=== PATIENT | female | born 1955 | race Caucasian/White ===

== ENCOUNTER 2017-08-20 11:04 | Emergency (ER) | payer OTHER, SELFPAY ==
[2017-08-20 11:06] VITALS: BP 154/96; PULSE 61; RESP 14; TEMP 36.7; O2SAT 100; BMI 26.9
--- NOTE | 2017-08-20 11:15 | RAD_ITS ---
STUDY: X-RAY - LEFT ANKLE REASON FOR EXAM: Pain status post fall. TECHNIQUE: 3 view(s) of the ankle. COMPARISON: None. FINDINGS: Normal visualized distal tibia and fibula. Normal medial and lateral malleoli. Normal tibiotalar articulation and ankle mortise. Normal visualized talus and calcaneus. There is an avulsion fracture of the dorsal aspect of the navicular. The visualized subtalar, talonavicular, calcaneocuboid and tarsal articulations are normal. There is soft tissue swelling at the lateral and anterior aspects of the ankle. RAD/Ankle min 3 Views IMPRESSION: Avulsion fracture of the dorsal navicular. Soft tissue swelling. Electronically Signed: Sergio Currie MD at 11:59 EDT Tel , Service support ,
--- NOTE | 2017-08-20 11:17 | ED.DCSUM_ITS ---
- ER Visit Summary Date of Service: 08/20/17 Chief Complaint: Left ankle pain History of Present Illness: The patient is a 61 F who tripped over a pulse ox cord here at the hospital and twisted her left ankle. She denies any other injuries. She stood on her ankle but was unable to walk with it. Denies any previous ankle surgeries. She took 4 ibuprofen right after this happened. Physical Examination: Left ankle exam reveals tenderness palpation of the anterior, lateral malleoli. No swelling. She does have painful range of motion. Sensation and pulses are intact Test Results: X-rays reveal knee avulsion fracture of the left navicular bone Emergency Department Course and Treatment: I discussed the case with Dr. Crisostomo. He recommended a walking boot and weightbearing as tolerated. Patient states she will use Motrin at home for pain. She will follow-up with [email or web address] Treatment Plan: [] Disposition: Discharge Impression: Left navicular avulsion fracture This note was generated with [employer] dictation software. It may contain incorrect words, spelling, and punctuation that were not noted in review of the chart prior to signing ED Disposition - Plan for ED Patient: Chief Complaint: Lower Extremity Injury Referrals: Nicholas Irvin MD [Primary Care Provider] -
--- NOTE | 2017-08-20 12:24 | ED.DEP ---
ED Disposition - Plan for ED Patient: Disposition: Home or Assisted Living Chief Complaint: Lower Extremity Injury Instructions: ED Fx Foot Referrals: Nicholas Irvin MD [Primary Care Provider] -
[2017-08-20 12:28] VITALS: BP 163/80; PULSE 60; RESP 14; O2SAT 99
== END 2017-08-20 12:59 | disposition home or self-care (01) ==
PROVIDERS: Emergency Provider Emergency Medicine; Family Provider Family Medicine; PCP Family Medicine
DX: S92.252A Displaced fracture of navicular [scaphoid] of left foot, initial encounter for closed fracture (principal); W22.8XXA Striking against or struck by other objects, initial encounter; Y93.9 Activity, unspecified; Y92.239 Unspecified place in hospital as the place of occurrence of the external cause; Z85.850 Personal history of malignant neoplasm of thyroid; Z83.1 Family history of other infectious and parasitic diseases
CPT/HCPCS: 73610; 99284

== ENCOUNTER → 2017-08-26 08:15 | Outpatient (CLI) | payer OTHER, SELFPAY ==
--- NOTE | 2017-08-26 08:16 | RAD_ITS ---
STUDY: X-RAY - LEFT FOOT CLINICAL: Female, 61 years old. Painful foot over tarsals TECHNIQUE: 3 view(s) of the foot. COMPARISON: Left ankle 08/20/2017 FINDINGS: Normal talus, calcaneus, and tarsal bones. There is a dorsal avulsion injury involving the navicular bone with adjacent soft tissue swelling is seen on the ankle study. There is a nondisplaced fracture of the lateral malleolus with adjacent soft tissue swelling. Normal visualized subtalar, talonavicular, calcaneocuboid, tarsal and tarsometatarsal articulations. Normal metatarsi. Normal metatarsophalangeal joint of the great toe. Normal tibial and fibular sesamoid bones. Normal interphalangeal joint of the great toe. Normal phalanges of the great toe. Normal second through fifth metatarsophalangeal joints. Normal interphalangeal joints and phalanges of the lesser toes. RAD/Foot min 3 Views IMPRESSION: Fracture of the lateral malleolus apex is nondisplaced with adjacent soft tissue swelling possible representing reinjury. Stable avulsion injury involving the navicular bone with adjacent soft tissue swelling. No other displaced fracture or dislocation detected. Electronically Signed: Mary Basilio MD at 3:11 EDT , Service support ,
== END ==
PROVIDERS: Family Provider Family Medicine; PCP Family Medicine; Visit Provider Orthopaedic Surgery
DX: S82.65XA Nondisplaced fracture of lateral malleolus of left fibula, initial encounter for closed fracture (principal); S92.255A Nondisplaced fracture of navicular [scaphoid] of left foot, initial encounter for closed fracture; S90.32XA Contusion of left foot, initial encounter; X58.XXXA Exposure to other specified factors, initial encounter
CPT/HCPCS: 73630

== ENCOUNTER → 2017-09-22 08:14 | Outpatient (CLI) | payer OTHER, SELFPAY ==
--- NOTE | 2017-09-22 08:19 | RAD_ITS ---
STUDY: X-RAY - LEFT FOOT CLINICAL: Female, 61 years old. Foot pain. TECHNIQUE: 2 view(s) of the foot. COMPARISON: None. FINDINGS: Normal talus, calcaneus, and tarsal bones. Normal visualized subtalar, talonavicular, calcaneocuboid, tarsal and tarsometatarsal articulations. Normal metatarsi. Normal metatarsophalangeal joint of the great toe. Normal tibial and fibular sesamoid bones. Normal interphalangeal joint of the great toe. Normal phalanges of the great toe. Normal second through fifth metatarsophalangeal joints. Normal interphalangeal joints and phalanges of the lesser toes. The soft tissue structures are unremarkable. RAD/Foot 2 Views IMPRESSION: Normal x-ray examination of the foot. Electronically Signed: Dash Rodriguez MD at 9:21 EDT Tel [phone], Service support ,
== END ==
PROVIDERS: Family Provider Family Medicine; PCP Family Medicine; Visit Provider Orthopaedic Surgery
DX: M79.672 Pain in left foot (principal)
CPT/HCPCS: 73620

== ENCOUNTER → 2017-11-24 08:04 | Outpatient (CLI) | payer OTHER, SELFPAY ==
[2017-11-24 09:56] LABS: T4 Free Direct 1.24 ng/dL (0.76-1.46)
[2017-11-25 09:02] LABS: Vitamin D,25 Hydroxy 32.4 ng/mL (29.95-100.01)
[2017-11-26 09:54] LABS: Anti-Thyroglobulin AB < 1.0 IU/mL (0.0-0.9); Thyroglobulin, Serum Qt. 3.2 ng/mL (1.5-38.5)
== END ==
PROVIDERS: Family Provider Family Medicine; PCP Family Medicine
DX: Z00.00 Encounter for general adult medical examination without abnormal findings (principal); C73 Malignant neoplasm of thyroid gland; E55.9 Vitamin D deficiency, unspecified
CPT/HCPCS: 36415; 82306; 84432; 84436; 84439; 86800

== ENCOUNTER → 2017-12-16 08:28 | Outpatient (CLI) | payer OTHER, SELFPAY | PROVIDERS: Family Provider Family Medicine; PCP Family Medicine; Visit Provider Family Medicine | DX: E89.0 Postprocedural hypothyroidism (principal); E55.9 Vitamin D deficiency, unspecified | CPT/HCPCS: 77080 ==

== ENCOUNTER → 2017-12-16 09:09 | Outpatient (CLI) | payer OTHER, SELFPAY ==
[2017-12-16 10:48] LABS: Thyroid Stim Hormone (TSH) 0.49 uIU/mL (0.358-3.74)
== END ==
PROVIDERS: Family Provider Family Medicine; PCP Family Medicine; Visit Provider Family Medicine
DX: E89.0 Postprocedural hypothyroidism (principal)
CPT/HCPCS: 36415; 84443

== ENCOUNTER → 2018-02-03 07:25 | Outpatient (CLI) | payer OTHER, SELFPAY ==
[2018-02-03 08:27] LABS: Absolute Lymphocyte Count 1.15 X10^3/ul (0.83-4.51); Absolute Neutrophil Count 3.2 X10^3/uL (2.0-7.7); Basophil# 0.03 X10^3/uL; Basophil% 0.6 % (0-1); Eosinophil# 0.28 X10^3/uL; Eosinophils% 5.5 % (0-5); Hematocrit 39.3 % (37-47); Hemoglobin 13.1 g/dl (12.0-15.0); Lymphocyte # 1.15 X10^3/ul (4.0); Lymphocyte % 22.5 % (19-41); Mean Corp Hgb Conc 33.3 g/gl (32-36); Mean Corpuscular Volume 89.9 fL (81-99); Mean Platelet Vol. 10.5 fl (6.2-12.0); Monocyte# 0.39 X10^3/uL; Monocyte% 7.6 % (0-10); Neutrophil # 3.24 X10^3/uL (2.7-7.7); Neutrophil % 63.6 % (47-70); Platelet Count 219 K/mm3 (150-450); RBC Distribution Width CV 13.6 % (11.6-14.6); RBC Distribution Width SD 44.6 fl (35.1-43.9); Red Blood Count 4.37 M/mm3 (4.2-5.4); White Blood Count 5.1 K/mm3 (4.4-11.0)
[2018-02-03 08:29] LABS: POSITIVE COUNT NO; POSITIVE DIFFERENTIAL NO; POSITIVE MORPHOLOGY NO
[2018-02-03 08:58] LABS: Vitamin D,25 Hydroxy 22.4 ng/mL (29.95-100.01)
[2018-02-03 09:01] LABS: ALB/GLOB Ratio 1.1 RATIO (0.9-2.4); AST(SGOT) 14 U/L (15-37); Alanine Aminotransfer ALT/SGPT 25 U/L (13-56); Albumin, Serum 3.7 g/dL (3.2-5.0); Alkaline Phosphatase 101 U/L (45-117); Anion Gap 9 (5-15); BUN 17 mg/dL (7-18); BUN/Creat Ratio 18.7 RATIO (10-20); Calcium,Total 8.6 mg/dL (8.5-10.1); Chloride 106 mmol/L (98-107); Cholesterol 191 mg/dL (200); Creatinine, Serum 0.91 mg/dL (0.55-1.02); EST Glomerular Filtration Rate 67 mL/min (>60); Est Glom Filt Rate - Afr Amer 81 mL/min (>60); Globulin 3.3 g/dL (2.2-4.2); Glucose 87 mg/dL (74-106); High Density Lipoprotein 70 mg/dL; Potassium 4.2 mmol/L (3.5-5.1); Sodium Level 143 mmol/L (136-145); T3 Uptake 34 % (30-39); T4 Free Direct 1.22 ng/dL (0.76-1.46); T4 Total, Thyroxin 11.3 ug/dL (4.8-13.9); T7 / Free Thyroxin Index 3.8 (1.4-4.5); Thyroid Stim Hormone (TSH) 0.42 uIU/mL (0.358-3.74); Triglycerides 65 mg/dL; Very Low Density Lipoprotein 13 mg/dL (5-40)
[2018-02-05 12:42] LABS: Anti-Thyroglobulin AB < 1.0 IU/mL (0.0-0.9); Thyroglobulin, Serum Qt. 4.3 ng/mL (1.5-38.5)
== END ==
PROVIDERS: Family Provider Family Medicine; PCP Family Medicine; Referring Provider Family Medicine; Visit Provider Family Medicine
DX: Z00.00 Encounter for general adult medical examination without abnormal findings (principal); C73 Malignant neoplasm of thyroid gland; R61 Generalized hyperhidrosis
CPT/HCPCS: 36415; 80053; 80061; 82306; 82533; 84432; 84436; 84439; 84443; 84479; 85025; 86800

== ENCOUNTER → 2018-03-29 11:13 | Outpatient (CLI) | payer OTHER, SELFPAY ==
[2017-11-26 17:02] VITALS: BMI 26.9
[2018-04-05 15:54] LABS: HPV Reflexed? NOT INDICATED
== END ==
PROVIDERS: Visit Provider Obstetrics & Gynecology
DX: Z12.4 Encounter for screening for malignant neoplasm of cervix (principal)
CPT/HCPCS: 88175; G0145

== ENCOUNTER 2018-05-06 15:45 | Outpatient (RCR) | payer OTHER, SELFPAY ==
--- NOTE | 2017-07-29 12:17 | MASS.EVAL ---
Massage Therapy Evaluation: Initial Evaluation Date: 07/29/2017 SUBJECTIVE: Nia is a 61 year old female who was referred to the [facility] facility for a massotherapy evaluation by Dr. Nicholas Irvin with the diagnosis of low back pain. Nia presents today with the symptoms of low back pain and muscle tension in her low back and hips. She also complains of tension and pain in her neck shoulders and middle back. She reports having a medical history of a right total knee replacement and occasional radiating pain in her legs. She reports having minimal limitations during her daily activities currently. OBJECTIVE: Upon observation Nia has poor posture with her head forward and shoulders forward from the neutral position in sitting and standing. After examination and palpation I found Nia to have very high muscle tension with tenderness and myofascial restrictions in her sub occipitals, trapezius, rhomboids, scalenes and thoracic paraspinals. Her hips and lumbar region were also tight with tender points bilaterally. The first treatment consisted of a one hour massage to her full body with myofascial release, muscle stripping, trigger point compression techniques, and cervical manual traction. ASSESSMENT: I feel that Nia is a good candidate for massotherapy at this time. She had a favorable response to the first treatment with reduction in her muscle aches, pain and tension. She also had improvement in her lumbar and hip flexibility. PLAN: The plan of care was reviewed with the patient. The patient is to be seen on as needed basis for a total of ten sessions with the recommendation of once every four weeks for a one hour treatment.
--- NOTE | 2017-10-14 09:30 | DT_ITS ---
This patient was seen during an EMR downtime October 12, 2017 - October 19, 2017. This patient may have a combination of paper and electronic documentation or all paper documentation. All documentation is viewable within the e-chart portion of [employer] for each patient visit.
--- NOTE | 2018-05-06 16:59 | MASS.DISCH ---
Massage Therapy Discharge Summary: Discharge Date: 05/06/2018 Nia was seen for a massotherapy evaluation on 07/29/2017 with the diagnosis of low back pain. She was treated with ten sessions of massage therapy consisting of deep pressure soft tissue techniques, myofascial release and trigger point compression to her cervical, thoracic, lower back, upper extremities and hips. Nia responded well to the therapy by reporting decreased tension and pain throughout her head, neck, shoulders, lower back and hips. Her goals for therapy were met throughout the treatment sessions. At this time this patient is being discharged from our care at [facility] facility.
== END 2018-05-06 19:00 | disposition home or self-care (01) ==
LOC: MASS 15:45
PROVIDERS: Family Provider Family Medicine; PCP Family Medicine; Visit Provider Family Medicine
DX: M51.36 Other intervertebral disc degeneration, lumbar region (principal)
CPT/HCPCS: 97124

== ENCOUNTER → 2018-05-21 13:02 | Outpatient (CLI) | payer OTHER, SELFPAY ==
[2018-04-20 11:30] VITALS: BMI 26.9
== END ==
PROVIDERS: Family Provider Family Medicine; PCP Family Medicine; Referring Provider Family Medicine; Visit Provider Family Medicine
DX: E55.9 Vitamin D deficiency, unspecified (principal)
CPT/HCPCS: 36415; 82306

== ENCOUNTER → 2018-06-02 12:12 | Outpatient (CLI) | payer OTHER, SELFPAY ==
[2018-04-20 11:30] VITALS: BMI 26.9
--- NOTE | 2018-06-02 12:18 | BI_ITS ---
MAMMOGRAPHY - BILATERAL SCREENING REASON FOR EXAM: Female, 62 years old. Routine annual screening examination. PERTINENT HISTORY: Non-contributory. TECHNIQUE: Digital bilateral breast hamida (3D mammographic acquisition) in the CC and MLO projections. 2-D mediolateral oblique (MLO) and craniocaudad (CC) views of both breasts were obtained. CAD: Full Field Digital Mammography with Computer Added Detection was performed. COMPARISON: Comparison is made with prior study dated April 22, 2017 and March 11, 2016. FINDINGS: Breast Composition: There are scattered areas of fibroglandular density. There are no dominant masses or suspicious calcifications. No other significant abnormalities are identified. There has been no significant change since the prior study. BI/SCREENING MAMM (CAD), BILAT IMPRESSION: Stable bilateral screening mammogram. Yearly follow-up mammogram recommended. (A) ASSESSMENT CATEGORY: BIRADS Category 1: Negative. A letter regarding these results will be sent to the patient by the facility within 30 days. Approximately 10% of breast cancers are not detected by mammography. A normal mammogram should not delay biopsy of a clinically suspicious abnormality. [id number] Electronically Signed: Dash Rodriguez MD at 13:15 EST , Service support ,
--- OUTSIDE RECORDS SUMMARY | 2018-08-04 10:30 | XMS RPT_ITS ---
:1955 Author Organization [place] Support Name Relationship Address Phone FRITZ JADE Unavailable [address] + [place] [address] CHAO MEZA Unavailable [address] + [place] [address] WC Unavailable [address] + [place] [address] FRITZ JADE Unavailable [address] + [place] [address] CHAO MEZA Unavailable [address] + [place] [address] WC Unavailable [address] + [place] [address] FRITZ JADE Unavailable [address] + [place] [address] CHAO MEZA Unavailable [address] + [place] [address] [facility] Unavailable [address] + [place] [address] YASMANY FRITZ Unavailable [address] + [place] [address] CHAO MEZA Unavailable [address] + [place] [address] [facility] Unavailable [address] + [place] [address] ALONMELODY FRITZ Unavailable [address] + [place] [address] CHAO MEZA Unavailable [address] + [place] [address] [facility] Unavailable [address] + [place] [address] FRITZ JADE Unavailable [address] + [place] [address] CHAO MEZA Unavailable Unavailable + [place] [address] [facility] Unavailable [address] + [place] [address] FRITZ JADE Unavailable [address] + [place] [address] CHAO MEZA Unavailable Unavailable + [place] [address] [facility] Unavailable [address] + [place] [address] FRITZ JADE Unavailable [address] + [place] [address] CHAO MEZA Unavailable Unavailable + [place] [address] [facility] Unavailable [address] + [place] [address] FRITZ JADE Unavailable [address] + [place] [address] CHAO MEZA Unavailable [address] + [place] [address] [facility] Unavailable [address] + [place] [address] FRITZ JADE Unavailable [address] + [place] [address] CHAO MEZA Unavailable [address] + [place] [address] [facility] Unavailable [address] + [place] [address] FRITZ JADE Unavailable [address] + [place] [address] CHAO MEZA Unavailable Unavailable + [place] [address] [facility] Unavailable [address] + [place] [address] ALYTeodoro FRITZ Unavailable [address] + [place] [address] CHAO MEZA Unavailable . + [place] [address] [facility] Unavailable [address] + [place] [address] FRITZ JADE Unavailable [address] + [place] [address] CHAO MEZA Unavailable . + [place] [address] [facility] Unavailable [address] + [place] [address] FRITZ JADE Unavailable [address] + [place] [address] CHAO MEZA Unavailable . + [place] [address] [facility] Unavailable [address] + [place] [address] FRITZ JADE Unavailable [address] + [place] [address] SUSANA, CHAO Unavailable . + [place] [address] [facility] Unavailable [address] + [place] [address] FRITZ JADE Unavailable [address] + [place] [address] CHAO MEZA Unavailable . + [place] [address] [facility] Unavailable [address] + [place] [address] ALYIFRITZ Unavailable [address] + [place] [address] CHAO MEZA Unavailable . + [place] [address] [facility] Unavailable [address] + [place] [address] KAPEARLI, FRITZ Unavailable [address] + [place] [address] SUSANA CHAO Unavailable . + [place] [address] [facility] Unavailable [address] + [place] [address] FRITZ JADE Unavailable [address] + [place] [address] CHAO MEZA Unavailable . + [place] [address] [facility] Unavailable [address] + [place] [address] Care Team Providers Name Role Phone JAIRON IRVIN Attending Unavailable JAIRON IRVIN Referring Unavailable BRANDEE, JAIRON Zhou Attending Unavailable Magdiel Cheek Attending Unavailable Brandee, Jairon Referring Unavailable Goldfield, Jairon Attending Unavailable Brandee, Jairon Primary Care Unavailable Goldfield, Jairon Referring Unavailable BenekoCarlie talbot Attending Unavailable Carlie Silvestre Referring Unavailable Brandee, Jairon Primary Care Unavailable Brandee, Jairon Attending Unavailable Goldfield, Jairon Primary Care Unavailable Goldfield, Jairon Referring Unavailable DossiMelvi villegas D.C. Attending Unavailable Goldfield, Jairon Referring Unavailable Brandee, Jairon Primary Care Unavailable DosMelvi castaneda D.C. Attending Unavailable Goldfield, Jairon Referring Unavailable Goldfield, Jairon Primary Care Unavailable Melvi Gill D.C. Attending Unavailable Brandee, Jairon Referring Unavailable Brandee, Jairon Primary Care Unavailable Todd Washington Attending Unavailable Knapjayashree, Davidson Attending Unavailable Goldfield, Jairon Primary Care Unavailable Knapjayashree, Davidson Attending Unavailable Knapjayashree, Davidson Referring Unavailable Goldfield, Jairon Primary Care Unavailable Knapjayashree, Davidson Attending Unavailable Knapic, Davidson Referring Unavailable Goldfield, Jairon Primary Care Unavailable Goldfield, Jairon Attending Unavailable Brandee, Jairon Primary Care Unavailable Brandee, Jairon Referring Unavailable ASSESSMENT, HEALTH RISK Attending Unavailable ASSESSMENT, HEALTH RISK Referring Unavailable Goldfield, Jairon Primary Care Unavailable Chun Ochoa Attending Unavailable Brandee, Jairon Referring Unavailable Goldfield, Jairon Primary Care Unavailable Goldfield, Jairon Attending Unavailable Goldfield, Jairon Primary Care Unavailable Goldfield, Jairon Referring Unavailable Goldfield, Jairon Attending Unavailable Goldfield, Jairon Primary Care Unavailable Brandee, Jairon Attending Unavailable Brandee, Jairon Primary Care Unavailable Goldfield, Jairon Referring Unavailable BenekoCarlie talbot Attending Unavailable Goldfield, Jairon Attending Unavailable Goldfield, Jairon Referring Unavailable Goldfield, Jairon Primary Care Unavailable PROBLEMS PROBLEMS DATE TYPE CONDITION / CODE ATTENDING STATUS SOURCE 05/07/2018 Unknown M51.36 - Other Jairon Irvin Active [place] intervertebral disc Community degeneration, lumbar Hospital region / Repository M51.36(ICD-10) 04/20/2018 Unknown L25.9 - Unspecified Magdiel Cheek Active [place] contact dermatitis, Community unspecified cause / Hospital L25.9(ICD-10) Repository 03/29/2018 Unknown Z12.4 - Encounter Carlie Silvestre Active [place] for screening for Community malignant neoplasm [facility] cervix / Repository Z12.4(ICD-10) 12/16/2017 Unknown E89.0 - Jairon Irvin Active [place] Postprocedural Community hypothyroidism / Hospital E89.0(ICD-10) Repository 12/16/2017 Unknown E55.9 - Vitamin D Jairon Irvin Active [place] deficiency, Community unspecified / Hospital E55.9(ICD-10) Repository 12/02/2017 Active Unknown / JAIRON IRVIN Active [place] UNK(Unknown) [facility] [place] Repository 09/22/2017 Unknown M79.672 - Pain in Knapic, Davidson Active [place] left foot / Community M79.672(ICD-10) Hospital Repository 08/04/2017 Unknown M99.05 - Segmental Dossie, Melvi Active [place] and somatic D.C. Community dysfunction of Hospital pelvic region / Repository M99.05(ICD-10) 08/04/2017 Unknown M99.03 - Segmental Dossie, Melvi Active [place] and somatic D.C. [facility] dysfunction [facility] lumbar region / Repository M99.03(ICD-10) PROCEDURES PROCEDURES No Procedure Records FoundRESULTS RESULTS MASSAGE THERAPY Observed: 06/02/2018 Status: F Source: [place] EVALUATION 12:36 PM [facility] REPOSITORY [facility] [address] [place] [address] / REHABILITATION SERVICES INITIAL EVALUATION MR#: [id number] Acct: [id number] Name: NIA JADE Rep #: [id number] : 1955 62 From: Janice Carlson Referring DrAngela: Jairon Irvin MD Status: REG RCR Insurance: [facility] SELF PAY INSURANCE Massage Therapy Evaluation: Initial Evaluation Date: 06/02/2018 SUBJECTIVE: Nia is a 62 year old female who was referred to the [facility] facility for a massotherapy evaluation by Dr. Irvin with the diagnosis of degenerative disc disease. Nia presents today with the symptoms of tension and pain in her neck and shoulders. She also complains of neck and back stiffness with pain intermittently in her low back and bilateral hip tension. Nia reports having a past medical history of cancer in her neck and a total right knee replacement. She complains of increased pain in right knee recently and muscle cramping in bilateral hamstrings. She reports having improved symptoms with continuation of exercise and stretching. OBJECTIVE: Upon observation Nia has slight head forward in sitting and standing postures. After examination and palpation I found Nia to have high muscle tension with tenderness and myofascial restrictions in her sub occipitals, levator scapulae, trapezius, rhomboids, scalenes, and thoracic paraspinals. Her QL s, lumbar paraspinals, glute medius and minimus all were very tight with fascial restrictions, tender points and trigger points. Her right quads and IT band all were very tight as well. The first treatment consisted of a one hour massage to her full body with myofascial release, muscle stripping, trigger point compression techniques, and cervical manual traction. ASSESSMENT: I feel that Nia is a good candidate for massotherapy at this time. She had a favorable response to the first treatment with reduction in her muscle aches, pain and tension. She also had improvement in her cervical flexibility and low back flexibility. PLAN: The plan of care was reviewed with the patient. The patient is to be seen on an as needed basis for a total of ten sessions with the recommendation of once every month for a one hour treatment. <Electronically signed by Janice Carlson > 06/02/18 1236 CC: Jairon Irvin MD KM Signed SCREENING MAMM (CAD), Observed: 06/02/2018 Status: F Source: [place] YONATANRANDY 12:18 PM [facility] REPOSITORY [facility] Imaging Services [address] [place] [address] SCREENING MAMM (CAD), BILAT MR#: [id number] Acct: [id number] Name: NIA JADE Rep #: [id number] : 1955 F 62 From: Dash Rodriguez MD PCP: Jairon Irvin MD Status: REG CLI Study: SCREENING MAMM (CAD), BILAT Date of Exam: 06/02/18 Exam# [id number] Ordering Dr: Carlie Silvestre MD MAMMOGRAPHY - BILATERAL SCREENING REASON FOR EXAM: Female, 62 years old. Routine annual screening examination. PERTINENT HISTORY: Non-contributory. TECHNIQUE: Digital bilateral breast hamida (3D mammographic acquisition) in the CC and MLO projections. 2-D mediolateral oblique (MLO) and craniocaudad (CC) views of both breasts were obtained. CAD: Full Field Digital Mammography with Computer Added Detection was performed. COMPARISON: Comparison is made with prior study dated April 22, 2017 and March 11, 2016. FINDINGS: Breast Composition: There are scattered areas of fibroglandular density. There are no dominant masses or suspicious calcifications. No other significant abnormalities are identified. There has been no significant change since the prior study. BI/SCREENING MAMM (CAD), BILAT IMPRESSION: Stable bilateral screening mammogram. Yearly follow-up mammogram recommended. (A) ASSESSMENT CATEGORY: BIRADS Category 1: Negative. A letter regarding these results will be sent to the patient by the facility within 30 days. Approximately 10% of breast cancers are not detected by mammography. A normal mammogram should not delay biopsy of a clinically suspicious abnormality. [id number] Electronically Signed: Dash Rodriguez MD at 13:15 EST , Service support , CC: Carlie Silvestre MD; Jairon Irvin MD Foundation Relations Director: Signed VITAMIN D,25 HYDROXY Collected: 05/21/2018 Status: F Source: [place] 1:09 PM [facility] REPOSITORY TYPE CODE TESTS RESULT OUT OF RANGE REFERENCE UNITS LAB L506.1000 29.95-100.01 ng/mL Normal Vitamin D 61.0 25-OH Result Comment: Vitamin D 25(OH) Status Range Deficiency <20 ng/mL (50nmol/L) Insuffciency 20 - 30 ng/mL (50 - 75 nmol/L) Sufficiency 30 - 100 ng/mL (75 - 250 nmol/L) Toxicity >100 ng/mL (>250 nmol/L) Performed By: #### L506.1000 #### [facility] [address] [place], [address] DISCHARGE SUMMARY Observed: 05/06/2018 Status: F Source: [place] 5:00 PM [facility] REPOSITORY [facility] Medical Records Department [address] [place] [address] Discharge Summary 05/06/18 1659 MR#: [id number] Acct: [id number] Name: NIA JADE Rep #: [id number] : 1955 62 From: Janice Carlson PCP: Jairon Irvin MD Status: REG RCR Y Location: [facility] Massage Therapy Discharge Summary: Discharge Date: 05/06/2018 Nia was seen for a massotherapy evaluation on 07/29/2017 with the diagnosis of low back pain. She was treated with ten sessions of massage therapy consisting of deep pressure soft tissue techniques, myofascial release and trigger point compression to her cervical, thoracic, lower back, upper extremities and hips. Nia responded well to the therapy by reporting decreased tension and pain throughout her head, neck, shoulders, lower back and hips. Her goals for therapy were met throughout the treatment sessions. At this time this patient is being discharged from our care at [facility] facility. 05/06/18 5080 <Electronically signed by Janice Carlson > Date Janice Carlson Cosigner Signature (if applicable): Date CC: Janice Carlson; Jairon Irvin MD Signed URGENT CARE VISIT Observed: 04/23/2018 Status: F Source: [place] REPORT 6:00 PM [facility] REPOSITORY [facility] [address] [place] [address] [address] [place] [address] OFFICE VISIT Date of Service: 04/20/18 MR#: [id number] Acct: [id number] Name: NIA JADE Rep #: [id number] : 1955 Provider: Magdiel LIN Age/Sex: 62/F Location: [facility] Status: Signed Intake Vital Signs04/20/18 Height 5 ft 4 in 04/20/18 Weight: 157 lb 04/20/18 Body Mass Index (BMI) 26.9 04/20/18 Blood Pressure 116/78 Intake Visit Reasons: FACE SWOLLEN/ALLERGIC REACTION Chief Complaint: eye swelling Accompanied by: self Is patient in pain?: No Allergies morphine [From Duramorph (PF)] Adverse Reaction (Verified 04/20/18 11:31) Itching Medications Levothyroxine [Synthroid] 112 mcg PO QHS 05/19/16 [History Confirmed 11/26/17] calcium carbonate-vitamin D3 600 mg (1,500 mg)-400 unit capsule cap PO cap 04/20/18 [History Confirmed 04/20/18] cholecalciferol (vitamin D3) 50,000 unit tablet 50,000 unit PO QWEEK 04/20/18 [History Confirmed 04/20/18] prednisone 10 mg tablet 10 mg PO QDAY 12 Days #30 tab 04/20/18 [Rx Confirmed 04/20/18] PFS Medical History Hepatitis (Acute) History of thyroid cancer (Acute) RTK 2016 (Acute) history of modified rad neck 2011 (Acute) Chronic knee pain (Chronic) Surgical History History of D AND C (Acute) History of carpal tunnel surgery (Acute) Family History Other Diabetes Heart disease Hypertension Social History Smoking Status: Never smoker alcohol intake: current alcohol intake frequency: a few times a month HPI HPI Chief Complaint: eye swelling Details: INA JADE, is a 62 F who presents to the office today for complaint of lower eye lid swelling. Patient states she had a similar symptoms like this approximately 3 months ago which resolved with a Medrol Dosepak. She states that she has had the same eye makeup as her last episode and believes that it may have been caused by this makeup. She denies any vision changes or difficulties. No fever, chills, sweats. No nausea, vomiting, diarrhea. No other associated symptoms or alleviating/aggravating factors. ROS Const Constitutional: No chills, fever(s), fatigue or abnormal sleep pattern Eyes Eyes: Positive for other (Lower eyelid swelling); no change in vision, discharge or dry eyes Resp Respiratory: No shortness of breath or chest congestion Cardio Cardiology: No chest pain at rest, chest pain with exertion or shortness of breath Skin Skin: No wounds or lesions Neuro Neurology: No behavioral changes or confusion Psych Psychiatric: No behavioral changes, No confusion, No abnormal sleep pattern Endo Endocrine: No fatigue Exam Const General: cooperative, healthy appearing [facility] Head: normocephalic, atraumatic Ears: hearing grossly normal bilaterally Nose: external nose normal Face and sinus: face symmetric, normal facial exam Mouth: oral mucosae normal Throat: posterior oropharynx normal Eyes General: appearance normal, both eyes and all related structures Visual Kenney: normal visual kenney by confrontation Eyelids: eyelid abnormality left lower eyelid swelling and right lower eyelid swelling Conjunctivae: conjunctivae normal Pupils: PERRL EOM: EOM intact bilaterally Resp Effort AND Inspection: normal respiratory effort Auscultation: Bilateral: Clear to Auscultation Cardio Palpation: normal PMI Rate: regular rate Rhythm: regular rhythm Skin General: no rashes or lesions noted (See eye exam above.) Neuro General: alert, CN's II-XI intact bilaterally Psych Appearance: grossly normal Mental Status: mental status grossly normal Assessment AND Plan Problems 1. Allergic reaction, initial encounter T78.40XA Status Acute Plan Prednisone as prescribed today. Patient advised use ibuprofen and Tylenol as needed for pain. Advised to follow-up with her PCP or customer support professional in 3- 5 days if no better sooner if worse. Patient advised of potential red flags and when appropriate to report to the ED. Patient verbalized understanding and agreement with all the above. Medications New: prednisone Take 4 tabs once daily days 1-3 3 ta10 mg PO QDAY 12 days 30 tabs 0RF L25.9 bs once daily days 4-6 2 tabs once daily days 7-9 and 1 tab once daily days 10-12. 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 of containers..01 ThinPrep Vial TYPE CODE TESTS RESULT OUT OF RANGE REFERENCE UNITS LAB L7400.0800 . Normal DIAGN Comment Result Comment: NEGATIVE FOR INTRAEPITHELIAL LESION AND MALIGNANCY. CELLULAR CHANGES ASSOCIATED WITH ATROPHY ARE PRESENT. LAB L7400.0900 . Normal ADEQ Comment Result Comment: Satisfactory for evaluation. Endocervical component may not be distinguished in cases of atrophy. LAB L7400.1400 . Normal PERFORM Comment Result Comment: Meghana Yu, Midlevel Provider (ASCP) LAB L7400.2575 . Normal TEST METHOD Comment Result Comment: This liquid based ThinPrep(R) pap test was screened with the use of an image guided system. LAB L7400.2600 . Normal . COMM LAB L7400.2700 . Normal PAPSMR Comment Result Comment: The Pap smear is a screening test designed to aid in the detection of premalignant and malignant conditions of the uterine cervix. It is not a diagnostic procedure and should not be used as the sole means of detecting cervical cancer. Both false-positive and false-negative reports do occur. LAB L7400.2800 . Normal HPV RFLX Comment Result Comment: The HPV DNA reflex criteria were not met with this specimen result therefore, no HPV testing was performed. Performed at: [facility] [address] [place] [id number] Assistant Professor Sculpture: Alee Smith MD, Phone: [phone] Performed By: #### L7400.0350 #### [facility] (refer to report for specific site) refer to report for address and phone number CBC W/DIFF, AUTOMATED Collected: 02/03/2018 Status: F Source: [place] 7:30 AM [facility] REPOSITORY TYPE CODE TESTS RESULT OUT OF RANGE REFERENCE UNITS LAB L100.1000 4.4-11.0 K/mm3 Normal WBC 5.1 LAB L100.1200 4.2-5.4 M/mm3 Normal RBC 4.37 LAB L100.1300 12.0-15.0 g/dl Normal HGB 13.1 LAB L100.1400 37-47 % Normal HCT 39.3 LAB L100.1500 81-99 fL Normal MCV 89.9 LAB L100.1600 27.0-32.0 pg Normal MCH 30.0 LAB L100.1700 32-36 g/gl Normal MCHC 33.3 LAB L100.1810 11.6-14.6 % Normal RDW CV 13.6 LAB L100.1820 35.1-43.9 fl High RDW SD 44.6 LAB L100.1900 150-450 K/mm3 Normal PLT 219 LAB L100.2000 6.2-12.0 fl Normal MPV 10.5 LAB L100.2100 47-70 % Normal NEUT% 63.6 LAB L100.2200 19-41 % Normal LY% 22.5 LAB L100.2300 0-10 % Normal MONO% 7.6 LAB L100.2400 0-5 % High EO% 5.5 LAB L100.2500 0-1 % Normal BASO% 0.6 LAB L100.2550 0.0-0.9 % Normal IM GRAN % 0.200 Result Comment: IG% - Immature Granulocytes (promyelocytes, myelocytes and metamyelocytes) > 1% indicates that a LEFT SHIFT is Present. LAB L100.2620 2.0-7.7 X10 3/uL Normal Absolute Neut 3.2 LAB L100.2720 0.83-4.51 X10 3/ul Normal Absolute Lymph 1.15 Performed By: #### L100.0100 #### [facility] [address] [place], [address] VITAMIN D,25 HYDROXY Collected: 02/03/2018 Status: F Source: [place] 7:30 AM [facility] REPOSITORY Order Comment: BASELINE OR POST MEDICATION STIMULATION?: BASELINE TYPE CODE TESTS RESULT OUT OF REFERENCE UNITS RANGE LAB L506.1000 29.95-100.01 ng/mL Low Vitamin D 22.4 25-OH Result Comment: Vitamin D 25(OH) Status Range Deficiency <20 ng/mL (50nmol/L) Insuffciency 20 - 30 ng/mL (50 - 75 nmol/L) Sufficiency 30 - 100 ng/mL (75 - 250 nmol/L) Toxicity >100 ng/mL (>250 nmol/L) Performed By: #### L506.1000, L509.6000 #### [facility] [address] [place], [address] CORTISOL SERUM Collected: 02/03/2018 Status: F Source: [place] 7:30 AM [facility] REPOSITORY Order Comment: BASELINE OR POST MEDICATION STIMULATION?: BASELINE TYPE CODE TESTS RESULT OUT OF RANGE REFERENCE UNITS LAB L509.6000 3.09-22.40 ug/dL Normal CORTISOL 11.10 Result Comment: Adult (AM) 4.30 - 22.40 ug/dL Adult (PM) 3.09 - 16.66 ug/dL Performed By: #### L506.1000, L509.6000 #### [facility] [address] [place], [address] COMPREHENSIVE METABOLIC Collected: 02/03/2018 Status: F [facility] 7:30 AM [facility] REPOSITORY Order Comment: Has Patient had X-rays with Contrast this admission? N Is Patient on Heparin? N TYPE CODE TESTS RESULT OUT OF RANGE REFERENCE UNITS LAB L501.0100 74-106 mg/dL Normal GLU 87 Result Comment: Please note revised GLUCOSE reference range effective 2017. LAB L501.1000 7-18 mg/dL Normal BUN 17 LAB L501.1100 0.55-1.02 mg/dL Normal CREAT,SERUM 0.91 Result Comment: The validity of the calculated GFR AND GFRAA in patients over 70 years has not been determined. Clinical correlation is essential. LAB L501.1110 >60 mL/min Normal EST GFR 67 Result Comment: Non- GFR Calc LAB L501.1115 >60 mL/min Normal EST GFR - AA 81 Result Comment: GFR Calc LAB L501.1300 10-20 RATIO Normal BUN/CRE 18.7 LAB L501.1500 6.4-8.2 g/dL T Normal PROT 7.0 LAB L501.1800 3.2-5.0 g/dL Normal ALB 3.7 LAB L501.1950 2.2-4.2 g/dL Normal GLOB 3.3 LAB L501.2000 0.9-2.4 RATIO Normal A/G 1.1 LAB L501.2200 8.5-10.1 mg/dL CA Normal 8.6 LAB L501.4100 15-37 U/L Low AST 14 LAB L501.4305 45-117 U/L Normal ALK P 101 LAB L501.4405 13-56 U/L Normal ALT 25 LAB L501.4600 0.20-1.00 mg/dL T Normal BILI 0.60 LAB L501.5300 136-145 mmol/L NA Normal 143 LAB L501.5600 3.5-5.1 mmol/L K Normal 4.2 LAB L501.5900 98-107 mmol/L CL Normal 106 LAB L501.6100 21.0-32.0 mmol/L Normal CO2 28.0 LAB L501.6200 5-15 Normal GAP 9 Performed By: #### L500.4050, L500.4100, L501.9195, L501.9310, L501.9520, L506.0400 #### [facility] [address] [place], [place], [address] LIPID PROFILE Collected: 02/03/2018 Status: F Source: [place] 7:30 AM [facility] REPOSITORY Order Comment: Has Patient had X-rays with Contrast this admission? N Is Patient on Heparin? N TYPE CODE TESTS RESULT OUT OF RANGE REFERENCE UNITS LAB L501.4900 200 mg/dL Normal CHOL 191 Result Comment: <200 mg/dL Desirable 200-240 mg/dL Borderline >240 mg/dL High Risk LAB L501.5000 mg/dL Normal TRIG 65 Result Comment: The drugs N-Acetylcysteine and Metamizole may falsely depress this assay. Serum Triglycerides Reference Interval Normal <150 mg/dL Borderline high 150 - 199 mg/dL High 200 - 499 mg/dL Very High > or = 500 mg/dL LAB L501.6400 mg/dL Normal HDL 70 Result Comment: The drugs N-Acetylcysteine and Metamizole may falsely depress this assay. Reference Range HDL <40 mg/dL Low HDL Cholesterol HDL >or= 60 mg/dL High HDL Cholesterol LAB L501.6500 0-130 mg/dL Normal LDL 108 LAB L501.6600 5-40 mg/dL Normal VLDL 13 Performed By: #### L500.4050, L500.4100, L501.9195, L501.9310, L501.9520, L506.0400 #### [facility] [address] [place], [place], [address] T3 UPTAKE Collected: 02/03/2018 Status: F Source: HEDRICK 7:30 AM [facility] REPOSITORY Order Comment: Has Patient had X-rays with Contrast this admission? N Is Patient on Heparin? N TYPE CODE TESTS RESULT OUT OF RANGE REFERENCE UNITS LAB L501.9210 30-39 % Normal T3 UPTAKE 34 LAB L501.9410 1.4-4.5 Normal T7 (FTI) 3.8 Performed By: #### L500.4050, L500.4100, L501.9195, L501.9310, L501.9520, L506.0400 #### [facility] [address] [place], [place], [id number] T4 TOTAL, THYROXIN Collected: 02/03/2018 Status: F Source: HEDRICK 7:30 AM [facility] REPOSITORY Order Comment: Has Patient had X-rays with Contrast this admission? N Is Patient on Heparin? N TYPE CODE TESTS RESULT OUT OF RANGE REFERENCE UNITS LAB L501.9310 4.8-13.9 ug/dL T4 Normal THYROXIN 11.3 Performed By: #### L500.4050, L500.4100, L501.9195, L501.9310, L501.9520, L506.0400 #### [facility] [address] [place], [place], [id number] THYROID STIM HORMONE Collected: 02/03/2018 Status: F Source: CLARISSA (TSH) 7:30 AM [facility] REPOSITORY Order Comment: Has Patient had X-rays with Contrast this admission? N Is Patient on Heparin? N TYPE CODE TESTS RESULT OUT OF RANGE REFERENCE UNITS LAB L501.9520 0.358-3.74 uIU/mL Normal TSH 0.42 Performed By: #### L500.4050, L500.4100, L501.9195, L501.9310, L501.9520, L506.0400 #### [facility] [address] [place], [place], [id number] T4 FREE DIRECT Collected: 02/03/2018 Status: F Source: CLARISSA 7:30 AM [facility] REPOSITORY Order Comment: Has Patient had X-rays with Contrast this admission? N Is Patient on Heparin? N TYPE CODE TESTS RESULT OUT OF RANGE REFERENCE UNITS LAB L506.0400 0.76-1.46 ng/dL Normal T4 FREE 1.22 DIRECT Performed By: #### L500.4050, L500.4100, L501.9195, L501.9310, L501.9520, L506.0400 #### [facility] [address] [place], [place], [id number] THYROGLOBULIN W/ANTI-TG Collected: 02/03/2018 Status: F Source: CLARISSA AB 7:30 AM [facility] REPOSITORY TYPE CODE TESTS RESULT OUT OF RANGE REFERENCE UNITS LAB L3300.7025 0.0-0.9 IU/mL Normal ANTI-TG < 1.0 AB Result Comment: Thyroglobulin Antibody measured by Alexei Hud[employer] LAB L3400.1030 1.5-38.5 ng/mL Normal THYROGLOB 4.3 Result Comment: According to the National Academy of Clinical Biochemistry, the reference interval for Thyroglobulin (TG) should be related to euthyroid patients and not for patients who underwent thyroidectomy. TG reference intervals for these patients depend on the residual mass of the thyroid tissue left after surgery. Establishing a post-operative baseline is recommended. The assay limit of quantitation is 0.1 ng/mL Thyroglobulin measured by Alexei Nathaly Immunometric Assay Performed at: - [facility] [address] [id number] Assistant Professor Sculpture: Gerber Blackwell PhD, Phone: [phone] Performed By: #### L3300.6820 #### [facility] (refer to report for specific site) refer to report for address and phone number CNPN Observed: 02/03/2018 Status: COMPLETED Source: [place]STER 12:00 AM [facility] REPOSITORY [facility] NIA JADE ([id number]) 1955 F Date Time Provider Department 02/03/18 JAIRON IRVIN [facility] During your visit today, we recorded the following information about you: Jairon Irvin MD 02/03/2018 5:39 PM Signed Labs were all normal. Except vit d was low. Is she currently taking any supplements at home? Chelsie Kapadia MA, MA 02/04/2018 8:38 AM Signed Patient informed of results, verbalized understanding. Taking a multivitamin and there is 600 U Daily. GILBERT West, RN, RN 02/04/2018 8:48 AM Signed Pt calls back to clarify that she is taking 1600 IU daily between her multivitamin and calcium/Vit D supplement. Jairon Irvin MD 02/04/2018 11:29 AM Signed Add vitamin d once a week. Recheck vit d in eight weeks Miranda Ryan Cma 02/04/2018 1:10 PM Addendum Patient notified and verbalized understanding. Script sent to [facility] needs to be sent to [facility]. Miranda Diaz 02/04/2018 2:03 PM Signed Patient called back stating rx has not been sent to [facility] yet. Advised she can have [facility] transfer rx from [facility]. Patient agreeable. Allergies As of Date: 02/03/2018 (No Known Allergies) Date Reviewed: 01/28/2018 Reviewed by: Linda Reeder Ma - Fully Assessed Reason for Visit: Results [95] Primary Visit Diagnosis:Vitamin D deficiency [E55.9] Order(s):VITAMIN D 25 HYDROXY [SQVITD] Order #: [id number] FUTURE ergocalciferol, vitamin D2, (VITAMIN D) 50,000 unit capsuleTake 1 capsule by mouth once each week.Disp: 4 capsuleRfl: 2 Prescriptions as of 02/03/2018 Sig: ERGOCALCIFEROL (VITAMIN D2) 5* Take 1 capsule by mouth once * CALCIUM CARB-VIT D3-MAGNESIUM* Take by mouth. LEVOTHYROXINE 112 MCG TABLET Take 1 tablet by mouth daily * AZELASTINE 0.05 % EYE DROPS 1 drop in the morning in each* COMPOUNDED PRESCRIPTION Massotherapy DX: DDD of spine MULTIVITAMIN ORAL Take by mouth. Problem List As Of Date 02/03/2018 Noted Resolved Papillary thyroid carcinoma (HCC) [C73] INVALID FOR* More... Malignant neoplasm of thyroid gland [C73] INVALID FOR*03/22/2011 Malignant neoplasm of thyroid gland [C73] INVALID FOR* ELISHA (obstructive sleep apnea) [G47.33] INVALID FOR* More... Gallbladder sludge [K82.8] INVALID FOR* Renal calculus, right [N20.0] INVALID FOR* Vitamin D deficiency [E55.9] INVALID FOR* Hepatitis B virus infection [B19.10] INVALID FOR* Post-surgical hypothyroidism [E89.0] INVALID FOR* Prescriptions ordered this encounter Disp Refills Start End ERGOCALCIFEROL (VITAMIN D2) 50,000 U* 4 ca* 2 02/04/2018 Route: ORAL Sig: Take 1 capsule by mouth once each week. Encounter Status:Closed by RICCO RODARTE LPN on 02/04/18 PROGRESS Observed: 01/28/2018 Status: COMPLETED Source: [place] 11:39 AM [facility] REPOSITORY HNO ID: [id number] Author: Artem Zavala (Dariana Cullen Service: (none) Author Type: Physician Practice Support Specialist Type: Progress Notes Filed: 01/28/2018 1:46 PM Note Text: 62 year old female with hxhypothyroidism s/p/ total thyroidectomy for papillary thyroid cancer, ELISHA, vit D deficiency c/o drenching night sweats over last 10 days. No illness sx. Post-menopausal x 10 years. Mild seasonal allergies. Having some problems s/p knee replacement. Intermittent NSAIDS ib 600mg. Scheduled or female checks in March. No hx abnormal pap, cysts. HISTORIES FAMILY HISTORY Problem Relation Age of Onset - Diabetes Mother - Hypertension Mother - Hypertension Father - Diabetes Brother - Diabetes Brother - Coronary Artery Disease Mother - Coronary Artery Disease Father - Coronary Artery Disease Maternal Grandmother - Coronary Artery Disease Paternal Grandmother PAST MEDICAL HISTORY Diagnosis Date - Environmental allergies - Hepatitis, acute type B 1981 hep b from needle stick - Papillary thyroid carcinoma (HCC) - Plantar fasciitis - Stress fracture 08/2017 left foot PAST SURGICAL HISTORY Procedure Laterality Date - COLONOSCOP W/ OR W/O BRSH SPEC 02/26/10 - PAST SURGICAL HISTORY OF 94 tubal ligation - PAST SURGICAL HISTORY OF 09-13 right and left carpal tunnel - PAST SURGICAL HISTORY OF Right 06/09/2016 total knee replcaement - PAST SURGICAL HISTORY OF 12/03/2010 Thyroidectomy with modified right radical neck dissection Social History Marital status: Spouse name: Years of education: Number of children: Social History Main Topics Smoking status: Never Smoker Smokeless tobacco: Never Used Alcohol use: Yes Comment: once every couple of months. Drug use: No ACTIVE PROBLEM LIST Papillary Thyroid Carcinoma (Hcc) Malignant Neoplasm of Thyroid Gland (Hcc) Elisha (Obstructive Sleep Apnea) Gallbladder Sludge Renal Calculus, Right Vitamin D Deficiency Hepatitis B Virus Infection Post-Surgical Hypothyroidism Current Outpatient Prescriptions: Ca Carb-Mag Cmb 11-D3-Zn Sulf [id number] zu-xoku-lu-mg tab Take by mouth. Disp: Rfl: levothyroxine (SYNTHROID) 112 mcg tablet Take 1 tablet by mouth daily before breakfast. Disp: 90 tablet Rfl: 3 Azelastine HCl (OPTIVAR) 0.05 % ophthalmic solution 1 drop in the morning in each eye and 1 drop in the evening in each eye as needed for itching. Disp: 1 Bottle Rfl: 2 COMPOUNDED PRESCRIPTION MassotherapyDX: DDD of spine Disp: 1 Each Rfl: 0 MULTIVITAMIN ORAL Take by mouth. Disp: Rfl: No current facility-administered medications for this visit. DTAP,TDAP,TD(2 - Tdap) due on 12/26/2017 EXAM: BP 118/74 Pulse 72 Resp 16 Wt 70.3 kg (155 lb) LMP 03/04/2007 BMI 25.51 kg/m? Pleasant adult woman in no acute distress. Alert and oriented all spheres. Normal affect and cognition. Speech normal. No deficits to learning or comprehension. Skin warm, dry, pink to lips and nailbeds. Normal turgor. No rashes or unusual lesions. Respirations regular and unlabored. HEENT WNL. TM's clear. Nose and oropharynx free from injection or lesion. No cervical lymph nodes. Thyroid absent, no masses Chest CTA. HRRR without murmur or gallop. Abdomen: active bowel sounds throughout, soft, nontender, no masses or organomegaly. No CVAT. Extrem: no clubbing, cyanosis, edema. Extremities are warm and pink with prompt capillary refill. ASSESSMENT/PLAN: 1. Night sweats - ICD9: 780.8, ICD10: R61 (primary diagnosis) - CBC + DIFF - COMP METABOLIC PANEL - TSH BLD - CORTISOL, FREE 2. Post-surgical hypothyroidism - ICD9: 244.0, ICD10: E89.0 Leaving for [place]. Will do labs on return. LADI BlakeOV Observed: 01/28/2018 Status: COMPLETED Source: [place] 11:00 AM [facility] REPOSITORY Office Visit (FAMPWS) NIA JADE ([id number]) 1955 F Date Time Provider Department 01/28/18 11:00 AM Artem CULLEN) ELIANEWS During your visit today, we recorded the following information about you: Pulse Respiration Blood pressure Weight 72/minute 16/minute 118/74 70.3 kg Artem Cullen PA-C 01/28/2018 1:46 PM Signed 62 year old female with hxhypothyroidism s/p/ total thyroidectomy for papillary thyroid cancer, ELISHA, vit D deficiency c/o drenching night sweats over last 10 days. No illness sx. Post-menopausal x 10 years. Mild seasonal allergies. Having some problems s/p knee replacement. Intermittent NSAIDS ib 600mg. Scheduled or female checks in March. No hx abnormal pap, cysts. HISTORIES FAMILY HISTORY Problem Relation Age of Onset - Diabetes Mother - Hypertension Mother - Hypertension Father - Diabetes Brother - Diabetes Brother - Coronary Artery Disease Mother - Coronary Artery Disease Father - Coronary Artery Disease Maternal Grandmother - Coronary Artery Disease Paternal Grandmother PAST MEDICAL HISTORY Diagnosis Date - Environmental allergies - Hepatitis, acute type B 1981 hep b from needle stick - Papillary thyroid carcinoma (HCC) - Plantar fasciitis - Stress fracture 08/2017 left foot PAST SURGICAL HISTORY Procedure Laterality Date - COLONOSCOP W/ OR W/O BRSH SPEC 02/26/10 - PAST SURGICAL HISTORY OF 94 tubal ligation - PAST SURGICAL HISTORY OF 09-13 right and left carpal tunnel - PAST SURGICAL HISTORY OF Right 06/09/2016 total knee replcaement - PAST SURGICAL HISTORY OF 12/03/2010 Thyroidectomy with modified right radical neck dissection Social History Marital status: Spouse name: Years of education: Number of children: Social History Main Topics Smoking status: Never Smoker Smokeless tobacco: Never Used Alcohol use: Yes Comment: once every couple of months. Drug use: No ACTIVE PROBLEM LIST Papillary Thyroid Carcinoma (Hcc) Malignant Neoplasm of Thyroid Gland (Hcc) Elisha (Obstructive Sleep Apnea) Gallbladder Sludge Renal Calculus, Right Vitamin D Deficiency Hepatitis B Virus Infection Post-Surgical Hypothyroidism Current Outpatient Prescriptions: Ca Carb-Mag Cmb 11-D3-Zn Sulf [phone] ml-kchv-qb-mg tab Take by mouth. Disp: Rfl: levothyroxine (SYNTHROID) 112 mcg tablet Take 1 tablet by mouth daily before breakfast. Disp: 90 tablet Rfl: 3 Azelastine HCl (OPTIVAR) 0.05 % ophthalmic solution 1 drop in the morning in each eye and 1 drop in the evening in each eye as needed for itching. Disp: 1 Bottle Rfl: 2 COMPOUNDED PRESCRIPTION MassotherapyDX: DDD of spine Disp: 1 Each Rfl: 0 MULTIVITAMIN ORAL Take by mouth. Disp: Rfl: No current facility-administered medications for this visit. DTAP,TDAP,TD(2 - Tdap) due on 12/26/2017 EXAM: BP 118/74 Pulse 72 Resp 16 Wt 70.3 kg (155 lb) LMP 03/04/2007 BMI 25.51 kg/m? Pleasant adult woman in no acute distress. Alert and oriented all spheres. Normal affect and cognition. Speech normal. No deficits to learning or comprehension. Skin warm, dry, pink to lips and nailbeds. Normal turgor. No rashes or unusual lesions. Respirations regular and unlabored. HEENT WNL. TM's clear. Nose and oropharynx free from injection or lesion. No cervical lymph nodes. Thyroid absent, no masses Chest CTA. HRRR without murmur or gallop. Abdomen: active bowel sounds throughout, soft, nontender, no masses or organomegaly. No CVAT. Extrem: no clubbing, cyanosis, edema. Extremities are warm and pink with prompt capillary refill. ASSESSMENT/PLAN: 1. Night sweats - ICD9: 780.8, ICD10: R61 (primary diagnosis) - CBC + DIFF - COMP METABOLIC PANEL - TSH BLD - CORTISOL, FREE 2. Post-surgical hypothyroidism - ICD9: 244.0, ICD10: E89.0 Leaving for [place]. Will do labs on return. M Lucas Cullen PA-C Referring Provider: SELF [200] Allergies As of Date: 01/28/2018 (No Known Allergies) Date Reviewed: 01/28/2018 Reviewed by: Linda Reeder Ma - Fully Assessed Reason for Visit: Perspiration [81] Cmt: 4 episodes in last 10 days Primary Visit Diagnosis:Night sweats [R61] Other Visit Diagnosis:Post-surgical hypothyroidism [E89.0] Order(s):CBC + DIFF [SQCBCDIF] Order #: [id number] FUTURE COMP METABOLIC PANEL [SQCMP] Order #: [id number] FUTURE TSH BLD [SQTSH] Order #: [id number] FUTURE CORTISOL, FREE [SQFRCORT] Order #: [id number] FUTURE Prescriptions as of 01/28/2018 Sig: CALCIUM CARB-VIT D3-MAGNESIUM* Take by mouth. LEVOTHYROXINE 112 MCG TABLET Take 1 tablet by mouth daily * AZELASTINE 0.05 % EYE DROPS 1 drop in the morning in each* COMPOUNDED PRESCRIPTION Massotherapy DX: DDD of spine MULTIVITAMIN ORAL Take by mouth. Problem List As Of Date 01/28/2018 Noted Resolved Papillary thyroid carcinoma (HCC) [C73] INVALID FOR* More... Malignant neoplasm of thyroid gland [C73] INVALID FOR*03/22/2011 Malignant neoplasm of thyroid gland [C73] INVALID FOR* ELISHA (obstructive sleep apnea) [G47.33] INVALID FOR* More... Gallbladder sludge [K82.8] INVALID FOR* Renal calculus, right [N20.0] INVALID FOR* Vitamin D deficiency [E55.9] INVALID FOR* Hepatitis B virus infection [B19.10] INVALID FOR* Post-surgical hypothyroidism [E89.0] INVALID FOR* Encounter Status:Closed by Artem CULLEN PA-C on 01/28/18 THYROID STIM HORMONE Collected: 12/16/2017 Status: F Source: CLARISSA (TSH) 9:13 AM [facility] REPOSITORY Order Comment: FAX RESULTS TO @[id number] TYPE CODE TESTS RESULT OUT OF RANGE REFERENCE UNITS LAB L501.9520 0.358-3.74 uIU/mL Normal TSH 0.49 Performed By: #### L501.9520 #### [facility] [address] [place], [address] DEXA BONE DENSITY Observed: 12/16/2017 Status: F Source: CLARISSA STUDY 8:31 AM [facility] REPOSITORY [facility] Imaging Services [address] [place] [address] Dexa Bone Density Study MR#: [id number] Acct: [id number] Name: NIA JADE Rep #: [id number] : 1955 F 62 From: Dash Rodriguez MD PCP: Jairon Irvin MD Status: REG CLI Study: Dexa Bone Density Study Date of Exam: 12/16/17 Exam# [id number] Ordering Dr: Jairon Irvin MD STUDY: DUAL ENERGY X-RAY ABSORPTIOMETRY / DXA REASON FOR EXAM: Female, 62 years old. The patient is postmenopausal. Loss of height. TECHNIQUE: Bone Mineral Density (BMD) measurements of lumbar spine and bilateral hips were obtained. COMPARISON: Comparison is made with prior study dated January 02, 2011. FINDINGS: Lumbar Spine (L1-L4): g/cm2 (1.095) / T-score (-0.6) / Z-score (0.8) Findings are suggestive of normal bone density with a low fracture risk. Left Femur Total: g/cm2 (1.047) / T-score (0.3) / Z-score (1.3) Left Femoral Neck: g/cm2 (1.060) / T-score (0.2) / Z- score (1.5) Right Femur Total: g/cm2 (0.940) / T-score (-0.5) / Z- score (0.5) Right Femoral Neck: g/cm2 (0.974) / T-score (-0.5) / Z-score (0.9) The T-Scores on the most recent prior examination were: Lumbar Spine (L1-L4): There has been worsening of bone density since the previous examination. Left Femur Total: which represents a worsening of 3.9%. Right Femur Total: which represents a worsening of 10.3%. BD/Dexa Bone Density Study IMPRESSION: The patient is considered normal as outlined below according to World Remi Organization (WHO) criteria with a low fracture risk. There has been worsening of bone density since the previous examination. Reference Information: The T-score is the number of standard deviations above or below the standard which is normal for young adults at their peak bone mineral density. The World Health Organization (WHO) interprets the T-scores as follows: Above -1 Normal bone density Between -1 and -2.5 Osteopenia Equal to / or below -2.5 Osteoporosis As a practical clinical guideline, osteopenia may be graded as follows: Mild -1 through -1.5 Moderate -1.6 through -2.0 Severe -2.1 through -2.4 The Z-score is the number of standard deviations above or below age-matched controls. A Z-score of less than -1.5 would be considered abnormal. References: 1. NIH Osteoporosis and Related Bone Diseases http://www.osteo.org 2. International Society for Clinical Densitometry http://www.iscd.org 3. National Osteoporosis Foundation http://www.nof.org Electronically Signed: Dash Rodriguez MD at 14:57 EDT Tel [phone], Service support , CC: Jairon Irvin MD Foundation Relations Director: Signed PROGRESS Observed: 12/02/2017 Status: COMPLETED Source: [place] 12:36 PM [facility] REPOSITORY HNO ID: [id number] Author: Jairon Irvin Service: (none) Author Type: Physician Type: Progress Notes Filed: 12/02/2017 1:35 PM Note Text: Patient presents with: Physical HPI: Patient presents today for office visit for physical. ENDO:endo is keeping her tsh suppressed. Her recent bone scan was negative except mild uptake in skull. Xray was negative. Most recent labs showed improved thyroglobulin. Will forward copy of labs to Dr. Savage She is following the ketogenic diet. Her lipids etc are ok. Has lost weight. Has been more active. She had a ? Foot fracture. She may be thinking about having something done elsewhere if she continues to have issues. MEDICATIONS: Current Outpatient Prescriptions: Ca Carb-Mag Cmb 11-D3-Zn Sulf [phone] vk-nxct-kd-mg tab Take by mouth. Azelastine HCl (OPTIVAR) 0.05 % ophthalmic solution 1 drop in the morning in each eye and 1 drop in the evening in each eye as needed for itching. COMPOUNDED PRESCRIPTION MassotherapyDX: DDD of spine MULTIVITAMIN ORAL Take by mouth. levothyroxine (SYNTHROID) 112 mcg tablet Take 1 tablet by mouth daily before breakfast. No current facility-administered medications for this visit. ALLERGIES: ALLERGIES No Known Allergies PAST MEDICAL HISTORY Diagnosis Date - Environmental allergies - Hepatitis, acute type B 1982 hep b from needle stick - Papillary thyroid carcinoma (HCC) - Plantar fasciitis - Stress fracture 08/2017 left foot PAST SURGICAL HISTORY Procedure Laterality Date - COLONOSCOP W/ OR W/O BRSH SPEC 02/26/10 - PAST SURGICAL HISTORY OF 94 tubal ligation - PAST SURGICAL HISTORY OF 09-13 right and left carpal tunnel - PAST SURGICAL HISTORY OF Right 06/09/2016 total knee replcaement - PAST SURGICAL HISTORY OF 12/03/2010 Thyroidectomy with modified right radical neck dissection FAMILY HISTORY Problem Relation Age of Onset - Diabetes Mother - Hypertension Mother - Hypertension Father - Diabetes Brother - Diabetes Brother - Coronary Artery Disease Mother - Coronary Artery Disease Father - Coronary Artery Disease Maternal Grandmother - Coronary Artery Disease Paternal Grandmother Social History Marital status: Spouse name: Years of education: Number of children: Social History Main Topics Smoking status: Never Smoker Smokeless tobacco: Never Used Alcohol use: Yes Comment: once every couple of months. Drug use: No Reviewed current medications, allergies, past medical history, surgical history, family history and social history today. REVIEW OF SYSTEMS GENERAL: No weight loss, malaise or fevers HEENT: Negative for frequent or significant headaches, No changes in hearing or vision, no nose bleeds or other nasal problems NECK: Negative for lumps, goiter, pain and significant neck swelling RESPIRATORY: Negative for cough, hemoptysis, wheezing, COPD, dyspnea or shortness of breath CARDIOVASCULAR: Negative for chest pain, leg swelling, hypertension, CHF or palpitations GI: gets occasional hearburn. no bowel changes. : Negative SKIN: Negative for lesions, rash, and itching All other reviewed and negative other than HPI. HEALTH MAINTENANCE: Reviewed health maintenance issues today and recommended the following in detail. DTAP,TDAP,TD(2 - Tdap) due on 12/26/2017 VITALS: BP 118/64 Pulse 72 Resp 12 Ht 166 cm (5' 5.35) Wt 70.3 kg (155 lb) LMP 03/04/2007 BMI 25.51 kg/m? Last 4 Encounter Wt Readings: Date: Wt: 12/02/2017 70.3 kg (155 lb) 03/17/2017 76.7 kg (169 lb) 02/25/2017 75.4 kg (166 lb 3.2 oz) 01/29/2017 76.7 kg (169 lb) PHYSICAL EXAMINATION: General appearance: Well appearing, alert, in no acute distress, well-hydrated, well nourished. Skin: Skin color, texture, turgor normal, no suspicious rashes or lesions Head: Normocephalic, no masses, lesions, tenderness or abnormalities Eyes: Anicteric sclera. Pupils are equally round and reactive to light. Extraocular movements are intact. Ears: External ears normal, canals clear Nose/Sinuses: Nares normal, septum midline, mucosa normal, no drainage or sinus tenderness Oropharynx: Lips, mucosa, and tongue normal, teeth and gums normal, oropharynx normal Neck: Supple, no adenopathy; thyroid symmetric, normal size, no bruits Lungs: Lungs clear to auscultation. No wheezing, rhonchi, rales Heart: RRR without murmur, gallop, or rubs. No ectopy Abdomen: Normal abdominal exam, Abdomen soft, non-tender. Bowel sounds normal. No masses, organomegaly Extremities: No deformities, edema, skin discoloration, clubbing or cyanosis. Good capillary refill. Musculoskeletal: No joint swelling, deformity, or tenderness Peripheral pulses: Normal Neuro: Gait normal. Reflexes normal and symmetric. Sensation grossly intact. ASSESSMENT/PLAN: 1. Well adult exam - ICD9: V70.0, ICD10: Z00.00 (primary diagnosis) - Call if any issues. 2. Post-surgical hypothyroidism - ICD9: 244.0, ICD10: E89.0 - Instructed patient on importance of taking on an empty stomach either first thing in the morning or at bedtime. - LEVOTHYROXINE 112 MCG TABLET 3. Papillary thyroid carcinoma (HCC) - ICD9: 193, ICD10: C73 - continue to see endo. Check labs and forward labs to them. 4. Malignant neoplasm of thyroid gland (HCC) - ICD9: 193, ICD10: C73 5. ELISHA (obstructive sleep apnea) - ICD9: 327.23, ICD10: G47.33 6. Vitamin D deficiency - ICD9: 268.9, ICD10: E55.9 - LEVOTHYROXINE 112 MCG TABLET - DXA-AXIAL SKELETON Jairon Irvin MD RTO in annally and prn. CNOV Observed: 12/02/2017 Status: COMPLETED Source: [place] 12:20 PM [facility] REPOSITORY Office Visit (FAMPWS) NIA JADE ([id number]) 1955 F Date Time Provider Department 12/02/17 12:20 PM JAIRON IRVIN During your visit today, we recorded the following information about you: Pulse Respiration Blood pressure Weight 72/minute 12/minute 118/64 70.3 kg Height 1.66 m Jairon Irvin MD 12/02/2017 1:35 PM Signed Patient presents with: Physical HPI: Patient presents today for office visit for physical. ENDO:endo is keeping her tsh suppressed. Her recent bone scan was negative except mild uptake in skull. Xray was negative. Most recent labs showed improved thyroglobulin. Will forward copy of labs to Dr. Savage She is following the ketogenic diet. Her lipids etc are ok. Has lost weight. Has been more active. She had a ? Foot fracture. She may be thinking about having something done elsewhere if she continues to have issues. MEDICATIONS: Current Outpatient Prescriptions: Ca Carb-Mag Cmb 11-D3-Zn Sulf [phone] ii-cagh-jb-mg tab Take by mouth. Azelastine HCl (OPTIVAR) 0.05 % ophthalmic solution 1 drop in the morning in each eye and 1 drop in the evening in each eye as needed for itching. COMPOUNDED PRESCRIPTION MassotherapyDX: DDD of spine MULTIVITAMIN ORAL Take by mouth. levothyroxine (SYNTHROID) 112 mcg tablet Take 1 tablet by mouth daily before breakfast. No current facility-administered medications for this visit. ALLERGIES: ALLERGIES No Known Allergies PAST MEDICAL HISTORY Diagnosis Date - Environmental allergies - Hepatitis, acute type B 1982 hep b from needle stick - Papillary thyroid carcinoma (HCC) - Plantar fasciitis - Stress fracture 08/2017 left foot PAST SURGICAL HISTORY Procedure Laterality Date - COLONOSCOP W/ OR W/O [facility] SPEC 02/26/10 - PAST SURGICAL HISTORY OF 94 tubal ligation - PAST SURGICAL HISTORY OF - right and left carpal tunnel - PAST SURGICAL HISTORY OF Right 06/09/2016 total knee replcaement - PAST SURGICAL HISTORY OF 12/03/2010 Thyroidectomy with modified right radical neck dissection FAMILY HISTORY Problem Relation Age of Onset - Diabetes Mother - Hypertension Mother - Hypertension Father - Diabetes Brother - Diabetes Brother - Coronary Artery Disease Mother - Coronary Artery Disease Father - Coronary Artery Disease Maternal Grandmother - Coronary Artery Disease Paternal Grandmother Social History Marital status: Spouse name: Years of education: Number of children: Social History Main Topics Smoking status: Never Smoker Smokeless tobacco: Never Used Alcohol use: Yes Comment: once every couple of months. Drug use: No Reviewed current medications, allergies, past medical history, surgical history, family history and social history today. REVIEW OF SYSTEMS GENERAL: No weight loss, malaise or fevers HEENT: Negative for frequent or significant headaches, No changes in hearing or vision, no nose bleeds or other nasal problems NECK: Negative for lumps, goiter, pain and significant neck swelling RESPIRATORY: Negative for cough, hemoptysis, wheezing, COPD, dyspnea or shortness of breath CARDIOVASCULAR: Negative for chest pain, leg swelling, hypertension, CHF or palpitations GI: gets occasional hearburn. no bowel changes. : Negative SKIN: Negative for lesions, rash, and itching All other reviewed and negative other than HPI. HEALTH MAINTENANCE: Reviewed health maintenance issues today and recommended the following in detail. DTAP,TDAP,TD(2 - Tdap) due on 12/26/2017 VITALS: BP 118/64 Pulse 72 Resp 12 Ht 166 cm (5' 5.35) Wt 70.3 kg (155 lb) LMP 03/04/2007 BMI 25.51 kg/m? Last 4 Encounter Wt Readings: Date: Wt: 12/02/2017 70.3 kg (155 lb) 03/17/2017 76.7 kg (169 lb) 02/25/2017 75.4 kg (166 lb 3.2 oz) 01/29/2017 76.7 kg (169 lb) PHYSICAL EXAMINATION: General appearance: Well appearing, alert, in no acute distress, well-hydrated, well nourished. Skin: Skin color, texture, turgor normal, no suspicious rashes or lesions Head: Normocephalic, no masses, lesions, tenderness or abnormalities Eyes: Anicteric sclera. Pupils are equally round and reactive to light. Extraocular movements are intact. Ears: External ears normal, canals clear Nose/Sinuses: Nares normal, septum midline, mucosa normal, no drainage or sinus tenderness Oropharynx: Lips, mucosa, and tongue normal, teeth and gums normal, oropharynx normal Neck: Supple, no adenopathy; thyroid symmetric, normal size, no bruits Lungs: Lungs clear to auscultation. No wheezing, rhonchi, rales Heart: RRR without murmur, gallop, or rubs. No ectopy Abdomen: Normal abdominal exam, Abdomen soft, non-tender. Bowel sounds normal. No masses, organomegaly Extremities: No deformities, edema, skin discoloration, clubbing or cyanosis. Good capillary refill. Musculoskeletal: No joint swelling, deformity, or tenderness Peripheral pulses: Normal Neuro: Gait normal. Reflexes normal and symmetric. Sensation grossly intact. ASSESSMENT/PLAN: 1. Well adult exam - ICD9: V70.0, ICD10: Z00.00 (primary diagnosis) - Call if any issues. 2. Post-surgical hypothyroidism - ICD9: 244.0, ICD10: E89.0 - Instructed patient on importance of taking on an empty stomach either first thing in the morning or at bedtime. - LEVOTHYROXINE 112 MCG TABLET 3. Papillary thyroid carcinoma (HCC) - ICD9: 193, ICD10: C73 - continue to see endo. Check labs and forward labs to them. 4. Malignant neoplasm of thyroid gland (HCC) - ICD9: 193, ICD10: C73 5. ELISHA (obstructive sleep apnea) - ICD9: 327.23, ICD10: G47.33 6. Vitamin D deficiency - ICD9: 268.9, ICD10: E55.9 - LEVOTHYROXINE 112 MCG TABLET - DXA-AXIAL SKELETON Jairon Irvin MD RTO in annally and prn. Referring Provider: JAIRON IRVIN [[id number]] Allergies As of Date: 12/02/2017 (No Known Allergies) Date Reviewed: 12/02/2017 Reviewed by: Linda Reeder Ma - Fully Assessed Reason for Visit: Physical [83] Primary Visit Diagnosis:Well adult exam [Z00.00] Other Visit Diagnoses:Post-surgical hypothyroidism [E89.0] Papillary thyroid carcinoma (HCC) [C73] Malignant neoplasm of thyroid gland (HCC) [C73] ELISHA (obstructive sleep apnea) [G47.33] Vitamin D deficiency [E55.9] Order(s):levothyroxine (SYNTHROID) 112 mcg tabletTake 1 tablet by mouth daily before breakfast.Disp: 90 tabletRfl: 3 DXA-AXIAL SKELETON [[id number]] Order #: [id number] FUTURE Prescriptions as of 12/02/2017 Sig: CALCIUM CARB-VIT D3-MAGNESIUM* Take by mouth. LEVOTHYROXINE 112 MCG TABLET Take 1 tablet by mouth daily * AZELASTINE 0.05 % EYE DROPS 1 drop in the morning in each* COMPOUNDED PRESCRIPTION Massotherapy DX: DDD of spine MULTIVITAMIN ORAL Take by mouth. Problem List As Of Date 12/02/2017 Noted Resolved Papillary thyroid carcinoma (HCC) [C73] INVALID FOR* More... Malignant neoplasm of thyroid gland [C73] INVALID FOR*03/22/2011 Malignant neoplasm of thyroid gland [C73] INVALID FOR* ELISHA (obstructive sleep apnea) [G47.33] INVALID FOR* More... Gallbladder sludge [K82.8] INVALID FOR* Renal calculus, right [N20.0] INVALID FOR* Vitamin D deficiency [E55.9] INVALID FOR* Hepatitis B virus infection [B19.10] INVALID FOR* Post-surgical hypothyroidism [E89.0] INVALID FOR* Prescriptions ordered this encounter Disp Refills Start End LEVOTHYROXINE 112 MCG TABLET 90 t* 3 12/02/2017 Route: ORAL Sig: Take 1 tablet by mouth daily before breakfast. Medications Discontinued During This Encounter omeprazole (PRILOSEC) 20 mg capsule 12/02/2017 Class: Historical Med Route: ORAL Sig: Take 20 mg by mouth once daily. Disc: Course of therapy completed COMPOUNDED PRESCRIPTION 1 Ea* 0 03/17/2017 12/02/2017 Class: Print RX Sig: Cbc with diff Bmp DX: palpitations. Disc: Course of therapy completed COMPOUNDED PRESCRIPTION 1 Ea* 0 03/17/2017 12/02/2017 Class: Print RX Si Hour holter monitor: Palpitations. Disc: Course of therapy completed levothyroxine (SYNTHROID) 112 mcg ta* 90 t* 3 01/08/2017 12/02/2017 Route: ORAL Sig: Take 1 tablet by mouth daily before breakfast. Disc: Reason for discontinue is not on file. Disposition: Return in about 1 year (around 12/02/2018). Follow-up and Disposition History Recorded Letter Text . [facility] AUTHORIZATION FOR THE RELEASE OF MEDICAL INFORMATION FROM OTHER HEALTHCARE FACILITIES [facility] [address] [address] Name: Nia Jade Date of : 1955 [address] [facility] [address] (home) [phone] (work) Reason for Disclosure: Continuity of Care. Release Information From: Name of Provider/Facility: Dr [address]: City: State: Zip: Fax: Phone: Release Information To: Office Receiving: Jairon Irvin MD PLEASE FAX TO: [phone] I hereby authorize to release the health information indicated below that is contained in my patient records to the Recipient named above. I understand and acknowledge that this may include treatment for physical and mental illness, alcohol/drug abuse and or HIV/AIDS test results or diagnosis. This authorization does not include permission to release outpatient Psychotherapy Notes* as defined below. The release of Psychotherapy Notes requires a separate authorization. REPORTS REQUESTED: Colonoscopy Reports: Colonoscopy AND colon biopsy pathologies This consent is subject to revocation at any time except to the extent the action has been taken thereon. This authorization and consent will in one year from the date of authorization written below. Your health care (or payment for care) will not be affected by whether or not you sign this authorization. Once your health care information is released, re-disclosure of your health care information by the Recipient my no longer be protected by law. Signature of Patient/Legal Guardian Printed Name Date Signed: ____/ / Relationship if not Patient If other than patient?s signature, a copy of the legal papers verifying authority (e.g. Power of Warrant Server or Certificate) MUST accompany the authorization when presented. Exception: parent if signing for patient under age 18. *Psychotherapy Notes defined as notes that document private, joint, group or family counseling sessions that are from the rest of a patient?s medical record. Encounter Status:Closed by JAIRON IRVIN MD on 12/02/17 URGENT CARE VISIT Observed: 11/26/2017 Status: F Source: [facility] REPORT 5:46 PM [facility] REPOSITORY [facility] [address] [place] [address] [address] [place] [address] OFFICE VISIT Date of Service: 11/26/17 MR#: [id number] Acct: [id number] Name: NIA JADE Rep #: [id number] : 1955 Provider: Chun LIN Age/Sex: 62/F Location: [facility] Status: Signed Intake Vital Signs11/26/17 Height 5 ft 4 in 11/26/17 Weight: 157 lb 11/26/17 Body Mass Index (BMI) 26.9 07/19/18 Blood Pressure 106/72 Intake Visit Reasons: RASH UNDER EYES AND ITCHY EYES Chief Complaint: Rash Deck Supervisor Required: No Is patient in pain?: No Allergies morphine [From Duramorph (PF)] Adverse Reaction (Verified 11/26/17 17:03) Itching Medications Levothyroxine [Synthroid] 112 mcg PO QHS 05/19/16 [History Confirmed 11/26/17] methylprednisolone 4 mg tablets in a dose pack See Label Instructions PO PER PKG DIR #21 tab 11/26/17 [Rx Confirmed 11/26/17] PFSH Social History Smoking Status: Never smoker alcohol intake: never HPI HPI Chief Complaint: Rash Details: NIA JADE, is a 62 F who presents to the office today for initial evaluation approximately 6 week history of consistent and persistent pruritic rash directly beneath both eyes. Patient notes no complaints of vision changes or conjunctival pruritus or discharge. She notes the skin beneath both eyes is pruritic, not alleviated with rsnn-oah-spysvps Lizy, and aggravated to touch. She notes no complaints fever, chills, sweats, cough, chest pain/shortness of breath. She notes no other associated symptoms no other alleviating or aggravating factors. Patient has risk requesting a steroid to assist with her symptoms until she follows up with her PCP in 6 days. No other complaints at this time. ROS Const Constitutional: No excessive sweating, abnormal sleep pattern, chills, fever(s), night sweats or body ache Eyes Eyes: No change in vision, discharge, dry eyes, eye pain or visual disturbances ENT ENT: No abnormal hearing, ear pain, ear discharge, ear pressure, hearing loss, post nasal drip, sinus pressure, lip swelling, sore throat, throat swelling or tongue swelling Resp Respiratory: Positive for cough; no chest congestion Cardio Cardiology: No excessive sweating, chest pain at rest, chest pain with exertion, shortness of breath, dyspnea on exertion, irregular heart rhythm, generalized swelling or leg pain with exertion Skin Skin: Positive for rash, itching, redness and other (ROS negative 10 other than that noted above); no sores or wounds Breast Breast: Positive for other (ROS negative 10 other than that noted above) Neuro Neurology: No abnormal hearing or visual disturbances Psych Psychiatric: No abnormal sleep pattern Endo Endocrine: No excessive sweating Aller/Imm Allergy/Immunologic: Positive for itchy eyes; no lip swelling, throat swelling or tongue swelling Exam Const General: cooperative, healthy appearing, no acute distress, comfortable Nutritional Appearance: average body habitus Orientation: alert, awake, oriented x3 [facility] Head: normal to inspection Ears: hearing grossly normal bilaterally, external ears normal, TM's normal bilaterally, EAC's normal Nose: external nose normal, nares normal, septum normal, no nasal discharge Face and sinus: normal facial exam, sinuses nontender, face symmetric Mouth: oral mucosae normal, lip normal, oropharynx normal, tongue normal Teeth and gingiva: dentition normal, gingiva normal Throat: uvula midline, tonsils normal, posterior oropharynx normal, no postnasal drainage Eyes General: appearance normal, both eyes and all related structures Eyelids: eyelids normal Conjunctivae: conjunctivae normal Neck Neck: normal visual inspection, full ROM, no lymphadenopathy, no meningeal signs, supple Neck mass: No Thyroid: thyroid normal Lymphatic: no lymphadenopathy noted Chest Chest palpation AND inspection: normal inspection of the chest Resp Effort AND Inspection: normal respiratory effort, able to speak in complete sentences, symmetric chest movement, no cough Auscultation: Bilateral: Clear to Auscultation Cardio Palpation: normal PMI Rate: regular rate Rhythm: regular rhythm Heart Sounds: S1 normal, S2 normal, no gallops, no murmurs, no rubs Pulses: radial pulses present Skin Lesions: no lesions Rashes: rashes noted (See other below) Other: Fine erythematous macular papular rash to bilateral lower eyelids Neuro General: alert, awake, oriented x3, gait normal Cognition: normal cognition Speech: speech normal Gait: normal gait Motor: muscle tone normal throughout Sensory Exam: no sensory deficits noted Psych Appearance: grossly normal Mental Status: mental status grossly normal Mood: congruent mood Affect: normal affect Speech and Movement: speech and movement normal Attitude: cooperative Thought Process: normal Thought Content: normal Judgment: judgment good Assessment AND Plan Problems 1. Allergic dermatitis L23.9 Plan Oral prednisone as prescribed today. Oral Benadryl and topical calamine lotion as needed for symptomatic relief; no topical corticosteroids recommended. Keep follow-up appointment with PCP in 6 days as previously arranged, follow up with them sooner should symptoms worsen or any other concerns develop. Patient states acknowledging understanding all the above. This note was generated with [employer] software. It may contain incorrect words, spelling, and punctuation that were not noted in checking the note before signing. Medications New: Plan Detail Goals Decrease spasm and pain Barriers Prolonged standing Knee surgery Coding Level of Care Code Off vis,est,level 3 Diagnoses Allergic dermatitis L23.9 11/26/17 1746 <Electronically signed by Chun LIN> Date Chun LIN Cosigner Signature: Date (if applicable) CC: URINALYSIS, EMPLOYEE Collected: 11/24/2017 Status: F Source: [place] 8:09 AM [facility] REPOSITORY TYPE CODE TESTS RESULT OUT OF RANGE REFERENCE UNITS LAB L400.3000 Yellow COLOR Normal Yellow LAB L400.3050 Clear Normal CLARITY Clear LAB L400.3200 Normal mg/dl Normal GLUCOSE, UR Normal LAB L400.3300 Negative mg/dL Normal BILIRUBIN URINE Negative LAB L400.3400 Negative mg/dl Normal KETONE UR Negative LAB L400.3465 1.002-1.030 Normal SP.GR. DIPSTX 1.010 LAB L400.3550 5.0 - 8.0 pH UR Normal 6.0 LAB L400.3600 Negative mg/dl PROT Normal DIPSTX Negative LAB L400.3700 Normal mg/dl Normal UROBILI Normal LAB L400.3750 Negative Normal NITRITE UR Negative LAB L400.3780 Negative /ul Normal OCCULT BLOOD-UR Negative LAB L400.3800 Negative /ul High LEUK ESTERASE 500 Performed By: #### L400.0100 #### [facility] [address] [place], [place], [address] CBC, EMPLOYEE Collected: 11/24/2017 Status: F Source: [place]ICK 8:09 AM [facility] REPOSITORY TYPE CODE TESTS RESULT OUT OF RANGE REFERENCE UNITS LAB L100.1000 4.4-11.0 K/mm3 Normal WBC 6.4 LAB L100.1200 4.2-5.4 M/mm3 Normal RBC 4.57 LAB L100.1300 12.0-15.0 g/dl Normal HGB 13.4 LAB L100.1400 37-47 % Normal HCT 40.3 LAB L100.1500 81-99 fL Normal MCV 88.2 LAB L100.1600 27.0-32.0 pg Normal MCH 29.3 LAB L100.1700 32-36 g/gl Normal MCHC 33.3 LAB L100.1810 11.6-14.6 % Normal RDW CV 13.9 LAB L100.1820 35.1-43.9 fl High RDW SD 45.1 LAB L100.1900 150-450 K/mm3 Normal PLT 232 LAB L100.2000 6.2-12.0 fl Normal MPV 10.8 LAB L100.2110 47-70 % Normal NEUT% 69.0 LAB L100.2210 19-41 % Normal LY% 21.9 LAB L100.2310 0-10 % Normal MONO% 5.6 LAB L100.2410 0-5 % Normal EO% 3.0 LAB L100.2510 0-1 % Normal BASO% 0.5 LAB L100.2620 2.0-7.7 X10 3/uL Normal Absolute Neut 4.5 LAB L100.2720 0.83-4.51 X10 3/ul Normal Absolute Lymph 1.41 Performed By: #### L100.0200 #### [facility] [address] [place], [place], [address] NICOTINE URINE DRUG Collected: 11/24/2017 Status: F Source: [place] SCREEN 8:09 AM [facility] REPOSITORY TYPE CODE TESTS RESULT OUT OF RANGE REFERENCE UNITS LAB L505.6250 TO BE Normal CONFIRMED Result Comment: CONFIRMATORY TESTING FOR ALL POSITIVE URINE DRUG SCREEN RESULTS WILL ONLY BE SENT OUT UPON PHYSICIAN ORDER. The results of Urine Drug Screen methods provide only preliminary analytical test results. A more specific alternate chemical method must be used in order to obtain a confirmed analytical result. Gas chromatography/mass spectrometery (GC/MS) is the preferred confirmatory method. Clinical consideration and professional judgement should be applied to any drug of abuse test result, particularly when preliminary positive results are used. LAB L505.6270 <200 ng/mL Normal COT DRG Negative SCREEN Result Comment: Cotinine is the first-stage metabolite of Nicotine. Performed By: #### L505.6240 #### [facility] [place], [address] EMPLOYEE PROFILE Collected: 11/24/2017 Status: F Source: CL[place]SA 8:09 AM [facility] REPOSITORY TYPE CODE TESTS RESULT OUT OF RANGE REFERENCE UNITS LAB L501.0100 74-106 mg/dL Normal GLU 80 Result Comment: Please note revised GLUCOSE reference range effective 2017. LAB L501.1000 7-18 mg/dL Normal BUN 16 LAB L501.1100 0.55-1.02 mg/dL Normal CREAT,SERUM 0.94 Result Comment: The validity of the calculated GFR AND GFRAA in patients over 70 years has not been determined. Clinical correlation is essential. LAB L501.1110 >60 mL/min Normal EST GFR 64 Result Comment: Non- GFR Calc LAB L501.1115 >60 mL/min Normal EST GFR - AA 78 Result Comment: GFR Calc LAB L501.1300 10-20 RATIO Normal BUN/CRE 17.0 LAB L501.1400 2.6-6.0 mg/dL Normal URIC 4.6 Result Comment: The drugs N-Acetylcysteine and Metamizole may falsely depress this assay. LAB L501.1500 6.4-8.2 g/dL Normal T PROT 7.4 LAB L501.1800 3.2-5.0 g/dL Normal ALB 3.9 LAB L501.1950 2.2-4.2 g/dL Normal GLOB 3.5 LAB L501.2000 0.9-2.4 RATIO Normal A/G 1.1 LAB L501.2200 8.5-10.1 mg/dL Normal CA 8.7 LAB L501.2300 2.5-4.9 mg/dL Normal PHOS 4.1 LAB L501.4100 15-37 U/L Normal AST 20 LAB L501.4305 45-117 U/L Normal ALK P 103 LAB L501.4405 13-56 U/L Normal ALT 29 LAB L501.4600 0.20-1.00 mg/dL Normal T BILI 0.60 LAB L501.4700 0.00-0.30 mg/dL Normal D BILI 0.14 LAB L501.4900 200 mg/dL Normal CHOL 172 Result Comment: <200 mg/dL Desirable 200-240 mg/dL Borderline >240 mg/dL High Risk LAB L501.5000 mg/dL Normal TRIG 56 Result Comment: The drugs N-Acetylcysteine and Metamizole may falsely depress this assay. Serum Triglycerides Reference Interval Normal <150 mg/dL Borderline high 150 - 199 mg/dL High 200 - 499 mg/dL Very High > or = 500 mg/dL LAB L501.5300 136-145 mmol/L Normal NA 141 LAB L501.5600 3.5-5.1 mmol/L Normal K 3.9 LAB L501.5900 98-107 mmol/L Normal CL 105 LAB L501.6100 21.0-32.0 mmol/L Normal CO2 28.0 LAB L501.6200 5-15 Normal 8 GAP LAB L501.6400 mg/dL Normal HDL 73 Result Comment: The drugs N-Acetylcysteine and Metamizole may falsely depress this assay. Reference Range HDL <40 mg/dL Low HDL Cholesterol HDL >or= 60 mg/dL High HDL Cholesterol LAB L501.6475 Normal CHOL:HDL 2.40 LAB L501.6500 0-130 mg/dL Normal LDL 88 LAB L501.6600 5-40 mg/dL Normal VLDL 11 LAB L504.2610 84-246 U/L Normal LDH 244 Performed By: #### L500.2900 #### [facility] [address] [place], [place], [address] T4 TOTAL, THYROXIN Collected: 11/24/2017 Status: F Source: [place]ICK 8:09 AM [facility] REPOSITORY TYPE CODE TESTS RESULT OUT OF RANGE REFERENCE UNITS LAB L501.9310 4.8-13.9 ug/dL T4 Normal THYROXIN 12.0 Performed By: #### L501.9310, L506.0400 #### [facility] [address] [place], [address] T4 FREE DIRECT Collected: 11/24/2017 Status: F Source: [place]ICK 8:09 AM [facility] REPOSITORY TYPE CODE TESTS RESULT OUT OF RANGE REFERENCE UNITS LAB L506.0400 0.76-1.46 ng/dL Normal T4 FREE 1.24 DIRECT Performed By: #### L501.9310, L506.0400 #### [facility] [address] [facility] [place], [address] VITAMIN D,25 HYDROXY Collected: 11/24/2017 Status: F Source: CL[place]SA 8:09 AM [facility] REPOSITORY TYPE CODE TESTS RESULT OUT OF RANGE REFERENCE UNITS LAB L506.1000 29.95-100.01 ng/mL Normal Vitamin D 32.4 25-OH Result Comment: Vitamin D 25(OH) Status Range Deficiency <20 ng/mL (50nmol/L) Insuffciency 20 - 30 ng/mL (50 - 75 nmol/L) Sufficiency 30 - 100 ng/mL (75 - 250 nmol/L) Toxicity >100 ng/mL (>250 nmol/L) Performed By: #### L506.1000 #### [facility] [address] [facility] [place], [address] THYROGLOBULIN W/ANTI-TG Collected: 11/24/2017 Status: F Source: CL[place]SA AB 8:09 AM [facility] REPOSITORY TYPE CODE TESTS RESULT OUT OF RANGE REFERENCE UNITS LAB L3300.7025 0.0-0.9 IU/mL Normal ANTI-TG < 1.0 AB Result Comment: Thyroglobulin Antibody measured by Alexei Hudgins [employer] LAB L3400.1030 1.5-38.5 ng/mL Normal THYROGLOB 3.2 Result Comment: According to the National Academy of Clinical Biochemistry, the reference interval for Thyroglobulin (TG) should be related to euthyroid patients and not for patients who underwent thyroidectomy. TG reference intervals for these patients depend on the residual mass of the thyroid tissue left after surgery. Establishing a post-operative baseline is recommended. The assay limit of quantitation is 0.1 ng/mL Thyroglobulin measured by Alexei Nathaly Immunometric Assay Performed at: - [facility] [address] [id number] Assistant Professor Sculpture: Gerber Blackwell PhD, Phone: [phone] Performed By: #### L3300.6820 #### [facility] (refer to report for specific site) refer to report for address and phone number DOWNTIME REPORT Observed: 10/29/2017 Status: F Source: [place]ICK 11:46 AM [facility] Medical Records Department [address] [place] [address] Downtime Report MR#: [id number] Acct: [id number] Name: NIA JADE Rep #: [id number] : 1955 61 From: Julian Crisostomo PCP: Jairon Irvin MD Status: REG RCR This patient was seen during an EMR downtime October 12, 2017 - October 19, 2017. This patient may have a combination of paper and electronic documentation or all paper documentation. All documentation is viewable within the e-chart portion of [facility] for each patient visit. FOOT 2 VIEWS Observed: 09/22/2017 Status: F Source: HED[place]ICK 8:18 AM [facility] Imaging Services [address] [place] [address] Foot 2 Views MR#: [id number] Acct: [id number] Name: NIA JADE Rep #: [id number] : 1955 F 61 From: Dash Rodriguez MD PCP: Jairon Irvin MD Status: REG CLI Study: Foot 2 Views Date of Exam: 09/22/17 Exam# [id number] Ordering Dr: Davidson Harvey DO STUDY: X-RAY - LEFT FOOT CLINICAL: Female, 61 years old. Foot pain. TECHNIQUE: 2 view(s) of the foot. COMPARISON: None. FINDINGS: Normal talus, calcaneus, and tarsal bones. Normal visualized subtalar, talonavicular, calcaneocuboid, tarsal and tarsometatarsal articulations. Normal metatarsi. Normal metatarsophalangeal joint of the great toe. Normal tibial and fibular sesamoid bones. Normal interphalangeal joint of the great toe. Normal phalanges of the great toe. Normal second through fifth metatarsophalangeal joints. Normal interphalangeal joints and phalanges of the lesser toes. The soft tissue structures are unremarkable. RAD/Foot 2 Views IMPRESSION: Normal x-ray examination of the foot. Electronically Signed: aDsh Rodriguez MD at 9:21 EDT Tel [phone], Service support , CC: Davidson Harvey DO; Jairon Irvin MD Foundation Relations Director: Signed FOOT MIN 3 VIEWS Observed: 08/26/2017 Status: F Source: [place] 8:17 AM [facility] REPOSITORY [facility] Imaging Services [address] [place] [address] Foot min 3 Views MR#: [id number] Acct: [id number] Name: NIA JADE Rep #: [id number] : 1955 F 61 From: Mary Basilio MD PCP: Jairon Irvin MD Status: REG CLI Study: Foot min 3 Views Date of Exam: 08/26/17 Exam# [id number] Ordering Dr: Davidson Harvey DO STUDY: X-RAY - LEFT FOOT CLINICAL: Female, 61 years old. Painful foot over tarsals TECHNIQUE: 3 view(s) of the foot. COMPARISON: Left ankle 08/20/2017 FINDINGS: Normal talus, calcaneus, and tarsal bones. There is a dorsal avulsion injury involving the navicular bone with adjacent soft tissue swelling is seen on the ankle study. There is a nondisplaced fracture of the lateral malleolus with adjacent soft tissue swelling. Normal visualized subtalar, talonavicular, calcaneocuboid, tarsal and tarsometatarsal articulations. Normal metatarsi. Normal metatarsophalangeal joint of the great toe. Normal tibial and fibular sesamoid bones. Normal interphalangeal joint of the great toe. Normal phalanges of the great toe. Normal second through fifth metatarsophalangeal joints. Normal interphalangeal joints and phalanges of the lesser toes. RAD/Foot min 3 Views IMPRESSION: Fracture of the lateral malleolus apex is nondisplaced with adjacent soft tissue swelling possible representing reinjury. Stable avulsion injury involving the navicular bone with adjacent soft tissue swelling. No other displaced fracture or dislocation detected. Electronically Signed: Mary Basilio MD at 3:11 EDT , Service support , CC: Davidson Harvey DO; Jairon Irvin MD Foundation Relations Director: Signed EMERGENCY DEPARTMENT Observed: 08/20/2017 Status: F Source: [place] SUMMARY 12:24 PM [facility] REPOSITORY [facility] Medical Records Department [address] [place] [place] [address] Emergency Department Summary 08/20/17 1116 MR#: [id number] Acct: [id number] Name: NIA JADE Rep #: [id number] : 1955 61 From: Todd Washington MD PCP: Jairon Irvin MD Status: REG ER - ER Visit Summary Date of Service: 08/20/17 Chief Complaint: Left ankle pain History of Present Illness: The patient is a 61 F who tripped over a pulse ox cord here at the hospital and twisted her left ankle. She denies any other injuries. She stood on her ankle but was unable to walk with it. Denies any previous ankle surgeries. She took 4 ibuprofen right after this happened. Physical Examination: Left ankle exam reveals tenderness palpation of the anterior, lateral malleoli. No swelling. She does have painful range of motion. Sensation and pulses are intact Test Results: X-rays reveal knee avulsion fracture of the left navicular bone Emergency Department Course and Treatment: I discussed the case with Dr. Crisostomo. He recommended a walking boot and weightbearing as tolerated. Patient states she will use Motrin at home for pain. She will follow-up with [facility] Treatment Plan: [] Disposition: Discharge Impression: Left navicular avulsion fracture This note was generated with [employer] software. It may contain incorrect words, spelling, and punctuation that were not noted in review of the chart prior to signing ED Disposition - Plan for ED Patient: Chief Complaint: Lower Extremity Injury Referrals: Jairon Irvin MD [Primary Care Provider] - What to do if you have Problems For any increased pain, shortness of breath, bleeding, nausea or vomiting, chest pain, or any unexpected problems, contact your Primary Care Provider. Call [facility] ([phone]) or report to the closest Emergency Room. Call 911 if necessary. 08/20/171223 <Electronically signed by Todd Washington MD> Date Todd Washington MD Cosigner Signature (If Indicated): Date CC: Jairon Irvin MD DISCHARGE INSTRUCTION Observed: 08/20/2017 Status: F Source: [place] 12:24 PM [facility] REPOSITORY [facility] Medical Records Department [address] [place] [address] Discharge Instruction 08/20/171223 MR#: [id number] Acct: [id number] Name: NIA JADE Rep #: [id number] : 1955 61 From: Todd Wasihngton MD PCP: Jairon Irvin MD Status: REG ER ED Disposition - Plan for ED Patient: Disposition: Home or Assisted Living Chief Complaint: Lower Extremity Injury Instructions: ED Fx Foot Referrals: Jairon Irvin MD [Primary Care Provider] - What to do if you have Problems For any increased pain, shortness of breath, bleeding, nausea or vomiting, chest pain, or any unexpected problems, contact your Primary Care Provider. Call [facility] ([phone]) or report to the closest Emergency Room. Call 911 if necessary. 08/20/17 1224 <Electronically signed by Todd Washington MD> Date Todd Washington [facility] Signature (If Indicated): Date CC: Jairon Irvin MD ANKLE MIN 3 VIEWS Observed: 08/20/2017 Status: F Source: [place] 11:16 AM [facility] REPOSITORY [facility] Imaging Services [address] [place] [address] Ankle min 3 Views MR#: [id number] Acct: [id number] Name: NIA JADE Rep #: [id number] : 1955 F 61 From: Sergio Currie MD PCP: Jairon Irvin MD Status: REG ER Study: Ankle min 3 Views Date of Exam: 08/20/17 Exam# [id number] Ordering Dr: Todd Washington MD STUDY: X-RAY - LEFT ANKLE REASON FOR EXAM: Pain status post fall. TECHNIQUE: 3 view(s) of the ankle. COMPARISON: None. FINDINGS: Normal visualized distal tibia and fibula. Normal medial and lateral malleoli. Normal tibiotalar articulation and ankle mortise. Normal visualized talus and calcaneus. There is an avulsion fracture of the dorsal aspect of the navicular. The visualized subtalar, talonavicular, calcaneocuboid and tarsal articulations are normal. There is soft tissue swelling at the lateral and anterior aspects of the ankle. RAD/Ankle min 3 Views IMPRESSION: Avulsion fracture of the dorsal navicular. Soft tissue swelling. Electronically Signed: Sergio Currie MD at 11:59 EDT Tel , Service support , CC: Todd Washington MD; Jairon Irvin MD Foundation Relations Director: Signed CHIROPRACTIC REPORT Observed: 08/04/2017 Status: F Source: [place] 3:24 PM [facility] Chiropractic [address] [place] [address] OFFICE VISIT Date of Service: 08/03/17 MR#: [id number] Acct: [id number] Name: NIA JADE Rep #: [id number] : 1955 Provider: Melvi Gregory D.C. Age/Sex: 61/F [place] [facility]: Signed Intake Vital Signs08/03/17 Height 5 ft 5 in 08/03/17 Weight: 146 lb 08/03/17 Body Mass Index (BMI) 24.3 Intake Visit Reasons: back pain Chief Complaint: low back pain Is patient in pain?: Yes Allergies morphine [From Duramorph (PF)] Adverse Reaction (Verified 06/09/16 12:12) Itching Medications Calcium Carbonate [Calcium] 600 mg PO DAILY 05/19/16 [History Confirmed 05/30/16] Celecoxib [Celebrex] 200 mg PO DAILY 05/19/16 [History Confirmed 05/30/16] Cholecalciferol (Vitamin D3) [Vitamin D3] 480 unit PO DAILY 05/19/16 [History Confirmed 05/30/16] Fish Oil/Dha/Epa [Fish Oil 1,200 mg Fish Oil] 1 ea PO DAILY 05/19/16 [History Confirmed 05/30/16] Gabapentin [Neurontin] 100 mg PO TIDCM 05/19/16 [History Confirmed 05/30/16] Ginkgo Biloba Hickory Extract [Ginkgo] 120 mg PO DAILY 05/19/16 [History Confirmed 05/30/16] Levothyroxine [Synthroid] 112 mcg PO QHS 05/19/16 [History Confirmed 05/30/16] Mupirocin [Bactroban] 1 applic NASAL BID 05/30/16 [History Confirmed 06/09/16] Acetaminophen [Tylenol] 1,000 mg PO Q8 #60 tab 06/11/16 [Rx] Aspirin 325 mg PO BIDCM #60 tab 06/11/16 [Rx] Cyclobenzaprine [Flexeril] 10 mg PO TID PRN PRN #20 tab 06/11/16 [Rx] Oxycodone [Oxyir] 5 - 10 mg PO Q6H PRN PRN #60 tab 06/11/16 [Rx] Senna/Docusate Sodium [Senokot-S] 2 tab PO BID #14 tab 06/11/16 [Rx] PFSH Social History Smoking Status: Never smoker HPI back pain : Chief Complaint: back pain Visit Number: 2 Details: NIA JADE is a 61 year old F who presents with low back tightness and achiness. The patient complains of a dull ache banding across the low back, although she denies any numbness or tingling. Bending, running and lifting cause a slight increase in the pain although it is never sharp and shooting, rating her pain today a 2/10. Recently, Nia has began working out and feels like she 'needs a once over. Location: upper/low back Duration: intermittant Aggravating or associated factors: bending, running, and lifting Relieving factors: stretching Pain Quality: aching, dull Exam Musc General: Yes normal posture and joint tenderness (C7, T4, T5, L3,L4, L5, LIL); no normal gait (favors left Lower Extremity) Cervical Spine: normal cervical lordosis, pain with cervical ROM (Tightness) with lateral flexion to right and with lateral flexion to left, cervical spasm, cervical ROM normal Thoracic/Lumbar Spine: thor and lumb spine abnorm to inspection (left short leg (.25in)), thoraco-lumbar spasm on the left (L QL and L paraspinal ), paraspinal tenderness on the left in the mid lumbar and in the lower lumbar Sacroiliac joints: on the left Neuro General: alert, awake, oriented x3, gait normal Ortho Test CERVICAL Compression pain: Negative Distraction pain: relief Zak's pain: Negative Valsalvas: Negative Shoulder depression pain: Right (bilateral tightness) THORACIC LUMBAR Office Procedures Chiropractic Treatments Procedures Manipulation: 3-4 regions (C7, T4 ,L4, LIL) Electrical Stimulation: 15 mins Location: Lumbar Traction, Mechanical: Yes Details: Traction Lumbar 15 min Assessment AND Plan 1. DDD (degenerative disc disease), lumbar M51.36 Orders Orders: 2. Segmental and somatic dysfunction of lumbar region M99.03 Orders Orders: 3. Segmental and somatic dysfunction of pelvic region M99.05 Orders Orders: 4. Segmental and somatic dysfunction of cervical region M99.01 5. Segmental and somatic dysfunction of thoracic region M99.02 Plan Detail Goals Decrease spasm and pain Barriers Prolonged standing Knee surgery Follow Up PRN Coding Level of Care Code Off vis,est,level 1 Diagnoses DDD (degenerative disc disease), lumbar M51.36 Segmental and somatic dysfunction of lumbar region M99.03 Segmental and somatic dysfunction of pelvic region M99.05 Segmental and somatic dysfunction of cervical region M99.01 Segmental and somatic dysfunction of thoracic region M99.02 Additional Codes Procedures - Electrical Stimulation: 15 mins (12370) Procedures - Traction, Mechanical: Yes (91057) Procedures - Manipulation: 3-4 regions (02051) 08/04/17 1524 <Electronically signed by Melvi Gregory D.C.> Date Melvi Gregory D.C. Cosigner Signature: Date (if applicable) CC: MASSAGE THERAPY Observed: 07/29/2017 Status: F Source: [place] EVALUATION 12:31 PM [facility] REPOSITORY [facility] Physical Therapy [address] [place] [address] Fax REHABILITATION SERVICES INITIAL EVALUATION MR#: [id number] Acct: [id number] Name: NIA JADE Rep #: [id number] : 1955 61 From: Janice Carlson Referring Dr.: Jairon Irvin MD Status: REG RCR Insurance: [facility] SELF PAY INSURANCE Massage Therapy Evaluation: Initial Evaluation Date: 07/29/2017 SUBJECTIVE: Nia is a 61 year old female who was referred to the [facility] facility for a massotherapy evaluation by Dr. Jairon Irvin with the diagnosis of low back pain. Nia presents today with the symptoms of low back pain and muscle tension in her low back and hips. She also complains of tension and pain in her neck shoulders and middle back. She reports having a medical history of a right total knee replacement and occasional radiating pain in her legs. She reports having minimal limitations during her daily activities currently. OBJECTIVE: Upon observation Nia has poor posture with her head forward and shoulders forward from the neutral position in sitting and standing. After examination and palpation I found Nia to have very high muscle tension with tenderness and myofascial restrictions in her sub occipitals, trapezius, rhomboids, scalenes and thoracic paraspinals. Her hips and lumbar region were also tight with tender points bilaterally. The first treatment consisted of a one hour massage to her full body with myofascial release, muscle stripping, trigger point compression techniques, and cervical manual traction. ASSESSMENT: I feel that Nia is a good candidate for massotherapy at this time. She had a favorable response to the first treatment with reduction in her muscle aches, pain and tension. She also had improvement in her lumbar and hip flexibility. PLAN: The plan of care was reviewed with the patient. The patient is to be seen on as needed basis for a total of ten sessions with the recommendation of once every four weeks for a one hour treatment. <Electronically signed by Janice Carlson > 07/29/17 1231 CC: Jairon Irvin MD KM Signed For Medicare only, by signing this I certify the plan of care. Physicians Signature Date CHIROPRACTIC REPORT Observed: 07/06/2017 Status: F Source: [place] 1:57 PM [facility] Chiropractic [address] [place] [address] OFFICE VISIT Date of Service: 07/06/17 MR#: [id number] Acct: [id number] Name: NIA JADE Rep #: [id number] : 1955 Provider: Melvi Gregory D.C. Age/Sex: 61/F Location: [facility] Status: Signed Intake Vital Signs07/06/17 Height 5 ft 5 in 07/06/17 Weight: 146 lb 07/06/17 Body Mass Index (BMI) 24.3 Intake Visit Reasons: low back pain Is patient in pain?: No Allergies morphine [From Duramorph (PF)] Adverse Reaction (Verified 06/09/16 12:12) Itching Medications Calcium Carbonate [Calcium] 600 mg PO DAILY 05/19/16 [History Confirmed 05/30/16] Celecoxib [Celebrex] 200 mg PO DAILY 05/19/16 [History Confirmed 05/30/16] Cholecalciferol (Vitamin D3) [Vitamin D3] 480 unit PO DAILY 05/19/16 [History Confirmed 05/30/16] Fish Oil/Dha/Epa [Fish Oil 1,200 mg Fish Oil] 1 ea PO DAILY 05/19/16 [History Confirmed 05/30/16] Gabapentin [Neurontin] 100 mg PO TIDCM 05/19/16 [History Confirmed 05/30/16] Ginkgo Biloba Hickory Extract [Ginkgo] 120 mg PO DAILY 05/19/16 [History Confirmed 05/30/16] Levothyroxine [Synthroid] 112 mcg PO QHS 05/19/16 [History Confirmed 05/30/16] Mupirocin [Bactroban] 1 applic NASAL BID 05/30/16 [History Confirmed 06/09/16] Acetaminophen [Tylenol] 1,000 mg PO Q8 #60 tab 06/11/16 [Rx] Aspirin 325 mg PO BIDCM #60 tab 06/11/16 [Rx] Cyclobenzaprine [Flexeril] 10 mg PO TID PRN PRN #20 tab 06/11/16 [Rx] Oxycodone [Oxyir] 5 - 10 mg PO Q6H PRN PRN #60 tab 06/11/16 [Rx] Senna/Docusate Sodium [Senokot-S] 2 tab PO BID #14 tab 06/11/16 [Rx] PFSH Social History Smoking Status: Never smoker HPI low back pain : Chief Complaint: low back pain Visit Number: 1 Referral source: Previous patient Details: NIA JADE is a 61 year old F who presents with L sided low back pain. The patient states that for roughly one year she has had minimal to no back pain after adapting her posture and gait. Today the patient rates she has no pain, although her L sided low back will feel tight at times and as if it needs an adjustment. With frequent walking and squatting the L low back will feel slightly tight and sore. The patient denies any numbness or tingling. Onset: 06/22/17 Location: L sided low back Duration: intermittant Aggravating or associated factors: bending and squatting Relieving factors: using proper body mechanics Pain Quality: aching, dull Exam Musc General: Yes normal posture and joint tenderness (L4, LIL); no normal gait (favors left Lower Extremity) Thoracic/Lumbar Spine: thor and lumb spine abnorm to inspection (left short leg (.25in)), thoraco-lumbar spasm on the left (L QL and L paraspinal ), paraspinal tenderness on the left in the mid lumbar and in the lower lumbar Sacroiliac joints: on the left Office Procedures Chiropractic Treatments Procedures Manipulation: 1-2 regions (L4, LIL) Electrical Stimulation: 15 mins Location: Lumbar Traction, Mechanical: Yes Details: Traction lumbar 15 min Assessment AND Plan 1. Segmental and somatic dysfunction of pelvic region M99.05 Orders Orders: 2. Segmental and somatic dysfunction of lumbar region M99.03 Plan Follow up PRN. 3. DDD (degenerative disc disease), lumbar M51.36 Plan Detail Additional Comments Reviewed previous lumbar MRI Goals Decrease spasm and pain Barriers Prolonged standing Knee surgery Follow Up PRN Coding Level of Care Code No Charge Diagnoses Segmental and somatic dysfunction of pelvic region M99.05 Segmental and somatic dysfunction of lumbar region M99.03 DDD (degenerative disc disease), lumbar M51.36 Additional Codes Procedures - Electrical Stimulation: 15 mins (05551) Procedures - Traction, Mechanical: Yes (09928) Procedures - Manipulation: 1-2 regions (00485) 07/06/17 5577 <Electronically signed by Melvi Gregory D.C.> Date Melvi Gregory D.C. Cosigner Signature: Date (if applicable) CC: ALLERGIES ALLERGIES DATE TYPE / CODE NAME / CODE REACTION SEVERITY SOURCE 04/20/2018 Drug morphine/[id number] Itching Unknown [facility] Allergy/416 545(RXNORM) Hospital 927159(SNOM Repository ED CT) Drug NO KNOWN [facility] Class/33390 ALLERGIES Main [place] 1003(SNOMED Repository CT) ENCOUNTERS ENCOUNTERS ADMIT/DISCHARGE ACCOUNT ADMITTING ENCOUNTER LOCATION SOURCE NUMBER CLASS 06/02/2018 [id number] [facility] Hospital ing:OPBI Repository 06/02/2018 [id number] Ambulatory [facility] Hospital ing:MASS Repository 05/21/2018 [id number] General acute hospital ing:LAB.FUTUR Repository E 05/06/2018/05/06/20 [id number] Ambulatory [address] Hospital ing:MASS Repository 04/20/2018/04/20/20 [id number] Ambulatory BMSBuilding:B [place] 18 [place] Hospital Repository 03/29/2018 [id number] Ambulatory [facility] Hospital ing:WOBLAB Repository 02/03/2018 [id number] [facility] Hospital ing:LAB.FUTUR Repository E 01/28/2018/01/30/20 [id number] Ambulatory [address] Repository 12/16/2017 [id number] Ambulatory [facility] Hospital ing:LAB.FUTUR Repository E 12/16/2017 [id number] Ambulatory [facility] Hospital ing:OPBD Repository 12/02/2017/12/04/19 [id number] Ambulatory [address] Repository 11/26/2017/11/27/19 [id number] Ambulatory BMSBuilding:B [place] 18 [place] Hospital Repository 11/24/2017 [id number] Ambulatory [facility] ing:LAB.FUTUR Repository E 11/24/2017 [id number] [facility] Hospital ing:EMPH Repository 09/22/2017 [id number] Ambulatory [facility] ing:RAD.FUTUR Repository E 09/02/2017 [id number] Ambulatory BMSBuilding:B [place] Hospital Repository 08/26/2017 [id number] Ambulatory [facility] ing:HPRAD Repository 08/21/2017 [id number] Ambulatory [facility] ing:RAD.FUTUR Repository E 08/20/2017/08/21/19 [id number] Emergency [place] 18 [facility] ing:ED Repository 08/03/2017/08/04/19 [id number] Ambulatory BMSBuilding:B [place] 18 [place] Repository 07/06/2017/07/06/19 [id number] Ambulatory BMSBuilding:B [place] 18 [place] Repository PAYERS PAYERS ENCOUNTER GUARANTOR PAYER SUBSCRIBER SOURCE 06/02/2018 NIA Greg Primary Insurance:[facility] NIA [facility] [id number] [facility] [id number] Number: Repository [id number]: 330 [id number] [phone] () Date:1992-64-38[address] [address], [place] [address]IV: CHECK WEBSITE 06/02/2018 Secondary NOT GIVENUNK [place] Insurance:SELF PAY [facility] Number: Effective Repository Date:2018-03-31 06/02/2018 NIA F Primary Insurance:[facility] N[address] [address] Luke[facility] [id number] [facility] [id number], [place] Number: Repository [id number]: 330 [id number] [phone] (HP) Date:5679-37-11[address] [address], [place] [address]YH: CHECK WEBSITE 06/02/2018 Secondary NOT GIVENUNK [place] Insurance:SELF PAY [facility] Number: Effective Repository Date:2018-04-07 05/21/2018 NIA Garza Primary Insurance:[facility] NIA CHAUDHARIANDI4822 [facility]: [facility] EMALENVA [facility] [id number], [place] Number: Repository [address]Uxv: 330 [id number] [phone] (HP) Date:6941-24-68[address] [address], [place] [address]MV: CHECK WEBSITE 05/21/2018 Secondary NOT GIVENUNK [place] Insurance:SELF PAY [facility] Number: Effective Repository Date:2018-05-21 05/06/2018 NIA Garza Primary Insurance:[facility] NIA CHAUDHARIANDI4822 [facility]: [facility] [id number] Surgical [facility] [place] Number: Repository [address]Qyr: 330 [id number] [phone] (HP) Date:8836-28-95[address] [address], [place] [address]BQ: CHECK WEBSITE 05/06/2018 Secondary NOT GIVENUNK [place] Insurance:SELF PAY [facility] Number: Effective Repository Date:2017-04-21 04/20/2018 NIA Garza Primary Insurance:[facility] NIA CHAUDHARIANDI4822 [facility]: [facility] [id number] Surgical Hospital [place] Number: Repository [address]Ksq: 330 [id number] [phone] (HP) Date:8389-65-01[address] [address], [place] [address]IE: CHECK WEBSITE 04/20/2018 Secondary NOT GIVENUNK [place] Insurance:SELF PAY [facility] Number: Effective Repository Date:2018-04-20 03/29/2018 NIA Garza Primary Insurance:[facility] NIA CHAUDHARIANDI4822 [facility]: [facility] [id number] Surgical [facility] [place] Number: Repository [address]Vqv: 330 [id number] [phone] (HP) Date:4605-93-17Nn [address] [address]cjqkbiz[place], [place] [address]BR: CHECK WEBSITE 03/29/2018 Secondary NOT GIVENUNK [place] Insurance:SELF PAY [facility] Number: Effective Repository Date:2018-03-29 02/03/2018 NIA Garza Primary Insurance:[facility] NIA AbramsValleywise [facility]al [facility] Center Mary[place]aleI4822 [facility]: Community EMALENE SERVICESPolp[facility] [id number], [place] Number: Repository [id number]: 330 [id number] [phone] () Date:9499-41-04[address] [address], [place] [address]JK: CHECK WEBSITE 02/03/2018 Secondary NOT GIVENUNK [place] Insurance:SELF PAY [facility] Number: Effective Repository Date:2018-02-02 12/16/2017 NIA Garza Primary Insurance:[facility] NIA Garza [facility] CenterI4822 [facility] [id number], [place] Number: Repository [address]Mun: 330 [id number] [phone] () Date:8895-48-29[address] [address]Jtmmskdti, [place] [address]RO: CHECK WEBSITE 12/16/2017 Secondary NOT GIVENUNK [place] Insurance:SELF PAY [facility] Number: Effective Repository Date:2017-12-03 12/16/2017 NIA Garza Primary Insurance:[facility] NIA AbramsValleywise [facility] [id number] [facility]: [facility] [id number], [place] Number: Repository [address]Eux: 330 [id number] [phone] () Date:7344-64-72[address] [address]Ffqinlorj, [place] [address]ZX: CHECK WEBSITE 12/16/2017 Secondary NOT GIVENUNK Clarissa Insurance:SELF PAY [facility] Number: Effective Repository Date:2017-12-03 11/26/2017 NIA Garza Primary Insurance:[facility] NIA CHAUDHARIANDI4822 [facility]: [facility] [id number] [place] Number: Repository [address]Tnc: 330 [id number] [phone] (HP) Date:6422-31-65[address] [address]Zogedrfng, [place] [address]RD: CHECK WEBSITE 11/26/2017 Secondary NOT GIVENUNK [place] Insurance:SELF PAY [facility] Number: Effective Repository Date:2017-11-26 11/24/2017 NIA Garza Primary Insurance:[facility] NIA CHAUDHARIANDI4822 [facility]ITAL[facility]: [facility] [id number] Surgical [facility] [place] Number: Repository [address]Vso: 330 [id number] [phone] (HP) Date:0923-11-73[address] [address]Oukoaehpr, [place] [address]CS: CHECK WEBSITE 11/24/2017 Secondary NOT GIVENUNK Clarissa Insurance:SELF PAY [facility] Number: Effective Repository Date:2017-11-04 11/24/2017 NIA Garza Primary NOT GIVENUNK Clarissa [id number] Insurance:SELF PAY [place] Number: Effective Repository [id number]: 330) Date:2017-11-24 [phone] (HP) 09/22/2017 NIA Garza Primary Insurance:[facility] NIA CHAUDHARIANDI4822 [facility]ITALIDOB: [facility] [id number] Surgical Hospital [place] Number: Repository [address]Zgq: 330 [id number] [phone] (HP) Date:5574-68-59Ia [address] [address]Epjmcyavr, [place] [address]ES: CHECK WEBSITE 09/22/2017 Secondary NOT GIVENUNK Clarissa Insurance:SELF PAY [facility] Number: Effective Repository Date:2017-09-21 09/02/2017 NIA Garza Primary Insurance:[facility] NIA CHAUDHARIANDI4822 [facility] KACSANDIDOB: [facility] [id number], [place] Number: Repository [address]Dhe: [id number] [phone] Date:3088-88-39Ek [address] (HP) [address]Dzmgycibp, [place] [address]RL: CHECK WEBSITE 09/02/2017 Secondary NOT GIVENUNK [place] Insurance:SELF PAY [facility] Number: Effective Repository Date:2017-08-03 08/26/2017 NIA Garza Primary Insurance:[facility] NIA CHAUDHARIANDI4822 [facility]: [facility]LEN SERVICES[facility] [id number], [place] Number: Repository [address]Xti: [id number] [phone] Date:5026-90-72Eu [address] () [address]Pdxyymqwk, [place] [address]BH: CHECK WEBSITE 08/26/2017 Secondary NOT GIVENUNK [place] Insurance:SELF PAY [facility] Number: Effective Repository Date:2017-08-26 08/21/2017 NIA Garza Primary Insurance:[facility] NIA Abramsoster [id number] [facility]: [facility] HealthLEN[facility] [id number], [place] Number: Repository [address]Uea: [id number] [phone] Date:1893-25-06Zu [address] () [phone], [place] [address]VG: CHECK WEBSITE 08/21/2017 Secondary NOT GIVENUNK Clarissa Insurance:SELF PAY [facility] Number: Effective Repository Date:2017-08-21 08/20/2017 NIA F Primary NIA [id number] Insurance:[facility] KAANDIDOB: Community [facility] [id number], [place] Number: Repository [id number]: [id number] [phone] Date:6174-01-16HI [address] (HP) [id number], [place] [address]SC: 08/20/2017 Secondary NIA Garza [place] Insurance:[facility]: [facility] [id number] Hospital Number: Repository [id number] Date:7591-01-38Pg [address] [address]nnvou[place], [place] [address]US: CHECK WEBSITE 08/20/2017 Tertiary NOT GIVENUNK [place] Insurance:SELF PAY [facility] Number: Effective Repository Date:2017-08-20 08/03/2017 NIA Garza Primary Insurance:[facility] NIA CHAUDHARIANDI4822 [facility]: [facility] [id number], [place] Number: Repository [address]Kru: [id number] [phone] Date:9010-66-28Qe [address] -[address] () [address]Cucgkculw, [place] [address]FM: CHECK WEBSITE 08/03/2017 Secondary NOT GIVENUNK [place] Insurance:SELF PAY [facility] Number: Effective Repository Date:2017-08-03 07/06/2017 NIA Garza Primary Insurance:[facility] NIA CHICSANDI4822 [facility]: [facility] [id number], [place] Number: Repository [address]Qit: [id number] [phone] Date:6308-22-06Iq [address] -[address] () [address]Hvuggcrns, [place] [address]BX: CHECK WEBSITE 07/06/2017 Secondary NOT GIVENUNK Clarissa Insurance:SELF PAY [facility] Number: Effective Repository Date:2017-07-02
== END ==
PROVIDERS: Family Provider Family Medicine; PCP Family Medicine; Referring Provider Obstetrics & Gynecology; Visit Provider Obstetrics & Gynecology
DX: Z12.31 Encounter for screening mammogram for malignant neoplasm of breast (principal)
CPT/HCPCS: 77063; 77067

== ENCOUNTER → 2018-07-29 09:06 | Outpatient (CLI) | payer OTHER, SELFPAY ==
[2018-04-20 11:30] VITALS: BMI 26.9
--- NOTE | 2018-07-29 09:08 | RAD_ITS ---
STUDY: X-RAY - RIGHT HIP REASON FOR EXAM: Pain, tightness, no specific injury. TECHNIQUE: 2 views of the hip. COMPARISON: None. FINDINGS: Normal femoral head, neck, intertrochanteric region and visualized proximal femur. There is a bone island in the intertrochanteric femur. Normal acetabulum. Normal hip joint. Normal visualized superior and inferior pubic rami and ischial tuberosities. RAD/HIP, UNI W/ Pelvis 2-3 Views IMPRESSION: Normal x-ray examination of the right hip. Electronically Signed: Sergio Currie MD at 12:14 EDT Tel , Service support ,
== END ==
PROVIDERS: Family Provider Family Medicine; PCP Family Medicine; Referring Provider Orthopaedic Surgery; Visit Provider Orthopaedic Surgery
DX: M25.551 Pain in right hip (principal)
CPT/HCPCS: 73502

== ENCOUNTER 2018-09-13 16:00 | Outpatient (RCR) | payer OTHER, SELFPAY ==
[2018-04-20 11:30] VITALS: BMI 26.9
--- NOTE | 2018-08-10 16:41 | HP.PTEVAL_ITS ---
Patient's Visit Information KARINA AJDE is a 62 year old F referred to Physical Therapy by Davidson Harvey DO with a diagnosis of R knee and hip pain. Date of Evaluation: 08/10/18 Physical Therapist: Anderson Camacho, PT, ATC - Visit Plan Frequency: 2x /Week Duration: 4 Weeks Plan: R LE strengthening (VMO, hip abd), stretching (IT band, HS's), core strengthening, nustep, and HEP - Subjective Findings: Pt reportsds she had R TKA 2 years ago. Pt reports she noticed after one year that she still had difficulty with descending stairs. Pt then noticed she began to have pain while ascending stairs. Pt reports she is sick of having pain with all of her functional activity. Pt reports she also has R hip pain since all of this is going on. Pt reports she knows she is tight and needs to get some stretches to help eith this pain. Pt reports no tingling or numbness in R LE. Pt has had hip xrays that revealed n positive finding. 0/10 pain at rest, 5/10 negotiating stairs - Pain R hip pain Pain Intensity (Out of 10): 0 Pain Intensity Range: 5 R knee pain Pain Intensity (Out of 10): 0 Pain Intensity Range: 5 - Objective Neuro: B LE sensation is WNL to light touch. B patellar reflex= 2/3. Palpation: sig pain on greater troch. No obvious deformity. MMT: B LE 5/5 throughout with exception to hip abd and ER= 4/5 and painful. flexibility: ITband and HS's are moderately limited. - Goals Goal 1:: Decrease R knee pain x 50% to aid with stair negotiation Goal Time Frame: 4-6 Weeks Goal 2:: Increase R knee and hip strength x 1 grade to aid with return to exerci se without limitation Goal Time Frame: 4-6 Weeks Goal 3:: Increase R LE flexibility x 1 grade to aid with decreasing R hip pain Goal Time Frame: 4-6 Weeks Goal 4:: I with HEP Goal Time Frame: 4-6 Weeks - Rehabilitation Potential Physical Therapy Diagnosis: R hip and knee pain secondary to core weakness and limited flexibility in R LE Rehabilitation Potential: Good - Anticipated Interventions Patient/Client Instruction: Educate patient on: Condition, Plan of Care For the Purpose of:: To improve self management Therapeutic Exercise to Include: Strength training, Endurance training, Balance training, Flexibilty training, Dynamic Lumbar Stabilization For the Purpose of:: To decrease pain, To increase ROM, To improve muscle performance and motor function Cryotherapy (ice pack, ice massage): Yes For the Purpose of:: To decrease pain Thank you for the opportunity to evaluate your patient. For Medicare and Medicare HMO plans, please review the plan of care and approve it. It will need to be FAXED BACK to us at [phone] for Medicare purposes. For Medicare only, by signing this I certify the plan of care. Please let me know if there are questions or concerns regarding this plan of car e. Physician Signature: Date:
--- NOTE | 2018-09-13 16:45 | HP.PTDCSUM_ITS ---
HP - PT D/C Summary It has been my pleasure to treat KARINA JADE under orders from Davidson Harvey DO, for the diagnosis of R knee and hip pain for a total of 10 visit(s). Discharge Date: Please see the following information for a summary of their discharge status. - Subjective Subjective: Pt reports her R hip pain iscompletely gone. R knee is still sore on steps - Pain R hip pain Pain Intensity (Out of 10): 0 R knee pain Pain Intensity (Out of 10): 0 - Overall Improvement % Improvement: 100 - Objective Objective/Function: R hip pain is 0/10. R knee pain is 0/10 unless stair negotiation. R LE strength is 5/5 throughout. Pt is I with HEP. Rx goals achieved - Goals Goal 1:: Decrease R knee pain x 50% to aid with stair negotiation Goal Progress: Not Progressing Goal 2:: Increase R knee and hip strength x 1 grade to aid with return to e xercise without limitation Goal Progress: Goal Met Goal 3:: Increase R LE flexibility x 1 grade to aid with decreasing R hip pain Goal Progress: Goal Met Goal 4:: I with HEP Goal Progress: Goal Met - Plan Plan: Discharge - D/C Information If there are questions or concerns regarding this patient's physical therapy, please feel free to call me at [phone]. Thank you for the referral of this patient. Sincerely, Anderson Camacho, PT, ATC
== END 2018-09-13 19:00 | disposition home or self-care (01) ==
LOC: PT 16:00
PROVIDERS: Family Provider Family Medicine; PCP Family Medicine; Referring Provider Orthopaedic Surgery; Visit Provider Orthopaedic Surgery
DX: M16.11 Unilateral primary osteoarthritis, right hip (principal); M25.561 Pain in right knee
CPT/HCPCS: 97110; 97161; 97530

== ENCOUNTER 2018-11-29 15:00 | Outpatient (RCR) | payer OTHER, SELFPAY ==
[2018-04-20 11:30] VITALS: BMI 26.9
[2018-10-10 08:47] VITALS: BMI 26.9
--- NOTE | 2018-10-11 12:43 | HP.PTEVAL_ITS ---
Patient's Visit Information KARINA JADE is a 62 year old F referred to Physical Therapy by Davidson Harvey DO with a diagnosis of Presence of R artificial knee joint. Date of Evaluation: 10/11/18 Physical Therapist: HYUN BeckfordT, OCS, CSCS - Visit Plan Frequency: 3x /Week Duration: 2-4 Weeks Plan: Shown distal patellar mobs and knee flexion PROM to follow quad rolling adn to do 1-2x/day while vacationing. F/U after vacation for measure and steps testing and see 3x/week for 3 weeks if still having problems. - Subjective Findings: R Knee hurts like crazy coming down steps. Lost 30 degrees in R TKA since surgery. 9 months after surgery Wes had stroke ad f/u with Zak. Still had pain on steps at that time 2 years ago. Knee still hurt on steps. Got R hip pain last fall and just had therapy on it which took care of hip pain. Is very active adn does squats and spinning and swim class. Sometimes stretches quads. At f/u appointment still having pain front of knee. Pain to 5/10 on steps but gone afterward. Nothing else bothers the knee. Will get x ray also. Lifting R knee to get out of tub can hurt. - Pain R knee Pain Intensity (Out of 10): 0 Pain Intensity Range: 0, 5 - Objective Walks normal but steps descending with R is painful. Patella is stiff R vs L especially distally. AROM0-94 R L is 0-125. PROM 0-95 R, after patellar mobs 104 and more comfortable than normal on steps descending with R. Hip and ankle AROM WFL, Strength is functional. - Goals Goal 1:: descend step without rail without pain reciprocally Goal Time Frame: 4-6 Weeks Goal 2:: 0-120 AROMK R knee to make ADLs easier. Goal Time Frame: 4-6 Weeks Goal 3:: I approp HEP to minimize future problems. Goal Time Frame: 4-6 Weeks - Rehabilitation Potential Physical Therapy Diagnosis: R knee stiffness after TKA Rehabilitation Potential: Good - Anticipated Interventions Patient/Client Instruction: Educate patient on: Plan of Care For the Purpose of:: To increase ROM, To improve ability of physical actions for home/community/work/leisure Therapeutic Exercise to Include: Passive ROM, Active ROM For the Purpose of:: To increase tolerance to activity/condition/position Manual Therapy Techniques to Include: Mobilization For the Purpose of:: To increase ROM Thank you for the opportunity to evaluate your patient. For Medicare and Medicare HMO plans, please review the plan of care and approve it. It will need to be FAXED BACK to us at [phone] for Medicare purposes. For Medicare only, by signing this I certify the plan of care. Please let me know if there are questions or concerns regarding this plan of care. Physician Signature: Date:
--- NOTE | 2018-11-29 15:26 | HP.PTREVAL ---
Davidson Harvey, DO, It has been my pleasure to treat KARINA JADE over the last 3 visits for Presence of R artificial knee joint. Please see the progress note below for an update on the physical therapy plan of care! Subjective: Been doing knee ROM exercises and motion seems to be improving but still stiff and painful most steps and descending stairs with R. Objective/Function: walking is normal and steps functionally normal but feels tight to patient every step in R knee proximal. R foot 12 inches from butt in prone and L is 1 inch. 109 AROM R knee, 115 with OP.IMPROVING! tIGHTNESS AND TENDERNESS ABOVE KNEE CAP ON RIGHT. Goals still appropriate for next 4 weeks. Fair prognosis. Plan Plan: Pt to do HEP and f/u one month to monitor improvement in quad flexibility, rom knee and comfort with steps/walking. Goals Goal 1:: descend step without rail without pain reciprocally Goal Time Frame: 4-6 Weeks Goal Progress: still tight Goal 2:: 0-120 AROMK R knee to make ADLs easier. Goal Time Frame: 4-6 Weeks Goal Progress: Progressing Goal 3:: I approp HEP to minimize future problems. Goal Time Frame: 4-6 Weeks Goal Progress: Progressing Anticipated Interventions Patient/Client Instruction: Educate patient on: Plan of Care For the Purpose of:: To increase ROM, To improve ability of physical actions for home/community/work/leisure Therapeutic Exercise to Include: Passive ROM, Active ROM For the Purpose of:: To increase tolerance to activity/condition/position Manual Therapy Techniques to Include: Mobilization For the Purpose of:: To increase ROM Please do not hesitate to contact me at [phone] by phone or if you have questions or concerns regarding this new plan of care! Sincerely, Dmitry Rojo, DPT, OCS, CSCS
--- NOTE | 2019-02-02 09:06 | HP.PTDCSUM ---
HP - PT D/C Summary It has been my pleasure to treat KARINA JADE under orders from Davidson Harvey DO, for the diagnosis of Presence of R artificial knee joint for a total of 4 visit(s). Discharge Date: 02/02/19 Please see the following information for a summary of their discharge status. - Subjective Subjective: Not much improvement , has been working knee. - Pain R knee Pain Intensity (Out of 10): 0 - Overall Improvement % Improvement: 0 - Objective Objective/Function: 0-114 AROM, improved but still has pain descending steps. safe and I with this activitiy without rail. - Goals Goal 1:: descend step without rail without pain reciprocally Goal Progress: still tight Goal 2:: 0-120 AROMK R knee to make ADLs easier. Goal Progress: Progressing Goal 3:: I approp HEP to minimize future problems. Goal Progress: Goal Met - Plan Plan: d/c to HEP, pt to schedule with doctor if becomes bothersome enough. - D/C Information If there are questions or concerns regarding this patient's physical therapy, please feel free to call me at [phone]. Thank you for the referral of this patient. Sincerely, Dmitry Rojo, DPT, OCS, CSCS
== END 2018-11-29 19:00 | disposition home or self-care (01) ==
LOC: PT 15:00
PROVIDERS: Family Provider Family Medicine; PCP Family Medicine; Referring Provider Orthopaedic Surgery; Visit Provider Orthopaedic Surgery
DX: M17.11 Unilateral primary osteoarthritis, right knee (principal); Z96.651 Presence of right artificial knee joint
CPT/HCPCS: 97110; 97140; 97161; 97530

== ENCOUNTER → 2018-12-21 15:13 | Outpatient (CLI) | payer OTHER, SELFPAY ==
[2018-10-10 08:47] VITALS: BMI 26.9
--- NOTE | 2018-12-21 15:14 | RAD_ITS ---
STUDY: X-RAY - CERVICAL SPINE REASON FOR EXAM: Female, 63 years old. Neck pain TECHNIQUE: 6 view(s) of the cervical spine were obtained. COMPARISON: March 11, 2017 CT neck soft tissue. FINDINGS: There are degenerative changes of the anterior atlantoaxial articulation. Normal odontoid process. There is straightening of the normal cervical lordosis. There is multi-level endplate spondylosis. There is multilevel disc space narrowing and mild endplate sclerosis anterior and posterior spondylosis. This is especially seen at the levels of C4-C5 C5-C6 and C6-C7. This is similar to the prior study. There is postoperative change in the right neck soft tissue. There is mild neural foraminal narrowing right greater than left. RAD/Cerv Spine 4 or 5 Views IMPRESSION: Multilevel degenerative disc disease. Postoperative change right neck soft tissues. Electronically Signed: Iram Mack MD at 16:39 EDT Tel , Service support ,
== END ==
PROVIDERS: Family Provider Family Medicine; PCP Family Medicine; Referring Provider Orthopaedic Surgery; Visit Provider Orthopaedic Surgery
DX: M47.892 Other spondylosis, cervical region (principal); M50.321 Other cervical disc degeneration at C4-C5 level; M48.02 Spinal stenosis, cervical region
CPT/HCPCS: 72050

== ENCOUNTER → 2019-01-07 07:07 | Outpatient (CLI) | payer OTHER, SELFPAY ==
[2018-10-10 08:47] VITALS: BMI 26.9
[2018-12-21 15:32] VITALS: BMI 26.9
--- OUTSIDE RECORDS SUMMARY | 2019-01-07 07:12 | XMS RPT_ITS | CCD ---
:1955 External Reference #:[id number] Author Organization [facility] Care Team Providers Name Role Phone Dossi DC, B Unavailable Cogar BIG DATA DEVELOPER, N Unavailable Cogar BIG DATA DEVELOPER, N Unavailable Medications Medication Name Sig Date Prescriber Location celecoxib CELEBREX 200 MG CAPS 03-21-2016 - [facility] CELECOXIB 08-15-2016 [facility] ([id number]) [id number] Ynes Lee cholecalciferol VITAMIN D HIGH POTENCY 03-21-2016 [facility] 1000 UNIT CAPS [facility] ([id number]) CHOLECALCIFEROL [id number] Ynes Lee VITAMIN D HIGH POTENCY 1000 03-21-2016 - 08-15-2016 [facility] UNIT CAPS (85466) CHOLECALCIFEROL [id number] Alexia Alarcon BIG DATA DEVELOPER VITAMIN D HIGH POTENCY 1000 03-21-2016 - 08-15-2016 [facility] UNIT CAPS (90296) CHOLECALCIFEROL [id number] Ynes Lee fish oil FISH OIL 1000 MG CAPS 03-21-2016 [facility] (15950) OMEGA-3 FATTY ACIDS [id number] Ynes Cummingsli FISH OIL 1000 MG CAPS 03-21-2016 - 08-15-2016 [facility] OMEGA-3 (4 4691) FATTY ACIDS [id number] Alexia Alarcon BIG DATA DEVELOPER FISH OIL 1000 MG CAPS 03-21-2016 [facility] OMEGA-3 FATTY (72159) ACIDS [id number] Ynes Cummingsli FISH OIL 1000 MG CAPS 03-21-2016 - 08-15-2016 [facility] Chiropractic OMEGA-3 (4 4691) FATTY ACIDS [id number] Alexia Alarcon BIG DATA DEVELOPER gabapentin NEURONTIN 100 MG CAPS 03-21-2016 [facility] Chiropractic GABAPENTIN ([id number] ) [id number] Ynes Koenigorelli NEURONTIN 100 MG CAPS 03-21-2016 [facility] (89716) GABAPENTIN [id number] Ynes Cummingsli OMEGA-3 FATTY ACIDS FISH OIL 1000 MG CAPS 03-21-2016 [facility] (16970) OMEGA-3 FATTY ACIDS [id number] Ynes Koenigorelli FISH OIL 1000 MG CAPS 03-21-2015 - 08-15-2016 [facility] (04457) OMEGA-3 FATTY ACIDS [id number] Alexia Alarcon BIG DATA DEVELOPER sulfacetamide BLEPH-10 10 % SOLN 1 09-19-2016 - Magdiel Cheek [facility] Clinic drop to both eyes 09-26-2016 [place] ([id number]) every 3 hours while awake SULFACETAMIDE SODIUM [id number] Magdiel LIN BLEPH-10 10 % SOLN 1 drop 09-19-2016 - 09-26-2016 Magdiel LIN [facility] to both eyes every 3 hours (4469 1) while awake SULFACETAMIDE SODIUM [id number] Magdiel LIN thyroxine LEVOTHYROXINE SODIUM 112 MCG 03-21-2016 [facility]ropract[facility] TABS LEVOTHYROXINE (88265) SODIUM [id number] Chabakari Lee LEVO-T 125 MCG TABS take as directed 03-21-2016 [facility] (00581) LEVOTHYROXINE SODIUM [id number] Alexia Alarcon BIG DATA DEVELOPER LEVO-T 125 MCG TABS take as directed 03-21-2016 [facility] (08121) LEVOTHYROXINE SODIUM [id number] Alexia Alarcon BIG DATA DEVELOPER LEVO-T 125 MCG TABS take as directed 03-21-2016 [facility] (35107) LEVOTHYROXINE SODIUM [id number] Aelxia Alarcon BIG DATA DEVELOPER Problems Active Problems Category Problem Name Status Date Location Other nervous system 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 Chiropra [facility]tic (54107) Other nervous system Ulnar neuritis Active 03-21-2016 - [facility] N ow Clinic (64426) disorders Past or Other Problems Category Problem Name Status Date Location Inflammation, infection Hordeolum Completed 09-19-2016 - [facility] of eye (84084) Other bone disease and Pelvic somatic Completed 08-25-2016 - [facility] musculoskeletal dysfunction Chiropractic (50656) deformities Other connective tissue Ganglion cyst Completed 03-21-2016 - [facility] disease [facility] (4 5856) Other non-traumatic Pain in wrist Completed 03-21-2016 - [facility] joint disorders Chiropractic (50295) Other upper respiratory Pain in throat [facility] (4 8955) Results Result Name Value Range Unit Interpretation Flag Date Location progress on 2018-12 PROGRESS HNO ID: [id number] Normal 12-16-2018 [facility] Author: Jairon Irvin [place] ([id number]) Service: ? Author Type: Physician Type: Progress Notes Filed: 12/16/2018 2:50 PM Note Text: Patient presents with: Physical HPI: Patient presents today for office visit for check up. ENDO:needs labs done. Will order cbc, cmp, lipid, vit d, tsh , t4, thryoglobulin. Has seen Dr Savage in the past. No changes in hair or skin. N o neck masses. No weight loss. Rarely has gi issues. Occasionally will have dysphagia. Sees Dr. Gusman. Gets a catch in her stomach. not related to eating. Worse with certain movements. Has a hiatal hernia. Will also check a lipase. No heartburn. Wonders if she needs scoped again. Had used nabumetone but n one recently. Discussed shingles. MEDICATIONS: Current Outpatient Medications: nabumetone (RELAFEN) 750 mg tablet Take 750 mg by mouth twic e daily as needed. Cholecalciferol, Vitamin D3, 1,000 unit cap Take 1 capsule b y mouth once daily. Ca Carb-Mag Cmb 11-D3-Zn Sulf [phone] ye-kgsi-hf-mg ta b Take by mouth. levothyroxine (SYNTHROID) 112 mcg tablet Take [address] tablet [address] [facility] daily before breakfast. Azelastine HCl (OPTIVAR) 0.05 % ophthalmic solution 1 drop i n the morning in each eye and 1 drop in the evening in each eye as needed for itching. MULTIVITAMIN ORAL Take by mouth. COMPOUNDED PRESCRIPTION [facility] - fax to [facility]: DDD of spine No current facility-administered medications for this visit. ALLERGIES: ALLERGIES No Known Allergies PAST MEDICAL HISTORY Diagnosis Date - Environmental allergies - Hepatitis, acute type B 1982 hep b from needle stick - Papillary thyroid carcinoma (HCC) - Plantar fasciitis - Stress fracture 08/2017 left foot PAST SURGICAL HISTORY Procedure Laterality Date - COLONOSCOP W/ OR W/O [facility] SPEC 02/26/10 - PAST SURGICAL HISTORY OF [...] Coronary Artery Disease Paternal Grandmother Social History Socioeconomic History Marital status: Spouse name: Not on file Number of children: Not on file Years of education: Not on file Highest education level: Not on file Occupational History Not on file Social Needs Financial resource strain: Not on file Food insecurity: Worry: Not on file Inability: Not on file Transportation needs: Medical: Not on file Non-medical: Not on file Tobacco Use Smoking status: Never Smoker Smokeless tobacco: Never Used Substance and Sexual Activity Alcohol use: Yes Comment: once every couple of months. Drug use: No Sexual activity: Not on file Lifestyle Physical activity: Days per week: Not on file Minutes per session: Not on file Stress: Not on file Relationships Social connections: Talks on phone: Not on file Gets together: Not on file Attends gnosticism service: Not on file Active member of club or organization: Not on file Attends meetings of clubs or organizations: Not on file Relationship status: Not on file Intimate partner violence: Fear of current or ex partner: Not on file Emotionally abused: Not on file Physically abused: Not on file Forced sexual activity: Not on file Other Topics Concerns: Not on file Social History Narrative Not on file Reviewed current medications, allergies, past medical histor y, surgical history, family history and social history today. REVIEW OF SYSTEMS HEENT: Negative for frequent or significant headaches, No ch anges in hearing or vision, no nose bleeds or other nasal problems NECK: Negative for lumps, goiter, pain and significant neck swelling RESPIRATORY: Negative for cough, hemoptysis, wheezing, COPD, dyspnea or shortness of breath CARDIOVASCULAR: Negative for chest pain, leg swelling, hyper tension, CHF or palpitations GI: Negative for change in bowel habit, heart burn : Negative All other reviewed and negative other than HPI. HEALTH MAINTENANCE: Reviewed health maintenance issues today VITALS: BP 128/80 Pulse 60 Wt 73.9 kg (163 lb) LMP 03/04/2007 BMI 26.83 kg/m? Last 4 Encounter Wt Readings: Date: Wt: 12/16/2018 73.9 kg (163 lb) 06/10/2018 70.8 kg (156 lb) 01/28/2018 70.3 kg (155 lb) 12/02/2017 70.3 kg (155 lb) PHYSICAL EXAMINATION: General appearance: Well appearing, alert, in no acute distr ess, well-hydrated, well nourished. Skin: Skin color, texture, turgor normal, no suspicious rash es or lesions Head: Normocephalic, no masses, lesions, tenderness or abnor malities Eyes: Anicteric sclera. Pupils are equally round and reactiv e to light. Extraocular movements are intact. Ears: External ears normal, canals clear Nose/Sinuses: Nares normal, septum midline, mucosa normal, n o drainage or sinus tenderness Oropharynx: Lips, mucosa, and tongue normal, teeth and gums normal, oropharynx normal Neck: Supple, no adenopathy; thyroid symmetric, normal size, no bruits Lungs: lungs clear to auscultation. No wheezing, rhonchi, ra les Heart: RRR without murmur, gallop, or rubs. No ectopy Abdomen: Normal abdominal exam, Abdomen soft, non-tender. Maldonado wel sounds normal. No masses, organomegaly Extremities: No deformities, edema, skin discoloration, club keyona or cyanosis. Good capillary refill. Musculoskeletal: No joint swelling, deformity, or tenderness Peripheral pulses: Normal Neuro: Gait normal. Reflexes normal and symmetric. Sensation grossly intact. ASSESSMENT/PLAN: 1. Well adult exam - ICD9: V70.0, ICD10: Z00.00 (primary surjit gnosis) - get labs as above. 2. Malignant neoplasm of thyroid gland (HCC) - ICD9: 193, IC D10: C73 - check labs. Consider follow up with endo. 3. Vitamin D deficiency - ICD9: 268.9, ICD10: E55.9 - follow labs. Jairon Irvin MD RTO in one year and prn. cnov on 2018-12-16 CNOV Office Visit (FAMPWS) Normal 12-17-19 19 [facility] NIA JADE ([id number]) 1955 [facility] Date Time Provider Department ([id number]) 12/16/18 2:00 PM [facility] During your visit today, we recorded the following informati on about you: Pulse Blood pressure Weight 60/minute 128/80 73.9 kg Jairon Irvin MD 12/16/2018 2:50 PM Signed Patient presents with: Physical HPI: Patient presents today for office visit for check up. ENDO:needs labs done. Will order cbc, cmp, lipid, vit d, tsh , t4, thryoglobulin. Has seen Dr Savage in the past. No changes in penny r or skin. No neck masses. No weight loss. Rarely has gi issues. Occasionally will have dysphagia. Sees Dr. Gusman. Gets a catch in her stomach. not related to eating. Worse w ith certain movements. Has a hiatal hernia. Will also check a lipase. No heartbur n. Wonders if she needs scoped again. Had used nabumetone but none recently. Discussed shingles. MEDICATIONS: Current Outpatient Medications: nabumetone (RELAFEN) 750 mg tablet Take 750 mg by mouth twice daily as needed. Cholecalciferol, Vitamin D3, 1,000 unit cap Take 1 capsule by mouth once daily. Ca Carb-Mag Cmb 11-D3-Zn Sulf [phone] mg-unit-mg -mg tab Take by mouth. levothyroxine (SYNTHROID) 112 mcg tablet Take 1 tablet by mouth daily before breakfast. Azelastine HCl (OPTIVAR) 0.05 % ophthalmic solution 1 drop in the morning in each eye and 1 drop in the evening in each eye as needed for itching. MULTIVITAMIN ORAL Take by mouth. COMPOUNDED PRESCRIPTION [facility] - fax to [facility]: DDD of spine No current facility-administered medications for this visit. [...] Coronary Artery Disease Paternal Grandmother Social History Socioeconomic History Marital status: Spouse name: Not on file Number of children: Not on file Years of education: Not on file Highest education level: Not on file Occupational History Not on file Social Needs Financial resource strain: Not on file Food insecurity: Worry: Not on file Inability: Not on file Transportation needs: Medical: Not on file Non-medical: Not on file Tobacco Use Smoking status: Never Smoker Smokeless tobacco: Never Used Substance and Sexual Activity Alcohol use: Yes Comment: once every couple of months. Drug use: No Sexual activity: Not on file Lifestyle Physical activity: Days per week: Not on file Minutes per session: Not on file Stress: Not on file Relationships Social connections: Talks on phone: Not on file Gets together: Not on file Attends gnosticism service: Not on file Active member of club or organization: Not on file Attends meetings of clubs or organizations: Not on file Relationship status: Not on file Intimate partner violence: Fear of current or ex partner: Not on file Emotionally abused: Not on file Physically abused: Not on file Forced sexual activity: Not on file Other Topics Concerns: Not on file Social History Narrative Not on file Reviewed current medications, allergies, past medical histor y, surgical history, family history and social history today. REVIEW OF SYSTEMS HEENT: Negative for frequent or significant headaches, No changes in hearing or vision, no nose bleeds or other nasal problems NECK: Negative for lumps, goiter, pain and significant neck swelling RESPIRATORY: Negative for cough, hemoptysis, wheezing, COPD, dyspnea or shortness of breath CARDIOVASCULAR: Negative for chest pain, leg swelling, hyp ertension, CHF or palpitations GI: Negative for change in bowel habit, heart burn : Negative All other reviewed and negative other than HPI. HEALTH MAINTENANCE: Reviewed health maintenance issues today VITALS: BP 128/80 Pulse 60 Wt 73.9 kg (163 lb) LMP 03/04/2007 BMI 26.83 kg/m? Last 4 Encounter Wt Readings: Date: Wt: 12/16/2018 73.9 kg (163 lb) 06/10/2018 70.8 kg (156 lb) 01/28/2018 70.3 kg (155 lb) 12/02/2017 70.3 kg (155 lb) PHYSICAL EXAMINATION: General appearance: Well cahti earing, alert, in no acute distress, well-hydrated, well nourished. Skin: Skin color, texture, turgor normal, no suspicious rash es or lesions Head: Normocephalic, no masses, lesions, tenderness or abnor malities Eyes: Anicteric sclera. Pupils are equally round and reactiv e to light. Extraocular movements are intact. Ears: External ears normal, canals clear Nose/Sinuses: Nares normal, septum midline, mucosa normal, no drainage or sinus tenderness Oropharynx: Lips, mucosa, and tongue nor mal, teeth and gums normal, oropharynx normal Neck: Supple, no adenopathy; thyroid symmetric, normal size, no bruits Lungs: lungs clear to auscultation. No wheezing, rhonchi, ra les Heart: RRR without murmur, gallop, or rubs. No ectopy Abdomen: Normal abdominal exam, Abdomen soft, non-tender. Bowel sounds normal. No masses, organomegaly Extremities: No deformities, edema, skin discolo ration, clubbing or cyanosis. Good capillary refill. Musculoskeletal: No joint swelling, deformity, or tenderness Peripheral pulses: Normal Neuro: Gait normal. Reflexes normal and symmetric. Sen sation grossly intact. ASSESSMENT/PLAN: 1. Well adult exam - ICD9: V70.0, ICD10: Z00.00 (primary surjit gnosis) - get labs as above. 2. Malignant neoplasm of thyroid gland (HCC) - ICD9: 193, IC D10: C73 - check labs. Consider follow up with endo. 3. Vitamin D deficiency - ICD9: 268.9, ICD10: E55.9 - follow labs. Jairon Irvin MD RTO in one year and prn. Referring Provider: JAIRON IRVIN [[id number]] Allergies As of Date: 12/16/2018 (No Known Allergies) Date Reviewed: 12/16/2018 Reviewed by: Maria Teresa Batista LPN - Fully Assessed Reason for Visit: Physical [83] Primary Visit Diagnosis:Well adult exam [Z00.00] Other Visit Diagnoses:Malignant neoplasm of thyroid gland (H CC) [C73] Vitamin D deficiency [E55.9] Prescriptions as of 12/16/2018 Sig: NABUMETONE 750 MG TABLET Take 750 mg by mouth twice da* CHOLECALCIFEROL (VITAMIN D3) * Take 1 capsule by mouth once * CALCIUM CARB-VIT D3-MAGNESIUM* Take by mouth. LEVOTHYROXINE 112 MCG TABLET Take 1 tablet by mouth daily * AZELASTINE 0.05 % EYE DROPS 1 drop in the morning in each* MULTIVITAMIN ORAL Take by mouth. COMPOUNDED PRESCRIPTION [facility] - fax to [facility]* Problem List As Of Date 12/16/2018 Noted Resolved Papillary thyroid carcinoma (HCC) [C73] INVALID FOR* More... Malignant neoplasm of thyroid gland [C73] INVALID FOR*2010 Malignant neoplasm of thyroid gland [C73] INVALID FOR* ELISHA (obstructive sleep apnea) [G47.33] INVALID FOR* More... Gallbladder sludge [K82.8] INVALID FOR* Renal calculus, right [N20.0] INVALID FOR* Vitamin D deficiency [E55.9] INVALID FOR* Hepatitis B virus infection [B19.10] INVALID FOR* More... Post-surgical hypothyroidism [E89.0] INVALID FOR* Disposition: Return in about 1 year (around 12/17/2019). Follow-up and Disposition History Recorded Encounter Status:Closed by JAIRON IRVIN MD on 12/16/18 progress on 2018-05 PROGRESS HNO ID: [id number] Normal 06-10-2018 [facility] Author: Artem Zavala (Pa-C) Romulo Bryant ([id number]) Service: (none) Author Type: Physician Supervisor Title Type: Progress Notes Filed: 06/10/2018 6:35 PM Note Text: 62 year old female with c/o 5 days with sore throat, sinus c ongestion, hoarseness, coughing up yellow green and blowing it out as w ell. No wheezing. No fever. HISTORIES FAMILY HISTORY Problem Relation Age of [...] Laterality Date - COLONOSCOP W/ OR W/O [facility] SPEC 02/26/10 - PAST SURGICAL HISTORY OF [...] Virus Infection Post-Surgical Hypothyroidism Current Outpatient Prescriptions: Cholecalciferol, Vitamin D3, 1,000 unit cap Take 1 capsule b y mouth once daily. Disp: Rfl: COMPOUNDED PRESCRIPTION [facility] - fax to [facility]: DDD of spine Disp: 1 Each Rfl: 0 Ca Carb-Mag Cmb 11-D3-Zn Sulf [phone] ba-mdys-eh-mg ta b Take by mouth. Disp: Rfl: levothyroxine (SYNTHROID) 112 mcg tablet Take 1 tablet by mo uth daily before breakfast. Disp: 90 tablet Rfl: 3 Azelastine HCl (OPTIVAR) 0.05 % ophthalmic solution 1 drop i n the morning in each eye and 1 drop in the evening in each eye as needed for itching. Disp: 1 Bottle Rfl: 2 MULTIVITAMIN ORAL Take by mouth. Disp: Rfl: No current facility-administered medications for this visit. DTAP,TDAP,TD(2 - Tdap) due on 12/26/2017 INFLUENZA(1) due on 01/09/2018 EXAM: OBJECTIVE: BP 128/64 Pulse 64 Temp 36.4 ?C (97.5 ?F) (Tympanic) R elvia 16 Wt 70.8 kg (156 lb) LMP 03/04/2007 BMI 25.68 kg/m? General appearance: Pleasant adult woman with moderate laryn gitis, mild ocngestion Respirations: regular, unlabored Color: pink to lips and nailbeds, normal turgor Skin: warm, dry, no unusual rashes or lesions Head: Normocephalic Eyes: sclerae and conjunctivae without injection or exudate, PERRLA, EOMI, corneal light reflex symmetric bilaterally Ears: TM's are clear/ mar bilaterally with normal landmarks , no swelling or deformity ear canal or external ear Nose/Sinuses: Nose patent. No turbinate swelling. Active exu date: none. Maxillary and frontal sinuses nontender to percussion. Oropharynx: oral membranes are moist. Lips, mucosa, and tong ue free from lesions. Gums without inflammation. Posterior pharynx no inj ection, no exudate, no tonsillar hypertrophy. Neck: Neck supple, no lymphadenopathy; thyroid without mass or tenderness. Chest: normally shaped, equal expansion with breaths. Lungs: Lungs clear to auscultation and percussion. No crackl es or wheezes. Heart: RRR without murmur, gallop, or rubs. S1 and S2 normal . ASSESSMENT/PLAN: 1. Laryngotracheitis - ICD9: 464.20, ICD10: J04.2 Educated on the piriformis stress. Also discussed viral natu re. At this point I don't to get a bike soon to be useful. If she is hav ing difficulty with increased wheezing or worsening hoarseness w e could try a small dose of prednisone for a few days to see if it helps. Patient is very concerned about going on vacation next week. Advised to call if there is fever or worsening symptoms. Patient (guardian) expressed understanding of instructions a nd agrees with plan. Artem Sebastian PA-C cnov on 2018-06-10 CNOV Office Visit (FAMPWS) Normal 06-10-19 19 [facility] YASMANYNIA ([id number]) 1955 [facility] Time Provider Department ([id number]) 06/10/18 8:00 AM Artem SEBASTIAN) FAMPWS During your visit today, we recorded the following informati on about you: Temperature Pulse Respiration Blood pressure 97.5 degrees 64/minute 16/minute 128/64 Weight 70.8 kg Artem Sebastian PA-C 06/10/2018 6:35 PM Signed 62 year old female with c/o 5 days with sore throat, sinus c ongestion, hoarseness, coughing up yellow green and blowing it out as well. No wheezing. No fever. HISTORIES FAMILY HISTORY Problem Relation Age of [...] Laterality Date - COLONOSCOP W/ OR W/O [facility] SPEC 02/26/10 - PAST SURGICAL HISTORY OF [...] Virus Infection Post-Surgical Hypothyroidism Current Outpatient Prescriptions: Cholecalciferol, Vitamin D3, 1,000 unit cap Take 1 capsule by mouth once daily. Disp: Rfl: COMPOUNDED PRESCRIPTION [facility]rapy - fax to [facility]: DDD of spine Disp: 1 Each Rfl: 0 Ca Carb-Mag Cmb 11-D3-Zn Sulf [phone] mg-unit-mg -mg tab Take by mouth. Disp: Rfl: levothyroxine (SYNTHROID) 112 mcg tablet Take 1 tablet by mouth daily before breakfast. Disp: 90 tablet Rfl: 3 Azelastine HCl (OPTIVAR) 0.05 % ophthalmic solution 1 drop in the morning in each eye and 1 drop in the evening in each eye a s needed for itching. Disp: 1 Bottle Rfl: 2 MULTIVITAMIN ORAL Take by mouth. Disp: Rfl: No current facility-administered medications for this visit. DTAP,TDAP,TD(2 - Tdap) due on 12/26/2017 INFLUENZA(1) due on 01/09/2018 EXAM: OBJECTIVE: BP 128/64 Pulse 64 Temp 36.4 ?C (97.5 ?F) (Tympanic) R elvia 16 Wt 70.8 kg (156 lb) LMP 03/04/2007 BMI 25.68 kg/m? General appearance: Pleasant adult woman with moderate laryn gitis, mild ocngestion Respirations: regular, unlabored Color: pink to lips and nailbeds, normal turgor Skin: warm, dry, no unusual rashes or lesions Head: Normocephalic Eyes: sclerae and conjunctivae without injection or exudate, PERRLA, EOMI, corneal light reflex symmetric bilaterally Ears: TM's are clear/ mar bilaterally with normal arin dmarks, no swelling or deformity ear canal or external ear Nose/Sinuses: Nose patent. No turbinate swelling. Active exu date: none. Maxillary and frontal sinuses nontender to percussion. Oropharynx: oral membranes are moist. Lips, mucosa, and tong ue free from lesions. Gums without inflammation. Posterior pharynx no inj ection, no exudate, no tonsillar hypertrophy. Neck: Neck supple, no lymphadenopathy; thyroid without mass or tenderness. Chest: normally shaped, equal expansion with breaths. Lungs: Lungs clear to auscultation and percussion. No crackl es or wheezes. Heart: RRR without murmur, gallop, or rubs. S1 and S2 normal . ASSESSMENT/PLAN: 1. Laryngotracheitis - ICD9: 464.20, ICD10: J04.2 Educated on the piriformis stress. Also discusse d viral nature. At this point I don't to get a bike soon to be useful. If she is having di fficulty with increased wheezing or worsening hoarseness we could try a sm all dose of prednisone for a few days to see if it helps. Haider lopez is very concerned about going on vacation next week. Advised to call if there is f ever or worsening symptoms. Patient (guardian) expressed understanding of instructions and agrees with plan. LADI Blake PA-C 06/10/2018 8:39 AM Signed Laryngitis What is laryngitis? Laryngitis is inflammation of the vocal cords and the area around them (the larynx, or voice box). It causes hoarseness. Sometimes it's hard to speak at all. Laryngitis may be acute or chronic. Acut e laryngitis occurs suddenly and lasts no more than a few days to a week. Laryngitis is chronic if the hoarseness in your throat lasts for a long time. How does it occur? Laryngitis can be a symptom of a cold, flu, bronchitis , sinusitis, and other respiratory infections or allergies. Acute laryngitis is usually caused by a virus, but it can also result from a bacterial infection. Chronic laryngitis can be caused by: heavy smoking shouting, singing, or excess gilberto use of the voice, such as in teaching or public speaking coughing forcefully exposure to dust or chemicals. Things other than laryngitis that might cause a change in the voice over the course of a few weeks are: thyroid disease noncancerous growths on the vocal cords cancer of the vocal cords. What are the symptoms? Symptoms of both acute and chronic laryngitis may include: low, raspy voice and hoarseness a cough that is dry (meaning that you usually aren't coughin g up mucus) a throat that feels dry a sore throat a voice that weakens as the day progresses. Sometimes you may lose your voice completely. How is it diagnosed? Your health care provider will ask about your symptoms and how long you have had them. Your provider will listen to your voice and examin e you. Your provider will also examine your thyroid gland (the gland loc ated near your voice box) and the lymph gla nds in your neck. Lab tests and x-rays may be done, but often they do not find a specific cause. If necessary, your health care provider will look at your vo ice box and surrounding area with a flex ible laryngoscope (a special light to see past your tongue). How is it treated? The main treatment is resting your voice as much as you can. Your health care provider ovidio castro recommend taking a nonprescription pain reliever, such as ibuprofen. He or she may also prescribe medicine. For example, your provider may prescribe a steroid spray f or your throat. Or, if your laryngitis is caused by sinusitis or bronchitis, your treatment may inc lude taking medicine for these conditions. How long will the effects last? When acute laryngitis is caused by a vir us, it usually goes away in a few days without medicine. Laryngitis caused by b acteria should also be better in a few days with treatment. If you have chronic laryngitis, your condition should improve with a week of resting your voice. If your hoarseness lasts more than 3 weeks, see your health care provider. You may need more tests to check for other di seases. How can I take care of myself? Follow the treatment prescribed by your health care provider . Do not smoke. Avoid breathing irritating smoke, dust, and fumes. Rest your voice as much as possible. Drink extra fluids, such as water, fruit juice, and tea. Take hot, steamy showers and breathe in the moist air, or breathe through a hot, moist towel. Use a vaporizer or humidifier to add moisture to the air. See your provider if your laryngitis lasts more than 3 weeks . What can I do to help prevent laryngitis? Get plenty of rest when you have a viral or bacterial infection, such as a cold or sinusitis. Avoid vocal strain by not yelling, screaming, or talking l oudly, especially when you have a cold or other throat or sinus infection. Don't smoke and avoid exposure to smoke. Keep your home well humidified. Published by [employer] This content is reviewed periodically and is subject t o change as new health information becomes available. The information is intended t o inform and educate and is not a replacement for medical claire luation, advice, diagnosis or treatment by a healthcare professional. Developed by [employer] Copyright ? 2004 [employer] and/or one of its subs idiaries. All Rights Reserved. Special Instructions: Voice rest until improving Copyright ? [employer] Reference Systems 2004 [employer]visor Copyright ? 2005 [employer] All rights reserved. Referring Provider: SELF [200] Allergies As of Date: 06/10/2018 (No Known Allergies) Date Reviewed: 01/28/2018 Reviewed by: Linda Reeder Ma - Fully Assessed Reason for Visit: Sinus Problem [99] Primary Visit Diagnosis:Laryngotracheitis [J04.2] Prescriptions as of 06/10/2018 Sig: CHOLECALCIFEROL (VITAMIN D3) * Take 1 capsule by mouth once * COMPOUNDED PRESCRIPTION Massotherapy - fax to [facility]* CALCIUM CARB-VIT D3-MAGNESIUM* Take by mouth. LEVOTHYROXINE 112 MCG TABLET Take 1 tablet by mouth daily * AZELASTINE 0.05 % EYE DROPS 1 drop in the morning in each* MULTIVITAMIN ORAL Take by mouth. Problem List As Of Date 06/10/2018 Noted Resolved Papillary thyroid carcinoma (HCC) [C73] INVALID FOR* More... Malignant neoplasm of thyroid gland [C73] INVALID FOR*2010 Malignant neoplasm of thyroid gland [C73] INVALID FOR* ELISHA (obstructive sleep apnea) [G47.33] INVALID FOR* More... Gallbladder sludge [K82.8] INVALID FOR* Renal calculus, right [N20.0] INVALID FOR* Vitamin D deficiency [E55.9] INVALID FOR* Hepatitis B virus infection [B19.10] INVALID FOR* Post-surgical hypothyroidism [E89.0] INVALID FOR* Other instructions from your clinician: Laryngitis What is laryngitis? Laryngitis is inflammation of the vocal cords and the area a round them (the larynx, or voice box). It causes hoarseness. Sometimes it's hard to speak at all. Laryngitis may be acute or chronic. Acute laryngitis occurs suddenly and lasts no more than a few days to a week. Laryngitis is chron ic if the hoarseness in your throat lasts for a long time. How does it occur? Laryngitis can be a symptom of a cold, flu, bronchitis, sinu sitis, and other respiratory infections or allergies. Acute laryngitis is usually caused by a virus, but it can also result from a bacterial i nfection. Chronic laryngitis can be caused by: heavy smoking shouting, singing, or excessive use of the voice, such as in teaching or public speaking coughing forcefully exposure to dust or chemicals. Things other than laryngitis that might cause a change in th e voice over the course of a few weeks are: thyroid disease noncancerous growths on the vocal cords cancer of the vocal cords. What are the symptoms? Symptoms of both acute and chronic laryngitis may include: low, raspy voice and hoarseness a cough that is dry (meaning that you usually aren't coughin g up mucus) a throat that feels dry a sore throat a voice that weakens as the day progresses. Sometimes you may lose your voice completely. How is it diagnosed? Your health care provider will ask about your symptoms and h ow long you have had them. Your provider will listen to your voice and e xamine you. Your provider will also examine your thyroid gland (the glan d located near your voice box) and the lymph glands in your neck. Lab tests and x-rays may be done, but often they do not find a specific cause. If necessary, your health care provider will look at your vo ice box and surrounding area with a flexible laryngoscope (a special lig ht to see past your tongue). How is it treated? The main treatment is resting your voice as much as you can. Your health care provider may recommend taking a nonprescrip tion pain reliever, such as ibuprofen. He or she may also prescribe me dicine. For example, your provider may prescribe a steroid spray for you r throat. Or, if your laryngitis is caused by sinusitis or bronchitis, you r treatment may include taking medicine for these conditions. How long will the effects last? When acute laryngitis is caused by a virus, it usually goes away in a few days without medicine. Laryngitis caused by bacteria should also be better in a few days with treatment. If you have chronic laryngitis, your condition should improv e with a week of resting your voice. If your hoarseness lasts more than 3 weeks, see your health care provider. You may need more tests to check for other diseases. How can I take care of myself? Follow the treatment prescribed by your health care provider . Do not smoke. Avoid breathing irritating smoke, dust, and fumes. Rest your voice as much as possible. Drink extra fluids, such as water, fruit juice, and tea. Take hot, steamy showers and breathe in the moist air, or br eathe through a hot, moist towel. Use a vaporizer or humidifier to add moisture to the air. See your provider if your laryngitis lasts more than 3 weeks . What can I do to help prevent laryngitis? Get plenty of rest when you have a viral or bacterial infect ion, such as a cold or sinusitis. Avoid vocal strain by not yelling, screaming, or talking grisel dly, especially when you have a cold or other throat or sinus inf ection. Don't smoke and avoid exposure to smoke. Keep your home well humidified. ----- Published by [employer] This content is reviewed periodically and is subject to rivera ge as new health information becomes available. The information is int ended to inform and educate and is not a replacement for medical eval uation, advice, diagnosis or treatment by a healthcare professional. Developed by [employer] Copyright ? 2004 [employer] and/or one of its subs idiaries. All Rights Reserved. Special Instructions: Voice rest until improving Copyright ? [employer] Reference Systems 2005 Adult [employer] Advisor Copyright ? 2005 [employer] All rights reserved. Letter Text [facility] [address], [place] [address] Nia Jade [address] [place] [id number] Clinic #: [id number] 06/10/2018 To Whom it may concern, Nia Jade was examined here for an acute med ical condition. Please excuse her from work missed the next 3 days. Thank you, Adri Sebastian PA-C Encounter Status:Closed by Artem SEBASTIAN PA-C on 06/10/18 [facility]) Normal 02-03-2018 [facility] NIA JADE ([id number]) 1955 [facility] Date Time Provider Department ([id number]) 02/03/18 JAIRON IRVIN [facility] During your visit today, we recorded the following informati on about you: Jairon Irvin MD 02/03/2018 5:39 PM Signed Labs were all normal. Except vit d was low. Is she currently taking any supplements at home? Chelsie Kapadia MA, MA 02/04/2018 8:38 AM Signed Patient informed of results, verbalized understanding. Taking a multivitamin and there is 600 U Daily. OVIDIO West, RN, RN 02/04/2018 8:48 AM Signed Pt calls back to clarify that she is taking 1600 IU daily be tween her multivitamin and calcium/Vit D supplement. Jairon Irvin MD 02/04/2018 11:29 AM Signed Add vitamin d once a week. Recheck vit d in eight weeks Miranda Ryan Hudson 02/04/2018 1:10 PM Addendum Patient notified and verbalized understanding. Script sent to [facility] needs to be sent to [facility]. Miranda Ryan Hudson Parth Diaz 02/04/2018 2:03 PM Signed Patient called back stating rx has not been sent to [facility] yet. Advised she can have [facility] transfer rx from [facility]. Patient sera karimi. Allergies As of Date: 02/03/2018 (No Known Allergies) Date Reviewed: 01/28/2018 Reviewed by: Linda Reeder Ma - Fully Assessed Reason for Visit: Results [95] Primary Visit Diagnosis:Vitamin D deficiency [E55.9] Order(s):VITAMIN D 25 HYDROXY [SQVITD] Order #: [id number] F UTURE ergocalciferol, vitamin D2, (VITAMIN D) 50,000 unit capsuleT fran 1 capsule by mouth once each week.Disp: [...] Malignant neoplasm of thyroid gland [C73] INVALID FOR*2010 Malignant neoplasm of thyroid gland [C73] INVALID [...] Status:Closed by RICCO RODARTE LPN on 02/04/18 progress on 2018-01 PROGRESS HNO ID: [id number] Normal 01-28-2018 [facility] Author: Artem Zavala (Pa-C) Romulo Bryant ([id number]) Service: (none) Author Type: Physician Supervisor Title Type: Progress Notes Filed: 01/28/2018 1:46 PM Note Text: 62 year old female with hxhypothyroidism s/p/ total thyroide ctomy for papillary thyroid cancer, ELISHA, vit D deficiency c/o drenchin g night sweats over last 10 days. No illness sx. Post-menopausal x 1 0 years. Mild seasonal allergies. Having some problems s/p knee replacemen t. Intermittent NSAIDS ib 600mg. Scheduled or female [...] Outpatient Prescriptions: Ca Carb-Mag Cmb 11-D3-Zn Sulf [phone] lz-jnmf-xb-mg ta b Take by mouth. Disp: Rfl: levothyroxine (SYNTHROID) 112 mcg tablet Take 1 tablet by [facility] daily before breakfast. Disp: 90 tablet Rfl: 3 Azelastine HCl (OPTIVAR) 0.05 % ophthalmic solution 1 drop i n the morning in each eye and 1 [...] 16 Wt 70.3 kg (155 lb) LMP 1 BMI 25.51 kg/m? Pleasant adult woman in no acute distress. Alert and oriente d all spheres. Normal affect and cognition. Speech normal. No deficits to l earning or comprehension. Skin warm, dry, pink to lips and nailbeds. Normal turgor. No rashes or unusual lesions. Respirations regular and unlabored. HEENT WNL. TM's clear. Nose and oropharynx free from injecti on or lesion. No cervical lymph nodes. Thyroid absent, no masses Chest CTA. HRRR without murmur or gallop. Abdomen: active bowel sounds throughout, soft, nontender, no masses or organomegaly. No CVAT. Extrem: no clubbing, cyanosis, edema. Extremities are warm a nd pink with prompt capillary refill. ASSESSMENT/PLAN: 1. Night sweats - ICD9: 780.8, ICD10: R61 (primary diagnosis ) - CBC + DIFF - COMP METABOLIC PANEL - TSH BLD - CORTISOL, FREE 2. Post-surgical hypothyroidism - ICD9: 244.0, ICD10: E89.0 Leaving for [place]. Will do labs on return. LADI Blake on 2018-01-28 [facility] Office Visit (FAMPWS) Normal 01-29-[address] [place] [address] [facility] NIA JADE ([id number]) 1955 [facility] Date Time Provider Department ([id number]) 01/28/18 11:00 AM Artem SEBASTIAN) IANPMARY During your visit today, we recorded the following informati on about you: Pulse Respiration Blood pressure Weight 72/minute 16/minute 118/74 70.3 kg M Lucas Sebastian PA-C 01/28/2018 1:46 PM Signed 62 year old female with hxhy pothyroidism s/p/ total thyroidectomy for papillary thyroid cancer, ELISHA, vit D deficiency c/o drench ing night sweats over last 10 days. No illness sx. Post-menopausal x 10 years. Mild season al allergies. Having some problems s/p knee replacement. Intermittent NSAI DS ib 600mg. Scheduled or female checks in [...] Outpatient Prescriptions: Ca Carb-Mag Cmb 11-D3-Zn Sulf [phone] mg-unit-mg -mg tab Take by mouth. Disp: Rfl: levothyroxine (SYNTHROID) 112 mcg tablet Take 1 tablet by mouth daily before breakfast. Disp: 90 tablet Rfl: 3 Azelastine HCl (OPTIVAR) 0.05 % ophthalmic solution 1 drop in the morning in each eye and 1 drop in the evening in each eye a s needed for itching. Disp: 1 Bottle Rfl: 2 COMPOUNDED PRESCRIPTION MassotherapyDX: DDD of spine Disp: 1 Each Rfl: 0 MULTIVITAMIN ORAL Take by mouth. Disp: Rfl: No current facility-administered medications for this visit. DTAP,TDAP,TD(2 - Tdap) due on 12/26/2017 EXAM: BP 118/74 Pulse 72 Resp 16 Wt 70.3 kg (155 lb) LMP 1 BMI 25.51 kg/m? Pleasant adult woman in no acute distress. Alert and oriente d all spheres. Normal affect and cognition. Speech normal. No deficits to l earning or comprehension. Skin warm, dry, pink to lips and nailbed s. Normal turgor. No rashes or unusual lesions. Respirations regular and unlabored. HEENT WNL. TM's clear. Nose and oropharynx free from i njection or lesion. No cervical lymph nodes. Thyroid absent, no masses Chest CTA. HRRR without murmur or gallop. Abdomen: active bowel sounds throughout, soft, nontender, no masses or organomegaly. No CVAT. Extrem: no clubbing, cyanosi s, edema. Extremities are warm and pink with prompt capillary refill. ASSESSMENT/PLAN: 1. Night sweats - ICD9: 780.8, ICD10: R61 (primary diagnosis ) - CBC + DIFF - COMP METABOLIC PANEL - TSH BLD - CORTISOL, FREE 2. Post-surgical hypothyroidism - ICD9: 244.0, ICD10: E89.0 Leaving for [place]. Will do labs on return. Artem Sebastian PA-C Referring Provider: SELF [200] Allergies As of Date: 01/28/2018 (No Known Allergies) Date Reviewed: 01/28/2018 Reviewed by: Linda Reeder Ma - Fully Assessed Reason for Visit: Perspiration [81] Cmt: 4 episodes in last 10 days Primary Visit Diagnosis:Night sweats [R61] Other Visit Diagnosis:Post-surgical hypothyroidism [E89.0] Order(s):CBC + DIFF [SQCBCDIF] Order #: [id number] FUTURE COMP METABOLIC PANEL [SQCMP] Order #: [id number] FUTURE TSH BLD [SQTSH] Order #: [id number] FUTURE CORTISOL, FREE [SQFRCORT] Order #: [id number] FUTURE Prescriptions as of 01/28/2018 Sig: CALCIUM [...] Malignant neoplasm of thyroid gland [C73] INVALID FOR*2010 Malignant neoplasm of thyroid gland [C73] INVALID FOR* ELISHA (obstructive sleep apnea) [G47.33] INVALID FOR* More... Gallbladder sludge [K82.8] INVALID FOR* Renal calculus, right [N20.0] INVALID FOR* Vitamin D deficiency [E55.9] INVALID FOR* Hepatitis B virus infection [B19.10] INVALID FOR* Post-surgical hypothyroidism [E89.0] INVALID FOR* Encounter Status:Closed by Artem SEBASTIAN PA-C on 01/28/18 office visit: uc: conjunctivitis on 2016-09-19 Alcoholism no Invalid 09-19-2016 [facility] No w counseling Interpretation Code 7 Clinic (procedure) (83720) Dietary management yes Invalid 09-19-2016 [facility] Now education, guidance, Interpretation Code 09-19-2016 Clinic and counseling (4469 1) (procedure) Documentation of Done Invalid 09-19-2016 [facility] Now current medications Interpretation Code 09-19-2016 Clinic (procedure) (07981) Fall risk assessment No Invalid 7 - [facility] Now Interpretation Code 09-19-2016 Clinic (74839) Protein mass conc Done 09-19-2016 [facility] Now 09-19-2016 Clinic (09839) Protein mass conc no 09-19-2016 [facility] Now 09-19-2016 Clinic (59498) Tobacco smoking Never Invalid 09-19-2016 - W Now status [facility] Interpretation Code 09-20-19 17 Clinic (20791) Tobacco smoking Never smoker 09-19-2016 - [facility] Now status INIS 09-19-2016 Clinic (39567) Tobacco use HS Never smoker Invalid 09-19-2016 - [facility] Now Interpretation Code 09-19-2016 Clinic (30274) office visit: right hip pain on 2016-08-28 Alcoholism no Invalid 08-28-2016 - [facility] counseling Interpretation Code 7 Chiropractic (procedure) (35338) Dietary management yes Invalid 08-28-2016 - [facility] education, Interpretation Code 7 Chiropractic guidance, and (03890 ) counseling (procedure) Documentation of Done Invalid 08-28-2016 - [facility] current medications Interpretation Code 08-28-2016 Chiropractic (procedure) (47597) Tobacco smoking Never Invalid 08-28-2016 - [facility] status [facility] Interpretation Code 08-29-19 17 Chiropractic (28746) Tobacco use [facility] Never Invalid 08-28-2016 - [facility] smoker Interpretation Code 08-28-2016 Chiropractic (00641) microbiology: culture, r/o strep a on 2016-08-17 CUSTREPA . 08-17-2016 - [facility] Now Clinic 08-17-2016 (53400) GE use only - for . Invalid Interpretation 08-17-2016 - [facility] import Code 08-17-2016 iropractic (80198) when terms are not otherwise specified office visit: uc: sore throat on 2016-08-15 Fall risk No Invalid 08-15-2016 - [facility] assessment Interpretation Code 7 Chiropractic (98199) Rapid strep test negative Invalid 08-15-2016 - [facility] Interpretation Code 08-15-2016 Chiropractic (05491) S. pyogenes DNA negative 08-15-2016 - [facility] Now Clinic DAVION+probe Ql 08-15-2016 (28740 ) (Throat) Vital Signs Vital Sign Description Value / Unit Date Location The following section is limited to 5 en tries per type and includes entries from the following time range: [id number] 2. BMI (Body Mass Index) 29.62 kg/m2 09-19-2016 - 09-19-2016 [facility] (04703) BMI (Body Mass Index) 29.07 kg/m2 08-15-2016 - 08-15-2016 [facility] Chiropractic (26379) Body Temperature 97.9 [degF] 09-19-2016 - 09-19-2016 [facility] (29358) Body Temperature 98.2 [degF] 08-15-2016 - 08-15-2016 [facility] oint Chiropractic (03678) BP Diastolic 66 mm[Hg] 09-19-2016 - 09-19-2016 [facility] (21181) BP Diastolic 68 mm[Hg] 08-15-2016 [facility]89145[facility] BP Systolic 100 mm[Hg] 09-19-2016 - 09-19-2016 [facility] (91221) BP Systolic 128 mm[Hg] 08-15-2016 - 08-15-2016 [facility] int Chiropractic (13731) Height 162.56 cm 09-19-2016 - 09-19-2016 [facility] (56362) Height 162.56 cm 08-15-2016 - 08-15-2016 [facility] int Chiropractic (35245) Pulse (Heart Rate) 63 /min 09-19-2016 - 09-19-2016 [facility] (29256) Pulse (Heart Rate) 61 /min 08-15-2016 - [facility]34884[facility] Pulse Oximetry 98 % 09-19-2016 - 09-19-2016 [facility] (58778) Pulse Oximetry 98 % 08-15-2016 - 08-15-2016 [facility] (49707) Respiratory Rate 16 /min 09-19-2016 - 09-19-2016 [facility] (02522) Respiratory Rate 16 /min 08-15-2016 - 08-15-2016 [facility] oint Chiropractic (86448) Weight 78.29 kg 09-19-2016 - 09-19-2016 [facility] (13781) Weight 76.84 kg 08-15-2016 - 08-15-2016 [facility] Chiropractic (87291) Procedures Procedure Name Date Provider Location Dietary management 09-19-2016 - [facility] Now Clini c (22403) education, guidance, and 09-19-2016 counseling Chiropract manj 1-2 08-28-2016 - Melvi Flores Dossi [facility] regions 09-02-2016 (41004) Electric stimulation 08-28-2016 - Melvi B [facility]ossi [facility] 09-02-2016 (81381) Chiropract manj 1-2 08-25-2016 - Melvi B Dossi [facility]rop[facility]ic regions 08-25-2016 (67810) Electric stimulation 08-25-2016 - Melvi B [facility]ossi [facility] therapy 08-25-2016 (66030) Iaadiadoo streptococcus 08-15-2016 - Magdiel LIN [facility] Now Clinic (02493) group a 08-15-2016 Rapid strep test 08-15-2016 - Magdiel LIN [facility]ropractic 08-15-2016 (60503) Chiropractic manipulation 04-10-2016 - [facility] 04-10-2016 (38243) Massage therapy 04-10-2016 - Melvi B Dossi [facility] Chi ropractic 04-10-2016 (50803) Chiropractic manipulation 03-27-2016 - [facility] B [facility] 03-27-2016 (55836) Massage therapy 03-27-2016 - Melvi B Dossi [facility] Chi ropractic 03-27-2016 (75401) Chiropractic manipulation 03-25-2016 - [facility] 03-25-2016 (05619) Massage therapy 03-25-2016 - Melvi B Dossi [facility] Chi ropractic 03-25-2016 (97208) Plan of Treatment Plan Description Date Location Appointment Appointment 09-19-2016 - [facility] Now Clinic ( [id number]) 09-19-2016 Follow up Appt 2x/week Follow up Appt 2x/week 08-28-2016 - [facility] 09-02-2016 Chiropractic (44 691) Follow up Appt 2x/week Follow up Appt 2x/week 08-25-2016 - [facility] 08-25-2016 [facility]ractic (44 691) *Culture, R/O Strep A *Culture, R/O Strep A 08-15-2016 - [facility] Swab Swab 08-15-2016 Chiropractic (44 691) Follow up Appt 2x/week Follow up Appt 2x/week 04-10-2016 - [facility] 04-10-2016 Chiropractic (44 691) Follow up Appt 2x/week Follow up Appt 2x/week 03-27-2016 - [facility] 03-27-2016 Chiropractic (44 691) Follow up Appt 2x/week Follow up Appt 2x/week 03-25-2016 - [facility] 03-25-2016 Chiropractic (44 691) EMG EMG 03-21-2016 - [facility] 03-21-2016 Chiropractic (44 691) Nerve Conduction Nerve Conduction 03-21-2016 - [facility] 03-21-2016 Chiropractic (44 691) X-Ray, Wrist X-Ray, Wrist 03-21-2016 - [facility] 03-21-2016 Chiropractic (44 691) Patient education no information [facility] (44 691) Summary Purpose Family History No Family History Records Found Advance Directives No Advanced Directives Records Found Additional Source Comments FOR RECORDS PERTAINING TO PATIENTS WHO ARE OR HAVE BEEN ENROLLED IN A CHEMICAL DEPENDENCY/SUBSTANCE ABUSE PROGRAM, SOME INFORMATION MAY BE OMITTED. This clinical summary was aggregated from multiple sources. Caution should be exercised in using it in the provision of clinical care. This summary normalizes information from multiple sources, and as a consequence, information in this document may materially changethe coding, format and clinical context of patient data. In addition, data may be omittedin some cases. CLINICAL DECISIONS SHOULD BE BASED ON THE PRIMARY CLINICAL RECORDS. [facility] provides no warranty or guarantee of the accuracy or completeness of information in this document. UNRECOGNIZED CONTENT PROVIDED BELOW FOR UNRECOGNIZED SECTION INFORMATION SOURCE DATE CREATED AUTHOR AUTHOR'S ORGANIZATIO N 12/19/2018 [facility]
[2019-01-07 07:47] LABS: Hematocrit 40.5 % (37-47); Hemoglobin 13.2 g/dL (12.0-15.0); Mean Corp Hgb Conc 32.6 g/dL (32-36); Mean Corpuscular Hgb 29.8 pg (27.0-32.0); Mean Corpuscular Volume 91.4 fL (81-99); Mean Platelet Vol. 10.7 fl (6.2-12.0); Platelet Count 211 K/mm3 (150-450); RBC Distribution Width CV 13.2 % (11.6-14.6); RBC Distribution Width SD 44.6 fl (35.1-43.9); Red Blood Count 4.43 M/mm3 (4.2-5.4); White Blood Count 5.9 K/mm3 (4.4-11.0)
[2019-01-07 08:20] LABS: Vitamin D,25 Hydroxy 30.8 ng/mL (29.95-100.01)
[2019-01-07 08:38] LABS: ALB/GLOB Ratio 1.1 RATIO (0.9-2.4); AST(SGOT) 16 U/L (15-37); Alanine Aminotransfer ALT/SGPT 24 U/L (13-56); Albumin, Serum 3.7 g/dL (3.2-5.0); Alkaline Phosphatase 111 U/L (45-117); Anion Gap 9 (5-15); BUN 23 mg/dL (7-18); BUN/Creat Ratio 24.1 RATIO (10-20); Calcium,Total 8.3 mg/dL (8.5-10.1); Chloride 106 mmol/L (98-107); Cholesterol 201 mg/dL (200); Creatinine, Serum 0.96 mg/dL (0.55-1.02); EST Glomerular Filtration Rate 63 mL/min (>60); Est Glom Filt Rate - Afr Amer 76 mL/min (>60); Globulin 3.4 g/dL (2.2-4.2); Glucose 79 mg/dL (74-106); High Density Lipoprotein 80 mg/dL; Lipase 105 U/L (73-393); Potassium 4.2 mmol/L (3.5-5.1); Protein, Total 7.1 g/dL (6.4-8.2); Sodium Level 142 mmol/L (136-145); T4 Free Direct 1.09 ng/dL (0.76-1.46); Triglycerides 53 mg/dL; Very Low Density Lipoprotein 11 mg/dL (5-40)
[2019-01-12 11:57] LABS: Anti-Thyroglobulin AB < 1.0 IU/mL (0.0-0.9)
== END ==
PROVIDERS: Family Provider Family Medicine; PCP Family Medicine; Referring Provider Family Medicine; Visit Provider Family Medicine
DX: Z00.00 Encounter for general adult medical examination without abnormal findings (principal); C73 Malignant neoplasm of thyroid gland; E55.9 Vitamin D deficiency, unspecified; R07.0 Pain in throat
CPT/HCPCS: 36415; 80053; 80061; 82306; 83690; 84432; 84439; 84443; 85027; 86800

== ENCOUNTER → 2019-02-11 13:07 | Outpatient (CLI) | payer OTHER, SELFPAY ==
[2019-01-28 15:08] VITALS: BMI 26.9
[2019-02-11 14:46] LABS: Hepatitis C Antibody Non-Reactive (Nonreactive)
== END ==
PROVIDERS: Family Provider Family Medicine; PCP Family Medicine; Referring Provider Family Medicine; Visit Provider Family Medicine
DX: Z86.19 Personal history of other infectious and parasitic diseases (principal)
CPT/HCPCS: 36415; 86803

== ENCOUNTER 2019-02-18 06:24 | Day surgery (SDC) | payer OTHER, SELFPAY ==
--- NOTE | 2019-01-28 04:29 | HP_ITS ---
Intake Vital Signs 01/28/19 Body Mass Index (BMI) 26.9 01/28/19 Height 5 ft 4 in 01/28/19 Weight: 158 lb 01/28/19 Body Mass Index (BMI) 27.1 01/28/19 Blood Pressure 120/73 01/28/19 Blood Pressure Location Rt brachial 01/28/19 Respiratory Rate 18 Intake Visit Reasons: Hiatal Hernia Wants to discuss having EGD Chief Complaint: possibly something in right eye News Analyst Required: No Is patient in pain?: No Allergies morphine [From Duramorph (PF)] Adverse Reaction (Verified 01/28/19 15:07) Itching Medications Levothyroxine [Synthroid] 112 mcg PO QHS 05/19/16 [History Confirmed 12/21/18] calcium carbonate-vitamin D3 600 mg (1,500 mg)-400 unit capsule cap PO cap 04/20/18 [History Confirmed 12/21/18] cholecalciferol (vitamin D3) 50,000 unit tablet 50,000 unit PO QWEEK 04/20/18 [History Confirmed 12/21/18] nabumetone 750 mg tablet 750 mg PO .prn tab 01/28/19 [History Confirmed 01/28/19] PFSH Medical History (Updated 01/28/19 @ 16:27 by Yon Gusman MD) Swallowing problem (Acute) Hepatitis (Acute) History of thyroid cancer (Acute) Chronic knee pain (Chronic) Surgical History H/O tubal ligation (Acute) S/P D&C (status post dilation and curettage) (Acute) History of D&C (Acute) History of carpal tunnel surgery (Acute) RTK 2015 (Acute) history of modified rad neck 2011 (Acute) Family History Other Diabetes Heart disease Hypertension Social History (Updated 01/28/19 @ 16:29 by Yon Gusman MD) Smoking Status: Never smoker alcohol intake: current alcohol intake frequency: a few times a month HPI HPI HPI: KARINA JADE, is a 63 F who presents to the office today for HPI HPI Surgical H&P: Yes HPI: KARINA JADE, is a 63 F who presents to the office today for surgical consultation regarding esophageal dysphasia. The patient is referred by Dr. Nicholas Irvin and a written compromise surgical consult and recommendations will be returned to him. Intermittently she will have trouble swallowing dry food. A lot of times it is toast or a dry meat. She is able to get that I have been removed by drinking liquid. She has never had an acute esophageal obstruction requiring emergency endoscopy. Previous imaging March 11, [address] scan. Findings showed some mild scarring of the right lung base. Evidence of her previous total thyroidectomy for papillary thyroid cancer. Small hiatal hernia has been previous Ashwin noted. The patient has never had a previous upper endoscopy. She has had a previous screening colonoscopy 9 years ago. There is no family history of colon cancer. Only infrequently does she sense of heartburn. She will infrequent utilize Tums if she feels a retrograde food taste in her mouth but this is rare. The patient in addition has had a previous history of hepatitis B causing acute jaundice and hepatitis. She was out of work for 2 months when she had that acute infection related to a needle puncture. ROS General General: No weight change, appetite, fatigue, colon cancer, breast cancer or weakness HEENT HEENT: Yes difficulty swallowing; no eye injury, eye surgery, swollen glands or hoarseness Endo Endocrine: Yes thyroid disease and thyroid cancer; no diabetes mellitus, Hair loss, heat intolerance or cold intolerance Skin Skin: No rash or changing moles Breast Breast: No left breast lump, right breast lump, nipple discharge, breast pain, abnormal mammogram, abnormal US or breast enlargement Musc Musculoskeletal: Yes back problems; no arthritis, rheumatoid arthritis, gout or joint pain Cardio Cardiovascular: No murmur, pacemaker, heart disease, atrial fibrillation, high blood pressure, heart attack, heart stent, palpitations, shortness of breat with exertion or chest pain Psych Psychiatric: No depression, anxiety or hearing voices Resp Respiratory: No shortness of breath, No sleep apnea, No cough, No COPD, No asthma, No emphysema, No wheezing Gastro Gastrointestinal: No abdominal pain, No nausea or vomiting, No diarrhea, No constipation, No blood in stool, No acid reflux, No hemorrhoids, No ulcers, No gallbladder problem, No black,tarry stools Srikanth Hematologic: No blood thinners, No blood disorders, No bleeding, No anemia, No blood clots Neuro Neurologic: No system reviewed and no additional complaints, except as docu, No as per HPI, No abnormal walking, No abnormal hearing, No abnormal movements, No abnormal speech, No behavioral changes, No burning sensations, No confusion, No seizure-like activity, No unsteadiness, No dizziness, No localized weakness, No frequent falls, No headache(s), No lack of coordination, No loss of vision, No memory loss, No numbness, No other visual disturbances, No radiating pain, No restless legs, No sensory deficit, No fainting, No tingling, No tremor(s), No weakness, No other Exam Const General: cooperative, healthy appearing, comfortable, no acute distress Nutritional Appearance: average body habitus Orientation: alert, awake, oriented x3 HENMT Head: normal to inspection Neck Other: Long incision right mid lateral neck extending supra sternal related to radical thyroid resection Chest Breast Palpation: No nipple discharge Resp Effort & Inspection: normal respiratory effort Auscultation: clear to auscultation bilaterally Cardio Rate: regular rate Rhythm: regular rhythm Heart Sounds: no murmurs GI Palpation: soft, no hepatosplenomegaly Auscultation: normal bowel sounds Neuro Cognition: normal cognition Extrem General: no calf tenderness bilaterally Psych Affect: normal affect Assessment & Plan Problems 1. Swallowing problem R13.10 Plan I recommended the patient a esophagogastroduodenoscopy with anticipated biopsy. We will carefully be inspecting for reason for her difficulties with swallowing. We will carefully be inspecting for hiatal hernia or H. pylori or eosinophilic esophagitis. We can achieve this with IV sedation. The patient is aware of the technique, benefits, risks and alternatives. We will schedule and proceed at her discretion. I very much appreciate the kind opportunity of assisting with her surgical care CC: Dr. Nicholas Gusman M.D., F.A.C.S. Plan Detail Goals Decrease spasm and pain Barriers Prolonged standing Knee surgery Coding Level of Care Code 38355 Diagnoses Swallowing problem R13.10 01/28/19 0519 <Electronically signed by Yon rodriguez MD> Date _ Yon Gusman MD I have re-examined the patient. There are no clinical changes since date of exam.
[2019-01-28 15:08] VITALS: BMI 26.9
[2019-02-18] VITALS (8 sets, daily range): BP systolic 93–157; BP diastolic 57–85; PULSE 51–68; RESP 16; TEMP 36.1–36.3; O2SAT 94–100; BMI 27.1
[2019-02-18] MEDS: Lactated Ringers 1,000 ML 100 ML IV (06:54)
--- NOTE | 2019-02-18 07:30 | IMM_PTH ---
PATIENT: KARINA JADE LOC: EN U#:[id number] AGE/SX: 63/F ROOM: RE02/18/[address]: Dr. Yon Gusman MD : 1955 BED: DIS: 02/18/2019 SPEC #: [id number] RECD: 02/18/19 10:56 STATUS: JODI REQ #: [id number] CHANDNI: 02/18/19 07:[address]: Yon Gusman DEPT: IMMUNOHISTOCHEMISTRY RECD BY: Jaja Matson ENTERED: 02/18/19 10:56 SP TYPE: IMMUNO OTHR DR: Dr. Nicholas Irvin MD Tissues: B - Stomach, NOS Procedures: H Pylori (initial) PHYSICIAN & INSTITUTION [place] [address] SPECIMEN INFORMATION: Tissue Source: B - Antral biopsy Clinical Info: Swallowing problem Specimen Number: [id number] CPT code: 81278 METHODOLOGY: Deparaffinized sections of prefer/formalin-fixed tissue or PAP/DQ stained slides are incubated with monoclonal/polyclonal antibodies/oligonucleotide probes. Localization is made via biotin free immunoperoxidase method. Appropriate controls are performed and reacted as expected. Results on target cell population are indicated in the following table: RESULTS: ANTIBODY / CLONE RESULT Block B H Pylori (polyclonal) negative These tests were developed and their performance characteristics determined by [facility]. They may not have been cleared or approved by the U.S. Food and Drug Administration. The FDA has determined that such clearance or approval is not necessary. INTERPRETATION: B. Antral biopsy: Negative for Helicobacter pylori organisms. SJ:yaz 02/21/19
--- NOTE | 2019-02-18 07:30 | EGD_PTH ---
PATIENT: KARINA JADE LOC: EN U#:[id number] AGE/SX: 63/F ROOM: RE02/18/[address]: Dr. Yon Gusman MD : 1955 BED: DIS: 02/18/2019 SPEC #: [id number] RECD: 02/18/19 09:09 STATUS: JODI VIDAL #: [id number] CHANDNI: 02/18/19 07:[address]: Yon Gusman DEPT: SURGICAL PATHOLOGY RECD BY: Arslan Andersen ENTERED: 02/18/19 10:28 SP TYPE: EGD BIOPSY OTHR DR: Dr. Nicholas Irvin MD Tissues: A - Duodenum, NOS B - Gastric mucous membrane C - Esophageal mucous membrane D - Esophageal mucous membrane Procedures: Special Stain Group II Surgery Specimen Level IV Alcian Blue/PAS (control) HEADER OPERATION: EGD (MOD) PRE-OP DIAGNOSIS: Swallowing problem TISSUE SUBMITTED: A - Duodenal biopsy, B - Antral biopsy for histo and H. pylori, C - Distal esophagus biopsy, D - Mid esophagus biopsy MICROSCOPIC DIAGNOSIS A. Duodenal biopsy: A fragment of small intestinal mucosa, no pathologic diagnosis. B. Antral biopsy: Mild gastritis. Focal intestinal metaplasia (goblet cell metaplasia). See microscopic description and comment. C. Distal esophagus, biopsy: Fragments of gastroesophageal mucosa with minimal chronic inflammation and reactive epithelial changes. Intestinal metaplasia (goblet cell metaplasia) is not identified. See comment. D. Mid esophagus, biopsy: Fragments of benign squamous epithelium. SJ:yaz 02/21/19 COMMENT B. The results of immunohistochemistry for Helicobacter pylori will be reported separately ([id number]). Alcian blue/PAS stain with matched control is used in the evaluation of the specimen. C. Alcian blue/PAS stain with matched control is used in the evaluation of the specimen. MICROSCOPIC DESCRIPTION Slides are reviewed. B. The specimen shows fragments of gastric mucosa with chronic inflammatory cell infiltrates in the lamina propria consisting of lymphocytes and plasma cells, consistent with mild chronic gastritis. Focal intestinal metaplasia is also noted. GROSS DESCRIPTION A - Received in fixative is one container labeled with the patient's name and designated duodenal biopsy. The specimen consists of one irregular fragment of light miramontes soft tissue that measures 0.5 x 0.3 x 0.1 cm. The specimen is totally submitted in one cassette. B - Received in fixative is one container labeled with the patient's name and designated antral biopsy. The specimen consists of one irregular fragment of light miramontes soft tissue that measures 0.6 x 0.3 x 0.1 cm. The specimen is totally submitted in one cassette. C - Received in fixative is one container labeled with the patient's name and designated distal esophagus biopsy. The specimen consists of multiple irregular fragments of light miramontes soft tissue that in aggregate measure 1.5 x 0.8 x 0.1 cm. The specimen is totally submitted in one cassette. D - Received in fixative is one container labeled with the patient's name and designated mid esophagus biopsy. The specimen consists of multiple irregular fragments of light miramontes soft tissue that in aggregate measure 0.3 x 0.2 x 0.1 cm. The specimen is totally submitted in one cassette. / AM:yaz 02/18/19 TC:3 CPT: 83644 x4, 12342 x2
--- NOTE | 2019-02-18 08:07 | EKG12_ITS ---
Test Reason : Blood Pressure : / mmHG Vent. Rate : 049 BPM Atrial Rate : 049 BPM P-R Int : 168 ms QRS Dur : 096 ms QT Int : 520 ms P-R-T Axes : 054 041 048 degrees QTc Int : 469 ms Sinus bradycardia Otherwise normal ECG Confirmed by ROSANGELA BOOTH, ESTRELLA ([id number]), manager editorial PAYAM CAMPBELL ([id number]) on 02/23/2019 10:52:21 AM Referred By: Nicholas Irvin Confirmed By:ESTRELLA ADAMES MD
--- NOTE | 2019-02-18 08:12 | OP.ENDO_ITS ---
02/18/2019 Nicholas Irvin Re : Upper GI endoscopy procedure for Nia Huff Brandee This procedure was performed on Monday, February 18, 2019. My impressions and recommendations are as follows: Impressions : - Z-line variable, 40 cm from the incisors. Biopsied. Mid esophagus visually normal, biopsied - Small hiatal hernia. - Erythematous mucosa in the antrum. Biopsied. - Normal examined duodenum. Biopsied. Recommendations : - Await pathology results. - Discharge patient to home. - Resume previous diet. - Continue present medications. - Telephone my office for pathology results in 1 week. If symptoms persist then consider esophageal manometry My findings are described in the full procedure note, which is enclosed. If I can be of further assistance, please feel free to contact me at Doctor phone number(s): Work: . Sincerely, Yon Gusman MD 02/18/2019 8:11:42 AM This report has been signed electronically.
== END 2019-02-18 09:33 | disposition home or self-care (01) ==
LOC: EN 06:24 → AC 06:26
PROVIDERS: Family Provider Family Medicine; PCP Family Medicine; Referring Provider Family Medicine; Visit Provider Surgery
PROC: (CPT 43239; principal; 2019-02-18 07:25)
DX: K22.8 Other specified diseases of esophagus (principal); K29.70 Gastritis, unspecified, without bleeding; K44.9 Diaphragmatic hernia without obstruction or gangrene; R13.10 Dysphagia, unspecified
CPT/HCPCS: 43239; 88305; 88313; 88342; 93005; 99152; 99153; J7120

== ENCOUNTER 2019-02-22 15:00 | Outpatient (RCR) | payer OTHER, SELFPAY ==
[2018-12-21 15:32] VITALS: BMI 26.9
--- NOTE | 2019-01-03 15:58 | HP.PTEVAL_ITS ---
Patient's Visit Information KARINA JADE is a 63 year old F referred to Physical Therapy by Ynes Lee DO with a diagnosis of c/s DJD. Date of Evaluation: 01/03/19 Physical Therapist: Dmitry Rojo, DPT, OCS, CSCS - Visit Plan Frequency: 1x/Week Duration: 4-6 Weeks Plan: weekly x 4-6 for monitor improvements with sleeping position changes adn inf capsule stretch. Start UT and scalene stretches adn RC/posutral strength via HEP over next number of visits - Subjective Findings: Saw Rosa due to 4-5 months worth of pain 4/10 in R rib and upper medial arm. x ray showed compressed disc in c345 adn OA in neck. I can't move my head. The pain wakes her up at night adn if doing side plank. Lies on R side and wakes up nightly with pain. Gets numb or tingly if lies on R side. Does not feel weak. No pain to cough or sneeze. 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 Does not affect ADLs. Has post operative changes in R neck form lymph node surgery taking out alot in R neck. - Pain R medial upper arm and lats Pain Intensity (Out of 10): 0 Pain Intensity Range: 0, 4 - Objective Walks normal and trasnfers normal. c/s AROM 50 ext adn 50 B rotation without pain today. SB limited to 5 degrees each side without pain. Massive stretching in scalene area adn UT., No reproduction of pain. UE aROM WFL but R has endrange flexion with elbow flexion pain under arm reproducing symptoms. Full IR adn ER at shoulder but some mild pain iwth IR end range. elbow and wrist AROM wFL and symmetrical. 4/5 B shoulder strength without pain today. - HK, - neer tests, - ext rotation lag test, - c/s compresion test. 2/3 bi and tri reflexes. Sensation WNL to janeth s light touch in UE. - Goals Goal 1:: sleep without waking and wake without pain each night. Goal Time Frame: 4-6 Weeks Goal 2:: side plank without pain. Goal Time Frame: 4-6 Weeks Goal 3:: I appropr sleeping position and shoulder/cervical ROM to minimize future problems. - Rehabilitation Potential Physical Therapy Diagnosis: C/SDJD vs impiongement subscap from sleepign position. Rehabilitation Potential: Fair - Anticipated Interventions Patient/Client Instruction: Educate patient on: Condition, Plan of Care For the Purpose of:: To decrease pain, To increase tolerance to activity/condition/position Therapeutic Exercise to Include: Strength training, Postural training, Flexibilty training, Passive ROM, Active ROM For the Purpose of:: To decrease pain, To increase ROM, To increase tolerance to activity/condition/position Thank you for the opportunity to evaluate your patient. For Medicare and Medicare HMO plans, please review the plan of care and approve it. It will need to be FAXED BACK to us at [phone] for Medicare purposes. For Medicare only, by signing this I certify the plan of care. Please let me know if there are questions or concerns regarding this plan of care. Physician Signature:_ Date:
--- NOTE | 2019-02-02 09:01 | HP.PTREVAL_ITS ---
Ynes Lee, DO, It has been my pleasure to treat KARINA JADE over the last 3 visits for c/s DJD. Please see the progress note below for an update on the physical therapy plan of care! Subjective: Stretches have been compliant. Done band once or twice. No difference in lat pain. Only once or twice per week when lie on R side adn goes away within 10 minutes. Gets to 4/10. Avoids R sidelying adn so is better. Objective/Function: Mild soft tissue tenderness in tric R, UT R, and scalenes R. Strength 4/5 bi and tricep B and ext rotation 4- R and 4 L, IR 4+ B. flexion R 4 withotu pain and 4 L. Full aROM with slight discomfort cross body stretch R and OH tricep stretch R. Overall no better with pain except for avoiding activity that bothers her(R sidelying) which she only does a couple times per week now and still gets the same pain. Plan Plan: 6 visits over 2-3 weeks of soft tissue work to R UT, scalens, Triceps and steretch the same with ROM neck. Add side planks and planks/shoulder WB ex to HEP. Appropriate to have PT for STM for two weeks with questionable prognosis. Goals Goal 1:: sleep without waking and wake without pain each night. Goal Time Frame: 4-6 Weeks Goal Progress: Progress,a voiding R side Goal 2:: side plank without pain. Goal Time Frame: 4-6 Weeks Goal Progress: Not Progressing Goal 3:: I appropr sleeping position and shoulder/cervical ROM to minimize future problems. Goal Progress: Goal Met Anticipated Interventions Patient/Client Instruction: Educate patient on: Condition, Plan of Care For the Purpose of:: To decrease pain, To increase tolerance to activity/condition/position Therapeutic Exercise to Include: Strength training, Postural training, Flexibilty training, Passive ROM, Active ROM For the Purpose of:: To decrease pain, To increase ROM, To increase tolerance to activity/condition/position Please do not hesitate to contact me at [phone] by phone or Fax: if you have questions or concerns regarding this new plan of care! Sincerely, Dmitry Rojo, DPT, OCS, CSCS
--- NOTE | 2019-02-22 15:46 | HP.PTDCSUM ---
HP - PT D/C Summary It has been my pleasure to treat KARINA JADE under orders from Ynes Lee DO, for the diagnosis of c/s DJD for a total of 9 visit(s). Discharge Date: 02/22/19 Please see the following information for a summary of their discharge status. - Subjective Subjective: Avoids sleeping on R side due to numbness. So doesn't get numbness unless she gets there accidentally. No other major changes. essentially unchanged arm pain and numbness with sleeping but functionally not keeping her from doing anything. - Pain R medial upper arm and lats Pain Intensity (Out of 10): 0 - Overall Improvement % Improvement: 0 - Objective Objective/Function: 50 L rotation and 60 R adn 60 ext. Slightly improved ROM but no change to numbness/R arm/side discomfort. - Goals Goal 1:: sleep without waking and wake without pain each night. Goal Progress: Progress,a voiding R side Goal 2:: side plank without pain. Goal Progress: unchanged Goal 3:: I appropr sleeping position and shoulder/cervical ROM to minimize future problems. Goal Progress: Goal Met - Plan Plan: d/c - D/C Information Discharge Comments: No change to overall symptoms but admittedly was not a big probem to begin with. If there are questions or concerns regarding this patient's physical therapy, please feel free to call me at [phone]. Thank you for the referral of this patient. Sincerely, Dmitry Rojo, DPT, OCS, CSCS
== END 2019-02-22 19:00 | disposition home or self-care (01) ==
LOC: PT 15:00
PROVIDERS: Family Provider Family Medicine; PCP Family Medicine; Referring Provider Orthopaedic Surgery; Visit Provider Orthopaedic Surgery
DX: M47.892 Other spondylosis, cervical region (principal); M46.90 Unspecified inflammatory spondylopathy, site unspecified
CPT/HCPCS: 97110; 97140; 97162; 97530

== ENCOUNTER → 2019-03-05 07:12 | Outpatient (CLI) | payer OTHER, SELFPAY ==
[2019-02-22 14:08] VITALS: BMI 27.1
--- NOTE | 2019-03-05 07:14 | MRI_ITS ---
STUDY: MRI RIGHT ANKLE WITHOUT CONTRAST REASON FOR EXAM: Right Achilles pain for 3 months, no specific injury. TECHNIQUE: Standardized fat and water weighted pulse sequences were obtained in all 3 orthogonal planes. COMPARISON: None. FINDINGS: Normal subcutis adipose space. There is a very small volume of fluid in the distal posterior tibialis tendon sheath (inversion recovery sagittal image 16). The posterior tibialis tendon is morphologically normal. Normal flexor digitorum longus tendon. Normal flexor hallucis longus tendon. There is a longitudinal split of the perimalleolar peroneus brevis tendon (T1 axial images 10-17). The peroneus longus tendon is morphologically normal. Normal tibialis anterior tendon. Normal extensor hallucis longus tendon. Normal extensor digitorum longus tendons. There is mild insertional Achilles tendinosis and a low-grade intrasubstance partial tear of the distal 1.9 cm of the Achilles tendon (inversion recovery sagittal image 13; inversion recovery series 7 images 18-21). There is a trace of fluid in the retrocalcaneal bursa. Normal plantar fascia. Normal plantar calcaneal tubercles. Normal intrinsic muscles of the rearfoot. Normal distal tibiofibular syndesmotic ligamentous complex. There is mild thickening of the anterior talofibular ligament (T2 axial image 15) consistent with scarring. Normal calcaneofibular and posterior talofibular ligaments. Normal subtalar ligaments and sinus tarsi. Normal deltoid ligamentous complexes. Normal plantar calcaneonavicular (spring) ligament. There is an osteochondral lesion of the superior talar dome mostly medial to the midline (T1 sagittal images 9-12) measuring 1.1 x 1.0 cm (AP x transverse) with bone edema in the fragment and parent bone (T2 sagittal images 14-16) and thinning of the overlying articular cartilage (T1 sagittal image 10). There is a small posterior subtalar joint effusion (inversion recovery sagittal images 7-10). There is a small talonavicular joint effusion (inversion recovery sagittal images 10, 11). Normal calcaneocuboid articulation. There is arthrosis of the navicular-medial cuneiform articulation with subchondral thinning and subchondral cystic change (inversion recovery sagittal images 12, 13). There is arthrosis with chondral thinning and subchondral cystic change/bone edema of the second and third tarsometatarsal joints (inversion coverage sagittal images 5, 6, 9). MRI/Lower Ext Joint Only (Routine) IMPRESSION: Mild insertional Achilles tendinosis with low-grade intrasubstance partial tendon tear. Longitudinal split of the peroneus brevis tendon. Mild scarring of the anterior talofibular ligament. Osteochondral lesion of the talar dome. Very mild posterior tibialis tenosynovitis. 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 Small posterior subtalar and talonavicular joint effusions. Electronically Signed: Sergio Currie MD at 7:42 EDT Tel , Service support ,
== END ==
PROVIDERS: Family Provider Family Medicine; PCP Family Medicine; Referring Provider Orthopaedic Surgery; Visit Provider Orthopaedic Surgery
DX: S86.011A Strain of right Achilles tendon, initial encounter (principal)
CPT/HCPCS: 73721

== ENCOUNTER 2019-03-23 09:30 | Outpatient (RCR) | payer OTHER, SELFPAY ==
[2018-04-20 11:30] VITALS: BMI 26.9
--- NOTE | 2018-06-02 11:57 | MASS.EVAL ---
Massage Therapy Evaluation: Initial Evaluation Date: 06/02/2018 SUBJECTIVE: Nia is a 62 year old female who was referred to the [facility] facility for a massotherapy evaluation by Dr. Irvin with the diagnosis of degenerative disc disease. Nia presents today with the symptoms of tension and pain in her neck and shoulders. She also complains of neck and back stiffness with pain intermittently in her low back and bilateral hip tension. Nia reports having a past medical history of cancer in her neck and a total right knee replacement. She complains of increased pain in right knee recently and muscle cramping in bilateral hamstrings. She reports having improved symptoms with continuation of exercise and stretching. OBJECTIVE: Upon observation Nia has slight head forward in sitting and standing postures. After examination and palpation I found Nia to have high muscle tension with tenderness and myofascial restrictions in her sub occipitals, levator scapulae, trapezius, rhomboids, scalenes, and thoracic paraspinals. Her QL?s, lumbar paraspinals, glute medius and minimus all were very tight with fascial restrictions, tender points and trigger points. Her right quads and IT band all were very tight as well. The first treatment consisted of a one hour massage to her full body with myofascial release, muscle stripping, trigger point compression techniques, and cervical manual traction. ASSESSMENT: I feel that Nia is a good candidate for massotherapy at this time. She had a favorable response to the first treatment with reduction in her muscle aches, pain and tension. She also had improvement in her cervical flexibility and low back flexibility. PLAN: The plan of care was reviewed with the patient. The patient is to be seen on an as needed basis for a total of ten sessions with the recommendation of once every month for a one hour treatment.
== END 2019-03-23 19:00 | disposition home or self-care (01) ==
LOC: MASS 09:30
PROVIDERS: Family Provider Family Medicine; PCP Family Medicine; Referring Provider Family Medicine; Visit Provider Family Medicine
DX: M51.36 Other intervertebral disc degeneration, lumbar region (principal)
CPT/HCPCS: 97124

== ENCOUNTER → 2019-04-01 16:00 | Outpatient (CLI) | payer OTHER, SELFPAY ==
[2019-03-11 12:28] VITALS: BMI 27.1
[2019-04-06 12:07] LABS: Age Gdln ACOG Testing 30-65 (.)
[2019-04-06 13:22] LABS: HPV APTIMA, High Risk Negative (Negative)
[2019-04-06 13:23] LABS: HPV Reflexed? YES, CHARGE PATIENT
== END ==
PROVIDERS: Family Provider Family Medicine; PCP Family Medicine; Referring Provider Obstetrics & Gynecology; Visit Provider Obstetrics & Gynecology
DX: Z12.4 Encounter for screening for malignant neoplasm of cervix (principal)
CPT/HCPCS: 87624; 88175; G0145

== ENCOUNTER → 2019-04-19 14:15 | Outpatient (CLI) | payer OTHER, SELFPAY ==
[2019-04-19 14:11] VITALS: BMI 27.1
--- NOTE | 2019-04-19 14:26 | RAD_ITS ---
STUDY: X-RAY - RIGHT HAND REASON FOR EXAM: Pain at the base of the thumb, recent lifting. TECHNIQUE: 3 view(s) of the hand. COMPARISON: Radiographs of the right wrist 03/21/2016. FINDINGS: Normal radiocarpal articulation. Normal distal radioulnar joint. Normal visualized carpal bones. There is moderate joint space narrowing of the triscaphe articulation with mild subchondral cystic change of the distal pole of the scaphoid, progressed since the prior study. Normal carpometacarpal articulation of the thumb. Normal second through fifth carpometacarpal joints. Normal metacarpi. Normal metacarpophalangeal joint of the thumb. Normal interphalangeal joint of the thumb. Normal proximal and distal phalanges of the thumb. Normal metacarpophalangeal joints of the second through fifth fingers. There is joint space narrowing of the fourth and fifth distal interphalangeal articulations. Normal phalanges of the second through fifth fingers. The soft tissue structures are unremarkable. 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 Electronically Signed: Sergio Currie MD at 15:18 EST Tel , Service support ,
== END ==
PROVIDERS: Family Provider Family Medicine; PCP Family Medicine; Referring Provider Orthopaedic Surgery; Visit Provider Orthopaedic Surgery
DX: M79.644 Pain in right finger(s) (principal)
CPT/HCPCS: 73130

== ENCOUNTER 2019-05-05 09:08 | Day surgery (SDC) | payer OTHER, SELFPAY ==
[2019-04-12 14:51] VITALS: BMI 27.1
[2019-04-19 14:11] VITALS: BMI 27.1
[2019-05-05 09:29] VITALS: BP 119/82; PULSE 60; RESP 16; TEMP 36.4; O2SAT 100
== END 2019-05-05 10:06 | disposition home or self-care (01) ==
PROVIDERS: Family Provider Family Medicine; PCP Family Medicine; Referring Provider Family Medicine; Visit Provider Surgery
PROC: F00ZJWZ Instrumental Swallowing and Oral Function Assessment using Swallowing Equipment (ICD-10-PCS; CPT 43235; principal; 2019-05-05 10:55)
DX: R13.10 Dysphagia, unspecified (principal)
CPT/HCPCS: 91010; 91013

== ENCOUNTER → 2019-06-03 07:53 | Outpatient (CLI) | payer OTHER, SELFPAY ==
[2019-03-11 12:28] VITALS: BMI 27.1
[2019-05-20 13:38] VITALS: BMI 27.1
--- NOTE | 2019-06-03 07:57 | BI_ITS ---
MAMMOGRAPHY - BILATERAL SCREENING REASON FOR EXAM: Female, 63 years old. Routine annual screening examination. PERTINENT HISTORY: Non-contributory. TECHNIQUE: Digital bilateral breast wilma (3D mammographic acquisition) in the CC and MLO projections. 2-D mediolateral oblique (MLO) and craniocaudad (CC) views of both breasts were obtained. CAD: Full Field Digital Mammography with Computer Added Detection was performed. COMPARISON: Comparison is made with prior study dated June 02, 2018 and April 22, 2017. FINDINGS: Breast Composition: There are scattered areas of fibroglandular density. There are no dominant masses or suspicious calcifications. No other significant abnormalities are identified. There has been no significant change since the prior study. BI/SCREEN MAMM (CAD) W/WILMA BILAT IMPRESSION: Stable bilateral screening mammogram. Yearly follow-up mammogram recommended. (A) ASSESSMENT CATEGORY: BIRADS Category 1: Negative. A letter regarding these results will be sent to the patient by the facility within 30 days. Approximately 10% of breast cancers are not detected by mammography. A normal mammogram should not delay biopsy of a clinically suspicious abnormality. [id number] Electronically Signed: Dash Rodriguez, at 9:22 EST , Service support ,
== END ==
PROVIDERS: Family Provider Family Medicine; PCP Family Medicine; Referring Provider Obstetrics & Gynecology; Visit Provider Obstetrics & Gynecology
DX: Z12.31 Encounter for screening mammogram for malignant neoplasm of breast (principal)
CPT/HCPCS: 77063; 77067

== ENCOUNTER → 2019-10-13 09:52 | Outpatient (CLI) | payer OTHER, SELFPAY ==
[2019-08-03 10:13] VITALS: BMI 27.1
--- NOTE | 2019-10-13 09:53 | RAD_ITS ---
STUDY: X-RAY - LEFT HAND REASON FOR EXAM: Hand and thumb pain, no specific injury. TECHNIQUE: 3 view(s) of the hand. COMPARISON: None. FINDINGS: Normal radiocarpal articulation. Normal distal radioulnar joint. Normal visualized carpal bones. Normal carpal articulations Normal carpometacarpal articulation of the thumb. Normal second through fifth carpometacarpal joints. Normal metacarpi. Normal metacarpophalangeal joint of the thumb. There is a small marginal osteophyte at the base of the first distal phalanx without joint space narrowing of the interphalangeal joint of the thumb. Normal proximal and distal phalanges of the thumb. Normal metacarpophalangeal joints of the second through fifth fingers. There is joint space narrowing of the distal interphalangeal joints and mild joint space narrowing of the third and fourth proximal interphalangeal joints. Normal phalanges of the second through fifth fingers. The soft tissue structures are unremarkable. RAD/Hand Min 3 Views IMPRESSION: Arthrosis of the interphalangeal joints. Electronically Signed: Sergio Currie MD at 11:27 EDT Tel , Service support ,
== END ==
PROVIDERS: PCP Family Medicine; Referring Provider Orthopaedic Surgery; Visit Provider Orthopaedic Surgery
DX: M18.12 Unilateral primary osteoarthritis of first carpometacarpal joint, left hand (principal)
CPT/HCPCS: 73130

== ENCOUNTER → 2019-12-27 09:34 | Outpatient (CLI) | payer OTHER, SELFPAY ==
[2019-12-27 09:13] VITALS: BMI 27.1
--- NOTE | 2019-12-27 11:45 | RAD_ITS ---
STUDY: X-RAY - LEFT HAND REASON FOR EXAM: Hand and thumb pain, no specific injury. TECHNIQUE: 3 view(s) of the hand. COMPARISON: None. FINDINGS: Normal radiocarpal articulation. Normal distal radioulnar joint. Normal visualized carpal bones. Normal carpal articulations Normal carpometacarpal articulation of the thumb. Normal second through fifth carpometacarpal joints. Normal metacarpi. Normal metacarpophalangeal joint of the thumb. There is a small marginal osteophyte at the base of the first distal phalanx without joint space narrowing of the interphalangeal joint of the thumb. Normal proximal and distal phalanges of the thumb. Normal metacarpophalangeal joints of the second through fifth fingers. There is joint space narrowing of the distal interphalangeal joints and mild joint space narrowing of the third and fourth proximal interphalangeal joints. Normal phalanges of the second through fifth fingers. The soft tissue structures are unremarkable. RAD/Wrist min 3 Views IMPRESSION: Arthrosis of the interphalangeal joints. Electronically Signed: Sergio Currie MD at 11:27 EDT Tel , Service support ,
== END ==
PROVIDERS: PCP Family Medicine; Referring Provider Orthopaedic Surgery; Visit Provider Orthopaedic Surgery
DX: M25.531 Pain in right wrist (principal)
CPT/HCPCS: 73110

== ENCOUNTER → 2019-12-30 17:16 | Outpatient (CLI) | payer OTHER, SELFPAY ==
[2019-12-27 09:13] VITALS: BMI 27.1
--- NOTE | 2019-12-30 17:16 | MRI_ITS ---
STUDY: MRI RIGHT WRIST WITHOUT CONTRAST REASON FOR EXAM: Female, 64 years old. RIGHT wrist pain, aching at base of thumb x several months TECHNIQUE: Standardized fat and water weighted pulse sequences were obtained in all 3 orthogonal planes. COMPARISON: X-ray 12/27/2019 FINDINGS: Normal visualized distal radius and ulna. Normal distal radioulnar Articulation (DRUJ). Normal triangular fibrocartilaginous complex (TFCC). Normal carpal bones. Moderate triscaphe joint arthrosis with joint space narrowing, erosions, and marrow edema throughout the distal aspect of the scaphoid and the entire trapezium. There is a joint effusion of the pisotriquetral articulation with capsular prolapse. Normal visualized interosseous scapholunate ligament. Normal visualized dorsal (extrinsic) ligaments. Normal visualized volar (extrinsic) ligaments. Normal extensor tendons. Normal flexor tendons. Normal carpal tunnel with a normal median nerve. Normal carpometacarpal articulation of the thumb. Normal second through fifth carpometacarpal articulations. Normal visualized metacarpal bones. 2 x 12 mm multiloculated fluid collection along the volar aspect of the radiocarpal joint consistent with a radioscaphocapitate ligament ganglion. MRI/Upper Ext Joint Only(Routine) IMPRESSION: 1. Moderate triscaphe joint arthrosis with joint space narrowing, erosions, and marrow edema of the distal scaphoid and the entire trapezium. 2. Disease or triquetral joint arthrosis with erosion of the triquetral and joint effusion. 3. Thin 2 x 12 millimeter radioscaphocapitate ligament ganglion. Electronically Signed: Ozzy Lebron MD at 8:25 EDT Tel , Service support ,
== END ==
PROVIDERS: PCP Family Medicine; Referring Provider Orthopaedic Surgery; Visit Provider Orthopaedic Surgery
DX: S63.501A Unspecified sprain of right wrist, initial encounter (principal)
CPT/HCPCS: 73221

== ENCOUNTER 2020-02-28 05:26 | Day surgery (SDC) | payer OTHER, SELFPAY ==
[2020-01-17 15:05] VITALS: BMI 27.1
[2020-02-11 11:15] VITALS: BMI 27.1
[2020-02-28] VITALS (9 sets, daily range): BP systolic 86–136; BP diastolic 54–80; PULSE 52–69; RESP 16–18; TEMP 36–36.4; O2SAT 93–97; BMI 26.4
[2020-02-28] MEDS: Lactated Ringers 1,000 ML 100 ML IV (05:56)
--- NOTE | 2020-02-28 06:11 | HP.PCM_ITS ---
Problem List (1) Screening for intestinal cancer Status: Acute History of Present Illness Date of Admission: 02/28/20 The patient is a 64 year old F who presents for screening colonoscopy today. Her most recent one was February 2010. As far she is aware she has not had a history of polyps. There is no family history of colon cancer. She denies bright red blood per rectum or melena. No abdominal pain. No unexpected weight loss. No history of DVT. She is otherwise enjoying good health Past Medical History Past Medical History (Chronic Problems): Chronic Problems (Last Reviewed 02/11/20 @ 11:15 by Renetta Jimenez) DDD (degenerative disc disease), lumbar (Chronic) Medical History: Medical History (Last Reviewed 02/11/20 @ 11:15 by Renetta Jimenez) Gastroesophageal reflux disease (Acute) K21.9 Swallowing problem (Acute) R13.10 Hepatitis K75.9 History of thyroid cancer Z85.850 Chronic knee pain M25.569, G89.29 Allergies morphine [From Duramorph (PF)] Adverse Reaction (Verified 02/28/20 05:36) Itching pt had itching from duramorph 22(+) years ago for 4 days Home Medications: Ambulatory Orders Medication Instructions Recorded Levothyroxine [Synthroid] 112 mcg PO QHS 05/19/16 calcium carbonate-vitamin D3 600 3 cap PO DAILY cap 04/20/18 mg (1,500 mg)-400 unit capsule Elderberry Fruit and Flower [Black 1 ea PO DAILY 02/23/20 Elderberry 575 mg Cap] Surgical History: Surgical History (Last Reviewed 02/11/20 @ 11:15 by Renetta Jimenez) H/O tubal ligation Z98.51 History of D&C Z98.890 History of carpal tunnel surgery Z98.890 RTK 2016 S/P D&C (status post dilation and curettage) Z98.890 history of modified rad neck 2010 Surgical History: - Psychiatric History: No pertinent psych hx 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 Smoking Status: Never smoker Tobacco Use: Non-smoker - *Family History Maternal Family History: Family History (Last Reviewed 02/11/20 @ 11:15 by Renetta Jimenez) Other Diabetes Heart disease Hypertension History Items: Diabetes, Hypertension Paternal Family History: Family History (Last Reviewed 02/11/20 @ 11:15 by Renetta Jimenez) Other Diabetes Heart disease Hypertension History Items: Heart Disease Review of Systems Constitutional: Denies: Fever, Malaise Cardiovascular: Denies: Chest Pain Respiratory: Denies: Cough, Shortness of Breath Gastrointestinal: Denies: Abdominal Pain, Hematochezia, Melena Endocrine: Denies: Change in Body Habitus VTE Information - Inpt Only VTE Present on Admission: No Patient Problems: Active and Suspected Problems (Last Reviewed 02/11/20 @ 11:15 by Renetta Jimenez) Screening for intestinal cancer (Acute) - Physical Exam Vitals/I&O's: Vital Signs Temp Pulse Resp BP Pulse Ox 97.6 F L 60 16 123/74 H 96 02/28/20 05:37 02/28/20 05:37 02/28/20 05:37 02/28/20 05:37 02/28/20 05:37 Oxygen Delivery Method Room Air Weight: 154 lb 1.65 oz Body Mass Index (BMI) 26.4 General: Alert, Oriented x3, Cooperative, No apparent distress HEENT: Atraumatic Oral: Moist Mucosa Lungs: Clear to auscultation, Normal air movement Cardiovascular: Regular rate, Regular Rhythm Abdomen: Bowel Sounds Present, Soft, Non Tender Extremities: No Calf Tenderness Neurological: - - Normal cognition Psych/Mental Status: Normal Affect Current Medications Lactated Ringer's () 1,000 mls @ 100 mls/hr IV .Q10H PRABHU Last Admin: 02/28/20 05:56 Dose: 100 mls/hr Documented by: Assessment/Plan All Active Problems (Last Reviewed 02/11/20 @ 11:15 by Renetta Jimenez) Screening for intestinal cancer (Acute) Impacted cerumen, bilateral (Acute) Gastroesophageal reflux disease (Acute) Sinusitis, acute (Acute) Swallowing problem (Acute) Allergic reaction (Acute) Allergic dermatitis (Acute) Segmental and somatic dysfunction of cervical region (Acute) Segmental and somatic dysfunction of thoracic region (Acute) Segmental and somatic dysfunction of lumbar region (Acute) Pain in right wrist (Acute) Segmental and somatic dysfunction of pelvic region (Acute) Chest pain (Acute) 64-year-old female who presents for screening colonoscopy via open access today. She is intolerant to morphine and Benadryl. She has had an opportunity to ask and have questions answered. She is aware of the technique, benefit, risk, alternatives. We will proceed as noted. Yon Gusman M.D., F.A.C.S. Procedure Criteria Procedure Type: Elective COVID Risk Discussion: The surgeon/proceduralist and patient have discussed in detail the risk of exposure to and/or potential harm posed by the COVID-19 virus with having a surgery/procedure at this time versus the risk of delaying the surgery/procedure. It is not possible to know either the risk of delaying the surgery or procedure or chance of getting an infection with perfect accuracy, but a joint decision was made between the patient and the surgeon/proceduralist to proceed at this time with the scheduled surgery/procedure as indicated on the consent form.
--- NOTE | 2020-02-28 06:47 | OP.CCLET_ITS ---
02/28/2020 Nicholas Irvin Re : Colonoscopy procedure for Nia Nayak Deaanjali Irvin This procedure was performed on Friday, February 28, 2020. My impressions and recommendations are as follows: Impressions : - Non-thrombosed external hemorrhoids, non-thrombosed internal hemorrhoids and internal hemorrhoids that prolapse with straining, but spontaneously regress to the resting position (Grade II) found on digital rectal exam. - Diverticulosis in the sigmoid colon. - Tortuous colon. - The examination was otherwise normal. - No specimens collected. Recommendations : - Discharge patient to home. - Resume previous diet. - Continue present medications. - Repeat colonoscopy in 10 years for screening purposes. My findings are described in the full procedure note, which is enclosed. If I can be of further assistance, please feel free to contact me at Doctor phone number(s): Work: . Sincerely, Yon Gusman MD 02/28/2020 6:46:45 AM This report has been signed electronically.
--- NOTE | 2020-02-28 06:47 | OP.COLON_ITS ---
Patient Name: Nia Nayak Procedure Date: 02/28/2020 6:08 AM Date of : 1955 Age: 64 Procedure: Colonoscopy Indications: Screening for colorectal malignant neoplasm Providers: Yon Gusman MD Referring MD: Nicholas Irvin Medicines: Midazolam 3.5 mg IV, Meperidine 100 mg IV Patient Profile: Last Colonoscopy: February 2010. Complications: No immediate complications. Procedure: Pre-Anesthesia Assessment: - Prior to the procedure, a History and Physical was performed, and patient medications and allergies were reviewed. The patient's tolerance of previous anesthesia was also reviewed. The risks and benefits of the procedure and the sedation options and risks were discussed with the patient. All questions were answered, and informed consent was obtained. Prior Anticoagulants: The patient has taken no previous anticoagulant or antiplatelet agents. ASA Grade Assessment: II - A patient with mild systemic disease. After reviewing the risks and benefits, the patient was deemed in satisfactory condition to undergo the procedure. After I obtained informed consent, the scope was passed under direct vision. Throughout the procedure, the patient's blood pressure, pulse, and oxygen saturations were monitored continuously. The pediatric colonoscope was introduced through the anus and advanced to the cecum, identified by appendiceal orifice and ileocecal valve. The colonoscopy was performed without difficulty. The patient tolerated the procedure well. The quality of the bowel preparation was good. The ileocecal valve and the appendiceal orifice were photographed. Moderate Sedation: Moderate (conscious) sedation was personally administered by the endoscopist. The following parameters were monitored: oxygen saturation, heart rate, blood pressure, and response to care. Total physician intraservice time was 15 minutes. Scope In: 6:29:23 AM Scope Withdrawal Time 0 hours 7 minutes 21 seconds Scope Out: 6:42:11 AM Total Procedure Duration Time 0 hours 12 minutes 48 seconds Findings: The digital rectal exam findings include non-thrombosed external hemorrhoids, non-thrombosed internal hemorrhoids and internal hemorrhoids that prolapse with straining, but spontaneously regress to the resting position (Grade II). Scattered diverticula were found in the sigmoid colon. The sigmoid colon was moderately tortuous. The exam was otherwise without abnormality. Impression: - Non-thrombosed external hemorrhoids, non-thrombosed internal hemorrhoids and internal hemorrhoids that prolapse with straining, but spontaneously regress to the resting position (Grade II) found on digital rectal exam. - Diverticulosis in the sigmoid colon. - Tortuous colon. - The examination was otherwise normal. - No specimens collected. Recommendation: - Discharge patient to home. - Resume previous diet. - Continue present medications. - Repeat colonoscopy in 10 years for screening purposes. Procedure Code(s): --- Professional --- 63188, Colonoscopy, flexible; diagnostic, including collection of specimen(s) by brushing or washing, when performed (separate procedure) 07766, 59, Moderate sedation services provided by the same physician or other qualified health acute care clinical nurse specialist performing the diagnostic or therapeutic service that the sedation supports, requiring the presence of an independent trained observer to assist in the monitoring of the patient's level of consciousness and physiological status; initial 15 minutes of intraservice time, patient age 5 years or older Diagnosis Code(s): --- Professional --- Z12.11, Encounter for screening for malignant neoplasm of colon K64.1, Second degree hemorrhoids K64.4, Residual hemorrhoidal skin tags K57.30, Diverticulosis of large intestine without perforation or abscess without bleeding Q43.8, Other specified congenital malformations of intestine CPT copyright 2017 [employer]. All rights reserved. The codes documented in this report are preliminary and upon director of early childhood education review may be revised to meet current compliance requirements. Yon Gusman MD 02/28/2020 6:46:45 AM This report has been signed electronically. Number of Addenda: 0 Note Initiated On: 02/28/2020 6:08 AM
== END 2020-02-28 07:38 | disposition home or self-care (01) ==
LOC: EN 05:26 → AC 05:26
PROVIDERS: Anesthesiology; PCP Family Medicine; Referring Provider Family Medicine; Visit Provider Surgery
PROC: 0DJD8ZZ Inspection of Lower Intestinal Tract, Via Natural or Artificial Opening Endoscopic (ICD-10-PCS; CPT 45378; principal; 2020-02-28 06:25)
DX: Z12.11 Encounter for screening for malignant neoplasm of colon (principal); Z20.828 Contact with and (suspected) exposure to other viral communicable diseases; K57.30 Diverticulosis of large intestine without perforation or abscess without bleeding; K64.1 Second degree hemorrhoids; K64.4 Residual hemorrhoidal skin tags; K21.9 Gastro-esophageal reflux disease without esophagitis; M99.03 Segmental and somatic dysfunction of lumbar region; M99.02 Segmental and somatic dysfunction of thoracic region; M99.01 Segmental and somatic dysfunction of cervical region; M99.05 Segmental and somatic dysfunction of pelvic region; Z79.899 Other long term (current) drug therapy
CPT/HCPCS: 45378; 87635; 99152; 99153; C9803; J7120; U0003

== ENCOUNTER → 2020-04-10 15:54 | Outpatient (CLI) | payer OTHER, SELFPAY ==
[2020-02-28 05:37] VITALS: BMI 26.4
[2020-04-16 09:09] LABS: HPV Reflexed? NOT INDICATED
== END ==
PROVIDERS: PCP Family Medicine; Visit Provider Student in an Organized Health Care Education/Training Program
DX: Z12.4 Encounter for screening for malignant neoplasm of cervix (principal)
CPT/HCPCS: 88175; G0145

== ENCOUNTER 2020-05-02 13:30 | Outpatient (RCR) | payer OTHER, SELFPAY ==
[2019-03-11 12:28] VITALS: BMI 27.1
[2019-05-20 13:38] VITALS: BMI 27.1
--- NOTE | 2019-05-26 17:37 | MASS.EVAL ---
Massage Therapy Evaluation: Initial Evaluation Date: 05/26/2019 SUBJECTIVE: Nia is a 63 year old female who was referred to the [facility] facility for a massotherapy evaluation by Dr. Irvin with the diagnosis of degenerative disc disease. She presents today with the symptoms of pain, stiffness and tension in the neck, mid back and low back. Nia reports having a past medical history of chronic pain and tension in her neck, shoulders and low back related to her posture and stress. She also complains of pain and tenderness in her right achilles tendon that she is receiving EPAT treatments. She reports having minimal improvement with exercise and stretching. OBJECTIVE: Upon observation Nia has some posture issues with her head and shoulders forward from the neutral position in sitting and standing. After examination and palpation, I found Nia to have high muscle tension with tenderness and myofascial restrictions in her sub occipitals, levator scapulae, trapezius, rhomboids, scalenes, and thoracic paraspinals. Her QL?s, lumbar paraspinals, piriformis, glute medius and minimus all were very tight with fascial restrictions, tender points and trigger points. The first treatment consisted of a one hour massage to her upper body with myofascial release, muscle stripping, trigger point compression techniques, and cervical manual traction. ASSESSMENT: I feel that Nia is a good candidate for massotherapy at this time. She had a favorable response to the first treatment with reduction in her muscle aches, pain and tension. She also had improvement in her cervical flexibility and low back flexibility. PLAN: The plan of care was reviewed with the patient. The patient is to be seen on an as needed basis for a total of ten sessions with the recommendation of once every month for a one hour treatment.
--- NOTE | 2020-05-02 16:20 | DS.PCM_ITS ---
Massage Therapy Discharge Summary: Discharge Date: 05/02/2020 Nia was seen for a massotherapy evaluation on 05/26/2019 with the diagnosis of degenerative disc disease. She was treated with nine sessions of massage therapy consisting of deep pressure soft tissue techniques, myofascial release and trigger point compression to her cervical, thoracic, lower back, lower extremities and hips. Nia responded well to the therapy by reporting decreased tension and pain throughout her neck, shoulders, lower back and hips. Her goals for therapy were met throughout the treatment sessions. At this time this patient is being discharged from our care at [facility] facility.
== END 2020-05-02 19:00 | disposition home or self-care (01) ==
LOC: MASS 13:30
PROVIDERS: Family Provider Family Medicine; PCP Family Medicine; Visit Provider Family Medicine
DX: M51.36 Other intervertebral disc degeneration, lumbar region (principal)
CPT/HCPCS: 97124

== ENCOUNTER → 2020-06-16 07:41 | Outpatient (CLI) | payer OTHER, SELFPAY ==
[2020-02-28 05:37] VITALS: BMI 26.4
--- NOTE | 2020-06-16 07:47 | BI_ITS ---
MAMMOGRAPHY - BILATERAL SCREENING REASON FOR EXAM: Female, 64 years old. Routine annual screening examination. PERTINENT HISTORY: Non-contributory. TECHNIQUE: Digital bilateral breast wilma (3D mammographic acquisition) in the CC and MLO projections. 2-D mediolateral oblique (MLO) and craniocaudad (CC) views of both breasts were obtained. CAD: Full Field Digital Mammography with Computer Added Detection was performed. COMPARISON: Comparison is made with prior study dated 12/02/2019 and 06/02/2018. FINDINGS: Breast Composition: There are scattered areas of fibroglandular density. There are no dominant masses or suspicious calcifications. No other significant abnormalities are identified. There has been no significant change since the prior study. BI/SCRN MAMM (CAD)W/WILMA BILAT IMPRESSION: Stable bilateral screening mammogram. Yearly follow-up mammogram recommended. (A) ASSESSMENT CATEGORY: BIRADS Category 1: Negative. A letter regarding these results will be sent to the patient by the facility within 30 days. Approximately 10% of breast cancers are not detected by mammography. A normal mammogram should not delay biopsy of a clinically suspicious abnormality. [id number] Electronically Signed: Dash Rodriguez MD at 8:18 EST , Service support ,
== END ==
PROVIDERS: PCP Family Medicine; Referring Provider Student in an Organized Health Care Education/Training Program; Visit Provider Student in an Organized Health Care Education/Training Program
DX: Z12.31 Encounter for screening mammogram for malignant neoplasm of breast (principal)
CPT/HCPCS: 77063; 77067

== ENCOUNTER 2020-07-19 15:00 | Outpatient (RCR) | payer OTHER, SELFPAY ==
--- NOTE | 2020-07-13 07:32 | HP.OTEVAL ---
Patient's Visit Information KARINA JADE is a 64 year old F, referred to Occupational Therapy by Dr. Ynes Lee DO, with a diagnosis of Bilateral cmc arthritis. Date of Evaluation: 07/09/20 Occupational Therapist: Claribel Li, EVINR/Paulina, CHT - Subjective This 64 year old female was seen for OT eval with dx of bilateral CMC arthritis. pt states she has struggled for years with thumb pain and has had 2-3 cortisone shots. pt states this has helped but she has noticed weakness. pt would like to know what she can do to continue to perform ADLs but limit pain in her thumbs. - Pain bilateral 2 Pain Intensity Range: 1, 6 - ROM Wrist: right 65/75 left 75/75 CMC: right 10 left 0 MP: right 55 left 60 IP: right 70 left 65 - Strength Security System Analyst: right 55# left 60# Lateral Pinch: right 14# left 14# Tripod Pinch: right 10# left 14# Strength Comments: pt demo with a decrease in left 1st interosseous left hand. pt demo with thumb instability ( mild hyperextension of MP left) with pinch. - Quick DASH-Disab of Arm,Shoulder& Hand Quick DASH Score: 16.6650 - Goals Goal:: pt will demo with no thumb instability left ( no hyper extension of MP) with pinch tasks to increase ind with ADLs and IADLS. Goal:: pt will report no pain greater than 1/10 with use of bialteral hands following joint protection tyree. when performing ADLs and IADLS by d/c Goal:: pt will demo understanding of joint protection and ad. eq to use during daily tasks to prevent increase stress on joints with ADLs and IADLs Goal:: pt will demo understanding of thumb stabilization ex. by end of 2nd visit. - Rehabilitation General Assessment: pt demo with bilateral thumb instability increasing stress on cmc joints with use of bilateral pinch with ADL tasks.This increases pain with ADls and IADls. Pt would benefit from skilled OT services 1x week for 4 weeks to ensure pt returns to IND. level with ADls and IADLs. Today therapist ed. pt on what thumb instability is, thumb stabilation ex, use of supportive brace for heavy (gardening) tasks, and joint protection. pt demo understanding and agree to POC. Rehabilitation Potential: Good - Anticipated Interventions Strengthening, Modalities, Orthoses, Joint Protection/Energy Conservation, Ergonomic Education, Home Program - Visit Plan Frequency: 1x/Week Duration: 2 Weeks TEXT: Thank you for the opportunity to evaluate your patient. For Medicare and Medicare HMO plans, please review the plan of care and approve it. It will need to be FAXED BACK to us at [phone] for Medicare purposes. Please let me know if there are questions or concerns regarding this plan of care. Physician Signature: Date:
--- NOTE | 2020-07-23 09:22 | HP.OTDCSUM ---
It has been my pleasure to treat KARINA JADE under orders from Dr. Ynes Lee, , for the diagnosis of Bilateral cmc arthritis for a total of 2 visit(s). Please see the following information for a summary of their discharge status. % Improvement: 80 Patient Goals: Regain Strength, Be More Independent in ADLS Goal:: pt will demo with no thumb instability left ( no hyper extension of MP) with pinch tasks to increase ind with ADLs and IADLS. Goal:: pt will report no pain greater than 1/10 with use of bialteral hands following joint protection tyree. when performing ADLs and IADLS by d/c Goal:: pt will demo understanding of joint protection and ad. eq to use during daily tasks to prevent increase stress on joints with ADLs and IADLs Goal:: pt will demo understanding of thumb stabilization ex. by end of 2nd visit. Plan: D/c with thumb stabilization exercises Discharge Comments: pt was seen for 2 OT visits. pt arrives to session without pain- feels the cortisone shot has been helpful. therapist ed. pt on thumb stabilization ex. along with joint protection and benefical bracing to use during gardening or heavy work tasks. pt demo understanding and agree to HEP and D/C. If there are questions or concerns regarding this patient's occupational therapy, please fell free to call me at [phone]. Thank you for the referral of this patient. Sincerely, Claribel Li, OTR/L, CHT
== END 2020-07-19 19:00 | disposition home or self-care (01) ==
LOC: OT 15:00
PROVIDERS: PCP Family Medicine; Referring Provider Orthopaedic Surgery; Visit Provider Orthopaedic Surgery
DX: M19.042 Primary osteoarthritis, left hand (principal); M19.041 Primary osteoarthritis, right hand
CPT/HCPCS: 97166; 97530

== ENCOUNTER → 2020-08-13 15:25 | Outpatient (CLI) | payer OTHER, SELFPAY ==
[2020-08-22 11:01] LABS: HPV APTIMA, High Risk Negative (Negative)
== END ==
PROVIDERS: PCP Family Medicine; Visit Provider Student in an Organized Health Care Education/Training Program
DX: R87.615 Unsatisfactory cytologic smear of cervix (principal)
CPT/HCPCS: 87624; 88175; G0145

== ENCOUNTER → 2020-11-29 08:42 | Outpatient (CLI) | payer OTHER, SELFPAY ==
[2020-11-23 12:14] VITALS: BMI 27.4
[2020-11-29 11:05] LABS: T4 Free Direct 1.14 ng/dL (0.76-1.46); T4 Total, Thyroxin 9.8 ug/dL (4.8-13.9); Thyroid Stim Hormone (TSH) 3.01 uIU/mL (0.358-3.74)
[2020-11-29 21:29] LABS: Vitamin D,25 Hydroxy 58.9 ng/mL
[2020-11-30 22:32] LABS: Thyroglobulin Antibody < 1.0 IU/mL (0.0-0.9)
== END ==
PROVIDERS: PCP Family Medicine; Visit Provider Family Medicine
DX: Z00.00 Encounter for general adult medical examination without abnormal findings (principal); C73 Malignant neoplasm of thyroid gland; E55.9 Vitamin D deficiency, unspecified; Z86.19 Personal history of other infectious and parasitic diseases
CPT/HCPCS: 36415; 82306; 84436; 84439; 84443; 86800

== ENCOUNTER 2020-12-05 14:45 | Outpatient (RCR) | payer OTHER, SELFPAY ==
[2020-02-28 05:37] VITALS: BMI 26.4
--- NOTE | 2020-05-22 18:53 | MASS.EVAL_ITS ---
Massage Therapy Evaluation: Initial Evaluation Date: 05/22/2020 SUBJECTIVE: Nia is a 64 year old female who was referred to the [facility] facility for a massotherapy evaluation by Dr. Gusman with the diagnosis of low back pain and degenerative disc disease. She presents today with the symptoms of pain, stiffness and tension in the neck, mid back, low back and hips. Nia reports having a past medical history arthritis and chronic pain in her neck and back. She reports having minimal improvement with exercise and stretching over the last few months. OBJECTIVE: Upon observation Nia has some posture issues with her head and shoulders forward from the neutral position in sitting and standing. After examination and palpation, I found Nia to have high muscle tension with tenderness and myofascial restrictions in her sub occipitals, levator scapulae, trapezius, rhomboids, scalenes, and thoracic paraspinals. Her QL?s, lumbar paraspinals, piriformis, glute medius and minimus all were very tight with fascial restrictions, tender points and trigger points. The first treatment consisted of a one hour massage to her upper body with myofascial release, muscle stripping, trigger point compression techniques, and cervical manual traction. ASSESSMENT: I feel that Nia is a good candidate for massotherapy at this time. She had a favorable response to the first treatment with reduction in her muscle aches, pain and tension. She also had improvement in her cervical flexibility and low back flexibility. PLAN: The plan of care was reviewed with the patient. The patient is to be seen on an as needed basis for a total of ten sessions with the recommendation of once every month for a one hour treatment.
--- NOTE | 2020-12-05 16:13 | DS.PCM_ITS ---
Massage Therapy Discharge Summary: Discharge Date: 12/05/2020 Nia was seen for a massotherapy evaluation on 05/22/2020 with the diagnosis of low back pain and disc disease. She was treated with nine sessions of massage therapy consisting of deep pressure soft tissue techniques, myofascial release and trigger point compression to her cervical, thoracic, lower back, lower extremities and hips. Nia responded well to the therapy by reporting decreased tension and pain throughout her neck, shoulders, lower back and hips. Her goals for therapy were met throughout the treatment sessions. At this time this patient is being discharged from our care at [facility] facility.
== END 2020-12-05 19:00 | disposition home or self-care (01) ==
LOC: MASS 14:45
PROVIDERS: PCP Family Medicine; Visit Provider Family Medicine
DX: M54.5 Low back pain (principal); G89.29 Other chronic pain
CPT/HCPCS: 97124

== ENCOUNTER → 2021-02-08 12:48 | Outpatient (CLI) | payer MEDICARE, OTHER, SELFPAY | PROVIDERS: PCP Family Medicine; Referring Provider Physician Assistant Surgical; Visit Provider Physician Assistant Surgical | DX: Z11.52 Encounter for screening for COVID-19 (principal) | CPT/HCPCS: 87635; U0005; U0003 ==

== ENCOUNTER → 2021-02-21 10:36 | Outpatient (CLI) | payer MEDICARE, OTHER, SELFPAY | PROVIDERS: PCP Family Medicine; Referring Provider Physician Assistant; Visit Provider Physician Assistant | DX: Z11.52 Encounter for screening for COVID-19 (principal) | CPT/HCPCS: 87635; U0005; U0003 ==

== ENCOUNTER → 2021-03-07 07:43 | Outpatient (CLI) | payer MEDICARE, OTHER, SELFPAY ==
[2021-03-07 09:47] LABS: Vitamin D,25 Hydroxy 59.6 ng/mL
[2021-03-07 09:56] LABS: AST(SGOT) 23 U/L (15-37); Alanine Aminotransfer ALT/SGPT 34 U/L (13-56); Albumin, Serum 3.8 g/dL (3.2-5.0); Alkaline Phosphatase 118 U/L (45-117); Anion Gap 4 (5-15); BUN 24 mg/dL (7-18); BUN/Creat Ratio 27.3 RATIO (10-20); Chloride 104 mmol/L (98-107); Creatinine, Serum 0.88 mg/dL (0.55-1.02); EST Glomerular Filtration Rate 69 mL/min (>60); Est Glom Filt Rate - Afr Amer 83 mL/min (>60); Globulin 3.8 g/dL (2.2-4.2); Glucose 91 mg/dL (74-106); Potassium 4.3 mmol/L (3.5-5.1); Protein, Total 7.6 g/dL (6.4-8.2); Sodium Level 139 mmol/L (136-145); Thyroid Stim Hormone (TSH) 1.45 uIU/mL (0.358-3.74)
[2021-03-08 14:43] LABS: Thyroglobulin Antibody < 1.0 IU/mL (0.0-0.9)
== END ==
PROVIDERS: PCP Family Medicine
DX: E89.0 Postprocedural hypothyroidism (principal); E55.9 Vitamin D deficiency, unspecified
CPT/HCPCS: 36415; 80053; 82306; 84443; 86800

== ENCOUNTER 2021-05-21 09:00 | Outpatient (RCR) | payer MEDICARE, OTHER, SELFPAY ==
--- NOTE | 2021-03-21 09:41 | HP.PTEVAL_ITS ---
Patient's Visit Information KARINA JADE is a 65 year old F referred to Physical Therapy by Dr. Nicholas Irvin MD with a diagnosis of Sciatica. Date of Evaluation: 03/21/21 Physical Therapist: Nelly Garcia DPT - Visit Plan Frequency: 2x /Week Duration: 4 Weeks Plan: Aquatic- Focus on LE and core strength/stabilization - Subjective 5 Years ago she was scheduled to have a right TKR- suddenly having pain in the left knee- cancelled the surgery- had x-rays which were negative- went to PT- did not help- eval with Jeanne for back- had an MRI which showed a bad lumbar spine. Went through 3 months of pool therapy she has changed her body mechanics and was doing great. 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 The next morning she had pain in her knee. Its happened occasionally and she could always get it to go away. This has been going on for over 2 weeks and she wants to get it taken care of. Had a Medrol dose pack and she is 25% better. Pain is on the left side- hip and radiates down the foot. Its more a dull achy pain. Agg: walking, standing, yardwork- feels more heavy. She has had icepick sensation in her right bottom of her foot. She has gotten in the water a few times- its hard to slow down- she was normally doing kettlebells and exercise. Worst: 6/10 Eases: nothing Best: 0/10. No N/T- No loss or change in bowel or bladder. No x-rays or MRI at this point. No injections or pain mgmt. Sleep: disturbed- can't be in the same position long and hard to get comfortable- side sleeper. PMHx: Right TKR, metastatic thyroid cancer, bilateral carpal tunnel, GERD. Meds: thyroid, omeprozol - Objective Posture: FH, RS- can correct but does not maintain in sitting or standing. Gait: no deviation noted- good arm swing and trunk rotation. Stairs: asc/desc 8 recip no HR- decreased control with descent and reports not trusting. HR/TR: able with UE A. SLS: 10 sec. Sensation: WFL to gross touch bilateral. Reflex: 2+ patellar. ROM: WFL in all planes of lumber and LE- no increase in s/s. Strength: Core: fair, Left Hip: 4/5 throughout Right: Hip: 4+/5 throughout, knee: 5/5, Ankle: 5/5. Flex: HS: severe, Gastroc: severe. Special Test: Slump: positive, Dural Signs: positive Repeated Extn/Flx: no change in s/s - Balance/Special Test Scores Oswestry Low Back Score: 14 - Goals Goal 1:: Patient will be I with HEP and progression Goal Time Frame: 4-6 Weeks Goal 2:: Patient will report no radicular s/s for 1 week Goal Time Frame: 4-6 Weeks Goal 3:: Patient will maintain proper posture t/o tx session to demo increased core s/s Goal Time Frame: 4-6 Weeks - Rehabilitation Potential Physical Therapy Diagnosis: Patient presents with hypomobility- she has decreased core strength/stabilization, flexibility and muscular endurance leading to poor posture and increased pain with ADL's. Rehabilitation Potential: Fair - Anticipated Interventions Thank you for the opportunity to evaluate your patient. For Medicare and Medicare HMO plans, please review the plan of care and approve it. It will need to be FAXED BACK to us at [phone] for Medicare purposes. For Medicare only, by signing this I certify the plan of care. Please let me know if there are questions or concerns regarding this plan of care. Physician Signature:___ Date:
--- NOTE | 2021-04-19 09:11 | HP.PTREVAL ---
Dr. Nicholas Irvin MD, It has been my pleasure to treat KARINA JADE over the last 9 visits for Sciatica. Please see the progress note below for an update on the physical therapy plan of care! Subjective: Patient reports that she is better- she went to the grocery yesterday and her leg was aching after and she had to go home. Objective/Function: Posture: FH, RS- can correct but does not maintain in sitting or standing. Gait: no deviation noted- good arm swing and trunk rotation. Stairs: asc/desc 8 recip no HR. HR/TR: able with UE A. SLS: 10 sec. Sensation: WFL to gross touch bilateral. ROM: WFL in all planes of lumber and LE- no increase in s/s. Strength: Core: fair, Left Hip: 4+/5 throughout Right: Hip: 4+/5 throughout, knee: 5/5, Ankle: 5/5. Flex: HS: severe, Gastroc: severe. Plan Plan: 04/19/21: Continue to progress towards goals with land based therapy. Aquatic- Focus on LE and core strength stabilization Balance/Gait/Functional tests - Balance/Special Test Scores Oswestry Low Back Score: 9 Goals Goal 1:: Patient will be I with HEP and progression Goal Time Frame: 4-6 Weeks Goal 2:: Patient will report no radicular s/s for 1 week Goal Time Frame: 4-6 Weeks Goal 3:: Patient will maintain proper posture t/o tx session to demo increased core s/s Goal Time Frame: 4-6 Weeks Anticipated Interventions Please do not hesitate to contact me at [phone] by phone or if you have questions or concerns regarding this new plan of care! Sincerely, Nelly Garcia DPT
--- NOTE | 2021-05-21 09:25 | HP.PTDCSUM ---
It has been my pleasure to treat KARINA JADE referred by Dr. Nicholas Irvin MD, with the diagnosis of Sciatica for a total of 17 visit(s). Discharge Date: 05/21/21 Please see the following information for a summary of their discharge status. Subjective: Pt. reports overall doing much better. No pain currently. Pt. reports being I with HEP for core strength and cardio fitness. She reports being 95% better overall. L LE Pain Intensity (Out of 10): 0 % Improvement: 95 Objective/Function: ROM: full lumbar ROM without increase in symptoms, Pt. has normal HS length bilat- no issues. MMT: BLEs 5/5 throughout; knee: 5/5 throughout without increase in symptoms. GAIT: Pt. has normal gait pattern. POSTURE: Pt. has good posture in stance. Pt. has normal pelvic positioning. NEURO: normal sensation noted throughout BLEs. Goal 1:: Patient will be I with HEP and progression Goal Progress: Goal Met Goal 2:: Patient will report no radicular s/s for 1 week Goal Progress: Goal Met Goal 3:: Patient will maintain proper posture t/o tx session to demo increased core s/s Goal Progress: Goal Met Plan: Pt. to be DC to HEP. She will continue with core stability and cardio fitness exercises on own at this point in time. Discharge Comments: Pt. has met all PT goals at this point in time. She is only having occasional pain at lateral L larry 1-2 per week, very brief. Pt. is pleased with progress. She has independent program for glute and core strengthening. She is progressing endurance and cardio fitness as well. She will be DC from PT at this point in time. If there are questions or concerns regarding this patient's physical therapy, please feel free to call me at [phone]. Thank you for the referral of this patient. Sincerely, Luis Gallardo Sipos, DPT Balance/Gait/Functional tests - Balance/Special Test Scores Oswestry Low Back Score: 0
== END 2021-05-21 12:25 | disposition home or self-care (01) ==
LOC: PT 09:00
PROVIDERS: PCP Family Medicine; Referring Provider Family Medicine; Visit Provider Family Medicine
DX: M54.32 Sciatica, left side (principal)
CPT/HCPCS: 97110; 97113; 97162; 97164

== ENCOUNTER 2021-06-17 13:58 | Outpatient (CLI) | payer MEDICARE, OTHER, SELFPAY ==
--- NOTE | 2021-06-17 14:01 | BI_ITS ---
MAMMOGRAPHY - BILATERAL SCREENING REASON FOR EXAM: Female, 65 years old. Routine annual screening examination. PERTINENT HISTORY: Non-contributory. TECHNIQUE: Digital bilateral breast wilma (3D mammographic acquisition) in the CC and MLO projections. 2-D mediolateral oblique (MLO) and craniocaudad (CC) views of both breasts were obtained. CAD: Full Field Digital Mammography with Computer Added Detection was performed. COMPARISON: Comparison is made with prior examination dated 06/16/2020 and 06/03/2019. FINDINGS: Breast Composition: There are scattered areas of fibroglandular density. There are no dominant masses or suspicious calcifications. Stable benign-appearing bilateral axillary lymph nodes. No other significant abnormalities are identified. There has been no significant change since the prior study. BI/SCRN MAMM (CAD)W/WILMA BILAT IMPRESSION: Stable bilateral screening mammogram. Yearly follow-up mammogram recommended. (A) ASSESSMENT CATEGORY: BIRADS Category 2: Benign. A letter regarding these results will be sent to the patient by the facility within 30 days. Approximately 10% of breast cancers are not detected by mammography. A normal mammogram should not delay biopsy of a clinically suspicious abnormality. [id number] Electronically Signed: Dash Rodriguez MD at 14:41 EST ,
== END 2021-06-17 23:59 | disposition home or self-care (01) ==
LOC: OPBI 13:59
PROVIDERS: PCP Family Medicine; Referring Provider Student in an Organized Health Care Education/Training Program; Visit Provider Student in an Organized Health Care Education/Training Program
DX: Z12.31 Encounter for screening mammogram for malignant neoplasm of breast (principal)
CPT/HCPCS: 77063; 77067

== ENCOUNTER 2021-07-19 07:57 | Outpatient (CLI) | payer MEDICARE, OTHER, SELFPAY ==
[2021-07-19 08:47] LABS: Vitamin D,25 Hydroxy 51.8 ng/mL
[2021-07-19 08:56] LABS: ALB/GLOB Ratio 1.1 RATIO (0.9-2.4); AST(SGOT) 31 U/L (15-37); Alanine Aminotransfer ALT/SGPT 42 U/L (13-56); Albumin, Serum 3.9 g/dL (3.2-5.0); Alkaline Phosphatase 113 U/L (45-117); Anion Gap 5 (5-15); BUN 25 mg/dL (7-18); BUN/Creat Ratio 24.8 RATIO (10-20); Calcium,Total 9.2 mg/dL (8.5-10.1); Chloride 103 mmol/L (98-107); Creatinine, Serum 1.01 mg/dL (0.55-1.02); EST Glomerular Filtration Rate 58 mL/min (>60); Est Glom Filt Rate - Afr Amer 71 mL/min (>60); Globulin 3.5 g/dL (2.2-4.2); Glucose 95 mg/dL (74-106); Potassium 3.9 mmol/L (3.5-5.1); Protein, Total 7.4 g/dL (6.4-8.2); Sodium Level 138 mmol/L (136-145); Thyroid Stim Hormone (TSH) 2.28 uIU/mL (0.358-3.74)
[2021-07-22 23:09] LABS: Thyroglobulin Antibody < 1.0 IU/mL (0.0-0.9); Thyroid Peroxidase AB < 8 IU/mL (0-34)
== END 2021-07-19 23:59 | disposition home or self-care (01) ==
LOC: LAB 07:59
PROVIDERS: PCP Family Medicine; Referring Provider Internal Medicine Endocrinology, Diabetes & Metabolism; Visit Provider Internal Medicine Endocrinology, Diabetes & Metabolism
DX: E55.9 Vitamin D deficiency, unspecified (principal); E89.0 Postprocedural hypothyroidism
CPT/HCPCS: 36415; 80053; 82306; 84443; 86376; 86800

== ENCOUNTER 2021-08-28 13:33 | Outpatient (CLI) | payer MEDICARE, OTHER, SELFPAY ==
[2021-08-28 16:00] LABS: Thyroid Stim Hormone (TSH) 0.49 uIU/mL (0.358-3.74)
== END 2021-08-28 23:59 | disposition home or self-care (01) ==
LOC: MTLAB 13:34
PROVIDERS: PCP Family Medicine; Referring Provider Internal Medicine Endocrinology, Diabetes & Metabolism; Visit Provider Internal Medicine Endocrinology, Diabetes & Metabolism
DX: E89.0 Postprocedural hypothyroidism (principal)
CPT/HCPCS: 36415; 84443

== ENCOUNTER → 2021-11-12 | Outpatient (CLI) | payer MEDICARE, OTHER, SELFPAY ==
[2021-11-18 19:47] LABS: HPV APTIMA, High Risk Negative (Negative)
== END | disposition home or self-care (01) ==
PROVIDERS: PCP Family Medicine; Visit Provider Student in an Organized Health Care Education/Training Program
DX: Z12.4 Encounter for screening for malignant neoplasm of cervix (principal)
CPT/HCPCS: 87624; 88175; G0145

== ENCOUNTER → 2021-11-21 | Outpatient (CLI) | payer MEDICARE, OTHER, SELFPAY ==
[2021-11-21 10:19] LABS: Erythrocyte Sedimentation Rate 8 mm/hr (0-30)
[2021-11-21 10:50] LABS: Ferritin 82 ng/mL (8-252); LDH 233 U/L (84-246)
[2021-11-24 09:07] LABS: Cytoplasmic Ab (C-ANCA) <1:20 titer (Neg:<1:20); Endomysial Antibody IgA Negative (Negative); HEPATITIS B SURFACE AG Negative (Negative); Hep C Antibodies 0.1 s/co ratio (0.0-0.9); Hepatitis A IgM Antibody Negative (Negative); Hepatitis B Core AB IgM Negative (Negative); Immunoglobulin A 263 mg/dL (87-352); Immunoglobulin E 348 IU/mL (6-495); Immunoglobulin G 785 mg/dL (586-1602)
[2021-11-24 10:37] LABS: Gastrin, Serum 17 pg/mL (0-115); Immunoglobulin M 133 mg/dL (26-217); Perinuclear Ab (P-ANCA) <1:20 titer (Neg:<1:20); t-Transglutaminase IgA <2 U/mL (0-3)
== END | disposition home or self-care (01) ==
LOC: LAB 09:54
PROVIDERS: PCP Family Medicine; Referring Provider Internal Medicine Gastroenterology; Visit Provider Internal Medicine Gastroenterology
DX: R14.0 Abdominal distension (gaseous) (principal); B19.10 Unspecified viral hepatitis B without hepatic coma; Z86.19 Personal history of other infectious and parasitic diseases; Z85.850 Personal history of malignant neoplasm of thyroid
CPT/HCPCS: 36415; 80074; 82728; 82784; 82785; 82941; 83516; 83615; 85652; 86140; 86255; 86256

== ENCOUNTER → 2021-11-22 | Outpatient (CLI) | payer MEDICARE, OTHER, SELFPAY ==
[2021-11-29 07:50] LABS: Pancreatic Elastase, Fecal 238 (>200)
[2021-11-30 08:18] LABS: Calprotectin, Stool 28 ug/g (0-120)
== END | disposition home or self-care (01) ==
LOC: MTLAB 16:31
PROVIDERS: PCP Family Medicine; Referring Provider Internal Medicine Gastroenterology; Visit Provider Internal Medicine Gastroenterology
DX: R14.0 Abdominal distension (gaseous) (principal); Z86.19 Personal history of other infectious and parasitic diseases; Z85.850 Personal history of malignant neoplasm of thyroid
CPT/HCPCS: 82653; 83630; 83993

== ENCOUNTER → 2021-12-04 | Outpatient (CLI) | payer MEDICARE, OTHER, SELFPAY ==
[2021-12-04 10:22] LABS: Thyroid Stim Hormone (TSH) 0.13 uIU/mL (0.358-3.74)
== END | disposition home or self-care (01) ==
LOC: MTLAB 08:49
PROVIDERS: PCP Family Medicine; Referring Provider Internal Medicine Endocrinology, Diabetes & Metabolism; Visit Provider Internal Medicine Endocrinology, Diabetes & Metabolism
DX: E04.2 Nontoxic multinodular goiter (principal)
CPT/HCPCS: 36415; 84443

== ENCOUNTER → 2021-12-18 | Outpatient (CLI) | payer MEDICARE, OTHER, SELFPAY ==
[2021-12-18 12:13] LABS: Absolute Lymphocyte Count 1.55 X10^3/uL (0.83-4.51); Absolute Neutrophil Count 3.5 X10^3/uL (2.0-7.7); Basophil# 0.03 X10^3/uL; Basophil% 0.5 % (0-1); Eosinophil# 0.36 X10^3/uL; Eosinophils% 6.1 % (0-5); Hematocrit 42.3 % (37-47); Hemoglobin 13.9 g/dL (12.0-15.0); Lymphocyte # 1.55 X10^3/ul (0.83-4.51); Lymphocyte % 26.2 % (19-41); Mean Corp Hgb Conc 32.9 g/dL (32-36); Mean Corpuscular Hgb 29.3 pg (27.0-32.0); Mean Corpuscular Volume 89.2 fL (81-99); Mean Platelet Vol. 10.8 fl (6.2-12.0); Monocyte# 0.45 X10^3/uL; Monocyte% 7.6 % (0-10); NRBC Flagged by Analyzer 0 % (0-5); Neutrophil # 3.52 X10^3/uL (2.7-7.7); Neutrophil % 59.4 % (47-70); Platelet Count 244 K/mm3 (150-450); RBC Distribution Width CV 13.9 % (11.6-14.6); RBC Distribution Width SD 45.3 fl (35.1-43.9); Red Blood Count 4.74 M/mm3 (4.2-5.4); White Blood Count 5.9 K/mm3 (4.4-11.0)
[2021-12-18 12:33] LABS: Hepatitis B Surface Antibody Reactive
[2021-12-18 12:43] LABS: ALB/GLOB Ratio 1.1 RATIO (0.9-2.4); AST(SGOT) 23 U/L (15-37); Alanine Aminotransfer ALT/SGPT 35 U/L (13-56); Albumin, Serum 3.8 g/dL (3.2-5.0); Alkaline Phosphatase 110 U/L (45-117); Anion Gap 4 (5-15); BUN 17 mg/dL (7-18); BUN/Creat Ratio 19.1 RATIO (10-20); Calcium,Total 9.6 mg/dL (8.5-10.1); Chloride 106 mmol/L (98-107); Creatinine, Serum 0.89 mg/dL (0.55-1.02); EST Glomerular Filtration Rate 68 mL/min (>60); Est Glom Filt Rate - Afr Amer 82 mL/min (>60); Globulin 3.4 g/dL (2.2-4.2); Glucose 86 mg/dL (74-106); Protein, Total 7.2 g/dL (6.4-8.2); Sodium Level 140 mmol/L (136-145)
== END | disposition home or self-care (01) ==
LOC: MTLAB 10:54
PROVIDERS: Internal Medicine Endocrinology, Diabetes & Metabolism; PCP Family Medicine; Referring Provider Podiatrist; Visit Provider Podiatrist
DX: B35.1 Tinea unguium (principal)
CPT/HCPCS: 36415; 80053; 84432; 85025; 86706; 86800

== ENCOUNTER → 2021-12-24 | Outpatient (CLI) | payer MEDICARE, OTHER, SELFPAY ==
[2021-12-24 15:41] LABS: Cholesterol 212 mg/dL (200); High Density Lipoprotein 80 mg/dL; Triglycerides 70 mg/dL; Very Low Density Lipoprotein 14 mg/dL (5-40)
== END | disposition home or self-care (01) ==
LOC: MTLAB 11:06
PROVIDERS: PCP Family Medicine; Referring Provider Family Medicine; Visit Provider Family Medicine
DX: E89.0 Postprocedural hypothyroidism (principal)
CPT/HCPCS: 36415; 80061

== ENCOUNTER 2022-01-09 08:24 | Day surgery (SDC) | payer MEDICARE, OTHER, SELFPAY ==
[2022-01-09] VITALS (7 sets, daily range): BP systolic 98–120; BP diastolic 53–87; PULSE 57–79; RESP 14–16; TEMP 36.2–37; O2SAT 95–100; BMI 27.2
--- NOTE | 2022-01-09 | ESO_PTH ---
PATIENT: KARINA JADE LOC: EN U#:[id number] AGE/SX: 66/F ROOM: RE01/09/[address]: Dr. Pierce Watts DO : 1955 BED: DIS: 01/09/2022 SPEC #: [id number] RECD: 01/09/22 11:16 STATUS: JODI DRAKE #: [id number] CHANDNI: 01/09/22 00:[address]: Pierce Watts DEPT: SURGICAL PATHOLOGY RECD BY: Praveen Dueñas ENTERED: 01/09/22 11:16 SP TYPE: BRIDGET NEWSOME DR: Dr. 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 Focal chronic inflammation. Negative for dysplasia. See comment. BOONE:yaz 01/10/2022 COMMENT Alcian blue/PAS stain with matched control is used in the evaluation of the specimen. Immunohistochemistry ([id number]) for P53 and Ki-67 will be performed and results will be reported separately. MICROSCOPIC DESCRIPTION Slides are reviewed. GROSS DESCRIPTION Received in fixative is one container labeled with the patient's name and designated distal esophagus biopsy. The specimen consists of multiple irregular fragments of light miramontes soft tissue that in aggregate measure 1 x 0.5 x 0.1 cm. The specimen is totally submitted in one cassette. / BOONE:yaz 01/09/2022 TC:3 CPT: 11726, 55704
--- NOTE | 2022-01-09 | IMM_PTH ---
PATIENT: KARINA JADE LOC: EN U#:[id number] AGE/SX: 66/F ROOM: RE01/09/[address]: Dr. Pierce Watts DO : 1955 BED: DIS: 01/09/2022 SPEC #: [id number] RECD: 01/10/22 13:13 STATUS: JODI REChang #: [id number] CHANDNI: 01/09/22 00:[address]: Pierce Watts DEPT: IMMUNOHISTOCHEMISTRY RECD BY: Jaja Matson ENTERED: 01/10/22 13:18 SP TYPE: IMMUNO OTHR DR: Dr. Nicholas Irvin MD Tissues: Esophageal mucous membrane Procedures: P53 (initial) KI-67 (add) PHYSICIAN & INSTITUTION [place] [id number] SPECIMEN INFORMATION: Tissue Source: Distal esophagus biopsy Clinical Info: History of hepatitis B virus infection, bloating, history of thyroid cancer Specimen Number: [id number] CPT code: 30728, 13822 METHODOLOGY: Deparaffinized sections of prefer/formalin-fixed tissue or PAP/DQ stained slides are incubated with monoclonal/polyclonal antibodies/oligonucleotide probes. Localization is made via biotin free immunoperoxidase method. Appropriate controls are performed and reacted as expected. Results on target cell population are indicated in the following table: RESULTS: ANTIBODY / CLONE RESULT P53 (DO-7) negative Ki-67 (30-9) positive, very low These tests were developed and their performance characteristics determined by [facility]. They may not have been cleared or approved by the U.S. Food and Drug Administration. The FDA has determined that such clearance or approval is not necessary. The above immunohistochemical/dualISH markers are ordered and reviewed by the Pathologist. INTERPRETATION: Distal esophagus, biopsy: Negative for dysplasia. SJ:yaz 01/14/2022
--- NOTE | 2022-01-09 08:58 | HP.PCM_ITS ---
History and Physical Date of Admission: 01/09/22 KARINA JADE, is a 66 F who presents to the office today for Initial consult. Karina established with this clinic 11.21.21. She has been having difficulty with intermittent severe bloating causing abdominal pain and nausea without emesis. In the last six months this has happened 2-3 times. Unable to identify trigger. Bowel move well and without difficulty. She does have difficulty swallowing dry foods without need for emergent intervention. Hepatitis B infection 1982 following needle stick causing jaundice and hepatitis; no treatment at that time. She has bloodwork on a regular basis to monitor through her PCP. Last bloodwork summer 2020. History of cancer thyroid cancer with mets into her neck s/p radioactive iodine treatment 2010, continues with monitoring via bloodwork and imaging and continues to be clear. Colonoscopy 02.28.[address] Molina Gusman for screening purposes finding internal and external hemorrhoids; sigmoid diverticulosis; tortuous colon. ROS Const Constitutional: No other (as above) Exam Const General: cooperative, healthy appearing, comfortable and no acute distress Nutritional Appearance: average body habitus and well nourished Orientation: alert, awake and oriented x3 HENMT Head: normal to inspection Ears: hearing grossly normal bilaterally, external ears normal, TM's normal bilaterally and EAC's normal Nose: external nose normal, nares normal, septum normal and no nasal discharge Face and sinus: normal facial exam, face symmetric and sinus tenderness frontal; not ethmoid and not maxillary Mouth: oral mucosae normal, lip normal, tongue normal and moist mucous membranes Throat: posterior oropharynx normal, tonsils normal, uvula midline and no postnasal drainage Eyes General: appearance normal, both eyes and all related structures Neck Neck: normal visual inspection, full ROM, no lymphadenopathy, no meningeal signs and supple Neck mass: No Thyroid: thyroid normal Lymphatic: no lymphadenopathy noted Chest Chest palpation & inspection: normal inspection of the chest Resp Effort & Inspection: normal respiratory effort, able to speak in complete sentences, symmetric chest movement and no cough Auscultation: Bilateral: Clear to Auscultation Cardio Palpation: normal PMI Rate: regular rate Rhythm: regular rhythm Heart Sounds: S1 normal, S2 normal, no gallops, no murmurs and no rubs Pulses: radial pulses present GI Inspection: normal to inspection Palpation: soft and nontender Skin General: no rashes or lesions noted Neuro General: patient alert, patient awake, patient oriented x3 and gait normal Cognition: normal cognition Speech: speech normal Gait: normal gait Motor: muscle tone normal throughout Sensory Exam: no sensory deficits noted Extrem General: normal to inspection Psych Appearance: grossly normal Mental Status: mental status grossly normal Mood: congruent mood Affect: normal affect Speech and Movement: speech and movement normal Attitude: cooperative Thought Process: normal Thought Content: normal Judgment: judgment good Quality Reporting Tobacco Screening ([facility] 138) Smoking Status: Never smoker Assessment and Plan Assessment and Plan (1) History of hepatitis B virus infection: ?Status:?Chronic ?Plan: We will need to check her hepatitis b PCR DNA , hepatitis B antibody, hepatitis B core antigen and antibody, hepatitis B E antigen and antibody to see if she cleared the virus (2) Bloating: ?Status:?Acute ?Plan: We will check her for exocrine pancreatic insufficiency.? We should perform an upper endoscopy to rule out peptic ulcer disease.. (3) History of thyroid cancer: ?Status:?Chronic ? ? ? Orders: Orders Calprotectin, Stool Today R14.0 - Abdominal distension (gaseous), Z85.850 - Personal history of malignant neoplasm of thyroid, Z86.19 - Personal history of other infectious and parasitic diseases ? Stool Lactoferrin/WBC Today K58.9 - Irritable bowel syndrome without diarrhea, R14.0 - Abdominal distension (gaseous), Z85.850 - Personal history of malignant neoplasm of thyroid, Z86.19 - Personal history of other infectious and parasitic diseases ? Hepatitis Panel Acute Today B19.10 - Unspecified viral hepatitis B without hepatic coma, R14.0 - Abdominal distension (gaseous), Z85.850 - Personal history of malignant neoplasm of thyroid, Z86.19 - Personal history of other infectious and parasitic diseases ? Gastrin, Serum Today R14.0 - Abdominal distension (gaseous), Z85.850 - Personal history of malignant neoplasm of thyroid, Z86.19 - Personal history of other infectious and parasitic diseases ? Pancreatic Elastase, Fecal Today R14.0 - Abdominal distension (gaseous), Z85.850 - Personal history of malignant neoplasm of thyroid, Z86.19 - Personal history of other infectious and parasitic diseases ? CRP Today R14.0 - Abdominal distension (gaseous) ? Ferritin Today B19.10 - Unspecified viral hepatitis B without hepatic coma, R14.0 - Abdominal distension (gaseous) ? LDH Today R14.0 - Abdominal distension (gaseous) ? Erythrocyte Sed Rate Today R14.0 - Abdominal distension (gaseous) ? ANCA Today R14.0 - Abdominal distension (gaseous) ? Celiac Disease Profile Today R14.0 - Abdominal distension (gaseous) ? Immunoglobulin E Today R14.0 - Abdominal distension (gaseous) ? Immunoglobulin G Today R14.0 - Abdominal distension (gaseous) ? Immunoglobulin M Today R14.0 - Abdominal distension (gaseous) ? I have re-examined the patient. There are no clinical changes since date of exam.
[2022-01-09] MEDS: Lactated Ringers 1,000 ML 15 ML IV (08:59)
--- NOTE | 2022-01-09 10:10 | OP.EGD_ITS ---
Patient Name: Nia Nayak Procedure Date: 01/09/2022 9:44 AM Date of : 1955 Age: 66 Procedure: Upper GI endoscopy Indications: Browne's esophagus Providers: Pierce Watts DO Medicines: Monitored Anesthesia Care Patient Profile: This is a 66 year old female. Refer to note in patient chart for documentation of history and physical. Patient has symptoms of chronic heartburn. Complications: No immediate complications. Procedure: Pre-Anesthesia Assessment: - Prior to the procedure, a History and Physical was performed, and patient medications and allergies were reviewed. The risks and benefits of the procedure and the sedation options and risks were discussed with the patient. All questions were answered and informed consent was obtained. Patient identification and proposed procedure were verified by the physician in the pre-procedure area. Mental Status Examination: alert and oriented. Airway Examination: normal oropharyngeal airway and neck mobility. Respiratory Examination: clear to auscultation. CV Examination: normal. Prophylactic Antibiotics: The patient does not require prophylactic antibiotics. Prior Anticoagulants: The patient has taken no previous anticoagulant or antiplatelet agents. ASA Grade Assessment: II - A patient with mild systemic disease. After reviewing the risks and benefits, the patient was deemed in satisfactory condition to undergo the procedure. The anesthesia plan was to use moderate sedation / analgesia (conscious sedation). Immediately prior to administration of medications, the patient was re-assessed for adequacy to receive sedatives. The heart rate, respiratory rate, oxygen saturations, blood pressure, adequacy of pulmonary ventilation, and response to care were monitored throughout the procedure. The physical status of the patient was re-assessed after the procedure. After obtaining informed consent, the endoscope was passed under direct vision. Throughout the procedure, the patient's blood pressure, pulse, and oxygen saturations were monitored continuously. The Endoscope was introduced through the mouth, and advanced to the second part of duodenum. The upper GI endoscopy was accomplished without difficulty. The patient tolerated the procedure well. Scope In: 9:59:15 AM Scope Out: 10:04:31 AM Total Procedure Duration Time 0 hours 5 minutes 16 seconds Findings: The Z-line was irregular and was found 37 cm from the incisors. Biopsies were taken with a cold forceps for histology. Verification of patient identification for the specimen was done. Estimated blood loss was minimal. A small hiatal hernia was present. The exam of the stomach was otherwise normal. The second portion of the duodenum was normal. Impression: - Z-line irregular, 37 cm from the incisors. Biopsied. - Small hiatal hernia. - Normal second portion of the duodenum. Recommendation: - Discharge patient to home. - Resume previous diet. - Continue present medications. - Await pathology results. Procedure Code(s): --- Professional --- 96355, Esophagogastroduodenoscopy, flexible, transoral; with biopsy, single or multiple CPT copyright 2017 [employer]. All rights reserved. The codes documented in this report are preliminary and upon apple press operator review may be revised to meet current compliance requirements. Pierce Watts DO 01/09/2022 10:09:30 AM This report has been signed electronically. Number of Addenda: 1 Note Initiated On: 01/09/2022 9:44 AM Addendum Number: 1 Addendum Date: 02/14/2022 6:17:32 AM MAC was used as sedation for this procedure. Pierce Watts DO 02/14/2022 6:17:36 AM This report has been signed electronically.
--- NOTE | 2022-01-09 10:10 | OP.CCLET_ITS ---
02/14/2022 Nicholas Irvin Re : Upper GI endoscopy procedure for Nia Nayak Dear Brandee This procedure was performed on January. My impressions and recommendations are as follows: Impressions : - Z-line irregular, 37 cm from the incisors. Biopsied. - Small hiatal hernia. - Normal second portion of the duodenum. Recommendations : - Discharge patient to home. - Resume previous diet. - Continue present medications. - Await pathology results. My findings are described in the full procedure note, which is enclosed. If I can be of further assistance, please feel free to contact me at . Sincerely, Pierce Watts, 01/09/2022 10:09:30 AM This report has been signed electronically.
== END 2022-01-09 11:03 | disposition home or self-care (01) ==
LOC: EN 08:25 → AC 08:26
PROVIDERS: PCP Family Medicine; Referring Provider Family Medicine; Visit Provider Internal Medicine Gastroenterology
PROC: 0DJ08ZZ Inspection of Upper Intestinal Tract, Via Natural or Artificial Opening Endoscopic (ICD-10-PCS; CPT 43235; principal; 2022-01-09 09:25)
DX: K22.70 Barrett's esophagus without dysplasia (principal); K44.9 Diaphragmatic hernia without obstruction or gangrene; M51.36 Other intervertebral disc degeneration, lumbar region; E07.9 Disorder of thyroid, unspecified; Z79.899 Other long term (current) drug therapy
CPT/HCPCS: 43239; 88305; 88313; 88341; 88342; J7120; J2405

== ENCOUNTER → 2022-01-28 | Outpatient (CLI) | payer MEDICARE, OTHER, SELFPAY ==
[2022-01-28 10:03] LABS: Absolute Neutrophil Count 4.1 X10^3/uL (2.0-7.7); Basophil# 0.06 X10^3/uL; Basophil% 0.9 % (0-1); Eosinophil# 0.37 X10^3/uL; Eosinophils% 5.8 % (0-5); Hematocrit 42.9 % (37-47); Hemoglobin 14.5 g/dL (12.0-15.0); Mean Corp Hgb Conc 33.8 g/dL (32-36); Mean Corpuscular Hgb 30.1 pg (27.0-32.0); Mean Corpuscular Volume 89.2 fL (81-99); Mean Platelet Vol. 10.3 fl (6.2-12.0); Monocyte# 0.46 X10^3/uL; Monocyte% 7.2 % (0-10); NRBC Flagged by Analyzer 0 % (0-5); Neutrophil # 4.05 X10^3/uL (2.7-7.7); Neutrophil % 63.9 % (47-70); Platelet Count 240 K/mm3 (150-450); RBC Distribution Width CV 13.5 % (11.6-14.6); RBC Distribution Width SD 44.4 fl (35.1-43.9); Red Blood Count 4.81 M/mm3 (4.2-5.4); White Blood Count 6.4 K/mm3 (4.4-11.0)
[2022-01-28 10:30] LABS: AST(SGOT) 19 U/L (15-37); Alanine Aminotransfer ALT/SGPT 26 U/L (13-56); Albumin, Serum 3.6 g/dL (3.2-5.0); Alkaline Phosphatase 109 U/L (45-117); Anion Gap 6 (5-15); BUN 16 mg/dL (7-18); Calcium,Total 9.1 mg/dL (8.5-10.1); Chloride 108 mmol/L (98-107); Creatinine, Serum 0.89 mg/dL (0.55-1.02); EST Glomerular Filtration Rate 67 mL/min (>60); Est Glom Filt Rate - Afr Amer 82 mL/min (>60); Globulin 3.5 g/dL (2.2-4.2); Glucose 109 mg/dL (74-106); Potassium 4.2 mmol/L (3.5-5.1); Protein, Total 7.1 g/dL (6.4-8.2); Sodium Level 141 mmol/L (136-145)
== END | disposition home or self-care (01) ==
LOC: MTLAB 08:44
PROVIDERS: PCP Family Medicine; Referring Provider Podiatrist; Visit Provider Podiatrist
DX: B35.1 Tinea unguium (principal)
CPT/HCPCS: 36415; 80053; 85025

== ENCOUNTER → 2022-03-10 | Outpatient (CLI) | payer MEDICARE, OTHER, SELFPAY | END | disposition home or self-care (01) | LOC: MTLAB 08:05 | PROVIDERS: PCP Family Medicine; Referring Provider Internal Medicine Endocrinology, Diabetes & Metabolism; Visit Provider Internal Medicine Endocrinology, Diabetes & Metabolism | DX: C73 Malignant neoplasm of thyroid gland (principal) | CPT/HCPCS: 36415; 84443 ==

== ENCOUNTER → 2022-03-17 | Outpatient (CLI) | payer MEDICARE, OTHER, SELFPAY | END | disposition home or self-care (01) | LOC: LAB 07:45 | PROVIDERS: PCP Family Medicine; Referring Provider Internal Medicine Endocrinology, Diabetes & Metabolism; Visit Provider Internal Medicine Endocrinology, Diabetes & Metabolism | DX: C73 Malignant neoplasm of thyroid gland (principal) | CPT/HCPCS: 36415; 84443 ==

== ENCOUNTER → 2022-03-24 | Outpatient (CLI) | payer MEDICARE, OTHER, SELFPAY ==
[2022-03-24 12:04] LABS: Absolute Lymphocyte Count 0.73 X10^3/uL (0.83-4.51); Absolute Neutrophil Count 4.4 X10^3/uL (2.0-7.7); Basophil# 0.04 X10^3/uL; Basophil% 0.7 % (0-1); Eosinophil# 0.19 X10^3/uL; Eosinophils% 3.3 % (0-5); Hematocrit 43.2 % (37-47); Lymphocyte # 0.73 X10^3/ul (0.83-4.51); Lymphocyte % 12.7 % (19-41); Mean Corp Hgb Conc 32.4 g/dL (32-36); Mean Corpuscular Hgb 29.1 pg (27.0-32.0); Mean Corpuscular Volume 89.8 fL (81-99); Mean Platelet Vol. 11.2 fl (6.2-12.0); Monocyte# 0.33 X10^3/uL; Monocyte% 5.7 % (0-10); NRBC Flagged by Analyzer 0 % (0-5); Neutrophil # 4.44 X10^3/uL (2.7-7.7); Neutrophil % 77.3 % (47-70); Platelet Count 246 K/mm3 (150-450); RBC Distribution Width CV 14.1 % (11.6-14.6); RBC Distribution Width SD 46.2 fl (35.1-43.9); Red Blood Count 4.81 M/mm3 (4.2-5.4); White Blood Count 5.8 K/mm3 (4.4-11.0)
[2022-03-24 12:22] LABS: ALB/GLOB Ratio 1.1 RATIO (0.9-2.4); AST(SGOT) 35 U/L (15-37); Alanine Aminotransfer ALT/SGPT 39 U/L (13-56); Albumin, Serum 3.8 g/dL (3.2-5.0); Alkaline Phosphatase 113 U/L (45-117); Anion Gap 4 (5-15); BUN 14 mg/dL (7-18); BUN/Creat Ratio 14.1 RATIO (10-20); Calcium,Total 9.1 mg/dL (8.5-10.1); Chloride 104 mmol/L (98-107); EST Glomerular Filtration Rate 59 mL/min (>60); Est Glom Filt Rate - Afr Amer 72 mL/min (>60); Globulin 3.4 g/dL (2.2-4.2); Glucose 73 mg/dL (74-106); Potassium 3.8 mmol/L (3.5-5.1); Protein, Total 7.2 g/dL (6.4-8.2); Sodium Level 139 mmol/L (136-145)
== END | disposition home or self-care (01) ==
PROVIDERS: PCP Family Medicine; Referring Provider Podiatrist; Visit Provider Podiatrist
DX: L60.1 Onycholysis (principal)
CPT/HCPCS: 36415; 80053; 85025

== ENCOUNTER → 2022-05-20 | Outpatient (CLI) | payer MEDICARE, OTHER, SELFPAY ==
[2022-05-20 11:42] LABS: Free T3 2.7 pg/mL (2.18-3.98); T4 Free Direct 1.22 ng/dL (0.76-1.46); Thyroid Stim Hormone (TSH) 0.76 uIU/mL (0.358-3.74)
== END | disposition home or self-care (01) ==
LOC: LAB 09:12
PROVIDERS: PCP Family Medicine; Referring Provider Internal Medicine Endocrinology, Diabetes & Metabolism; Visit Provider Internal Medicine Endocrinology, Diabetes & Metabolism
DX: E89.0 Postprocedural hypothyroidism (principal)
CPT/HCPCS: 36415; 84439; 84443; 84481

== ENCOUNTER → 2022-06-04 | Outpatient (CLI) | payer MEDICARE, OTHER, SELFPAY ==
--- NOTE | 2022-06-04 13:53 | CT_ITS ---
STUDY: CT CHEST WITHOUT CONTRAST REASON FOR EXAM: Female, 66 years old. THYROID CA 7 YEARS AGO WITH REMOVAL AND RADIATION RADIATION DOSAGE (If Supplied By Facility): CTDIvol = ( 13.09 ) mGy, DLP = ( 496.44 ) mGycm TECHNIQUE: Transaxial imaging was performed without the administration of intravenous contrast material. Multiplanar coronal and sagittal images were reformatted. Individualized dose optimization techniques were used for this CT. COMPARISON: Comparison is made with prior study dated 03/11/2017. FINDINGS: CHEST The patient is status post thyroidectomy. There are multiple new noncalcified nodules in the right lung. The largest nodule measures approximately 8.2 mm. Metastatic disease should be ruled out. The left lung is clear. There is no demonstrated pleural abnormality. Normal heart and pericardium. Normal mediastinum. Normal hilar regions. Normal unenhanced pulmonary arteries. Normal aorta arch and descending thoracic aorta. There are multi-level degenerative changes of the thoracic spine. There is no demonstrated abnormality of the visualized upper abdomen. CT/Chest WITH Contrast IMPRESSION: Multiple small nodules are seen in the right lung. These were not present on prior study. Metastatic disease should be. Electronically Signed: Dash Rodriguez MD at 15:18 EST ,
[2022-06-04 14:46] LABS: CREATININE FINGERSTICK < 0.9 mg/dL (0.55-1.02); EGFR FINGERSTICK > 60.0000 mL/min (>60)
== END | disposition home or self-care (01) ==
LOC: CT 13:51
PROVIDERS: PCP Family Medicine; Referring Provider Internal Medicine Endocrinology, Diabetes & Metabolism; Visit Provider Internal Medicine Endocrinology, Diabetes & Metabolism
DX: C73 Malignant neoplasm of thyroid gland (principal)
CPT/HCPCS: 71260; Q9967

== ENCOUNTER 2022-06-23 17:00 | Outpatient (RCR) | payer MEDICARE, OTHER, SELFPAY ==
--- NOTE | 2022-05-26 08:51 | HP.PTEVAL ---
Patient's Visit Information KARINA JADE is a 66 year old F referred to Physical Therapy by Dr. Nicholas Irvin MD with a diagnosis of Left Sided Sciatica. Date of Evaluation: 05/26/22 Physical Therapist: Nelly Garcia DPT - Visit Plan Frequency: 2x /Week Duration: 4 Weeks Plan: Aquatic- Focus on LE and core strength/stabilization. HEP Given IE: Posture, TA contraction, Prone on elbows, prone prop, - Subjective Patient reports that she has had Left Sided Sciatica for years- she has had PT and its gotten better. She was doing stretching for years (cat/cow, hamstrings, supermans, cobras, etc) and she stopped. Then she went to [facility] and did a lot of twisting and she feels that flared it up. This has been about a month- agg: sitting or standing too long Worst: 4/10 Eases: movement Best: rarely goes away complete. Left buttock and radiates into the left knee. Describes the pain as sharp shooting. No N/T but does have some neuropathy and that has not changed. No pain that radiates upwards. No bowel or bladder issues. She has not had any x-rays or imagines. Saw MD who gave get a Prednisone Dose Pack which has been completed. Sleep: disturbed- feels a pulse in her knee- all over the place- not a restful sleeper. She is normally pretty active. 2 weeks ago she cut off everything to see if she could calm her back down. She was in the pool for aquatic therapy. PMHx/Meds: no change since urgent care visit 04/21/22 - Objective Posture: FH, RS- can correct but does not maintain in sitting or standing. Gait: no deviation noted- good arm swing and trunk rotation. HR/TR: able without UE A. SLS: 10 sec bilaterally. Sensation: WFL to gross touch bilateral. ROM: WFL in all planes of lumber and LE- no increase in s/s. Strength: Core: fair, Left Hip: 4/5 throughout Right: Hip: 4+/5 throughout, knee: 5/5, Ankle: 5/5. Palpation: increased pain in the glut on the left- no pain with PA glides to lumbar spine Flex: HS: moderate, Gastroc: moderate. Special Test: Slump: positive, Dural Signs: positive Repeated Extn/Flx: no change in s/s - Balance/Special Test Scores Oswestry Low Back Score: 13 - Goals Goal 1:: Patient will be I with HEP and progression Goal Time Frame: 4-6 Weeks Goal 2:: Patient will report no radicular s/s for 1 week Goal Time Frame: 4-6 Weeks Goal 3:: Patient will maintain proper posture t/o tx session to demo increased core s/s Goal Time Frame: 4-6 Weeks Goal 4:: Patient will report 80% improvement Goal Time Frame: 4-6 Weeks - Rehabilitation Potential Physical Therapy Diagnosis: Patient presents with hypomobility- she has decreased core strength/stabilization, flexibility and muscular endurance leading to poor posture and increased pain with ADL's. - Anticipated Interventions Patient/Client Instruction: Educate patient on: Benefits of Fitness Program Therapeutic Exercise to Include: Strength training, Endurance training, Balance training, Coordination, Agility training, Body mechanics, Postural training, Flexibilty training, Gait and locomotor training, Neuromotor development, In an aquatic setting, Dynamic Lumbar Stabilization, Scapular Strength/Stabilization Thank you for the opportunity to evaluate your patient. For Medicare and Medicare HMO plans, please review the plan of care and approve it. It will need to be FAXED BACK to us at [phone] for Medicare purposes. For Medicare only, by signing this I certify the plan of care. Please let me know if there are questions or concerns regarding this plan of care. Physician Signature: Date:
--- NOTE | 2022-06-23 17:16 | HP.PTDCSUM ---
It has been my pleasure to treat KARINA JADE referred by Dr. Nicholas Irvin MD, with the diagnosis of Left Sided Sciatica for a total of 8 visit(s). Discharge Date: Please see the following information for a summary of their discharge status. Subjective: Patient reports that she better but not great- she can walk about 3/4 a mile then starts to feel it in her thigh and buttocks. Buttocks B Pain Intensity (Out of 10): 1 % Improvement: 50 Objective/Function: Posture: FH, RS- can correct but does not maintain in sitting or standing. Gait: no deviation noted- good arm swing and trunk rotation. HR/TR: able without UE A. SLS: 10 sec bilaterally. Sensation: WFL to gross touch bilateral. ROM: WFL in all planes of lumber and LE- no increase in s/s. Strength: Core: fair, Left Hip: 4/5 throughout Right: Hip: 4+/5 throughout, knee: 5/5, Ankle: 5/5. Palpation: increased pain in the glut on the left- no pain with PA glides to lumbar spine Flex: HS: moderate, Gastroc: moderate. Special Test: Slump: positive, Dural Signs: positive Repeated Extn/Flx: no change in s/s Goal 1:: Patient will be I with HEP and progression Goal Progress: Goal Met Goal 2:: Patient will report no radicular s/s for 1 week Goal Progress: Progressing Goal 3:: Patient will maintain proper posture t/o tx session to demo increased core s/s Goal Progress: Progressing Goal 4:: Patient will report 80% improvement Goal Progress: Progressing Plan: 06/23/22: Patient making minimal gains in PT- return to MD for further evaluation. Aquatic- Focus on LE and core strength/stabilization. HEP Given IE: Posture, TA contraction, Prone on elbows, prone prop, If there are questions or concerns regarding this patient's physical therapy, please feel free to call me at [phone]. Thank you for the referral of this patient. Sincerely, Nelly Garcia, DPT Balance/Gait/Functional tests - Balance/Special Test Scores Oswestry Low Back Score: 19
== END 2022-06-23 19:00 | disposition home or self-care (01) ==
LOC: PT 17:00
PROVIDERS: PCP Family Medicine; Referring Provider Family Medicine; Visit Provider Family Medicine
DX: M54.32 Sciatica, left side (principal)
CPT/HCPCS: 97113; 97162; 97164

== ENCOUNTER → 2022-07-02 | Outpatient (CLI) | payer MEDICARE, OTHER, SELFPAY ==
--- NOTE | 2022-07-02 08:46 | BI_ITS ---
MAMMOGRAPHY - BILATERAL SCREENING REASON FOR EXAM: Female, 66 years old. Routine annual screening examination. PERTINENT HISTORY: Non-contributory. TECHNIQUE: Digital bilateral breast wilma (3D mammographic acquisition) in the CC and MLO projections. 2-D mediolateral oblique (MLO) and craniocaudad (CC) views of both breasts were obtained. CAD: Full Field Digital Mammography with Computer Added Detection was performed. COMPARISON: Comparison is made with prior study dated 02/14/2022 and 06/16/2020. FINDINGS: Breast Composition: There are scattered areas of fibroglandular density. There are no dominant masses or suspicious calcifications. Stable small benign-appearing bilateral axillary lymph nodes. No other significant abnormalities are identified. There has been no significant change since the prior study. BI/SCRN MAMM (CAD)W/WILMA BILAT IMPRESSION: Stable bilateral screening mammogram. Yearly follow-up mammogram recommended. (A) ASSESSMENT CATEGORY: BIRADS Category 2: Benign. A letter regarding these results will be sent to the patient by the facility within 30 days. Approximately 10% of breast cancers are not detected by mammography. A normal mammogram should not delay biopsy of a clinically suspicious abnormality. Electronically Signed: Dash Rodriguez MD at 9:25 EST ,
== END | disposition home or self-care (01) ==
LOC: OPBI 08:43
PROVIDERS: PCP Family Medicine; Referring Provider Student in an Organized Health Care Education/Training Program; Visit Provider Student in an Organized Health Care Education/Training Program
DX: Z12.31 Encounter for screening mammogram for malignant neoplasm of breast (principal)
CPT/HCPCS: 77063; 77067

== ENCOUNTER → 2022-08-25 | Outpatient (CLI) | payer MEDICARE, OTHER, SELFPAY ==
[2022-08-25 08:16] LABS: Thyroid Stim Hormone (TSH) 9.73 uIU/mL (0.358-3.74)
== END | disposition home or self-care (01) ==
PROVIDERS: PCP Family Medicine; Referring Provider Internal Medicine Endocrinology, Diabetes & Metabolism; Visit Provider Internal Medicine Endocrinology, Diabetes & Metabolism
DX: C73 Malignant neoplasm of thyroid gland (principal)
CPT/HCPCS: 36415; 84443

== ENCOUNTER → 2022-09-01 | Outpatient (CLI) | payer MEDICARE, OTHER, SELFPAY | END | disposition home or self-care (01) | LOC: LAB.FUTURE 07:36 → LAB 07:38 | PROVIDERS: PCP Family Medicine; Referring Provider Internal Medicine Endocrinology, Diabetes & Metabolism; Visit Provider Internal Medicine Endocrinology, Diabetes & Metabolism | DX: C73 Malignant neoplasm of thyroid gland (principal) | CPT/HCPCS: 36415; 84443 ==

== ENCOUNTER → 2022-11-17 | Outpatient (CLI) | payer MEDICARE, OTHER, SELFPAY ==
[2022-11-20 14:11] LABS: HPV APTIMA, High Risk Negative (Negative)
== END | disposition home or self-care (01) ==
LOC: LABSPEC 09:58
PROVIDERS: PCP Family Medicine; Visit Provider Student in an Organized Health Care Education/Training Program
DX: Z12.4 Encounter for screening for malignant neoplasm of cervix (principal)
CPT/HCPCS: 87624; 88175; G0145

== ENCOUNTER → 2022-12-23 | Outpatient (CLI) | payer MEDICARE, OTHER, SELFPAY ==
--- NOTE | 2022-12-23 14:56 | CT_ITS ---
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 THYROIDECTOMY AND RADIOACTIVE IODINE TX EXAMINATION: CT CHEST WITH CONTRAST - CT Chest W/ Contrast Injection TECHNIQUE: Helically acquired images were obtained of the chest following IV contrast. A radiation dose optimization technique was used for this scan. IV Contrast dosage and agent: 100 mL Isovue-370 COMPARISON: 06/04/2022 CT, 03/11/2017 CT. FINDINGS: LUNGS, PLEURA AND LARGE AIRWAYS: No airspace consolidation, effusion, or pneumothorax. Redemonstration of multiple round pulmonary nodules throughout the mid to inferior right upper, middle, and lower lobe, largest in the posterior right lower lobe measuring 1.1 cm, unchanged from June 04, 2022. 2 mm anterior left upper lobe nodule axial image 29 is unchanged from June 02, 2022. . THYROID: Multiple surgical clips along the right inferior neck and superior mediastinum. No thyroid lesions. HEART AND PERICARDIUM: Heart size is normal. No pericardial effusion. VESSELS: Thoracic aorta is not dilated. No aortic dissection. No obvious central pulmonary embolism although this study was not performed with the pulmonary embolism protocol. MEDIASTINUM AND RAYMON: No mediastinal or hilar adenopathy. Esophagus is unremarkable. No hiatal hernia. UPPER ABDOMEN: 50% stenosis at the origin of the right renal artery. BONES: No suspicious lytic or blastic abnormality. CT/Chest WITH Contrast IMPRESSION: Multiple pulmonary nodules scattered within the mid and lower right lung concerning for metastatic disease, unchanged from June 04, 2022. There is also 2 mm nonspecific nodule that is unchanged in the anterior left upper lobe. No evidence of new or enlarging pulmonary nodule compared with 06/04/2019. Prior thyroidectomy. Electronically Signed: Claus Fairbanks MD at 7:25 EDT ,
[2022-12-23 15:24] LABS: CREATININE FINGERSTICK < 0.9 mg/dL (0.55-1.02); EGFR FINGERSTICK > 60.0000 mL/min (>60)
== END | disposition home or self-care (01) ==
LOC: CT 14:55
PROVIDERS: PCP Family Medicine; Referring Provider Internal Medicine Endocrinology, Diabetes & Metabolism; Visit Provider Internal Medicine Endocrinology, Diabetes & Metabolism
DX: C73 Malignant neoplasm of thyroid gland (principal)
CPT/HCPCS: 71260

== ENCOUNTER → 2023-01-01 | Outpatient (CLI) | payer MEDICARE, OTHER, SELFPAY ==
[2023-01-01 08:46] LABS: Absolute Lymphocyte Count 1.06 X10^3/uL (0.83-4.51); Absolute Neutrophil Count 3.2 X10^3/uL (2.0-7.7); Basophil# 0.03 X10^3/uL; Basophil% 0.6 % (0-1); Eosinophil# 0.26 X10^3/uL; Eosinophils% 5.2 % (0-5); Hematocrit 42.3 % (37-47); Hemoglobin 14.3 g/dL (12.0-15.0); Lymphocyte # 1.06 X10^3/ul (0.83-4.51); Lymphocyte % 21.2 % (19-41); Mean Corp Hgb Conc 33.8 g/dL (32-36); Mean Corpuscular Hgb 30.3 pg (27.0-32.0); Mean Corpuscular Volume 89.6 fL (81-99); Mean Platelet Vol. 9.7 fl (6.2-12.0); Monocyte# 0.43 X10^3/uL; Monocyte% 8.6 % (0-10); NRBC Flagged by Analyzer 0 % (0-5); Neutrophil % 64.2 % (47-70); Platelet Count 208 K/mm3 (150-450); RBC Distribution Width CV 12.7 % (11.6-14.6); RBC Distribution Width SD 41.9 fl (35.1-43.9); Red Blood Count 4.72 M/mm3 (4.2-5.4)
[2023-01-01 09:15] LABS: ALB/GLOB Ratio 0.9 RATIO (0.9-2.4); AST(SGOT) 19 U/L (15-37); Alanine Aminotransfer ALT/SGPT 29 U/L (13-56); Albumin, Serum 3.6 g/dL (3.2-5.0); Alkaline Phosphatase 112 U/L (45-117); Anion Gap 5 (5-15); BUN 16 mg/dL (7-18); BUN/Creat Ratio 18.8 RATIO (10-20); Calcium,Total 8.9 mg/dL (8.5-10.1); Chloride 108 mmol/L (98-107); Cholesterol 221 mg/dL (200); Creatinine, Serum 0.85 mg/dL (0.55-1.02); EST Glomerular Filtration Rate 71 mL/min (>60); Est Glom Filt Rate - Afr Amer 86 mL/min (>60); Globulin 3.8 g/dL (2.2-4.2); Glucose 95 mg/dL (74-106); High Density Lipoprotein 85 mg/dL; Protein, Total 7.4 g/dL (6.4-8.2); Sodium Level 139 mmol/L (136-145); Triglycerides 64 mg/dL; Very Low Density Lipoprotein 13 mg/dL (5-40)
== END | disposition home or self-care (01) ==
LOC: LAB.FUTURE 08:26 → LAB 08:27
PROVIDERS: PCP Family Medicine; Referring Provider Family Medicine; Visit Provider Family Medicine
DX: E89.0 Postprocedural hypothyroidism (principal)
CPT/HCPCS: 36415; 80053; 80061; 85025

== ENCOUNTER 2023-02-02 16:00 | Outpatient (RCR) | payer MEDICARE, OTHER, SELFPAY ==
--- NOTE | 2023-01-14 08:48 | HP.PTEVAL_ITS ---
Patient's Visit Information Visit Information Visit Information: KARINA JADE is a 67 year old F referred to Physical Therapy by Dr. Nicholas Irvin MD with a diagnosis of upper back pain. Date of Evaluation: 01/14/23 Physical Therapist: Anderson Camacho, PT, ATC Visit Plan Frequency: 1-2x /Week Duration: 2-4 Weeks Plan: Postural education, B upper trap and neck stretching, scap stab ex's, and HEP. Assess benefit of cervical traction next visit (14#/10#, 30/10 sec, 10 min) Subjective Subjective: Pt reports she has had upper back pain and tightness for approximately 9 months. Pt notes she is very active and participates in exercise classes at [employer]. Pt notes she sleeps on her side and stomach. Pt reports her pain is usually worse at night. Pt reports massage will help to some extent with her pain. Pt did have surgery in her neck secondary to metastatic cancer which makes her tight and limited with movements 12 years ago. Pt reports her tightness is located specifically in her upper traps. Pt denies tingling or numbness at this time. Pt reports trouble getting to sleep at times secondary to pain. No diagnostic tests performed at this time. Pt reports she has difficulty with participation in her exercise classes secondary to fatigue and weakness. Pain upper back pain: Pain Intensity (Out of 10): 4 Pain Intensity Range: 6 Objective Objective: Neuro: B UE sensation is WNL to light touch. B bicipital reflex= 1/3 Palpation: Pt has significant muscle guarding throughout upper traps. No obvious deformity at this time MMT: B UE's are rated at 5/5 throughout when compared bilaterally special tests: positive cervical compression and distraction tests Repeated movements: NE Balance/Special Test Scores Oswestry Neck Score: 8 Goals Goal 1:: Decrease neck pain x 50% to aid with sleep Goal Time Frame: 2-4 Weeks Goal 2:: I with HEP Goal Time Frame: 2-4 Weeks Goal 3:: Pt will be able to return to her exercise programs without limitation Goal Time Frame: 2-4 Weeks Rehabilitation Potential Physical Therapy Diagnosis: Pt has B upper trap pain, intolerance for prolonged activity, and difficulty with sleep secondary to deg changes of the cervical spine Rehabilitation Potential: Good Anticipated Interventions Patient/Client Instruction: Educate patient on: Condition and Plan of Care For the Purpose of:: To improve self management Therapeutic Exercise to Include: Strength training, Postural training, Flexibilty training, Active ROM and Scapular Strength/Stabilization For the Purpose of:: To decrease pain and To improve muscle performance and mo tor function Intermittent cervical traction: Yes For the Purpose of:: To decrease pain and To improve muscle performance and motor function Text: Thank you for the opportunity to evaluate your patient. For Medicare and Medicare HMO plans, please review the plan of care and approve it. It will need to be FAXED BACK to us at [phone] for Medicare purposes. For Medicare only, by signing this I certify the plan of care. Please let me know if there are questions or concerns regarding this plan of care. Physician Signature: Date:
--- NOTE | 2023-02-02 16:32 | HP.PTDCSUM ---
Discharge Summary D/C summary: It has been my pleasure to treat KARINA JADE referred by Dr. Nicholas Irvin MD, with the diagnosis of upper back pain for a total of 4 visit(s). Discharge Date: Please see the following information for a summary of their discharge status. Subjective Subjective: Pt. reports no shoulder P!, sleeping on back with one pillow under neck (moved from sleeping on stomach.) Pt. reports no arm numbness at all. Pain upper back pain: Pain Intensity (Out of 10): 2 Overall Improvement % Improvement: 100 Objective Objective/Function: Pt. is now P! free, has become I with her HEP and is able to return to ex. w/o P! at all. All goals have been met! Goals Goal 1:: Decrease neck pain x 50% to aid with sleep Goal Progress: Goal Met Goal 2:: I with HEP Goal Progress: Goal Met Goal 3:: Pt will be able to return to her exercise programs without limitation Goal Progress: Goal Met Plan Plan: Discharge to [facility] D/C Information d/c sentence: If there are questions or concerns regarding this patient's physical therapy, please feel free to call me at [phone]. Thank you for the referral of this patient. Sincerely, Anderson Camacho, PT, ATC Balance/Gait/Functional tests Balance/Special Test Scores Oswestry Neck Score: 2 Improvement % Improvement: 100
== END 2023-02-02 19:00 | disposition home or self-care (01) ==
LOC: PT 16:00
PROVIDERS: PCP Family Medicine; Referring Provider Family Medicine; Visit Provider Family Medicine
DX: M54.9 Dorsalgia, unspecified (principal)
CPT/HCPCS: 97012; 97110; 97140; 97161

== ENCOUNTER 2023-03-03 13:09 | Day surgery (SDC) | payer MEDICARE, OTHER, SELFPAY ==
--- NOTE | 2023-03-03 13:33 | PCM.HP.BLA ---
History and Physical Date of Admission: 03/03/23 67 F who presents to the office today for a follow up visit. PMH thyroid cancer with mets into her neck s/p radioactive iodine treatment 2010, continues with monitoring via bloodwork and imaging and continues to be clear. Colonoscopy 02.28.[address] Molina Gusman for screening purposes finding internal and external hemorrhoids; sigmoid diverticulosis; tortuous colon. *BGI established 7.14.22. Intermittent severe bloating causing abdominal pain and nausea without emesis occurring 2-3 times in six months without identifiable trigger. Bowels move well and without difficulty. Dysphagia of dry foods without need for emergent intervention. Hepatitis B infection 1982 following needle stick causing jaundice and hepatitis; no treatment at that time. She has bloodwork on a regular basis to monitor through her PCP. Last bloodwork summer 2020. ? Biochemical workup hepatitis, gastrin, ferritin, LDH, ESR, ANCA, celiac, GAME, Hep B surface Ag, Hp B core IgM without pertinent abnormality. CRP H4.90 Stool testing calprotectin, lactoferrin, elastase WNL. ? EGD .06.01 noting irregular Zline 37cm; Barretts esophagus Ki-67+ with chronic inflammation, negative for dysplasia; small hiatal hernia. OV .. with improvement of previously noted symptoms. Start omeprazole. OV 3..23 continues with Omeprazole which she continues to find helpful with the throat clearing which has significantly improved. OV 9.. the omeprazole is no longer helpful. ROS Const Constitutional: No fatigue, weight change or other (as above) Eyes Eyes: No change in vision ENT ENT: No abnormal hearing, difficulty swallowing, mouth lesions, tongue swelling or throat swelling Resp Respiratory: No cough or shortness of breath Cardio Cardiology: No chest pain at rest, chest pain with exertion, shortness of breath or dyspnea on exertion Gastro GI: No difficulty swallowing Genitourinary-Female: No difficulty urinating or burning urination Musc Musculoskeletal: No joint pain, joint swelling, muscle weakness or decreased muscle mass Skin Skin: No hair loss in leg, yellowing of the eye, itchy eyes, rash, skin ulcer or skin swelling Neuro Neurology: No abnormal hearing, abnormal movements, confusion, unsteady gait/balance or memory loss Psych Psychiatric: No anxiety, No confusion and No memory loss Endo Endocrine: No fatigue or weight change Aller/Imm Allergy/Immunologic: No itchy eyes, throat swelling or tongue swelling Srikanth/Lymp Hematologic/Lymphatic: No easy bleeding, easy bruising or enlarged lymph nodes Exam Const General: cooperative, healthy appearing and no acute distress Nutritional Appearance: average body habitus Orientation: alert, awake and oriented x3 HENMT Head: normal to inspection Ears: hearing grossly normal bilaterally, external ears normal, TM's normal bilaterally and EAC's normal Nose: external nose normal, nares normal, septum normal and no nasal discharge Face and sinus: normal facial exam, sinuses nontender and face symmetric Mouth: oral mucosae normal, lip normal, tongue normal and oropharynx normal Throat: posterior oropharynx normal, tonsils normal, uvula midline and no postnasal drainage Eyes General: appearance normal, both eyes and all related structures Neck Neck: normal visual inspection, full ROM, no lymphadenopathy, no meningeal signs and supple Neck mass: No Thyroid: thyroid normal Lymphatic: no lymphadenopathy noted Chest Chest palpation & inspection: normal inspection of the chest Resp Effort & Inspection: normal respiratory effort and able to speak in complete sentences Auscultation: Bilateral: Clear to Auscultation Cardio Palpation: normal PMI Rate: regular rate Rhythm: regular rhythm Heart Sounds: S1 normal, S2 normal, no gallops, no murmurs and no rubs Pulses: radial pulses present GI Inspection: normal to inspection Palpation: soft and no hepatosplenomegaly Skin General: no rashes or lesions noted Neuro General: patient alert, patient awake, patient oriented x3 and gait normal Cognition: normal cognition Speech: speech normal Gait: normal gait Motor: muscle tone normal throughout Sensory Exam: no sensory deficits noted Psych Appearance: grossly normal Mental Status: mental status grossly normal Mood: congruent mood Affect: normal affect Speech and Movement: speech and movement normal Attitude: cooperative Thought Process: normal Thought Content: normal Judgment: judgment good Quality Reporting Tobacco Screening ([facility] [address]) Smoking Status: Never smoker Assessment and Plan Assessment and Plan (1) Barretts esophagus: Status: Chronic Qualifiers: Browne's esophagus type: without dysplasia Qualified Code(s): K22.70 - Browne's esophagus without dysplasia Plan: She had a lot of acid in her esophagus and the presence of LA grade a erosive esophagitis with intestinal metaplasia that was seen on biopsies of the distal esophagus. Biopsies were Ki-67 positive and p53 positive consistent with Browen's esophagus. We will place her on omeprazole therapy once a day. She is okay with this plan and will follow-up in approximately 6 months. (2) Chronic throat clearing: Status: Chronic Plan: I will switch her to 40 mg of pantoprazole twice a day. We will schedule her for a repeat upper endoscopy so we can look at her Browne's esophagus and look at her throat and her esophagus. Medications: New pantoprazole 40 mg PO Q12H 60 tabs 2RF lidocaine HCl 2% (Lidocaine Viscous) 1 applic mucous membrane TID PRN 100 mL 0RF pain prednisone 20 mg PO DAILY 7 tabs 0RF azithromycin 500 mg PO DAILY 5 tabs 0RF 5 days I have examined the patient and the H&P has been reviewed. There are no clinical changes since date of exam.
[2023-03-03 13:38] VITALS: BP 137/60; PULSE 76; RESP 18; TEMP 36.7; O2SAT 100; BMI 26.3
[2023-03-03] MEDS: Lactated Ringers 1,000 ML 15 ML IV (13:43)
[2023-03-03 14:54] VITALS: BP 103/62; BP 137/60; PULSE 61; RESP 16; TEMP 36.8; O2SAT 96
--- NOTE | 2023-03-03 14:57 | OP.CCLET_ITS ---
03/03/2023 Nicholas Irvin Re : Upper GI endoscopy procedure for Nia Nayak Dear Brandee This procedure was performed on Friday, March 03, 2023. My impressions and recommendations are as follows: Impressions : - Z-line irregular, 39 cm from the incisors. Biopsied. - Normal stomach. - No gross lesions in the first portion of the duodenum. Recommendations : - Discharge patient to home. - Resume previous diet. - Continue present medications. - Await pathology results. My findings are described in the full procedure note, which is enclosed. If I can be of further assistance, please feel free to contact me at . Sincerely, Pierce Watts, 03/03/2023 2:57:01 PM This report has been signed electronically.
--- NOTE | 2023-03-03 14:57 | OP.EGD_ITS ---
Patient Name: Nia Nayak Procedure Date: 03/03/2023 2:34 PM Date of : 1955 Age: 67 Procedure: Upper GI endoscopy Indications: Follow-up of Browne's esophagus Providers: Pierce Watts DO Referring MD: Nicholas Irvin Medicines: Monitored Anesthesia Care Patient Profile: This is a 67 year old female. Refer to note in patient chart for documentation of history and physical. Patient has symptoms of chronic dysphagia, dysphagia with solids and chronic heartburn. Complications: No immediate complications. Procedure: Pre-Anesthesia Assessment: - Prior to the procedure, a History and Physical was performed, and patient medications and allergies were reviewed. The patient is competent. The risks and benefits of the procedure and the sedation options and risks were discussed with the patient. All questions were answered and informed consent was obtained. Patient identification and proposed procedure were verified by the physician in the pre-procedure area. Mental Status Examination: alert and oriented. Airway Examination: normal oropharyngeal airway and neck mobility. Respiratory Examination: clear to auscultation. CV Examination: normal. Prophylactic Antibiotics: The patient does not require prophylactic antibiotics. Prior Anticoagulants: The patient has taken no anticoagulant or antiplatelet agents. ASA Grade Assessment: II - A patient with mild systemic disease. After reviewing the risks and benefits, the patient was deemed in satisfactory condition to undergo the procedure. The anesthesia plan was to use monitored anesthesia care (MAC). Immediately prior to administration of medications, the patient was re-assessed for adequacy to receive sedatives. The heart rate, respiratory rate, oxygen saturations, blood pressure, adequacy of pulmonary ventilation, and response to care were monitored throughout the procedure. The physical status of the patient was re-assessed after the procedure. After obtaining informed consent, the endoscope was passed under direct vision. Throughout the procedure, the patient's blood pressure, pulse, and oxygen saturations were monitored continuously. The gastroscope was introduced through the mouth, and advanced to the second part of duodenum. The upper GI endoscopy was accomplished without difficulty. The patient tolerated the procedure well. Scope In: 2:45:29 PM Scope Out: 2:49:11 PM Total Procedure Duration Time 0 hours 3 minutes 42 seconds Findings: The Z-line was irregular and was found 39 cm from the incisors. Biopsies were taken with a cold forceps for histology. Verification of patient identification for the specimen was done. Estimated blood loss was minimal. The entire examined stomach was normal. No gross lesions were noted in the first portion of the duodenum. Impression: - Z-line irregular, 39 cm from the incisors. Biopsied. - Normal stomach. - No gross lesions in the first portion of the duodenum. Recommendation: - Discharge patient to home. - Resume previous diet. - Continue present medications. - Await pathology results. Procedure Code(s): --- Professional --- 04593, Esophagogastroduodenoscopy, flexible, transoral; with biopsy, single or multiple CPT copyright 2021 [employer]. All rights reserved. The codes documented in this report are preliminary and upon ship superintendent review may be revised to meet current compliance requirements. Pierce Watts DO 03/03/2023 2:57:01 PM This report has been signed electronically. Number of Addenda: 0 Note Initiated On: 03/03/2023 2:34 PM
[2023-03-03 15:00] VITALS: BP 137/60; BP 98/61; PULSE 59; RESP 16; O2SAT 95
[2023-03-03 15:05] VITALS: BP 102/70; BP 137/60; PULSE 72; RESP 16; O2SAT 97
[2023-03-03 15:10] VITALS: BP 106/66; BP 137/60; PULSE 65; RESP 16; TEMP 36.4; O2SAT 99
[2023-03-03 15:25] VITALS: BP 137/60
--- NOTE | 2023-03-03 18:14 | EGD_PTH ---
PATIENT: KARINA JADE LOC: EN U#:[id number] AGE/SX: 67/F ROOM: RE03/03/[address]: Dr. Pierce Watts DO : 1955 BED: DIS: 03/03/2023 SPEC #: [id number] RECD: 03/04/23 08:20 STATUS: JODI VIDAL #: [id number] CHANDNI: 03/03/23 18:[address]: Pierce Watts DEPT: SURGICAL PATHOLOGY RECD BY: Miranda Farmer ENTERED: 03/04/23 08:21 SP TYPE: EGD BIOPSY JEROD DR: Dr. Nicholas Irvin MD Tissues: Esophagus, NOS Procedures: Special Stain Group II Surgery Specimen Level IV Alcian Blue/PAS (control) HEADER OPERATION: EGD with biopsies PRE-OP DIAGNOSIS: Browne's esophagus, chronic throat clearing TISSUE SUBMITTED: Distal esophagus biopsy MICROSCOPIC DIAGNOSIS Distal esophagus, biopsy: Fragments of gastroesophageal mucosa with chronic inflammation. Intestinal metaplasia (goblet cell metaplasia) not identified. See comment. BOONE:yaz 03/05/2023 COMMENT Alcian blue/PAS stain with matched control is used in the evaluation of the specimen. MICROSCOPIC DESCRIPTION Slides are reviewed. GROSS DESCRIPTION Received in fixative is one container labeled with the patient's name and designated distal esophagus biopsy. The specimen consists of multiple irregular fragments of light miramontes soft tissue that in aggregate measure 1.5 x 0.5 x 0.1 cm. The specimen is totally submitted in one cassette. / BOONE:yaz 03/04/2023 TC:3 CPT: 44787, 21632
== END 2023-03-03 15:42 | disposition home or self-care (01) ==
LOC: EN 13:10 → AC 13:12
PROVIDERS: PCP Family Medicine; Referring Provider Family Medicine; Visit Provider Internal Medicine Gastroenterology
PROC: 0DJ08ZZ Inspection of Upper Intestinal Tract, Via Natural or Artificial Opening Endoscopic (ICD-10-PCS; CPT 43235; principal; 2023-03-03 14:10)
DX: K20.90 Esophagitis, unspecified without bleeding (principal); K22.70 Barrett's esophagus without dysplasia; M51.36 Other intervertebral disc degeneration, lumbar region; G89.29 Other chronic pain; Z79.899 Other long term (current) drug therapy
CPT/HCPCS: 43239; 88305; 88313; J7120; J2405

== ENCOUNTER → 2023-07-07 | Outpatient (CLI) | payer MEDICARE, OTHER, SELFPAY ==
--- NOTE | 2023-07-07 17:00 | CT_ITS ---
STUDY: CT CHEST WITH CONTRAST REASON FOR EXAM: Female, 67 years old. History of metastatic thyroid cancer. RADIATION DOSAGE (If Supplied By Facility): CTDIvol = ( 11.75 ) mGy, DLP = ( 383.70 ) mGycm TECHNIQUE: Transaxial imaging was performed following intravenous administration of IV 100mL Isovue-300. Multiplanar coronal and sagittal images were reformatted. Individualized dose optimization techniques were used for this CT. COMPARISON: Comparison is made with prior study dated December 23, 2022. FINDINGS: CHEST Surgical clips in the right thyroid gland. Since prior study, there has been evidence of increased size in the scattered right pulmonary nodules. There is no demonstrated pleural abnormality. Normal heart and pericardium. Normal mediastinum. Normal hilar regions. Normal unenhanced pulmonary arteries. Normal aorta arch and descending thoracic aorta. Normal osseous structures. There is no demonstrated abnormality of the visualized upper abdomen. CT/Chest WITH Contrast IMPRESSION: Persistent scattered nodular densities in the right lung as described. There has been a slight increase in size of the previously seen nodules. Electronically Signed: Dash Rodriguez MD at 13:58 EST ,
[2023-07-07 17:23] LABS: CREATININE FINGERSTICK < 1.0 mg/dL (0.55-1.02); EGFR FINGERSTICK > 60.0000 mL/min (>60)
== END | disposition home or self-care (01) ==
LOC: CT 16:58
PROVIDERS: PCP Family Medicine; Referring Provider Internal Medicine Hematology & Oncology; Visit Provider Internal Medicine Hematology & Oncology
DX: C73 Malignant neoplasm of thyroid gland (principal); C78.00 Secondary malignant neoplasm of unspecified lung
CPT/HCPCS: 71260; Q9967

== ENCOUNTER → 2023-07-15 | Outpatient (CLI) | payer MEDICARE, OTHER, SELFPAY ==
--- NOTE | 2023-07-15 07:16 | BI_ITS ---
MAMMOGRAPHY - BILATERAL SCREENING 3-D TOMOSYNTHESIS REASON FOR EXAM: Female, 67 years old. SCREENING PERTINENT HISTORY: No significant family history. TECHNIQUE: 2-D mammograms and 3-D Tomosynthesis of the breast (s) were performed. CAD was performed. COMPARISON: 07/02/2022 FINDINGS: The breast composition is heterogeneously dense that can obscure small breast masses. Scattered benign calcifications are seen. No dense spiculated masses or suspicious microcalcifications are identified. No architectural distortion is identified. There is no skin thickening or retraction. There has been no significant change since the prior study. No change in bilateral benign vascular calcifications can be associated with coronary artery disease. BI/SCRN MAMM (CAD)W/WILMA BILAT IMPRESSION: No mammographic signs of malignancy. Routine yearly mammograms recommended. ASSESSMENT CATEGORY: BIRADS Category 2: Benign. A letter regarding these results will be sent to the patient by the facility within 30 days. FOLLOW UP RECOMMENDATION: Yearly follow up mammogram recommended. (A) Approximately 10% of breast cancers are not detected by mammography. A normal mammogram should not delay biopsy of a clinically suspicious abnormality. Electronically Signed: Ozzy Lebron MD at 19:41 EST ,
--- OUTSIDE RECORDS SUMMARY | 2023-07-15 07:41 | XMS RPT_ITS | CCD ---
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 Role Phone Melvi Gregory DC Unavailable Carlie Cruz LPN Unavailable Carlie Cruz LPN Unavailable [phone] Jairon Irvin MD Primary Care Provider Jairon Irvin MD Primary Care Provider Jairon Irvin MD Primary Care Provider [phone] Jairon Irvin MD Primary Care Provider CHETAN POPE Referring Unavailable JAIRON IRVIN Primary Care Unavailable CHETAN POPE Referring Unavailable JAIRON IRVIN Primary Care Unavailable Artem SEBASTIAN Attending Unavailable JAIRON IRVIN Primary Care Unavailable JAIRON IRVIN Primary Care Unavailable JATINDER RODARTE Attending Unavailable JAIRON IRVIN Primary Care Unavailable JAIRON IRVIN Primary Care Unavailable JATINDER RODARTE Attending Unavailable JAIRON IRVIN Primary Care Unavailable JAIRON IRVIN Attending Unavailable Allergies Allergy Classification Reported Allergen(s) Allergy Type Date of Onset Reaction(s) Facility (20 sources) Morphine; Translations: [MORPHINE (PF)] Drug Allergy 01-08-2022 Itching [facility] Medications Current Medications Medication Drug Class(es) Dates Sig (Normalized) Sig (Original) doxycycline hyclate 100 mg oral tablet (2 sources) Tetracycline-clas s Drug Start: 11-17-2022 End: 11-27-2022 take 1 tablet by mouth twice daily doxycycline (VIBRA-TABS) 100 mg tablet Indications: Bronchitis Take 1 tablet by mouth twice daily for 10 days. Only if fever or worsening 20 tablet 0 11/17/2022 11/27/2022 Active Completed/Discontinued Medications Medication Drug Class(es) Dates Sig (Normalized) Sig (Original) Ascorbic Acid (20 sources) Vitamin C ascorbic acid (V ITAMIN C ORAL) Take by mouth. 0 Active Problems Active Problems Problem Classification Problem Date Documented Date Episodic/Chronic Cancer of thyroid (20 sources) Papillary thyroid carcinoma; Translations: [Malignant neoplasm of thyroid gland] Onset: 11-27-2010 05-06-2021 Chronic Complications of surgical procedures or medical care (20 sources) Postoperative hypothyroidism; Translations: [Postprocedural hypothyroidism] Onset: 03-09-2017 03-09-2017 Chronic Esophageal disorders (7 sources) Browne's esophagus; Translations: [Browne's esophagus without dysplasia] Onset: 01-08-2023 01-08-2023 Chronic Genitourinary symptoms and ill-defined conditions (2 sources) Female stress incontinence; Translations: [Stress incontinence (female) (male)] 06-18-2023 Chronic Inflammation; infection of eye (except that caused by tuberculosis or sexually transmitteddisease) (1 source) Chronic allergic conjunctivitis; Translations: [Other chronic allergic conjunctivitis] Chronic Menopausal disorders (4 sources) Postmenopausal bleeding; Translations: [Postmenopausal bleeding] Onset: 06-30-2023 06-18-2023 Chronic Nausea and vomiting (1 source) Nausea; Translations: [Nausea] Episodic Nutritional deficiencies (20 sources) Vitamin D deficiency; Translations: [Vitamin D deficiency, unspecified] Onset: 06-13-2014 11-03-2017 Chronic Osteoarthritis (1 source) Arthritis of bilateral first carpometacarpal joints; Translations: [Bilateral primary osteoarthritis of first carpometacarpal joints] Chronic Other nervous system disorders (5 sources) Ulnar nerve entrapment at wrist; Translations: [Ulnar neuritis] Onset: 03-21-2016 03-21-2016 Chronic Other nervous system disorders (1 source) Ulnar neuritis; Translations: [Lesion of ulnar nerve, right upper limb] Onset: 03-21-2016 03-21-2016 Chronic Other nervous system disorders (20 sources) Key's syndrome pupil; 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] Onset: 12-14-2019 12-14-2019 Chronic Other nervous system disorders (5 sources) Key's syndrome; 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] Onset: 12-14-2019 12-14-2019 Chronic Other upper respiratory infections (1 source) Bacterial sinusitis; Translations: [Chronic sinusitis, unspecified] Chronic Residual codes; unclassified (20 sources) Obstructive sleep apnea syndrome; Translations: [Obstructive sleep apnea (adult) (pediatric)] Onset: 11-13-2011 01-29-2017 Chronic Spondylosis; intervertebral disc disorders; other back problems (3 sources) Degeneration of lumbar intervertebral disc; Translations: [Other intervertebral disc degeneration, lumbar region] Onset: 09-12-2022 Chronic Past or Other Problems Problem Classification Problem Date Documented Da te Episodic/Chronic Biliary tract disease (20 sources) Biliary sludge; Translations: [Other specified diseases of gallbladder] Onset: 03-23-2014 03-23-2014 Episodic Calculus of urinary tract (20 sources) Kidney stone; Translations: [Calculus of kidney] Onset: 03-23-2014 03-23-2014 Episodic Chronic obstructive pulmonary disease and bronchiectasis (2 sources) Bronchitis; Translations: [Bronchitis, not specified as acute or chronic] Onset: 11-17-2022 11-17-2022 Episodic Hepatitis (20 sources) Type B viral hepatitis; Translations: [Unspecified viral hepatitis B without hepatic coma] Onset: 09-22-2014 12-16-2018 Episodic Inflammation, infection of eye (4 sources) Hordeolum; Translations: [Acute conjunctivitis] Onset: 09-19-2016 09-19-2016 Episodic Other bone disease and musculoskeletal deformities (3 sources) Pelvic somatic dysfunction; Translations: [Segmental and somatic dysfunction of pelvic region] Onset: 08-25-2016 08-25-2016 Episodic Other connective tissue disease (3 sources) Ganglion cyst; Translations: [Ganglion, unspecified site] Onset: 03-21-2016 03-21-2016 Episodic Other lower respiratory disease (6 sources) Multiple nodules of lung; Translations: [Other nonspecific abnormal finding of lung field] Onset: 01-08-2023 01-08-2023 Episodic Other lower respiratory disease (1 source) Other nonspecific abnormal finding of lung field; Translations: [Lung nodules] Onset: 01-08-2023 Episodic Other non-traumatic joint disorders (3 sources) Pain in wrist; Translations: [Pain in right wrist] Onset: 03-21-2016 03-21-2016 Episodic Other screening for suspected conditions (not mental disorders or infectious disease) (4 sources) Patient encounter status; Translations: [Encounter for screening mammogram for malignant neoplasm of breast] Onset: 09-12-2022 Episodic Other upper respiratory disease (3 sources) Pain in throat; Translations: [Acute pharyngitis, unspecified] Onset: 08-15-2016 08-15-2016 Episodic Other upper respiratory infections (2 sources) Acute upper respiratory infection; Translations: [Acute upper respiratory infection, unspecified] Onset: 11-17-2022 11-17-2022 Episodic Spondylosis; intervertebral disc disorders; other back problems (9 sources) Sciatica; Translations: [Sciatica, left side] Onset: 09-12-2022 Episodic Results Test Name Value Interpretation Reference Range Facil ity Vital Signs Date Time Vital Sign Value Performing Clinician Facility 07-07-2023 08:30-0500 Body weight 70.76 kg Jatinder Rodarte MD Work Phone: [facility] 07-07-2023 08:30-0500 Diastolic blood pressure 82 mm[Hg] Jatinder Rodarte MD Work Phone: [facility] 07-07-2023 08:30-0500 Systolic blood pressure 162 mm[Hg] Jatinder Rodarte MD Work Phone: [facility] 06-18-2023 09:48-0500 Body height 162.6 cm Jatinder Rodarte MD Work Phone: [facility] 06-18-2023 09:48-0500 Body weight 70.31 kg Jatinder Rodarte MD Work Phone: [facility] 06-18-2023 09:48-0500 Diastolic blood pressure 76 mm[Hg] Jatinder Rodarte MD Work Phone: [facility] 06-18-2023 09:48-0500 Systolic blood pressure 122 mm[Hg] Jatinder Rodarte MD Work Phone: [facility] 01-08-2023 10:40-0400 Body height 165.1 cm Jairon Irvin MD Work Phone: [facility] 01-08-2023 10:40-0400 Body weight 72.12 kg Jairon Irvin MD Work Phone: [facility] 01-08-2023 10:40-0400 Diastolic blood pressure 77 mm[Hg] Jairon Irvin MD Work Phone: [facility] 01-08-2023 10:40-0400 Heart rate 60 /min Jairon Irvin MD Work Phone: [facility] 01-08-2023 10:40-0400 Systolic blood pressure 135 mm[Hg] Jairon Irvin MD Work Phone: [facility] 11-17-2022 15:07-0400 Body temperature 97.9 [degF] NA Sebastian PA-C Work Phone: [facility] 11-17-2022 15:07-0400 Body weight 73.03 kg NA Sebastian PA-C Work Phone: [facility] 11-17-2022 15:07-0400 Diastolic blood pressure 68 mm[Hg] NA Sebastian PA-C Work Phone: [facility] 11-17-2022 15:07-0400 Heart rate 76 /min NA Sebastian PA-C Work Phone: [facility] 11-17-2022 15:07-0400 Respiratory rate 16 /min NA Sebastian PA-C Work Phone: [facility] 11-17-2022 15:07-0400 SaO2% (BldA) [Mass fraction] 99 % NA Sebastian PA-C Work Phone: [facility] 11-17-2022 15:07-0400 Systolic blood pressure 110 mm[Hg] NA Sebastian PA-C Work Phone: [facility] 06-30-2022 18:43-0500 Body height 165.1 cm Jairon Irvin MD Work Phone: [facility] 06-30-2022 18:43-0500 Body weight 72.58 kg Jairon Irvin MD Work Phone: [facility] 06-30-2022 18:43-0500 Diastolic blood pressure 68 mm[Hg] Jairon Irvin MD Work Phone: [facility] 06-30-2022 18:43-0500 Heart rate 65 /min Jairon Irvin MD Work Phone: [facility] 06-30-2022 18:43-0500 SaO2% (BldA) [Mass fraction] 95 % Jairon Irvin MD Work Phone: [facility] 06-30-2022 18:43-0500 Systolic blood pressure 100 mm[Hg] Jairon Irvin MD Work Phone: [facility] 05-19-2022 17:21-0500 Body weight 72.58 kg Jairon Irvin MD Work Phone: [facility] 05-19-2022 17:21-0500 Diastolic blood pressure 88 mm[Hg] Jairon Irvin MD Work Phone: [facility] 05-19-2022 17:21-0500 Heart rate 68 /min Jairon Irvin MD Work Phone: [facility] 05-19-2022 17:21-0500 SaO2% (BldA) [Mass fraction] 99 % Jairon Irvin MD Work Phone: [facility] 05-19-2022 17:21-0500 Systolic blood pressure 138 mm[Hg] Jairon Irvin MD Work Phone: [facility] 05-03-2022 08:03-0500 Body weight 71.67 kg Jairon Irvin MD Work Phone: [facility] 05-03-2022 08:03-0500 Diastolic blood pressure 82 mm[Hg] Jairon Irvin MD Work Phone: [facility] 05-03-2022 08:03-0500 Heart rate 59 /min Jairon Irvin MD Work Phone: [facility] 05-03-2022 08:03-0500 SaO2% (BldA) [Mass fraction] 99 % Jairon Irvin MD Work Phone: [facility] 05-03-2022 08:03-0500 Systolic blood pressure 132 mm[Hg] Jairon Irvin MD Work Phone: [facility] 09-19-2016 08:22-0400 BMI (Body Mass Index) 29.62 kg/m2 Carlie Cruz LPN [facility] Work Phone: 09-19-2016 08:22-0400 Body Temperature 97.9 [degF] Carlie Cruz LPN [facility] Work Phone: 09-19-2016 08:22-0400 BP Diastolic 66 mm[Hg] Carlie Cruz LPN [facility] Work Phone: 09-19-2016 08:22-0400 BP Systolic 100 mm[Hg] Carlie Cruz LPN [facility] Work Phone: 09-19-2016 08:22-0400 Height 162.56 cm Carlie Cruz LPN [facility] Work Phone: 09-19-2016 08:22-0400 Pulse (Heart Rate) 63 /min Carlie Cruz LPN [facility] Work Phone: 09-19-2016 08:22-0400 Pulse Oximetry 98 % Carlie Cruz LPN [facility] Work Phone: 09-19-2016 08:22-0400 Respiratory Rate 16 /min Carlie Cruz LPN [facility] Work Phone: 09-19-2016 08:22-0400 Weight 78.29 kg Carlie Cruz LPN [facility] Work Phone: 08-15-2016 11:46-0400 BMI (Body Mass Index) 29.07 kg/m2 Melvi Gregory DC [facility] Work Phone: 08-15-2016 11:46-0400 Body Temperature 98.2 [degF] Melvi Gregory DC [facility] Work Phone: 08-15-2016 11:46-0400 BP Diastolic 68 mm[Hg] Melvi Gregory DC [facility] Work Phone: 08-15-2016 11:46-0400 BP Systolic 128 mm[Hg] Melvi Gregory DC [facility] Work Phone: 08-15-2016 11:46-0400 Height 162.56 cm Melvi Gregory DC [facility] Work Phone: 08-15-2016 11:46-0400 Pulse (Heart Rate) 61 /min Melvi Gregory DC [facility] Work Phone: 08-15-2016 11:46-0400 Pulse Oximetry 98 % Melvi Gregory DC [facility] Work Phone: 08-15-2016 11:46-0400 Respiratory Rate 16 /min Melvi Gregory DC [facility] Work Phone: 08-15-2016 11:46-0400 Weight 76.84 kg Melvi Gregory DC [facility] Work Phone: Encounters Encounter Date Encounter Type Care Provider Facility Start: 07-07-2023 End: 07-07-2023 ambulatory JAIRON IRVIN Facility:[facility] Start: 07-07-2023 End: 07-07-2023 Patient encounter procedure Jatinder Rodarte MD Work Phone: OB/Gynecology Procedures Date Procedure Procedure Detail Performing Clinician Start: 01-01-2023 Lipid 1996 panel - S vishnu or Plasma Mri (I-Stat/1.5t) Work Phone: Start: 11-17-2022 COVID WITH FLUA+B, ROUTINE M Lucas Sebastian PA-C Work Phone: Start: 09-12-2022 Thyroid carcinoma metastases img whole body Chetan Pope DO Work Phone: Start: 07-08-2022 Mri spinal canal lum bar w/o & w/contr matrl Jairon Irvin MD Work Phone: Start: 04-10-2022 Thyrotropin [Units/v olume] in Serum or Plasma Chetan Pope DO Work Phone: Start: 03-27-2022 Thyroid carcinoma metastases img whole body Chetan Pope DO Work Phone: Start: 03-17-2022 Thyrotropin [Units/v olume] in Serum or Plasma Chetan Pope DO Work Phone: Start: 06-17-2021 Mammography Jairon Martinez MD Work Phone: Start: 02-28-2020 Colonoscopy Jairon Martinez MD Work Phone: Start: 09-19-2016 End: 09-19-2016 Dietary management education, guidance, and counseling Carlie Cruz LPN Start: 08-28-2016 End: 09-02-2016 Chiropract manj 1-2 regions Melvi B Wenceslao i DC Work Phone: Start: 08-28-2016 End: 09-02-2016 Electric stimulation therapy Meliv B Dossi DC Work Phone: Start: 08-25-2016 End: 08-25-2016 Chiropract manj 1-2 regions Melvi B Wenceslao i DC Work Phone: Start: 08-25-2016 End: 08-25-2016 Electric stimulation therapy Melvi B Dossi DC Work Phone: Start: 08-15-2016 End: 08-15-2016 Iaadiadoo streptococcus group a Magdiel LIN Work Phone: Start: 08-15-2016 End: 08-15-2016 Rapid strep test Magdiel LIN Work Phone: Start: 04-10-2016 End: 04-10-2016 Chiropractic manipulation Melvi B Dossi DC Work Phone: Start: 04-10-2016 End: 04-10-2016 Massage therapy Melvi B Dossi DC Work Phone: Start: 03-27-2016 End: 03-27-2016 Chiropractic manipulation Melvi B Dossi DC Work Phone: Start: 03-27-2016 End: 03-27-2016 Massage therapy Melvi Gregory DC Work Phone: Start: 03-25-2016 End: 03-25-2016 Chiropractic manipulation Melvi Gregory DC Work Phone: Start: 03-25-2016 End: 03-25-2016 Massage therapy Melvi Gregory DC Work Phone: Start: 12-07-2015 Adult depression scr eening assessment Jairon Irvin MD Work Phone: Plan of Treatment Date Care Activity Detail Author Start: 02-27-2030 Colonoscopy COLONOSCOPY [facility] Start: 02-27-2030 COLORECTAL CANCER SCREENING COLORECTAL CANCER SCREENING [facility] Start: 02-27-2030 Screening for malign ant neoplasm of colon [facility] Start: 01-02-2028 Lipid 1996 panel - S vishnu or Plasma Lipid Screening [facility] Start: 01-02-2028 Lipid panel Lipid Screening [facility] Start: 01-02-2028 LIPID SCREEN LIPID SCREEN [facility] Start: 12-24-2026 LIPID SCREEN LIPID SCREEN [facility] Start: 11-17-2025 PAP TESTING PAP TESTING [facility] Start: 11-17-2025 Screening for malign ant neoplasm of cervix Pap Testing [facility] Start: 12-12-2024 LIPID SCREEN LIPID SCREEN [facility] Start: 01-09-2024 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 ANNUAL PCP TEAM CHRONIC DISEASE VISIT [facility] Start: 01-09-2024 COVID-19 VACCINE (5 - Moderna series) COVID-19 VACCINE (5 - Moderna series) [facility] Immunizations Immunization Date Immunization Notes Care Provider Fa jonn 05-07-2023 respiratory syncytia l virus (RSV) vaccine, bivalent (ABRYSVO) Jatinder Rodarte MD Work Phone: [facility] Work Phone: 02-19-2023 influenza (HD-IIV4) vaccine, age 65+ yr, high dose, quadrivalent, PF (FLUZONE HIGH-DOSE) Jatinder Rodarte MD Work Phone: [facility] Work Phone: 07-02-2022 tetanus toxoid, redu deven diphtheria toxoid, and acellular pertussis vaccine, adsorbed Jairon Irvin MD Work Phone: [facility] 02-19-2022 influenza virus vacc ine, unspecified formulation Jairon Irvin MD Work Phone: [facility] 02-06-2022 influenza (HD-IIV4) vaccine, age 65+ yr, high dose, quadrivalent, PF (FLUZONE HIGH-DOSE) Jairon Irvin MD Work Phone: [facility] 01-08-2022 pneumococcal (PCV20) vaccine, 20 valent (PREVNAR 20) Jairon Irvin MD Work Phone: [facility] 02-16-2021 influenza, high-dose , quadrivalent vaccine (FLUZONE HIGH DOSE QUADRIVALENT) Jairon Irvin MD Work Phone: [facility] 12-31-2020 pneumococcal polysaccharide vaccine, 23 valent Jairon Irvin MD Work Phone: [facility] 02-27-2020 influenza, injectabl e, quadrivalent, preservative free Jatinder Rodarte MD Work Phone: [facility] Work Phone: 02-27-2020 influenza, seasonal, injectable Jairon Irvin MD Work Phone: [facility] 02-27-2020 influenza, seasonal, injectable, preservative free Jairon Irvin MD Work Phone: [facility] 04-04-2019 zoster vaccine recombinant Jairon Irvin MD Work Phone: [facility] Work Phone: 03-01-2019 influenza, injectabl e, quadrivalent, preservative free Jatinder Rodarte MD Work Phone: [facility] Work Phone: 03-01-2019 influenza, seasonal, injectable Jairon Irvin MD Work Phone: [facility] 03-01-2019 influenza, seasonal, injectable, preservative free Jairon Irvin MD Work Phone: [facility] 01-21-2019 zoster vaccine recombinant Jairon Irvin MD Work Phone: [facility] Work Phone: 02-05-2018 influenza, injectabl e, quadrivalent, preservative free Jatinder Rodarte MD Work Phone: [facility] Work Phone: 02-05-2018 influenza, seasonal, injectable Jairon Irvin MD Work Phone: [facility] 02-05-2018 influenza, seasonal, injectable, preservative free Jairon Irvin MD Work Phone: [facility] 02-04-2017 influenza, injectabl e, quadrivalent, preservative free Jatinder Rodarte MD Work Phone: [facility] Work Phone: 02-04-2017 influenza, seasonal, injectable Jairon Irvin MD Work Phone: [facility] 02-04-2017 influenza, seasonal, injectable, preservative free Jairon Irvin MD Work Phone: [facility] 02-07-2016 influenza, injectabl e, quadrivalent, preservative free Jatinder Rodarte MD Work Phone: [facility] Work Phone: 02-07-2016 influenza, seasonal, injectable Jairon Irvin MD Work Phone: [facility] 02-07-2016 influenza, seasonal, injectable, preservative free Jairon Irvin MD Work Phone: [facility] 02-07-2015 influenza, injectabl e, quadrivalent, preservative free Jatinder Rodarte MD Work Phone: [facility] Work Phone: 02-07-2015 influenza, seasonal, injectable Jairon Irvin MD Work Phone: [facility] 02-07-2015 influenza, seasonal, injectable, preservative free Jairon Irvin MD Work Phone: [facility] 01-25-2014 influenza, injectabl e, quadrivalent, preservative free Jatinder Rodarte MD Work Phone: [facility] Work Phone: 01-25-2014 influenza, seasonal, injectable Jairon Irvin MD Work Phone: [facility] 01-25-2014 influenza, seasonal, injectable, preservative free Jairon Irvin MD Work Phone: [facility] 12-27-2007 diphtheria and tetan us toxoids, adsorbed for pediatric use Jairon Irvin MD Work Phone: [facility] Work Phone: Payers Date Payer Category Payer Private Health Insurance [facility] AARP SUPPLEMENT [id number] 2020-Present [phone] [address] [place] [address] Indemnity [id number] 2020 Private Health Insurance [id number] 2020 Unknown [id number] 2020 Medicare MEDICARE MEDICAR E A AND B [id number] 2020-Present [phone] [place] [address] Medicare [id number] 2020 Medicare MEDICARE MEDICAR E A AND B [id number] 2020-Present [phone] [place] [address] Medicare [id number] 2020 Medicare [id number] Social History Date Type Detail Facility Tobacco smoking stat us UTIS Never smoked tobacco [facility] Start: 05-15-2021 End: 07-07-2023 Alcohol intake Current drinker of alcohol (finding) [facility] Start: 1955 Sex Assigned At Not on file [facility] Start: 10-27-2021 End: 03-27-2022 Exposure to SARS-CoV-2 (event) Not sure [facility] Work Phone: Start: 1955 Sex Assigned At Female [facility] Start: 11-17-2022 End: 01-08-2023 History of Social function [facility] Work Phone: Start: 11-17-2022 End: 01-08-2023 Tobacco use panel [facility] Work Phone: Adult Depression Screening Assessment 0 [facility] Work Phone: Start: 03-10-2022 Gender identity Identifies as female gender (finding) [facility] Start: 03-10-2022 Sexual orientation Choose not to dis close [facility] Clinical Notes 11-28-2010 to 07-07-2023 Patient InstructionsJatinder Rodarte MD - 07/07/2023 8:29 AM Kalani Fernandez RDMS - 06/30/2023 7:45 AM ESTTelephone Encounter - Khadijah Ahuja RN - 06/19/2023 1:52 PM EST Note Date & Type Note Facility 07-07-2023 Note HNO ID: [id number] Author: JATINDER RODARTE MD Service: ? Author Type: Physician Type: Progress Notes Filed: 07/07/2023 08:53 Note Text: Radiosonde Operator offered: Patient accepts, visit chaperoned by Clement Peoples MAAngela COLLINS is a 67 year old Female who presents today for an endometrial biopsy for post menopausal bleeding. test: negative UNIVERSAL PROTOCOL / SAFETY CHECKLIST Procedure to be Performed: EMB Sign In: A Moment of CARE was completed. Personnel directly involved with the procedure wore the appropriate PPE (Personal Protective Equipment). Patient/Surrogate Stated/Verified: PATIENT VERIFIED(optional for EMERGENT procedures): Patient name, Date of , Relevant allergies, and The intended procedure Time Out Communication: Intended patient and procedure match the source documents. Consent documented and matches the intended procedure. No implant(s) inserted. Sign Out: SIGN OUT (optional for EMERGENT procedures): All specimen containers correctly labeled. All instruments, equipment, possible retained foreign bodies accounted for. Post-procedure follow-up management communicated and Plan of Care Visit completed when applicable. Jatinder Rodarte M.D. PROCEDURE: EXTERNAL GENITALIA: Normal in appearance without lesions VAGINA: Normal in appearance without lesions BIOPSY: Speculum placed into the vagina with excellent visualization of the cervix. Cervix cleaned with betadine. Anterior lip of cervix grasped with single toothed tenaculum. Uterus sounded to 8 cm. Pipelle inserted into the uterus without difficulty and endometrial biopsy obtained. Specimen labeled and sent to pathology. Procedure Summary: Patient tolerated procedure well. ASSESSMENT: post menopausal bleeding PLAN: Specimens labeled and sent to Pathology. Will notify patient of results in 1-2 weeks. Post-procedure instructions reviewed and written material given to the patient. Jatinder Rodarte MD [facility] 07-07-2023 Instructions Zack Peoples Ma - 07/07/2023 8:36 AM EST YOUR RECOVERY After your biopsy you may have: Vaginal bleeding (less than a normal menstrual period) Mild cramping Do NOT put anything in the vagina for 1 week after your endometrial biopsy. This includes: tampons douches and refraining from having sexual intercourse If you have any discomfort, you may take an over the counter pain medication (motrin, advil, ibuprofen, tylenol, etc). If this does not relieve your discomfort, contact the office. It is okay to wear a sanitary pad until the discharge and spotting stops. RISKS Although problems seldom occur with endometrial biopsies, there can be some complications. You may feel faint during and shortly after the procedure as well as have some bleeding after the procedure. There is also a risk of infection after the procedure. These complications are rare and can be easily treated. You should contact you doctor is you have any of the following: Heavy bleeding (more than your normal period) Bleeding with clots Severe abdominal pain Fever (more than 100.4F) Foul smelling vaginal discharge RESULTS We will have the results of your biopsy in 1-2 weeks. If you do not hear the results of your biopsy after 2 weeks, please contact the office for the results. If you have any additional questions or concerns please do not hesitate to contact the office. documented in this encounter [facility] 07-07-2023 History of Present illness Narrative Formatting of this note might be differe nt from the original. Radiosonde Operator offered: Patient accepts, visit chaperoned by Clement Peoples MA. NIA is a 67 year old Female who presents today for an endometrial biopsy for post menopausal bleeding. test: negative UNIVERSAL PROTOCOL / SAFETY CHECKLIST Procedure to be Performed: EMB Sign In: A Moment of CARE was completed. Personnel directly involved with the procedure wore the appropriate PPE (Personal Protective Equipment). Patient/Surrogate Stated/Verified: PATIENT VERIFIED(optional for EMERGENT procedures): Patient name, Date of , Relevant allergies, and The intended procedure Time Out Communication: Intended patient and procedure match the source documents. Consent documented and matches the intended procedure. No implant(s) inserted. Sign Out: SIGN OUT (optional for EMERGENT procedures): All specimen containers correctly labeled. All instruments, equipment, possible retained foreign bodies accounted for. Post-procedure follow-up management communicated and Plan of Care Visit completed when applicable. Jatinder Rodarte M.D. PROCEDURE: EXTERNAL GENITALIA: Normal in appearance without lesions VAGINA: Normal in appearance without lesions BIOPSY: Speculum placed into the vagina with excellent visualization of the cervix. Cervix cleaned with betadine. Anterior lip of cervix grasped with single toothed tenaculum. Uterus sounded to 8 cm. Pipelle inserted into the uterus without difficulty and endometrial biopsy obtained. Specimen labeled and sent to pathology. Procedure Summary: Patient tolerated procedure well. ASSESSMENT: post menopausal bleeding PLAN: Specimens labeled and sent to Pathology. Will notify patient of results in 1-2 weeks. Post-procedure instructions reviewed and written material given to the patient. Jatinder Rodarte MD documented in this encounter [facility] 06-30-2023 Note HNO ID: [id number] Author: KALANI BRAVO RDMS Service: ? Author Type: Transport Engineer Type: Progress Notes Filed: 06/30/2023 14:15 Note Text: Radiology Service Progress Note PATIENT NAME: Nia Jade DATE OF SERVICE: June 30, 2023 TIME: 2:15 PM PATIENT IDENTITY VERIFICATION COMPLETED USING TWO (2) IDENTIFIERS: Name and Date of confirmed by patient verbally. FALL SCREENING: Has the patient had 2 falls in the last year or 1 fall with injury or currently using an Ambulatory Assistive Device (Walker, Cane, Wheelchair, Crutches, etc.)? No PATIENT GENDER DATA: Female. status: : No status: NO. PATIENT RELEVANT IMPLANT DATA REVIEWED: Not Applicable PATIENT PRESENTS WITH AN IMPLANTABLE OR ATTACHED MACHINE PULLER AND LASTER: No RADIOLOGY DEPARTMENT: Ultrasound PERIPHERAL IV DATA: Not applicable SIGNED BY: Kalani Bravo RDMS RVT June 30, 2023 2:15 PM [facility] 06-30-2023 History of Present illness Narrative Formatting of this note might be differe nt from the original. Radiology Service Progress Note PATIENT NAME: Nia Jade DATE OF SERVICE: June 30, 2023 TIME: 2:15 PM PATIENT IDENTITY VERIFICATION COMPLETED USING TWO (2) IDENTIFIERS: Name and Date of confirmed by patient verbally. FALL SCREENING: Has the patient had 2 falls in the last year or 1 fall with injury or currently using an Ambulatory Assistive Device (Walker, Cane, Wheelchair, Crutches, etc.)? No PATIENT GENDER DATA: Female. status: : No status: NO. PATIENT RELEVANT IMPLANT DATA REVIEWED: Not Applicable PATIENT PRESENTS WITH AN IMPLANTABLE OR ATTACHED MACHINE PULLER AND LASTER: No RADIOLOGY DEPARTMENT: Ultrasound PERIPHERAL IV DATA: Not applicable SIGNED BY: Kalani Bravo RDMS Clement June 30, 2023 2:15 PM documented in this encounter [facility] 06-19-2023 Miscellaneous Notes Formatting of this note might be differe nt from the original. Order faxed. Khadijah Ahuja RN order signed. Thanks! Jatinder Rodarte MD Consult order pending. Will need to fax to [facility]. Fax number is [phone]. *don't fax electronically. [facility] is having trouble receiving those. Fax on fax machine. Melisa Alvarez RN documented in this encounter [facility] 06-18-2023 Note HNO ID: [id number] Author: JATINDER RODARTE MD Service: ? Author Type: Physician Type: Progress Notes Filed: 06/18/2023 10:13 Note Text: Radiosonde Operator offered: Patient declines. Nia Jade is a 67 year old female who presents for problem visit to establish care. . HPI: Notes that for many years she has MARY w/ sneeze but now increasing MARY in frequency. Exercises regularly. Was wondering if pelvic floor PT might be helpful. Also noted she had some pink discharge, not w/ activity or intercourse. Then had some thick mucous drainage for a month or so. Pap smears always normal in the past. Had DANDC for PMB about 12 years. No urge incontinence, no feeling of incomplete void. Has h/o thyroid ca and has mets in lungs and has f/u OB History No obstetric history on file. Advocacy Director History LMP: 03/04/2007, Postmenopausal Age at Menarche: Age at First : Age at Menopause: Advocacy Director History Comments: Sexual Activity: Yes; Male Contraception: Tubal Ligation PAST MEDICAL HISTORY Diagnosis Date Browne's esophagus Environmental allergies Hepatitis, acute type B 1981 hep b from needle stick Papillary thyroid carcinoma (HCC) Plantar fasciitis Stress fracture 08/2017 left foot PAST SURGICAL HISTORY Procedure Laterality Date COLONOSCOPY FLX DX W/COLLJ SPEC WHEN PFRMD 02/26/2010 DANDC, DIAG AND/OR THERAPEUTIC 2010 EGD W/O [facility] SPEC VARICIES INJ PAST SURGICAL HISTORY OF 1993 tubal ligation PAST SURGICAL HISTORY OF 09/2005 right and left carpal tunnel PAST SURGICAL HISTORY OF Right 06/09/2016 total knee replcaement PAST SURGICAL HISTORY OF 12/03/2010 Thyroidectomy with modified right radical neck dissection FAMILY HISTORY Problem Relation Age of Onset Diabetes Mother Hypertension Mother Hypertension Father Diabetes Brother Diabetes Brother Coronary Artery Disease Mother Coronary Artery Disease Father Coronary Artery Disease Maternal Grandmother Coronary Artery Disease Paternal Grandmother Social History Tobacco Use Smoking status: Never Smokeless tobacco: Never Vaping Use Vaping Use: Never used Substance Use Topics Alcohol use: Yes Comment: once every couple of months. Drug use: No Current Outpatient Medications Medication Sig pantoprazole DR (PROTONIX) 40 mg tablet levothyroxine (SYNTHROID) 137 mcg tablet Take 137 mcg by mouth once daily. docosahexaenoic acid/epa (FISH OIL ORAL) Take by mouth. ascorbic acid (VITAMIN C ORAL) Take by mouth. elderberry fruit (ELDERBERRY ORAL) Take by mouth. Cholecalciferol, Vitamin D3, 1,000 unit cap Take 1 capsule by mouth once daily. (Patient taking differently: Take 5,000 Units by mouth once daily.) Ca Carb-Mag Cmb 11-D3-Zn Sulf 250-662-256-5 dh-imzz-vh-mg tab Take by mouth. omeprazole (PRILOSEC) 40 mg capsule Take 40 mg by mouth once daily. (Patient not taking: Reported on 06/18/2023) COMPOUNDED PRESCRIPTION [facility] - fax to [facility] DX: DDD of spine No current facility-administered medications for this visit. Allergies As of Date: 06/18/2023 Allergen Noted Reaction DURAMORPH [MORPHINE (PF)] 01/08/2022 Itching Fully Assessed 06/18/2023 REVIEW OF SYSTEMS Abdomen: No bloating, early satiety, indigestion, or increased flatulence. No abdominal pain, nausea, vomiting, diarrhea, or constipation. MARY Breast: No breast lumps, nipple d/c, overlying skin changes, redness or skin retraction. Expanded ROS: N/A Allergies and current medication updated:Yes EXAM: BP 122/76 Ht 5' 4 (1.63m) Wt 155 lb (70.3kg) LMP 03/04/2007 BMI 26.59 kg/(m2). GENERAL: pleasant, female in no apparent distress PELVIC: external genitalia normal, normal Bartholin's glands, urethra, Meredosia's glands, no vulvar lesions, no cervical lesions, good vaginal support, physiologic discharge present, normal appearing perineal body and perianal region BIMANUAL: uterus normal size, shape and consistency, no adnexal masses, and non-tender ASSESSMENT AND PLAN: PMB maybe, some mucous discharge, start w/ pelvic US. May need hysteroscopy DANDC if thickened endometrium. She agrees w/ plan. MARY- referral to pelvic floor PT Jatinder Rodarte MD [facility] 06-18-2023 Miscellaneous Notes Addended by: JATINDER RODARTE on: 2023 10:49 AM Modules accepted: Orders Addended by: ZACK PEOPLES MA on: 06/18/2023 10:22 AM Modules accepted: Orders documented in this encounter [facility] 06-18-2023 History of Present illness Narrative Formatting of this note is different fro m the original. Radiosonde Operator offered: Patient declines. Nia Jade is a 67 year old female who presents for problem visit to establish care. . HPI: Notes that for many years she has MARY w/ sneeze but now increasing MARY in frequency. Exercises regularly. Was wondering if pelvic floor PT might be helpful. Also noted she had some pink discharge, not w/ activity or intercourse. Then had some thick mucous drainage for a month or so. Pap smears always normal in the past. Had D&C for PMB about 12 years. No urge incontinence, no feeling of incomplete void. Has h/o thyroid ca and has mets in lungs and has f/u OB History No obstetric history on file. Advocacy Director History LMP: 03/04/2007, Postmenopausal Age at Menarche: Age at First : Age at Menopause: Advocacy Director History Comments: Sexual Activity: Yes; Male Contraception: Tubal Ligation PAST MEDICAL HISTORY Diagnosis Date Browne's esophagus Environmental allergies Hepatitis, acute type B 1981 hep b from needle stick Papillary thyroid carcinoma (HCC) Plantar fasciitis Stress fracture 08/2017 left foot PAST SURGICAL HISTORY Procedure Laterality Date COLONOSCOPY FLX DX W/COLLJ SPEC WHEN PFRMD 02/26/2010 D&C, DIAG AND/OR THERAPEUTIC 2010 [facility] VARICIES INJ PAST SURGICAL HISTORY OF 1993 tubal ligation PAST SURGICAL HISTORY OF 09/2005 right and left carpal tunnel PAST SURGICAL HISTORY OF Right 06/09/2016 total knee replcaement PAST SURGICAL HISTORY OF 12/03/2010 Thyroidectomy with modified right radical neck dissection FAMILY HISTORY Problem Relation Age of Onset Diabetes Mother Hypertension Mother Hypertension Father Diabetes Brother Diabetes Brother Coronary Artery Disease Mother Coronary Artery Disease Father Coronary Artery Disease Maternal Grandmother Coronary Artery Disease Paternal Grandmother Social History Tobacco Use Smoking status: Never Smokeless tobacco: Never Vaping Use Vaping Use: Never used Substance Use Topics Alcohol use: Yes Comment: once every couple of months. Drug use: No Current Outpatient Medications Medication Sig pantoprazole DR (PROTONIX) 40 mg tablet levothyroxine (SYNTHROID) 137 mcg tablet Take 137 mcg by mouth once daily. docosahexaenoic acid/epa (FISH OIL ORAL) Take by mouth. ascorbic acid (VITAMIN C ORAL) Take by mouth. elderberry fruit (ELDERBERRY ORAL) Take by mouth. Cholecalciferol, Vitamin D3, 1,000 unit cap Take 1 capsule by mouth once daily. (Patient taking differently: Take 5,000 Units by mouth once daily.) Ca Carb-Mag Cmb 11-D3-Zn Sulf [id number] qz-kuqu-qy-mg tab Take by mouth. omeprazole (PRILOSEC) 40 mg capsule Take 40 mg by mouth once daily. (Patient not taking: Reported on 06/18/2023) COMPOUNDED PRESCRIPTION [facility] - fax to [facility] DX: DDD of spine No current facility-administered medications for this visit. Allergies As of Date: 06/18/2023 Allergen Noted Reaction DURAMORPH [MORPHINE (PF)] 01/08/2022 Itching Fully Assessed 06/18/2023 REVIEW OF SYSTEMS Abdomen: No bloating, early satiety, indigestion, or increased flatulence. No abdominal pain, nausea, vomiting, diarrhea, or constipation. MARY Breast: No breast lumps, nipple d/c, overlying skin changes, redness or skin retraction. Expanded ROS: N/A Allergies and current medication updated:Yes EXAM: BP 122/76 Ht 5' 4 (1.63m) Wt 155 lb (70.3kg) LMP 03/04/2007 BMI 26.59 kg/(m^2). GENERAL: pleasant, female in no apparent distress PELVIC: external genitalia normal, normal Bartholin's glands, urethra, Meredosia's glands, no vulvar lesions, no cervical lesions, good vaginal support, physiologic discharge present, normal appearing perineal body and perianal region BIMANUAL: uterus normal size, shape and consistency, no adnexal masses, and non-tender ASSESSMENT AND PLAN: PMB maybe, some mucous discharge, start w/ pelvic US. May need hysteroscopy D&C if thickened endometrium. She agrees w/ plan. MARY- referral to pelvic floor PT Jatinder Rodarte MD documented in this encounter [facility] 01-08-2023 Note HNO ID: [id number] Author: Jairon Irvin MD Service: ? Author Type: Physician Type: Progress Notes Filed: 01/08/2023 11:23 AM Note Text: Nia Jade is a 67 year old female here for a Medicare wellness visit. Discussed recent barretts and gerd. [facility]ar is following her lung nodules. Treated for her lung nodules with radioactive iodine. He is re imaging them in winter. Has tightness in the muscles of her upper back. Requests therapy Health Risk Assessment In general, health is: Good Concerns with balance:Not at all Concerns with teeth or dentures:Not at all Concerns with sexual function:Not at all [place]ner anxious, stressed, angry, irritable, lonely, isolated, or had thoughts of hurting themself: Not at all Has little interest or pleasure in doing things: Not at all Bothered by feeling down, depressed, or hopeless: Not at all Needs help with grocery shopping, cooking, housework, bathing, grooming, dressing, eating, sitting or standing, walking, using the toilet, handling finances, taking medications, using the telephone, or driving: No Following safety precautions in the home environment and vehicle: removed throw rugs from floors, installed grab bars in the bathroom, handrails in stairwells, having adequate lighting, wearing seatbelt at all times?: No Smokes cigarettes, vapes, or chew tobacco: No Eats healthy foods including fruits, vegetables, whole grains, and fiber-rich foods: Nearly every day Number of days per week engages in exercise: 5 days Average alcohol consumption: 2-4 times a month Current Providers Specialists: I have reviewed specialist-related care of the patient in the medical record. Outside specialists seen: [facility]/Dr Watts, GI /Dr Melo Medical/Family history review Reviewed and updated problem list, medical/surgical/family/social history, medications, and allergies. Opioid use review Patient is not currently using opioids. Depression screening Depression Screening PHQ-2 Score 05/19/2022 0 Depression screening tool completed and reviewed. Based on score and interview, patient is not at risk for depression. Screening tool discussed with patient, and I recommended no further intervention at this time. Cognitive screening Mini Cog Score: Score: 5 Functional Observation Was the patient's timed Up AND Go test unsteady or ? 12 seconds? No Advance Care Planning End of Life planning discussed, including patient's advanced directive wishes: Yes, is dpoa REVIEW OF SYSTEMS GENERAL: No weight loss, malaise or fevers NECK: Negative for lumps, goiter, and significant neck swelling RESPIRATORY: Negative for cough, hemoptysis, wheezing, COPD, dyspnea or shortness of breath CARDIOVASCULAR: Negative for chest pain, leg swelling, hypertension, CHF or palpitations GI: No nausea, vomiting, or diarrhea : Negative SKIN: Negative for lesions, rash, and itching Measurements BP 135/77 Pulse 60 Ht 5' 5 (1.65m) Wt 159 lb (72.1kg) LMP 03/04/2007 BMI 26.46 kg/(m2). Visual acuity (required for Welcome to Medicare): follows with optometry/ophthalmology Hearing Evaluation: within normal limits Assessment/Plan Welcome to Medicare preventive visit (Z00.00) - Counseled on healthy diet and regular exercise - covid, and rsv and flu discussed. [facility] 01-08-2023 History of Present illness Narrative Formatting of this note is different fro m the original. Nia Jade is a 67 year old female here for a Medicare wellness visit. Discussed recent barretts and gerd. Endo is following her lung nodules. Treated for her lung nodules with radioactive iodine. He is re imaging them in winter. Has tightness in the muscles of her upper back. Requests therapy Health Risk Assessment In general, health is: Good Concerns with balance:Not at all Concerns with teeth or dentures:Not at all Concerns with sexual function:Not at all Sumner anxious, stressed, angry, irritable, lonely, isolated, or had thoughts of hurting themself: Not at all Has little interest or pleasure in doing things: Not at all Bothered by feeling down, depressed, or hopeless: Not at all Needs help with grocery shopping, cooking, housework, bathing, grooming, dressing, eating, sitting or standing, walking, using the toilet, handling finances, taking medications, using the telephone, or driving: No Following safety precautions in the home environment and vehicle: removed throw rugs from floors, installed grab bars in the bathroom, handrails in stairwells, having adequate lighting, wearing seatbelt at all times?: No Smokes cigarettes, vapes, or chew tobacco: No Eats healthy foods including fruits, vegetables, whole grains, and fiber-rich foods: Nearly every day Number of days per week engages in exercise: 5 days Average alcohol consumption: 2-4 times a month Current Providers Specialists: I have reviewed specialist-related care of the patient in the medical record. Outside specialists seen: Chetan Carroll, [facility]bar/Dr Watts, GI /Dr Melo Medical/Family history review Reviewed and updated problem list, medical/surgical/family/social history, medications, and allergies. Opioid use review Patient is not currently using opioids. Depression screening Depression Screening PHQ-2 Score 05/19/2022 0 Depression screening tool completed and reviewed. Based on score and interview, patient is not at risk for depression. Screening tool discussed with patient, and I recommended no further intervention at this time. Cognitive screening Mini Cog Score: Score: 5 Functional Observation Was the patient's timed Up & Go test unsteady or ? 12 seconds? No Advance Care Planning End of Life planning discussed, including patient's advanced directive wishes: Yes, is dpoa REVIEW OF SYSTEMS GENERAL: No weight loss, malaise or fevers NECK: Negative for lumps, goiter, and significant neck swelling RESPIRATORY: Negative for cough, hemoptysis, wheezing, COPD, dyspnea or shortness of breath CARDIOVASCULAR: Negative for chest pain, leg swelling, hypertension, CHF or palpitations GI: No nausea, vomiting, or diarrhea : Negative SKIN: Negative for lesions, rash, and itching Measurements BP 135/77 Pulse 60 Ht 5' 5 (1.65m) Wt 159 lb (72.1kg) LMP 03/04/2007 BMI 26.46 kg/(m^2). Visual acuity (required for Welcome to Medicare): follows with optometry/ophthalmology Hearing Evaluation: within normal limits Assessment/Plan Welcome to Medicare preventive visit (Z00.00) - Counseled on healthy diet and regular exercise - covid, and rsv and flu discussed. documented in this encounter [facility] 12-24-2022 Miscellaneous Notes Formatting of this note might be differe nt from the original. Pt notified and orders faxed to [facility] lab at [phone] per pt request. placed Pt has an appt 01/08/23. She would like to get her labs drawn prior. Pt would like the orders faxed over to [facility] lab to have them drawn there. Pt states she sees an or assistant and recently had thyroid labs done. Please call patient when orders placed and faxed to [facility]. documented in this encounter [facility] 11-17-2022 Note HNO ID: [id number] Author: Artem Sebastian PA-C Service: ? Author Type: Physician Clerical Clerk Type: Progress Notes Filed: 11/17/2022 4:47 PM Note Text: 67 year old female with c/o cough with thick green sputum. Started 1 week ago with cough and sinus headache. No fever or chills. No sore throat or tender lymph. No loss of smell or taste. No chest pain or labored breathing. Had asthma as small child, some hayfever. Improved with sudafed OTC. Non-smoker. Thyroid cancer recurrence: has had 2 radium treatments in last year. 09/12/2022 NM thy ca mets: The neck scan demonstrates no focal tracer accumulation in the anterior neck at the expected location of thyroid bed. The whole body scan shows focal increased tracer uptake in the right lower chest, likely corresponding to pulmonary nodules on CT scan and consistent with metastases. 09/04/2022 NM therapy thyroid 03/20/2022 I-131 treatment HISTORIES FAMILY HISTORY Problem Relation Age of Onset Diabetes Mother Hypertension Mother Hypertension Father Diabetes Brother Diabetes Brother Coronary Artery Disease Mother Coronary Artery Disease Father Coronary Artery Disease Maternal Grandmother Coronary Artery Disease Paternal Grandmother PAST MEDICAL HISTORY Diagnosis Date Environmental allergies Hepatitis, acute type B 1982 hep b from needle stick Papillary thyroid carcinoma (HCC) Plantar fasciitis Stress fracture 08/2017 left foot PAST SURGICAL HISTORY Procedure Laterality Date COLONOSCOPY FLX DX W/COLLJ SPEC WHEN PFRMD 02/26/10 PAST SURGICAL HISTORY OF 94 tubal ligation PAST SURGICAL HISTORY OF - right and left carpal tunnel PAST SURGICAL HISTORY OF Right 06/09/2016 total knee replcaement PAST SURGICAL HISTORY OF 12/03/2010 Thyroidectomy with modified right radical neck dissection Social History Tobacco Use Smoking status: Never Smokeless tobacco: Never Substance Use Topics Alcohol use: Yes Comment: once every couple of months. Drug use: No ACTIVE PROBLEM LIST Papillary Thyroid Carcinoma (Hcc) Malignant Neoplasm of Thyroid Gland (Hcc) Elisha (Obstructive Sleep Apnea) Gallbladder Sludge Renal Calculus, Right Vitamin D Deficiency Hepatitis B Virus Infection Post-Surgical Hypothyroidism Key's Syndrome Pupil Current Outpatient Medications Medication Sig Dispense Refill omeprazole (PRILOSEC) 40 mg capsule Take 40 mg by mouth once daily. levothyroxine (SYNTHROID) 137 mcg tablet Take 137 mcg by mouth once daily. docosahexaenoic acid/epa (FISH OIL ORAL) Take by mouth. ascorbic acid (VITAMIN C ORAL) Take by mouth. elderberry fruit (ELDERBERRY ORAL) Take by mouth. Azelastine HCl (OPTIVAR) 0.05 % ophthalmic solution 1 drop in the morning in each eye and 1 drop in the evening in each eye as needed for itching. 6 mL 2 Cholecalciferol, Vitamin D3, 1,000 unit cap Take 1 capsule by mouth once daily. (Patient taking differently: Take 5,000 Units by mouth once daily.) Ca Carb-Mag Cmb 11-D3-Zn Sulf 185-244-014-5 iq-aqlk-ue-mg tab Take by mouth. levothyroxine (SYNTHROID) 112 mcg tablet Take 1 tablet by mouth daily before breakfast. (Patient not taking: Reported on 11/17/2022) 90 tablet 3 COMPOUNDED PRESCRIPTION [facility] - fax to [facility] DX: DDD of spine 1 Each 0 No current facility-administered medications for this visit. COVID-19 VACCINE(5 - Moderna series) due on 06/02/2022 MAMMOGRAM due on 06/17/2022 DIABETES SCREEN due on 12/12/2022 EXAM: BP 110/68 Pulse 76 Temp 36.6 ?C (97.9 ?F) Resp 16 Wt 73 kg (161 lb) LMP 03/04/2007 SpO2 99% BMI 26.79 kg/m? Pleasant adult woman in no acute distress. Alert and oriented all spheres. Normal affect and cognition. Speech normal. No deficits to learning or comprehension. Skin warm, dry, pink to lips and nailbeds. Normal turgor. Respirations regular and unlabored. HEENT: NCAT. No scleral icterus or conjunctival injection. TM's clear. Nose and oropharynx free from injection or lesion. Oral membranes moist and pink. No cervical lymph nodes. Thyroid non-tender, no masses, or enlargement. Carotids pulses 2+/4+ without bruits. No JVD with HOB at 30 degrees. Chest is normal shape. Lungs are clear to all alcala with good air exchange through out. HRRR without murmur or gallop. No lifts, heaves, or rubs. Extrem: no clubbing or cyanosis. Edema: none. Extremities are warm and pink with prompt capillary refill. Extrem: no clubbing, cyanosis, edema. Distal pulses 2+/4, prompt capillary refill. ASSESSMENT/PLAN: 1. Bronchitis - ICD9: 490, ICD10: J40 (primary diagnosis) Nasal saline, decongestant, cool mist, rest , fluids Avoid starting antibiotic unless fever, worsening, fever > 100.4F symptoms suggestive of pneumonia. 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 Acute upper respir (more content not included)... [facility] 11-17-2022 History of Present illness Narrative Formatting of this note is different fro m the original. 67 year old female with c/o cough with thick green sputum. Started 1 week ago with cough and sinus headache. No fever or chills. No sore throat or tender lymph. No loss of smell or taste. No chest pain or labored breathing. Had asthma as small child, some hayfever. Improved with sudafed OTC. Non-smoker. Thyroid cancer recurrence: has had 2 radium treatments in last year. 09/12/2022 NM thy ca mets: The neck scan demonstrates no focal tracer accumulation in the anterior neck at the expected location of thyroid bed. The whole body scan shows focal increased tracer uptake in the right lower chest, likely corresponding to pulmonary nodules on CT scan and consistent with metastases. 09/04/2022 NM therapy thyroid 03/20/2022 I-131 treatment HISTORIES FAMILY HISTORY Problem Relation Age of Onset Diabetes Mother Hypertension Mother Hypertension Father Diabetes Brother Diabetes Brother Coronary Artery Disease Mother Coronary Artery Disease Father Coronary Artery Disease Maternal Grandmother Coronary Artery Disease Paternal Grandmother PAST MEDICAL HISTORY Diagnosis Date Environmental allergies Hepatitis, acute type B 1982 hep b from needle stick Papillary thyroid carcinoma (HCC) Plantar fasciitis Stress fracture 08/2017 left foot PAST SURGICAL HISTORY Procedure Laterality Date COLONOSCOPY FLX DX W/COLLJ SPEC WHEN PFRMD 02/26/10 PAST SURGICAL HISTORY OF 94 tubal ligation PAST SURGICAL HISTORY OF 09-13 right and left carpal tunnel PAST SURGICAL HISTORY OF Right 06/09/2016 total knee replcaement PAST SURGICAL HISTORY OF 12/03/2010 Thyroidectomy with modified right radical neck dissection Social History Tobacco Use Smoking status: Never Smokeless tobacco: Never Substance Use Topics Alcohol use: Yes Comment: once every couple of months. Drug use: No ACTIVE PROBLEM LIST Papillary Thyroid Carcinoma (Hcc) Malignant Neoplasm of Thyroid Gland (Hcc) Elisha (Obstructive Sleep Apnea) Gallbladder Sludge Renal Calculus, Right Vitamin D Deficiency Hepatitis B Virus Infection Post-Surgical Hypothyroidism Key's Syndrome Pupil Current Outpatient Medications Medication Sig Dispense Refill omeprazole (PRILOSEC) 40 mg capsule Take 40 mg by mouth once daily. levothyroxine (SYNTHROID) 137 mcg tablet Take 137 mcg by mouth once daily. docosahexaenoic acid/epa (FISH OIL ORAL) Take by mouth. ascorbic acid (VITAMIN C ORAL) Take by mouth. elderberry fruit (ELDERBERRY ORAL) Take by mouth. Azelastine HCl (OPTIVAR) 0.05 % ophthalmic solution 1 drop in the morning in each eye and 1 drop in the evening in each eye as needed for itching. 6 mL 2 Cholecalciferol, Vitamin D3, 1,000 unit cap Take 1 capsule by mouth once daily. (Patient taking differently: Take 5,000 Units by mouth once daily.) Ca Carb-Mag Cmb 11-D3-Zn Sulf [phone] rt-onar-dz-mg tab Take by mouth. levothyroxine (SYNTHROID) 112 mcg tablet Take 1 tablet by mouth daily before breakfast. (Patient not taking: Reported on 11/17/2022) 90 tablet 3 COMPOUNDED PRESCRIPTION [facility] - fax to [facility] DX: DDD of spine 1 Each 0 No current facility-administered medications for this visit. COVID-19 VACCINE(5 - Moderna series) due on 06/02/2022 MAMMOGRAM due on 06/17/2022 DIABETES SCREEN due on 12/12/2022 EXAM: BP 110/68 Pulse 76 Temp 36.6 C (97.9 F) Resp 16 Wt 73 kg (161 lb) LMP 03/04/2007 SpO2 99% BMI 26.79 kg/m Pleasant adult woman in no acute distress. Alert and oriented all spheres. Normal affect and cognition. Speech normal. No deficits to learning or comprehension. Skin warm, dry, pink to lips and nailbeds. Normal turgor. Respirations regular and unlabored. HEENT: NCAT. No scleral icterus or conjunctival injection. TM's clear. Nose and oropharynx free from injection or lesion. Oral membranes moist and pink. No cervical lymph nodes. Thyroid non-tender, no masses, or enlargement. Carotids pulses 2+/4+ without bruits. No JVD with HOB at 30 degrees. Chest is normal shape. Lungs are clear to all [place] with good air exchange through out. HRRR without murmur or gallop. No lifts, heaves, or rubs. Extrem: no clubbing or cyanosis. Edema: none. Extremities are warm and pink with prompt capillary refill. Extrem: no clubbing, cyanosis, edema. Distal pulses 2+/4, prompt capillary refill. ASSESSMENT/PLAN: 1. Bronchitis - ICD9: 490, ICD10: J40 (primary diagnosis) Nasal saline, decongestant, cool mist, rest , fluids Avoid starting antibiotic unless fever, worsening, fever > 100.4F symptoms suggestive of pneumonia. 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 Acute upper respiratory infection, unspecified - ICD9: 465.9, ICD10: J06.9 - Discussed viral etiology and rationale for treatment. - Symptomatic treatment with prn analgesia - Supportive care with fluids and rest - COVID WITH FLUA+B, ROUTINE - PREDNISONE 20 MG TABLET 3. 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) - ICD9: 193, ICD10: C73 In treatment Artem Sebastian PA-C documented in this encounter [facility] 09-17-2022 Note Patient Outreach (IN [facility]MM[facility]) NIA JADE ([id number]) 1955 F Date Time Provider Department 09/17/22 JAIRON IRVIN During your visit today, we recorded the following information about you: Allergies As of Date: 09/17/2022 Noted Allergy Reaction DURAMORPH (MORPHINE (PF)) 01/08/2022 9 - Itching Date Reviewed: 06/30/2022 Reviewed by: Arielle Herrera - Fully Assessed Visit Diagnosis:Encounter for screening mammogram for breast cancer [Z12.31] Order(s):[facility] SCREENING [5100125] Order #: [id number] FUTURE Prescriptions as of 09/22/2022 - omeprazole (PRILOSEC) 40 mg capsule Take 40 mg by mouth once daily. - levothyroxine (SYNTHROID) 137 mcg tablet Take 137 mcg by mouth once daily. - terbinafine HCl (LAMISIL) 250 mg tablet Take 250 mg by mouth once daily. - docosahexaenoic acid/epa (FISH OIL ORAL) Take by mouth. - ascorbic acid (VITAMIN C ORAL) Take by mouth. - elderberry fruit (ELDERBERRY ORAL) Take by mouth. - Azelastine HCl (OPTIVAR) 0.05 % ophthalmic solution 1 drop in the morning in each eye and 1 drop in the evening in each eye as needed for itching. - levothyroxine (SYNTHROID) 112 mcg tablet Take 1 tablet by mouth daily before breakfast. - COMPOUNDED PRESCRIPTION [facility] - fax to [employer] DX: DDD of spine - Cholecalciferol, Vitamin D3, 1,000 unit cap Take 1 capsule by mouth once daily. - Ca Carb-Mag Cmb 11-D3-Zn Sulf [phone] rc-mpda-bz-mg tab Take by mouth. 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 Author Type: Technologist Type: Progress Notes Filed: 09/12/2022 6:44 AM Note Text: RADIOLOGY SERVICE PROGRESS NOTE DATE OF SERVICE: September 12, 2022 TIME OF SERVICE: 634 EVENT: NM I 131 TOTAL BODY SCAN ADDITIONAL EVENT DETAILS: PT WAS ADMINISTERED 133.1 mCi I 131 ON 09/04/2022. RETURNED TODAY FOR FOLLOW UP IMAGING. SIGNATURE: RT Agnieszka(R) PATIENT NAME: Nia Jade DATE: September 12, 2022 TIME: 6:43 AM PAGER/CONTACT #: [facility] 09-12-2022 History of Present illness Narrative Formatting of this note is different fro m the original. RADIOLOGY SERVICE PROGRESS NOTE DATE OF SERVICE: September 12, 2022 TIME OF SERVICE: 634 EVENT: NM I 131 TOTAL BODY SCAN ADDITIONAL EVENT DETAILS: PT WAS ADMINISTERED 133.1 mCi I 131 ON 09/04/2022. RETURNED TODAY FOR FOLLOW UP IMAGING. SIGNATURE: RT Agnieszka(R) PATIENT NAME: Nia Jade DATE: September 12, 2022 TIME: 6:43 AM PAGER/CONTACT #: documented in this encounter [facility] 09-04-2022 Note HNO ID: [id number] Author: RT Agnieszka(Molina) Service: ? Author Type: Technologist Type: Progress Notes Filed: 09/04/2022 7:09 AM Note Text: RADIOLOGY SERVICE PROGRESS NOTE SERVICE DATE: 09/04/2022 SERVICE TIME: 7:07 AM PATIENT IDENTITY VERIFICATION COMPLETED USING TWO (2) STANDARD IDENTIFIERS: Name and Date of confirmed by patient verbally FALL SCREENING: Has the patient had 2 falls in the last year or 1 fall with injury or currently using an Ambulatory Assistive Device (Walker, Cane, Wheelchair, Crutches, etc.)? No PATIENT GENDER DATA: .female : No ALLERGIES: na MEDICATIONS REVIEWED: Not applicable PATIENT RELEVANT IMPLANT DATA REVIEWED: Not Applicable CREATININE: Creatinine Date Value Ref Range Status 06/19/2008 0.85 0.70 - 1.40 mg/dL Final eGFR-All Other Races Date Value Ref Range Status 06/19/2008 >60 Final Comment: eGFR (Estimated GFR) Units of measure: mL/min/1.73 meters squared eGFR is derived from the reexpressed MDRD Study equation using the following parameters: serum creatinine, age, gender and race. The creatinine assay has been calibrated to be traceable to IDMS. An eGFR <60 mL/min/1.73m2 for >3 months is consistent with chronic kidney disease. Refer to KDOQI guidelines for clinical interpretation. eGFR- Date Value Ref Range Status 06/19/2008 >60 Final P.O.C.T. RESULTS: N/A September 04, [address] PERFORMED: No IV SITE: NM only - not applicable, oral or physician administered agents given to patient POST EXAM PIV STATUS: Not applicable PROCEDURE TYPE: NM Therapy: Dr. CHETAN POPE discussed the risks, benefits, alternatives, and precautions of I-131 therapy with the patient, who understood and agreed to proceed with the I-131 therapy. The patient received a written set of instructions regarding the I-131 therapy. 133.1 mCi of I-131 was administered orally for the radioactive I-131 therapy ADMINISTRATION TIME: 0700 PATIENT DISCHARGED TO: Ambulatory patient, left [place] department area. A Diagnostic radioactive procedure has taken place, with no further precautions necessary other than routine body substance precautions. More information regarding radiation safety can be found using this link: [email or web address]%[email or web address] [email or web address] SIGNATURE: RT Agnieszka(R) PATIENT NAME: Nia Jade DATE: September 04, 2022 TIME: 7:07 AM PAGER/CONTACT #: [facility] 09-04-2022 Note HNO ID: [id number] Author: Chetan Pope DO Service: Endocrinology Author Type: Physician Type: Progress Notes Filed: 09/12/2022 9:13 AM Note Text: [facility] - Progress Notes NAI JADE : 1955 AGE: 66 SEX: F CSN: [id number] HOSP SVC: LOCATION: ATTENDING PHYSICIAN: DATE OF SERVICE: 09/04/2022 Ms. Jade, after giving full permission for radioactive iodine, was administered radioactive iodine for her known thyroid cancer with 133.1 mCi sodium iodine I-131. The patient, after full consent and no issues, was administered while holding her thyroid medications. She will hold the medication until Thursday. She will stay on low iodine diet for another 24 hours. She will follow the restrictions for the next 7 to 10 days and given copies of these from us and from the hospital. After full consent of understanding her metastatic thyroid cancer therapy, will follow up her imaging as noted. Chetan Pope DO [id number] SSI File#: [id number] [facility] 09-04-2022 History of Present illness Narrative Formatting of this note is different fro m the original. RADIOLOGY SERVICE PROGRESS NOTE SERVICE DATE: 09/04/2022 SERVICE TIME: 7:07 AM PATIENT IDENTITY VERIFICATION COMPLETED USING TWO (2) STANDARD IDENTIFIERS: Name and Date of confirmed by patient verbally FALL SCREENING: Has the patient had 2 falls in the last year or 1 fall with injury or currently using an Ambulatory Assistive Device (Walker, Cane, Wheelchair, Crutches, etc.)? No PATIENT GENDER DATA: .female : No ALLERGIES: na MEDICATIONS REVIEWED: Not applicable PATIENT RELEVANT IMPLANT DATA REVIEWED: Not Applicable CREATININE: Creatinine Date Value Ref Range Status 06/19/2008 0.85 0.70 - 1.40 mg/dL Final eGFR-All Other Races Date Value Ref Range Status 06/19/2008 >60 Final Comment: eGFR (Estimated GFR) Units of measure: mL/min/1.73 meters squared eGFR is derived from the reexpressed MDRD Study equation using the following parameters: serum creatinine, age, gender and race. The creatinine assay has been calibrated to be traceable to IDMS. An eGFR <60 mL/min/1.73m2 for >3 months is consistent with chronic kidney disease. Refer to KDOQI guidelines for clinical interpretation. eGFR- Date Value Ref Range Status 06/19/2008 >60 Final P.O.C.T. RESULTS: N/A September 04, [address] PERFORMED: No IV SITE: NM only - not applicable, oral or physician administered agents given to patient POST EXAM PIV STATUS: Not applicable PROCEDURE TYPE: NM Therapy: Dr. CHETAN POPE discussed the risks, benefits, alternatives, and precautions of I-131 therapy with the patient, who understood and agreed to proceed with the I-131 therapy. The patient received a written set of instructions regarding the I-131 therapy. 133.1 mCi of I-131 was administered orally for the radioactive I-131 therapy ADMINISTRATION TIME: 0700 PATIENT DISCHARGED TO: Ambulatory patient, left [place] department area. A Diagnostic radioactive procedure has taken place, with no further precautions necessary other than routine body substance precautions. More information regarding radiation safety can be found using this link: [email or web address] [email or web address] SIGNATURE: RT Agnieszka(R) PATIENT NAME: Nia Jade DATE: September 04, 2022 TIME: 7:07 AM PAGER/CONTACT #: documented in this encounter [facility] 07-30-2022 Note Patient Outreach (IN [facility]) NIA JADE ([id number]) 1955 F Date Time Provider Department 07/30/22 JAIRON IRVIN During your visit today, we recorded the following information about you: Allergies As of Date: 07/30/2022 Noted Allergy Reaction DURAMORPH (MORPHINE (PF)) 01/08/2022 9 - Itching Date Reviewed: 06/30/2022 Reviewed by: Arielle Herrera - Fully Assessed Visit Diagnosis:Encounter for screening mammogram for breast cancer [Z12.31] Order(s):[facility] SCREENING [5405363] Order #: [id number] FUTURE Prescriptions as of 08/04/2022 - omeprazole (PRILOSEC) 40 mg capsule Take 40 mg by mouth once daily. - levothyroxine (SYNTHROID) 137 mcg tablet Take 137 mcg by mouth once daily. - terbinafine HCl (LAMISIL) 250 mg tablet Take 250 mg by mouth once daily. - docosahexaenoic acid/epa (FISH OIL ORAL) Take by mouth. - ascorbic acid (VITAMIN C ORAL) Take by mouth. - elderberry fruit (ELDERBERRY ORAL) Take by mouth. - Azelastine HCl (OPTIVAR) 0.05 % ophthalmic solution 1 drop in the morning in each eye and 1 drop in the evening in each eye as needed for itching. - levothyroxine (SYNTHROID) 112 mcg tablet Take 1 tablet by mouth daily before breakfast. - COMPOUNDED PRESCRIPTION [facility] - fax to [employer] DX: DDD of spine - Cholecalciferol, Vitamin D3, 1,000 unit cap Take 1 capsule by mouth once daily. - Ca Carb-Mag Cmb 11-D3-Zn Sulf [phone] yd-oosn-eh-mg tab Take by mouth. 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 TC to pt, notified of results/provider response. Pt states she thinks she will probably be seeing someone at the [facility]. Advised pt to call office back when she decides so that we can send the necessary information to them. Duglas Stahl LPN Shows some mild disc bulging and degenerative changes. Recommend seeing spine med documented in this encounter [facility] 07-08-2022 History of Present illness Narrative Formatting of this note is different fro m the original. Radiology Service Progress Note DATE OF SERVICE: July 08, 2022 TIME: 8:57 AM PATIENT IDENTITY VERIFICATION COMPLETED USING TWO (2) STANDARD IDENTIFIERS: Name and Date of confirmed by patient verbally. FALL SCREENING: Has the patient had 2 falls in the last year or 1 fall with injury or currently using an Ambulatory Assistive Device (Walker, Cane, Wheelchair, Crutches, etc.)? No PATIENT GENDER DATA: Female. status: : No status: NO. PATIENT RELEVANT IMPLANT DATA REVIEWED: Yes ALLERGIES: Reviewed and unchanged CONTRAST ALLERGY: NO. EXAM: MRI - CONTRAST TYPE: GROUP II PERIPHERAL IV DATA: Ambulatory: A peripheral IV was started in the Right antecubital site with a Angio cath: 22 gauge. RADIOLOGY DEPARTMENT: MR; Exam(s) Completed: Spine: Lumbar spine SIGNATURE: RT Victor M(R) PATIENT NAME: Nia Jade DATE: July 08, 2022 TIME: 8:57 AM documented in this encounter [facility] 06-30-2022 History of Present illness Narrative Formatting of this note is different fro m the original. Patient presents with: Follow Up HPI: Patient presents today for office visit for follow up. Still with continued pain in left hip/buttocks and down her left leg. No numbness or weakness. Still doing PT. PT recommends MRI. Has completed therapy with minimal improvement and had medrol dose keyanna. No weakness. Has been following with endo and has new nodules in the lungs. Cannot rule out metastatic disease. They are going to follow her thyroglobulins and repeat radioactive thyroid. . Also same areas lit up on NM scan.They are going to be following her imaging. See previous ov from 05/19 Changed her exercise routine from kettlebell to senior strength class. Since then noted increasing issues with her back. Has pain in her left buttock with pain down the left side of her leg. Has discomfort to her knee. No numbness or weakness. No changes in bowel or bladder. Has been there for three weeks. Has stopped the exercises and doing water exercises. Wants a good stretching routine. Does not feel is bad enough she needs xrays but would like to see therapy. Has had issues on and off for years MEDICATIONS: Current Outpatient Medications Medication Sig omeprazole (PRILOSEC) 40 mg capsule Take 40 mg by mouth once daily. levothyroxine (SYNTHROID) 137 mcg tablet Take 137 mcg by mouth once daily. terbinafine HCl (LAMISIL) 250 mg tablet Take 250 mg by mouth once daily. docosahexaenoic acid/epa (FISH OIL ORAL) Take by mouth. ascorbic acid (VITAMIN C ORAL) Take by mouth. elderberry fruit (ELDERBERRY ORAL) Take by mouth. Azelastine HCl (OPTIVAR) 0.05 % ophthalmic solution 1 drop in the morning in each eye and 1 drop in the evening in each eye as needed for itching. levothyroxine (SYNTHROID) 112 mcg tablet Take 1 tablet by mouth daily before breakfast. COMPOUNDED PRESCRIPTION [facility] - fax to [employer] DX: DDD of spine Cholecalciferol, Vitamin D3, 1,000 unit cap Take 1 capsule by mouth once daily. (Patient taking differently: Take 5,000 Units by mouth once daily.) Ca Carb-Mag Cmb 11-D3-Zn Sulf [phone] ls-sfln-bc-mg tab Take by mouth. No current facility-administered medications for this visit. ALLERGIES: ALLERGIES Allergen Reactions Duramorph [Morphine* Itching PAST MEDICAL HISTORY Diagnosis Date Environmental allergies Hepatitis, acute type B 1982 hep b from needle stick Papillary thyroid carcinoma (HCC) Plantar fasciitis Stress fracture 08/2017 left foot PAST SURGICAL HISTORY Procedure Laterality Date COLONOSCOPY FLX DX W/COLLJ SPEC WHEN PFRMD 02/26/10 PAST SURGICAL HISTORY OF 94 tubal ligation PAST SURGICAL HISTORY OF - right and left carpal tunnel PAST SURGICAL HISTORY OF Right 06/09/2016 total knee replcaement PAST SURGICAL HISTORY OF 12/03/2010 Thyroidectomy with modified right radical neck dissection FAMILY HISTORY Problem Relation Age of Onset Diabetes Mother Hypertension Mother Hypertension Father Diabetes Brother Diabetes Brother Coronary Artery Disease Mother Coronary Artery Disease Father Coronary Artery Disease Maternal Grandmother Coronary Artery Disease Paternal Grandmother Social History Tobacco Use Smoking status: Never Smokeless tobacco: Never Substance Use Topics Alcohol use: Yes Comment: once every couple of months. Drug use: No Reviewed current medications, allergies, past medical history, surgical history, family history and social history today. REVIEW OF SYSTEMS All other reviewed and negative other than HPI. HEALTH MAINTENANCE: Reviewed health maintenance issues today and recommended the following in detail. MAMMOGRAM - per Dr Crisostomo VITALS: BP 100/68 Pulse 65 Ht 165.1 cm (5' 5 ) Wt 72.6 kg (160 lb) LMP 03/04/2007 SpO2 95% BMI 26.63 kg/m Last 4 Encounter Wt Readings: Date: Wt: 05/19/2022 72.6 kg (160 lb) 05/03/2022 71.7 kg (158 lb) 01/08/2022 72.6 kg (160 lb) 03/08/2021 69.9 kg (154 lb) PHYSICAL EXAMINATION: General appearance: Well appearing, alert, in no acute distress, well-hydrated, well nourished. Skin: Skin color, texture, turgor normal, no suspicious rashes or lesions Head: Normocephalic, no masses, lesions, tenderness or abnormalities BACK: Normal curvature of spine. No spine tenderness. Straight leg test negative. Deep tendon reflexes 2+/4 at patellas. Normal lower extremity strength. ASSESSMENT/PLAN: 1. Papillary thyroid carcinoma (HCC) - ICD9: 193, ICD10: C73 (primary diagnosis) - get xray and also mri to rule out mets given recent diagnosis. Has also failed conservative tx. Red flags for re-assessment reviewed with patient in detail. - XR LUMBAR GENERAL 3V AP/LAT/L5-S1 2. Malignant neoplasm of thyroid gland (HCC) - ICD9: 193, ICD10: C73 - XR LUMBAR GENERAL 3V AP/LAT/L5-S1 3. 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) - ICD9: 193, ICD10: C73 4. Lumbar radiculopathy - ICD9: 724.4, ICD10: M54.16 - Red flags for re-assessment reviewed with patient in detail. ' 5. Chronic left-sided low back pain with left-sided sciatica - ICD9: 724.2, 724.3, 338.29, ICD10: M54.42, G89.29 - MRI LUMBAR SPINE WO/W IVCON Jairon Irvin MD documented in this encounter [facility] 06-25-2022 Miscellaneous Notes Formatting of this note might be differe nt from the original. Call to patient and visit scheduled. No, physical exam is necessary to document presence or absence of neurologic signs necessary to justify MRI. Thanks, Marlo Sebastian PA-C Last seen 05/19/22 for left side sciatica. Is an ongoing issue for patient though. PT completed at [facility]. Could MRI be ordered without an office visit? documented in this encounter [facility] 05-19-2022 History of Present illness Narrative Formatting of this note is different fro m the original. Patient presents with: Orders: Left side sciatica HPI: Patient presents today for office visit for follow up. Changed her exercise routine from kettlebell to senior strength class. Since then noted increasing issues with her back. Has pain in her left buttock with pain down the left side of her leg. Has discomfort to her knee. No numbness or weakness. No changes in bowel or bladder. Has been there for three weeks. Has stopped the exercises and doing water exercises. Wants a good stretching routine. Does not feel is bad enough she needs xrays but would like to see therapy. Has had issues on and off for years MEDICATIONS: Current Outpatient Medications Medication Sig omeprazole (PRILOSEC) 40 mg capsule Take 40 mg by mouth once daily. levothyroxine (SYNTHROID) 137 mcg tablet Take 137 mcg by mouth once daily. terbinafine HCl (LAMISIL) 250 mg tablet Take 250 mg by mouth once daily. docosahexaenoic acid/epa (FISH OIL ORAL) Take by mouth. ascorbic acid (VITAMIN C ORAL) Take by mouth. elderberry fruit (ELDERBERRY ORAL) Take by mouth. Azelastine HCl (OPTIVAR) 0.05 % ophthalmic solution 1 drop in the morning in each eye and 1 drop in the evening in each eye as needed for itching. levothyroxine (SYNTHROID) 112 mcg tablet Take 1 tablet by mouth daily before breakfast. COMPOUNDED PRESCRIPTION Massotherapy - fax to [facility] DX: DDD of spine Cholecalciferol, Vitamin D3, 1,000 unit cap Take 1 capsule by mouth once daily. (Patient taking differently: Take 5,000 Units by mouth once daily.) Ca Carb-Mag Cmb 11-D3-Zn Sulf [phone] la-hpgf-cg-mg tab Take by mouth. No current facility-administered medications for this visit. ALLERGIES: ALLERGIES Allergen Reactions Duramorph [Morphine* Itching PAST MEDICAL HISTORY Diagnosis Date Environmental allergies Hepatitis, acute type B 1981 hep b from needle stick Papillary thyroid carcinoma (HCC) Plantar fasciitis Stress fracture 08/2017 left foot PAST SURGICAL HISTORY Procedure Laterality Date COLONOSCOPY FLX DX W/COLLJ SPEC WHEN PFRMD 02/26/10 PAST SURGICAL HISTORY OF 94 tubal ligation PAST SURGICAL HISTORY OF 09-13 right and left carpal tunnel PAST SURGICAL HISTORY OF Right 06/09/2016 total knee replcaement PAST SURGICAL HISTORY OF 12/03/2010 Thyroidectomy with modified right radical neck dissection FAMILY HISTORY Problem Relation Age of Onset Diabetes Mother Hypertension Mother Hypertension Father Diabetes Brother Diabetes Brother Coronary Artery Disease Mother Coronary Artery Disease Father Coronary Artery Disease Maternal Grandmother Coronary Artery Disease Paternal Grandmother Social History Tobacco Use Smoking status: Never Smokeless tobacco: Never Substance Use Topics Alcohol use: Yes Comment: once every couple of months. Drug use: No Reviewed current medications, allergies, past medical history, surgical history, family history and social history today. REVIEW OF SYSTEMS All other reviewed and negative other than HPI. HEALTH MAINTENANCE: Reviewed health maintenance issues today and recommended the following in detail. BONE DENSITY -done at endo ADVANCE DIRECTIVE DISCUSSION due on 05/11/2022 DEPRESSION ASSESSMENT Never done MAMMOGRAM- gets through billing administrator VITALS: BP 138/88 Pulse 68 Wt 72.6 kg (160 lb) LMP 03/04/2007 SpO2 99% BMI 26.63 kg/m Last 4 Encounter Wt Readings: Date: Wt: 05/19/2022 72.6 kg (160 lb) 05/03/2022 71.7 kg (158 lb) 01/08/2022 72.6 kg (160 lb) 03/08/2021 69.9 kg (154 lb) PHYSICAL EXAMINATION: General appearance: Well appearing, alert, in no acute distress, well-hydrated, well nourished. Skin: Skin color, texture, turgor normal, no suspicious rashes or lesions BACK: Normal curvature of spine. No spine tenderness. Straight leg test negative. Deep tendon reflexes 2+/4 at patellas. Normal lower extremity strength. ASSESSMENT/PLAN: 1. Left sided sciatica - ICD9: 724.3, ICD10: M54.32 - Red flags for re-assessment reviewed with patient in detail. - consider xrays.if persists or worsening. Discussed risks and benefits of new medication with the patient. Advised them to call if any side effects or questions. - medrol. - CONSULT TO PHYSICAL THERAPY Jairon Irvin MD documented in this encounter [facility] 05-03-2022 History of Present illness Narrative Formatting of this note is different fro m the original. Patient presents with: Sinus Problem: Was treated with Augmentin-for sinus infection and pink eye. Still with productive cough and headaches. Had chest x-ray. HPI: Patient presents today for office visit for follow up. Seen at urgent care in February. Had chest xray just a few days ago. Cough is better. Still with sinus pressure and drainage. No fever. No sore throat or ear pain. No nausea or vomiting or diarrhea. No shortness of breath Did do covid test. Taking sudafed. MEDICATIONS: Current Outpatient Medications Medication Sig omeprazole (PRILOSEC) 40 mg capsule Take 40 mg by mouth once daily. levothyroxine (SYNTHROID) 137 mcg tablet Take 137 mcg by mouth once daily. terbinafine HCl (LAMISIL) 250 mg tablet Take 250 mg by mouth once daily. docosahexaenoic acid/epa (FISH OIL ORAL) Take by mouth. ascorbic acid (VITAMIN C ORAL) Take by mouth. elderberry fruit (ELDERBERRY ORAL) Take by mouth. Azelastine HCl (OPTIVAR) 0.05 % ophthalmic solution 1 drop in the morning in each eye and 1 drop in the evening in each eye as needed for itching. levothyroxine (SYNTHROID) 112 mcg tablet Take 1 tablet by mouth daily before breakfast. COMPOUNDED PRESCRIPTION Massotherapy - fax to [facility] DX: DDD of spine Cholecalciferol, Vitamin D3, 1,000 unit cap Take 1 capsule by mouth once daily. (Patient taking differently: Take 5,000 Units by mouth once daily.) Ca Carb-Mag Cmb 11-D3-Zn Sulf [phone] if-wydf-up-mg tab Take by mouth. No current facility-administered medications for this visit. ALLERGIES: ALLERGIES Allergen Reactions Duramorph [Morphine* Itching PAST MEDICAL HISTORY Diagnosis Date Environmental allergies Hepatitis, acute type B 1981 hep b from needle stick Papillary thyroid carcinoma (HCC) Plantar fasciitis Stress fracture 08/2017 left foot PAST SURGICAL HISTORY Procedure Laterality Date COLONOSCOPY FLX DX W/COLLJ SPEC WHEN PFRMD 02/26/10 PAST SURGICAL HISTORY OF 94 tubal ligation PAST SURGICAL HISTORY OF 09-13 right and left carpal tunnel PAST SURGICAL HISTORY OF Right 06/09/2016 total knee replcaement PAST SURGICAL HISTORY OF 12/03/2010 Thyroidectomy with modified right radical neck dissection FAMILY HISTORY Problem Relation Age of Onset Diabetes Mother Hypertension Mother Hypertension Father Diabetes Brother Diabetes Brother Coronary Artery Disease Mother Coronary Artery Disease Father Coronary Artery Disease Maternal Grandmother Coronary Artery Disease Paternal Grandmother Social History Tobacco Use Smoking status: Never Smokeless tobacco: Never Substance Use Topics Alcohol use: Yes Comment: once every couple of months. Drug use: No Reviewed current medications, allergies, past medical history, surgical history, family history and social history today. REVIEW OF SYSTEMS All other reviewed and negative other than HPI. HEALTH MAINTENANCE: Reviewed health maintenance issues today and recommended the following in detail. BONE DENSITY Never done DEPRESSION ASSESSMENT Never done MAMMOGRAM due on 06/17/2022 VITALS: BP 132/82 Pulse (!) 59 Wt 71.7 kg (158 lb) LMP 03/04/2007 SpO2 99% BMI 26.29 kg/m Last 4 Encounter Wt Readings: Date: Wt: 05/03/2022 71.7 kg (158 lb) 01/08/2022 72.6 kg (160 lb) 03/08/2021 69.9 kg (154 lb) 12/31/2020 69.4 kg (153 lb) PHYSICAL EXAMINATION: General appearance: Well appearing, alert, in no acute distress, well-hydrated, well nourished. Skin: Skin color, texture, turgor normal, no suspicious rashes or lesions Head: Normocephalic, no masses, lesions, tenderness or abnormalities Ears: External ears normal, canals clear Nose/Sinuses: Nares normal, septum midline, mucosa normal, no drainage or sinus tenderness Oropharynx: Lips, mucosa, and tongue normal, teeth and gums normal, oropharynx normal Neck: Supple, no adenopathy Lungs: Lungs clear to auscultation. No wheezing, rhonchi, rales Heart: RRR without murmur, gallop, or rubs. No ectopy Abdomen: Normal abdominal exam, Abdomen soft, non-tender. Bowel sounds normal. No masses, organomegaly Extremities: No deformities, edema, skin discoloration, clubbing or cyanosis. Good capillary refill. ASSESSMENT/PLAN: 1. Bacterial sinusitis - ICD9: 473.9, 041.9, ICD10: J32.9, B96.89 - Discussed risks and benefits of new medication with the patient. Advised them to call if any side effects or questions. Red flags for re-assessment reviewed with patient in detail. Call if symptoms worsen at all or if not better in one to two weeks Reviewed diagnosis and treatment options in detail. Questions were answered. Patient expressed understanding of treatment plan. - DOXYCYCLINE MONOHYDRATE 100 MG TABLET Jairon Irvin MD documented in this encounter [facility] 12-23-2021 Miscellaneous Notes Formatting of this note might be differe nt from the original. Order faxed to [facility]. Pt notified via [employer] message. Duglas Stahl LPN Order placed. Send to [facility] Patient calling to check request. She wants to do her lab work by 12/25 because she will be out of town until day before her appt. Patient plans to get labs done at [facility] please. Her phone number is [phone] if needed. Aware PCP has been out of office this week. Please advise documented in this encounter [facility] 11-26-2021 Miscellaneous Notes Last office visit: 11/06/21 F/u scheduled: 01/02/22 Mindy Ward Ma Patient has been identified by name and date of : Yes Pending Prescriptions Disp Refills AZELASTINE 0.05 % EYE DROPS 2 Si drop in the morning in each eye and 1 drop in the evening in each eye as needed for itching. BAKARI: No RX INSTRUCTIONS: Patient aware RX will be sent to pharmacy. No need to notify patient. Natasha Francis Pss documented in this encounter [facility] 11-06-2021 Instructions Sergio Clifford V, DO - 11/06/2021 4:11 PM EDT Thank you for choosing the [facility] for your acute care needs. [facility] treats minor infections, rashes and injuries. It is our mission for our patients to be healthy. A primary care relationship with the physician allows for continuity of care, counseling, and maintenance of preventive health care needs. [facility] does not replace the relationship or need for a primary care physician. For information about establishing with a primary care physician or booking an appointment, please call [phone] or speak with any Patient Pattern Generator Operator. Hours: Thursday through Thursday 7:30 am to 7:00 pm. Thursday and Thursday: 8:00 am to 2:30 pm. documented in this encounter [facility] 11-06-2021 History of Present illness Narrative Nia Jade presents with longstanding history of wrist and thumb arthritis, predominantly pain in the right and left carpometacarpal joints. She has been treated for this condition over several years. She states that the last round of corticosteroid injection she received was over 6 months ago and seemed to work well until recently. PAST MEDICAL HISTORY Diagnosis Date Environmental allergies Hepatitis, acute type B 1982 hep b from needle stick Papillary thyroid carcinoma (HCC) Plantar fasciitis Stress fracture 08/2017 left foot PAST SURGICAL HISTORY Procedure Laterality Date COLONOSCOPY FLX DX W/COLLJ SPEC WHEN PFRMD 02/26/10 PAST SURGICAL HISTORY OF 94 tubal ligation PAST SURGICAL HISTORY OF 09-13 right and left carpal tunnel PAST SURGICAL HISTORY OF Right 06/09/2016 total knee replcaement PAST SURGICAL HISTORY OF 12/03/2010 Thyroidectomy with modified right radical neck dissection Current Outpatient Medications on File Prior to Visit Medication Sig levothyroxine (SYNTHROID) 112 mcg tablet Take 1 tablet by mouth daily before breakfast. omeprazole (PRILOSEC) 40 mg capsule Take 1 capsule by mouth once daily. Azelastine HCl (OPTIVAR) 0.05 % ophthalmic solution 1 drop in the morning in each eye and 1 drop in the evening in each eye as needed for itching. COMPOUNDED PRESCRIPTION Massotherapy - fax to [facility] DX: DDD of spine COMPOUNDED PRESCRIPTION Hep b viral dna load. Hep c antibody screen. Cholecalciferol, Vitamin D3, 1,000 unit cap Take 1 capsule by mouth once daily. Ca Carb-Mag Cmb 11-D3-Zn Sulf [phone] wl-spqf-ky-mg tab Take by mouth. No current facility-administered medications on file prior to visit. Physical Exam Findings: General exam: Normal, Extremeties Bilateral hands show thenar eminence wasting. Pain and motion discomfort at the carpometacarpal joints. CMC grind test is positive bilaterally. No significant redness, swelling, or rashes noted over the wrist or hands. x-ray: Left hand RESULT: Narrowing of multiple interphalangeal joints with associated subjacent osteophytes. This is probably involving the distal interphalangeal joints. Osteophyte formation subjacent to the scaphoid trapezium and trapezium first metacarpal joint space. Degenerative cyst versus erosion involving the distal ulna. No other erosions are seen. No chondrocalcinosis. Right hand RESULT: Narrowing of multiple interphalangeal joints with associated subjacent osteophytes. Osteophyte formation subjacent to the scaphoid trapezium and trapezium first metacarpal joint space. No fracture or dislocation. No erosions are seen. No chondrocalcinosis. No soft tissue abnormality identified. Assessment: Carpometacarpal joint arthritis bilateral Scapho-trapezium joint arthritis bilateral Plan: We discussed multiple non-operative strategies to assist with this condition. These included miqgd-b-kxbow brace, topical compounded medication, and corticosteroid injections. At this time she has elected to proceed with corticosteriod injection. PROCEDURE: INJECTION The risk, benefits and alternatives of injection and no injection therapy were discussed. Personnel were discussed and the patient consented for an injection. The patient has been identified by name and birthdate. The injection site was identified, marked and prepped with a alcohol swab. Time out completed. The right and left CMC joints were injected with a 30 gauge needle with 1/2cc Celestone (3 mg), and 1/2 cc xylocaine plain 1% each. The injection site was then dressed with a bandaid. The patient tolerated the injection well. The patient was instructed to call the office if any adverse local effects occurred or any if any questions or concerns arise. Sergio Clifford DO Patient presents with: Bilateral hand arthritis AMB ROOMING INTAKE FLOWSHEET DATA Risk Screening Do you have concerns about personal safety or safety in the home?: No Pain Pain Level: 2 Pain Location: (Bilateral thumbs when bumed) Description: Sharp Duration Amount of Time: (Ongoing for years) Patient had injections in both thumb with Dr. Lee in May and helped for about 4 months. Would like injections today. documented in this encounter [facility] 10-23-2021 Miscellaneous Notes Insurance referral entered into [employer]. Got it. done Pt called and is notified of providers message. Pt reports ever since she had Covid in May she has had these sudden onsets of N/V about 4 episodes. Reports 2 of them were while traveling. But she had the same food as everyone else. Pt states she takes Omeprazole daily. Reports she was told not to make light of any symptoms when she had been diagnosed with cancer a while back, so she just wanted to get checked out. Please call and advise. Berta Adame RN Do we have any idea why she wants to see him for the diagnosis. Patient asking for a referral to Dr. Watts at [facility]. Please advise. documented in this encounter [facility] 05-15-2021 Note HNO ID: [id number] Author: RT Lilia(R) Service: Radiology Author Type: Technologist Type: Progress Notes Filed: 05/15/2021 11:10 AM Note Text: Radiology Service Progress Note PATIENT NAME: Nia Jade DATE OF SERVICE: May 15, 2021 TIME: 11:10 AM PATIENT IDENTITY VERIFICATION COMPLETED USING TWO (2) IDENTIFIERS: Name and Date of confirmed by patient verbally. FALL SCREENING: Has the patient had 2 falls in the last year or 1 fall with injury or currently using an Ambulatory Assistive Device (Walker, Cane, Wheelchair, Crutches, etc.)? No PATIENT GENDER DATA: Female. status: : No status: N/A PATIENT RELEVANT IMPLANT DATA REVIEWED: Not Applicable RADIOLOGY DEPARTMENT: General X-ray: Exam(s) Completed: Upper Extremity X-Ray(s): Hand, bilateral PERIPHERAL IV DATA: Not applicable SIGNED BY: RT Lilia(R) May 15, 2021 11:10 AM [facility] documented as of this encounter (statuses as of 10/23/2021) [facility] History of Past illness Narrative* Problem Noted Date Resolved Date Malignant neoplasm of thyroid gland 11/28/2010 03/22/2011 documented as of this encounter (statuses as of 11/06/2021) [facility] History of Past illness Narrative* Problem Noted Date Resolved Date Malignant neoplasm of thyroid gland 11/28/2010 03/22/2011 documented as of this encounter (statuses as of 11/26/2021) [facility] History of Past illness Narrative* Problem Noted Date Resolved Date Malignant neoplasm of thyroid gland 11/28/2010 03/22/2011 documented as of this encounter (statuses as of 12/24/2021) [facility] History of Past illness Narrative* Problem Noted Date Resolved Date Malignant neoplasm of thyroid gland 11/28/2010 03/22/2011 documented as of this encounter (statuses as of 03/05/2022) [facility] History of Past illness Narrative* Problem Noted Date Resolved Date Malignant neoplasm of thyroid gland 11/28/2010 03/22/2011 documented as of this encounter (statuses as of 03/19/2022) [address] History of Past illness Narrative* Problem Noted Date Resolved Date Malignant neoplasm of thyroid gland 11/28/2010 03/22/2011 documented as of this encounter (statuses as of 03/20/2022) [address]2011 History of Past illness Narrative* Problem Noted Date Resolved Date Malignant neoplasm of thyroid gland 11/28/2010 03/22/2011 documented as of this encounter (statuses as of 03/27/2022) [address]2011 History of Past illness Narrative* Problem Noted Date Resolved Date Malignant neoplasm of thyroid gland 11/28/2010 03/22/2011 documented as of this encounter (statuses as of 03/28/2022) [address]2011 History of Past illness Narrative* Problem Noted Date Resolved Date Malignant neoplasm of thyroid gland 11/28/2010 03/22/2011 documented as of this encounter (statuses as of 04/17/2022) [address]2011 History of Past illness Narrative* Problem Noted Date Resolved Date Malignant neoplasm of thyroid gland 11/28/2010 03/22/2011 documented as of this encounter (statuses as of 05/05/2022) [address]2011 History of Past illness Narrative* Problem Noted Date Resolved Date Malignant neoplasm of thyroid gland 11/28/2010 03/22/2011 documented as of this encounter (statuses as of 05/20/2022) [address]2011 History of Past illness Narrative* Problem Noted Date Resolved Date Malignant neoplasm of thyroid gland 11/28/2010 03/22/2011 documented as of this encounter (statuses as of 06/26/2022) [address]2011 History of Past illness Narrative* Problem Noted Date Resolved Date Malignant neoplasm of thyroid gland 11/28/2010 03/22/2011 documented as of this encounter (statuses as of 07/01/2022) [address]2011 History of Past illness Narrative* Problem Noted Date Resolved Date Malignant neoplasm of thyroid gland 11/28/2010 03/22/2011 documented as of this encounter (statuses as of 07/08/2022) [address]2011 History of Past illness Narrative* Problem Noted Date Resolved Date Malignant neoplasm of thyroid gland 11/28/2010 03/22/2011 documented as of this encounter (statuses as of 08/04/2022) [address]2011 History of Past illness Narrative* Problem Noted Date Resolved Date Malignant neoplasm of thyroid gland 11/28/2010 03/22/2011 documented as of this encounter (statuses as of 09/04/2022) [address]2011 History of Past illness Narrative* Problem Noted Date Resolved Date Malignant neoplasm of thyroid gland 11/28/2010 03/22/2011 documented as of this encounter (statuses as of 09/05/2022) [address]2011 History of Past illness Narrative* Problem Noted Date Resolved Date Malignant neoplasm of thyroid gland 11/28/2010 03/22/2011 documented as of this encounter (statuses as of 09/12/2022) [address]2011 History of Past illness Narrative* Problem Noted Date Resolved Date Malignant neoplasm of thyroid gland 11/28/2010 03/22/2011 documented as of this encounter (statuses as of 09/13/2022) [address]2011 History of Past illness Narrative* Problem Noted Date Resolved Date Malignant neoplasm of thyroid gland 11/28/2010 03/22/2011 documented as of this encounter (statuses as of 09/22/2022) [address]2011 History of Past illness Narrative* Problem Noted Date Diagnosed Date Resolved Date Malignant neoplasm of thyroid gland 11/28/2010 03/22/2011 documented as of this encounter (statuses as of 11/18/2022) [address]2011 History of Past illness Narrative* Problem Noted Date Diagnosed Date Resolved Date Malignant neoplasm of thyroid gland 11/28/2010 03/22/2011 documented as of this encounter (statuses as of 12/25/2022) [address]-2011 History of Past illness Narrative* Problem Noted Date Diagnosed Date Resolved Date Malignant neoplasm of thyroid gland 11/28/2010 03/22/2011 documented as of this encounter (statuses as of 01/08/2023) [place] [id number] History of Past illness Narrative* Problem Noted Date Diagnosed Date Resolved Date Malignant neoplasm of thyroid gland 11/28/2010 03/22/2011 documented as of this encounter (statuses as of 03/15/2023) [address]2011 History of Past illness Narrative* Problem Noted Date Diagnosed Date Resolved Date Malignant neoplasm of thyroid gland 11/28/2010 03/22/2011 documented as of this encounter (statuses as of 06/18/2023) [address]2011 History of Past illness Narrative* Problem Noted Date Diagnosed Date Resolved Date Malignant neoplasm of thyroid gland 11/28/2010 03/22/2011 documented as of this encounter (statuses as of 06/19/2023) [address]2011 History of Past illness Narrative* Problem Noted Date Diagnosed Date Resolved Date Malignant neoplasm of thyroid gland 11/28/2010 03/22/2011 documented as of this encounter (statuses as of 07/01/2023) [address]2011 History of Past illness Narrative* Problem Noted Date Diagnosed Date Resolved Date Malignant neoplasm of thyroid gland 11/28/2010 03/22/2011 documented as of this encounter (statuses as of 07/07/2023) [facility] Nausea- Primary [facility] Arthritis of carpometacarpal (CMC) joint of both thumbs- [facility] Other chronic allergic conjunctivitis of both [facility]* Diagnosis Post-surgical hypothyroidism- Primary Postsurgical hypothyroidism [facility]* Diagnosis Left sided sciatica Sciatica [facility]* Diagnosis Bacterial sinusitis- Primary Unspecified sinusitis (chronic) [facility]* Diagnosis Left sided sciatica- Primary Sciatica [facility]* Diagnosis Papillary thyroid carcinoma (HCC)- Primary Malignant neoplasm of thyroid gland Malignant neoplasm of thyroid gland (HCC) Malignant neoplasm of thyroid gland 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) Lumbar radiculopathy Thoracic or lumbosacral neuritis or radiculitis, unspecified Chronic left-sided low back pain with left-sided sciatica documented in this encounter [facility] note* Diagnosis DDD (degenerative disc disease), lumbar- Primary Degeneration of lumbar or lumbosacral intervertebral disc documented in this encounter [facility] note* Diagnosis Encounter for screening mammogram for breast cancer documented in this encounter [facility] note* Diagnosis Left sided sciatica Sciatica DDD (degenerative disc disease), lumbar Degeneration of lumbar or lumbosacral intervertebral disc Encounter for screening mammogram for breast cancer documented in this encounter [facility] note* Diagnosis Bronchitis- Primary Bronchitis, not specified as acute or chronic Acute upper respiratory infection, unspecified 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) documented in this encounter [facility] note* Diagnosis ELISHA (obstructive sleep apnea)- Primary Obstructive sleep apnea (adult) (pediatric) Papillary thyroid carcinoma (HCC) Malignant neoplasm of thyroid gland Post-surgical hypothyroidism Postsurgical hypothyroidism documented in this encounter [facility] note* Diagnosis Medicare annual wellness visit, subsequent- Primary Routine general medical examination at a health care facility Papillary thyroid carcinoma (HCC) Malignant neoplasm of thyroid gland Lung nodules Other nonspecific abnormal finding of lung field Vitamin D deficiency Unspecified vitamin D deficiency Browne's esophagus without dysplasia Browne's esophagus Upper back pain documented in this encounter [facility] note* Diagnosis Chronic left-sided low back pain with left-sided sciatica documented in this encounter [facility] note* Diagnosis MARY (stress urinary incontinence, female)- Primary Female stress incontinence PMB (postmenopausal bleeding) Postmenopausal bleeding documented in this encounter [facility] note* Diagnosis Mixed incontinence- Primary Mixed incontinence urge and stress (male)(female) documented in this encounter [facility] note* Diagnosis PMB (postmenopausal bleeding) Postmenopausal bleeding documented in this encounter [facility] note* Diagnosis PMB (postmenopausal bleeding)- Primary Postmenopausal bleeding documented in this encounter [facility] for referral (narrative)* Diagnostic Procedure Only (Routine) - Closed Specialty Diagnoses / Procedures Referred By Brandon t Referred To Contact XR IMAGING Diagnoses Left sided sciatica Procedures XR LUMBAR GENERAL 3V AP/LAT/L5-S1 X-RAY L-S SPINE AP/LATERAL Jairon Irvin MD [address] [place] [address] Xr Imaging Referral ID Status Reason Start Date Expiration Date V isits Requested Visits Authorized [id number] Closed Auto-Generate d Referral 03/08/2021 04/07/2022 1 1 [facility] for referral (narrative)* Diagnostic Procedure Only (Routine) - Pending Review Specialty Diagnoses / Procedures Referred By Brandon hernandez Referred To Contact BR IMAGING Diagnoses Encounter for screening mammogram for breast cancer Procedures IHSAN SCREENING SCREENING MAMMOGRAPHY BI 2-VIEW BREAST INC Jairon Sommer MD [address] [place] [address] [facility] [address] [place] [address] Referral ID Status Reason Start Date Expiration Date Visits Requested Visits Authorized [id number] Pending Review Auto-Generat ed Referral 07/30/2022 08/29/2023 1 1 [facility] for referral (narrative)* Diagnostic Procedure Only (Routine) - Pending Review Specialty Diagnoses / Procedures Referred By Brandon hernandez Referred To Contact BR IMAGING Diagnoses Encounter for screening mammogram for breast cancer Procedures IHSAN SCREENING SCREENING MAMMOGRAPHY BI 2-VIEW BREAST INC Jairon Sommer MD [address] [place] [address] [facility] [address] [place] [address] Referral ID Status Reason Start Date Expiration Date Visits Requested Visits Authorized [id number] Pending Review Auto-Generat ed Referral 09/17/2022 10/17/2023 1 1 [facility] for referral (narrative)* Diagnostic Procedure Only (Routine) - Authorized Specialty Diagnoses / Procedures Referred By Brandon hernandez Referred To Contact US IMAGING Diagnoses PMB (postmenopausal bleeding) Procedures US FEMALE PELVIS TRANSVAG US TRANSVAGINAL Jatinder Rodarte MD [address] [place] [address] [place] [address] Referral ID Status Reason Start Date Expiration Date Visits Requested Visits Authorized [id number] Authorized Auto-Generat ed Referral 06/18/2023 07/17/2024 1 1 [facility] for visit Narrative* Diagnostic Procedure Only (Routine) - Closed Specialty Diagnoses / Procedures Referred By Contac t Referred To Contact XR IMAGING Diagnoses Left sided sciatica Procedures XR LUMBAR GENERAL 3V AP/LAT/L5-S1 X-RAY L-S SPINE AP/LATERAL Jairon Irvin MD [address] [place] [address] Xr Imaging Referral ID Status Reason Start Date Expiration Date V isits Requested Visits Authorized [id number] Closed Auto-Generate d Referral 03/08/2021 04/07/2022 1 1 [facility] Summary Purpose Family History No Family History Records FoundNo Family History Records FoundNo Family History Records Found Advance Directives No Advanced Directives Records FoundNo Advanced Directives Records FoundNo Advanced Directives Records Found Reason for Referral Specialty Diagnoses / Procedures Referred By Contac t Referred To Contact Gastroenterology Diagnoses Nausea Procedures CONSULT TO GASTROENTEROLOGY Jairon Irvin MD [address] [place] [address] Referral ID Status Reason Start Date Expiration Date Visits Requested Visits Authorized [id number] Ref Not Required PCP Requested Referral 10/23/2021 10/23/2022 1 1 Specialty Diagnoses / Procedures Referred By Contac t Referred To Contact [facility] Diagnoses Left sided sciatica Procedures CONSULT TO PHYSICAL THERAPY PHYSICAL THERAPY EVALUATION HIGH COMPLEX 45 MINS Jairon Irvin MD [address] [place] [address] [facility] [place] [address] [place] [address] Referral ID Status Reason Start Date Expiration Date Visits Requested Visits Authorized [id number] Authorized PCP Requested Referral Auto-Generate d Referral 05/19/2022 05/19/2023 99 99 Specialty Diagnoses / Procedures Referred By Contac t Referred To Contact MR IMAGING Diagnoses Chronic left-sided low back pain with left-sided sciatica Procedures MRI LUMBAR SPINE WO/W IVCON MRI SPINAL CANAL LUMBAR W/O & W/CONTR MATRL Jairon Irvin MD [address] [place] [address] Mr Imaging Referral ID Status Reason Start Date Expiration Date Visits Requested Visits Authorized [id number] Pending Review Auto-Generat ed Referral 06/30/2022 07/30/2023 1 1 Specialty Diagnoses / Procedures Referred By Contac t Referred To Contact XR IMAGING Diagnoses Papillary thyroid carcinoma (HCC) Malignant neoplasm of thyroid gland (HCC) Procedures XR LUMBAR GENERAL 3V AP/LAT/L5-S1 RADEX SPINE LUMBOSACRAL 2/3 VIEWS Jairon Irvin MD [address] [place] [address] Xr Imaging Referral ID Status Reason Start Date Expiration Date Visits Requested Visits Authorized [id number] Pending Review Auto-Generat ed Referral 06/30/2022 07/30/2023 1 1 Specialty Diagnoses / Procedures Referred By Contac t Referred To Contact [facility] [place] Diagnoses DDD (degenerative disc disease), lumbar Procedures CONSULT TO [facility] OFFICE/OUTPATIENT [facility] MDM 60-74 MINUTES Jairon Irvin MD [address] [place] [address] Referral ID Status Reason Start Date Expiration Date Visits Requested Visits Authorized [id number] Authorized PCP Requested Referral 07/08/2022 07/08/2023 1 1 Specialty Diagnoses / Procedures Referred By Contac t Referred To Contact [facility] Diagnoses Upper back pain Procedures CONSULT TO PHYSICAL THERAPY PHYSICAL THERAPY EVALUATION HIGH COMPLEX 45 MINS Jairon Irvin MD [address] [place] [address] [facility] [place] [address] [place] [address] Referral ID Status Reason Start Date Expiration Date Visits Requested Visits Authorized [id number] Authorized PCP Requested Referral Auto-Generate d Referral 01/08/2023 01/08/2024 99 99 Specialty Diagnoses / Procedures Referred By Contac t Referred To Contact MR IMAGING Diagnoses Chronic left-sided low back pain with left-sided sciatica Procedures MRI LUMBAR SPINE WO/W IVCON MRI SPINAL CANAL LUMBAR W/O & W/CONTR MIREILLEL Jairon Irvin MD [address] [place] [address] [place] [address] Referral ID Status Reason Start Date Expiration Date V isits Requested Visits Authorized [id number] Closed Auto-Generate d Referral 06/30/2022 07/30/2023 1 1 Specialty Diagnoses / Procedures Referred By Contac t Referred To Contact [facility] Diagnoses Mixed incontinence Procedures CONSULT TO PHYSICAL THERAPY PHYSICAL THERAPY EVALUATION HIGH COMPLEX 45 MINS Jatinder Rodarte MD [address] [place] [address] [facility] [place] [address] [place] [address] Referral ID Status Reason Start Date Expiration Date Visits Requested Visits Authorized [id number] Authorized PCP Requested Referral Auto-Generate d Referral 06/19/2023 06/17/2024 99 99 Medications Administered Section Inactive Administered Medications - up to 3 most recent administrations Medication Order MAR Action Action Date Dose Rate Site betamethasone acetate-betamethasone sodium phosphate 6 mg injection (CELESTONE) 6 mg, OTHER, ONCE, 1 dose, On Thu11/06/21 at 1630, Intra-Articular Protect From Light. Given 11/06/2021 4:11 PM EDT 6 mg Additional Source Comments INFORMATION SOURCE (unrecogn ized section and content) DATE CREATED AUTHOR AUTHOR'S ORGANIZ ATION 05/29/2023 [facility] DATE CREATED AUTHOR AUTHOR'S ORGANIZ ATION 07/09/2023 [facility] Source Comments (unrecognize d section and content) In the event this informatio n is protected by the Federal Confidentiality of Alcohol and Drug Abuse Patient Records regulations: The Federal rules restrict any use of the information to criminally investigate or prosecute any alcohol or drug abuse patient.TrihealthIn the event this information is protected by the Federal Confidentiality of Alcohol and Drug Abuse Patient Records regulations: The Federal rules restrict any use of the information to criminally investigate or prosecute any alcohol or drug abuse patient.TrihealthIn the event this information is protected by the Federal Confidentiality of Alcohol and Drug Abuse Patient Records regulations: The Federal rules restrict any use of the information to criminally investigate or prosecute any alcohol or drug abuse patient.TrihealthIn the event this information is protected by the Federal Confidentiality of Alcohol and Drug Abuse Patient Records regulations: The Federal rules restrict any use of the information to criminally investigate or prosecute any alcohol or drug abuse patient.TrihealthIn the event this information is protected by the Federal Confidentiality of Alcohol and Drug Abuse Patient Records regulations: The Federal rules restrict any use of the information to criminally investigate or prosecute any alcohol or drug abuse patient.TrihealthIn the event this information is protected by the Federal Confidentiality of Alcohol and Drug Abuse Patient Records regulations: The Federal rules restrict any use of the information to criminally investigate or prosecute any alcohol or drug abuse patient.TrihealthIn the event this information is protected by the Federal Confidentiality of Alcohol and Drug Abuse Patient Records regulations: The Federal rules restrict any use of the information to criminally investigate or prosecute any alcohol or drug abuse patient.TrihealthIn the event this information is protected by the Federal Confidentiality of Alcohol and Drug Abuse Patient Records regulations: The Federal rules restrict any use of the information to criminally investigate or prosecute any alcohol or drug abuse patient.TrihealthIn the event this information is protected by the Federal Confidentiality of Alcohol and Drug Abuse Patient Records regulations: The Federal rules restrict any use of the information to criminally investigate or prosecute any alcohol or drug abuse patient.TrihealthIn the event this information is protected by the Federal Confidentiality of Alcohol and Drug Abuse Patient Records regulations: The Federal rules restrict any use of the information to criminally investigate or prosecute any alcohol or drug abuse patient.TrihealthIn the event this information is protected by the Federal Confidentiality of Alcohol and Drug Abuse Patient Records regulations: The Federal rules restrict any use of the information to criminally investigate or prosecute any alcohol or drug abuse patient.TrihealthIn the event this information is protected by the Federal Confidentiality of Alcohol and Drug Abuse Patient Records regulations: The Federal rules restrict any use of the information to criminally investigate or prosecute any alcohol or drug abuse patient.TrihealthIn the event this information is protected by the Federal Confidentiality of Alcohol and Drug Abuse Patient Records regulations: The Federal rules restrict any use of the information to criminally investigate or prosecute any alcohol or drug abuse patient.TrihealthIn the event this information is protected by the Federal Confidentiality of Alcohol and Drug Abuse Patient Records regulations: The Federal rules restrict any use of the information to criminally investigate or prosecute any alcohol or drug abuse patient.TrihealthIn the event this information is protected by the Federal Confidentiality of Alcohol and Drug Abuse Patient Records regulations: The Federal rules restrict any use of the information to criminally investigate or prosecute any alcohol or drug abuse patient.TrihealthIn the event this information is protected by the Federal Confidentiality of Alcohol and Drug Abuse Patient Records regulations: The Federal rules restrict any use of the information to criminally investigate or prosecute any alcohol or drug abuse patient.TrihealthIn the event this information is protected by the Federal Confidentiality of Alcohol and Drug Abuse Patient Records regulations: The Federal rules restrict any use of the information to criminally investigate or prosecute any alcohol or drug abuse patient.TrihealthIn the event this information is protected by the Federal Confidentiality of Alcohol and Drug Abuse Patient Records regulations: The Federal rules restrict any use of the information to criminally investigate or prosecute any alcohol or drug abuse patient.TrihealthIn the event this information is protected by the Federal Confidentiality of Alcohol and Drug Abuse Patient Records regulations: The Federal rules restrict any use of the information to criminally investigate or prosecute any alcohol or drug abuse patient.TrihealthIn the event this information is protected by the Federal Confidentiality of Alcohol and Drug Abuse Patient Records regulations: The Federal rules restrict any use of the information to criminally investigate or prosecute any alcohol or drug abuse patient.TrihealthIn the event this information is protected by the Federal Confidentiality of Alcohol and Drug Abuse Patient Records regulations: The Federal rules restrict any use of the information to criminally investigate or prosecute any alcohol or drug abuse patient.TrihealthIn the event this information is protected by the Federal Confidentiality of Alcohol and Drug Abuse Patient Records regulations: The Federal rules restrict any use of the information to criminally investigate or prosecute any alcohol or drug abuse patient.TrihealthIn the event this information is protected by the Federal Confidentiality of Alcohol and Drug Abuse Patient Records regulations: The Federal rules restrict any use of the information to criminally investigate or prosecute any alcohol or drug abuse patient.TrihealthIn the event this information is protected by the Federal Confidentiality of Alcohol and Drug Abuse Patient Records regulations: The Federal rules restrict any use of the information to criminally investigate or prosecute any alcohol or drug abuse patient.TrihealthIn the event this information is protected by the Federal Confidentiality of Alcohol and Drug Abuse Patient Records regulations: The Federal rules restrict any use of the information to criminally investigate or prosecute any alcohol or drug abuse patient.TrihealthIn the event this information is protected by the Federal Confidentiality of Alcohol and Drug Abuse Patient Records regulations: The Federal rules restrict any use of the information to criminally investigate or prosecute any alcohol or drug abuse patient.TrihealthIn the event this information is protected by the Federal Confidentiality of Alcohol and Drug Abuse Patient Records regulations: The Federal rules restrict any use of the information to criminally investigate or prosecute any alcohol or drug abuse patient.TrihealthIn the event this information is protected by the Federal Confidentiality of Alcohol and Drug Abuse Patient Records regulations: The Federal rules restrict any use of the information to criminally investigate or prosecute any alcohol or drug abuse patient.TrihealthIn the event this information is protected by the Federal Confidentiality of Alcohol and Drug Abuse Patient Records regulations: The Federal rules restrict any use of the information to criminally investigate or prosecute any alcohol or drug abuse patient.[facility] Reason for Visit (unrecogniz ed section and content) Reason Comments Bilateral hand arthritis Reason Comments Refill Request Reason Comments Radiology NM RADIOLOGY SERVICE CHARLES SULLIVAN NOTESERVICE DATE: 03/20/2022 SERVICE TIME: 7:36 AMPATIENT IDENTITY VERIFICATION COMPLETED USING TWO (2) STANDARD IDENTIFIERS: Name and Date of confirmed by patient verballyFALL SCREENING: Has the patient had 2 falls in the last year or 1 fall with injury or currently using an Ambulatory Assistive Device (Walker, Cane, Wheelchair, Crutches, etc.)? NoPATIENT GENDER DATA: .female: NoALLERGIES: NAMEDICATIONS REVIEWED: Not applicablePATIENT R Reason Comments Radiology [place] RADIOLOGY SERVICE CHARLES SULLIVAN NOTEDATE OF SERVICE: March 27, 2022TIME OF SERVICE: 0650EVENT:NM I131 TOTAL BODY SCANADDITIONAL EVENT DETAILS: PT WAS ADMINISTERED 195.5 mCi I131 ON 03/20/22. RETURNED TODAY FOR FOLLOW UP IMAGING.SIGNATURE: RT Agnieszka(R) PATIENT NAME: Nia SmartiDATE: March 27, 2022 : 7:44 AM PAGER/CONTACT #: Reason Comments Sinus Problem Was treated with Aug mentin-for sinus infection and pink eye. Still with productive cough and headaches. Had chest x-ray. Reason Comments Orders Left side sciatica Reason Comments Follow Up Reason Comments Results Mri results Reason Comments Radiology NM Reason Comments Cough 1 week, productive, green Sinusitis 3 days Reason Comments Orders Reason Comments Medicare Wellness Exam Specialty Diagnoses / Procedures Referred By Brandon t Referred To Contact MR IMAGING Diagnoses Chronic left-sided low back pain with left-sided sciatica Procedures MRI LUMBAR SPINE WO/W IVCON MRI SPINAL CANAL LUMBAR W/O & W/CONTR MATRL Jairon Irvin MD [address] [place] [address] [place] [address] Referral ID Status Reason Start Date Expiration Date V isits Requested Visits Authorized [id number] Closed Auto-Generate d Referral 06/30/2022 07/30/2023 1 1 Reason Comments Vaginal Problem Reason Comments Radiology US Specialty Diagnoses / Procedures Referred By Contac t Referred To Contact US IMAGING Diagnoses PMB (postmenopausal bleeding) Procedures US FEMALE PELVIS TRANSVAG US TRANSVAGINAL Jatinder Rodarte MD [address] [place] [address] [place] [address] Referral ID Status Reason Start Date Expiration Date V isits Requested Visits Authorized [id number] Closed Auto-Generate d Referral 06/18/2023 07/17/2024 1 1 Reason Comments Endometrial Biopsy Specialty Diagnoses / Procedures Referred By Contac t Referred To Contact [facility] Diagnoses PMB (postmenopausal bleeding) Procedures ENDOMETRIAL BIOPSY ENDOMETRIAL BX W/WO ENDOCERVIX BX W/O DILAT SPX Jatinder Rodarte MD [address] [place] [address] [facility] [address] [place] [address] Referral ID Status Reason Start Date Expiration Date V isits Requested Visits Authorized [id number] Closed Auto-Generate d Referral 07/06/2023 07/05/2024 1 1 Care Teams (unrecognized sec tion and content) [employer] Relationship Specialty Start Date End Date Jairon Irvin MD [address] [place], [place] [id number] PCP - General Family Practice 09/14/14 [employer] Operator Relationship Specialty Start Date End Date Jairon Irvin MD [address] [place], [place] [id number] PCP - General Family Practice 09/14/14 [employer] Operator Relationship Specialty Start Date End Date Jairon Irvin MD [address] [facility] [place] [address] PCP - General Family Practice 09/14/14 [employer] Operator Relationship Specialty Start Date End Date Jairon Irvin MD [address] [facility] [place] [address] PCP - General Family Medicine 09/14/14 [employer] Operator Relationship Specialty Start Date End Date Jairon Irvin MD [address] [facility] [place] [address] PCP - General Family Medicine 09/14/14 [employer] Operator Relationship Specialty Start Date End Date Jairon Irvin MD [address] [facility] [place] [address] PCP - General Family Medicine 09/14/14 [employer] Operator Relationship Specialty Start Date End Date Jairon Irvin MD [address] [facility] [place] [address] PCP - General Family Medicine 09/14/14 [employer] Operator Relationship Specialty Start Date End Date Jairon Irvin MD [address] [facility] [place] [address] PCP - General Family Medicine 09/14/14 [employer] Operator Relationship Specialty Start Date End Date Jairon Irvin MD [address] [facility] [place] [address] PCP - General Family Medicine 09/14/14 [employer] Operator Relationship Specialty Start Date End Date Jairon Irvin MD [address] [facility] [place] [address] PCP - General Family Medicine 09/14/14 [employer] Operator Relationship Specialty Start Date End Date Jairon Irvin MD [address] [facility] [place] [address] PCP - General Family Medicine 09/14/14 [employer] Operator Relationship Specialty Start Date End Date Jairon Irvin MD [address] [facility] [place] [address] PCP - General Family Medicine 09/14/14 [employer] Operator Relationship Specialty Start Date End Date Jairon Irvin MD [address] [facility] [place] [address] PCP - General Family Medicine 09/14/14 [employer] Operator Relationship Specialty Start Date End Date Jairon Irvin MD [address] [facility] [place] [address] PCP - General Family Medicine 09/14/14 [employer] Operator Relationship Specialty Start Date End Date Jairon Irvin MD [address] [facility] [place] [address] PCP - General Family Medicine 09/14/14 [employer] Operator Relationship Specialty Start Date End Date Jairon Irvin MD [address] [facility] [place] [address] PCP - General Family Medicine 09/14/14 [employer] Operator Relationship Specialty Start Date End Date Jairon Irvin MD [address] [facility] [place] [address] PCP - General Family Medicine 09/14/14 [employer] Operator Relationship Specialty Start Date End Date Jairon Irvin MD [address] [facility] [place] [address] PCP - General Family Medicine 09/14/14 [employer] Operator Relationship Specialty Start Date End Date Jairon Irvin MD [address] [facility] [place] [address] PCP - General Family Medicine 09/14/14 [employer] Operator Relationship Specialty Start Date End Date Jairon Irvin MD [address] [place] [address] PCP - General Family Medicine 09/14/14 [employer] Operator Relationship Specialty Start Date End Date Jairon Irvin MD [address] [place] [address] PCP - General [facility] 09/14/14 [employer] Operator Relationship Specialty Start Date End Date Jairon Irvin MD [address] [place], [place] [id number] PCP - General Family Medicine 09/14/14 FOR RECORDS PERTAINING TO PATIENTS WHO ARE OR HAVE BEEN ENROLLED IN A CHEMICAL DEPENDENCY/SUBSTANCEABUSE PROGRAM, SOME INFORMATION MAY BE OMITTED. This clinical summary was aggregated from multiple sources. Caution should be exercised in using it in the provision of clinical care. This summary normalizes information from multiple sources, and as a consequence, information in this document may materially change the coding, format and clinical context of patient data. In addition, data may be omitted in some cases. CLINICAL DECISIONS SHOULD BE BASED ON THE PRIMARY CLINICAL RECORDS. [employer] provides no warranty or guarantee of the accuracy or completeness of information in this document.
== END | disposition home or self-care (01) ==
LOC: OPBI 07:13
PROVIDERS: PCP Family Medicine; Referring Provider Obstetrics & Gynecology; Visit Provider Obstetrics & Gynecology
DX: Z12.31 Encounter for screening mammogram for malignant neoplasm of breast (principal)
CPT/HCPCS: 77063; 77067

== ENCOUNTER 2023-09-02 08:00 | Outpatient (RCR) | payer MEDICARE, OTHER, SELFPAY ==
--- NOTE | 2023-07-02 15:01 | HP.PTEVAL_ITS ---
Patient's Visit Information Visit Information Visit Information: KARINA JADE is a 67 year old F referred to Physical Therapy by Dr. Estefania Rodarte MD with a diagnosis of BLADDER PAIN. Date of Evaluation: 07/02/23 Physical Therapist: Jeanne Hernandez PT, Cert MDT Visit Plan Frequency: 1x/Week Duration: 2-4 Months Plan: PF THERAPY FOR STRENGTHENING, LENGTHENING/RELAXATION AND ENDURANCE TRAINI NG. URINARY URGE AND FREQUENCY EDUCATION. HEALTHY BLADDER HABIT EDUCATION. TRAINING IN COORDINATION OF PELVIC FLOOR MUSCULATURE WITH HIP AND CORE (TRANSVERSE ABDOMINUS) MUSCULATURE. CORE STRENGTHENING. YONATAN LE ROM, STRETCHING AND STRENGTHENING. TRAINING IN ABDOMINAL CAVITY PRESSURE MGMT WITH ADL'S. 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 Disability: NO Present symptoms: STRESS INCONTINENCE FOR YEARS WITH THINGS LIKE COUGHING. LEAKING OF URINE WHEN STANDS UP AFTER URINATING FOR YEARS ALSO. Present since: CHRONIC Pain Scale: PATIENT DENIES PAIN. Is it getting better, worse or staying the same: STAYING THE SAME Commenced as a result of: NO APPARENT REASON Worse: COUGHING, SNEEZING, JUMPING, STANDING UP AFTER URINATING. Better: NOTHING Disturbed sleep: GETTING UP 1-2 TIMES AT NIGHT TO URINATE Previous history/Previous treatment: NO TREATMENTS. Gait: NORMAL How long can you delay the need to urinate: MAYBE 10 MINUTES Prolapse (Falling out feeling): NO Frequency of Urination: ABOUT EVERY 2-3 HOURS Ability to stop urine flow: PARTIALLY Ability to initiate urine stream: YES Dyspareunia: NO Bowel Incontinence: NO Accidents: NO Unexplained weight loss: NO Imaging: RECENT PELVIC US DUE TO RECENT BLEEDING ORDERED BY DR. RODARTE - NORMAL PER PATIENT REPORT. PMH/Recent major surgery: METASTATIC LUNG CANCER RELATED TO THYROID CANCER - NOT ACTIVELY BEING TREATED BUT BEING MONITORED. PATIENT REPORTS AT THIS POINT IT IS NOT SYMPTOMATIC. GERD. R TKR 2018. RADICAL TYROID SX. OTHER: PATIENT REPORTS EXPERIENCE WITH PELVIC FLOOR EX'S FROM MID-'S WITH 4 DELIVERIES. CURRENT EX PROGRAM: WALKING PROGRAM. SPINNING. WEIGHT TRAINING ON MACHINES 1-2 TIMES A WEEK. ELIPTICAL OR ROWER. CURRENTLY HAVING SOME R SHLD PAIN LIMITING HER. Objective Objective: Sitting/Standing Posture: FAIR. REDUCED LUMBAR LORDOSIS BUT NO R ELEVANT LATERAL SHIFT. Other Observations: INDEP GAIT AND TRANSFERS Sensory deficit: YONATAN LE LIGHT TOUCH SENSATION GROSSLY INTACT AND SYMMETRICAL ROM deficit: MOD YONATAN HIP ADDUCTOR TIGHTNESS. MILD YONATAN LE HS, AND HIP ER TIGHTNESS. Motor deficit: YONATAN LE STRENGTH GROSSLY 5/5 WITH MMT'ING. PATIENT COMMUNICATES THE ABILITY TO BE ABLE TO CONTRACT HER PELVIC FLOOR BUT NOT ENOUGH TO STOP HER URINE STREAM. Reflexes: UNABLE TO ELICIT YONATAN LE DTR'S. Dural Signs: NEGATIVE YONATAN LE'S. Lumbar mvmt loss: flex - NIL ext - MOD R SG - MOD L SG - MOD Core strength: FAIR Palpation: INCREASED MUSCLE TONE LUMBAR AND THORACIC PARASPINALS FUNCTIONAL SCREEN: Incontinence Impact Questionnaire Score: 2 Urogenital Distress Inventory Score: 9 TREATMENT: SEE TA BELOW Goals Goal 1:: DECREASE URINARY LEAKAGE EPISODES TO ONE OR LESS PER DAY Goal Time Frame: 6-8 Weeks Goal 2:: PATIENT WILL SUCCESSFULLY DELAY VOIDING LONG NEEDED WHEN URGENCY OCCURS TO SUCCESSFULLY MAKE IT TO THE BATHROOM. Goal Time Frame: 2-4 Weeks Goal 3:: PATIENT WILL DEMONSTRATE/COMMUNICATE 10 CONSISTENT AND CONSECUTIVE 10 SECOND PELVIC FLOOR MUSCLE CONTRACTIONS TO DEMONSTRATE IMPROVED PELVIC FLOOR ENDURANCE. Goal Time Frame: 8-12 Weeks Goal 4:: DEVELOP HEALTHY FLUID INTAKE HABITS WITH FLUID INTAKE OF ? BODY WEIGHT IN OUNCES PER DAY AND 2/3 BEING WATER. Goal Time Frame: 2-4 Weeks Goal 5:: NORMALIZE VOIDING FREQUENCEY TO EVERY 3-4 HOURS. Goal Time Frame: 2-4 Weeks Goal 6:: PATIENT WILL BE INDEP WITH A HEP/HOME INSTRUCTIONS FOR CONTINUED IMPROVEMENT ONCE FORMAL PHYSICAL THERAPY CONCLUDES. Goal Time Frame: 8-12 Weeks Rehabilitation Potential Physical Therapy Diagnosis: STRESS INCONTINENCE WITH CORE WEAKNESS AND HIP TIGHTNESS. Rehabilitation Potential: Good Anticipated Interventions Patient/Client Instruction: Educate patient on: Condition, Plan of Care and Risk Factors For the Purpose of:: To improve self management Therapeutic Exercise to Include: Strength training, Endurance training, Postural training, Flexibilty training, Neuromotor development and Relaxation training For the Purpose of:: To improve muscle performance and motor function, To increase tolerance to activity/condition/position, To improve ability of physical actions for home/community/work/leisure and To increase flexibility/ROM Manual Therapy Techniques to Include: Other Comment: FOR BIOFEEDBACK NEEDED For the Purpose of:: To improve muscle performance and motor function Text: Thank you for the opportunity to evaluate your patient. For Medicare and Medicare HMO plans, please review the plan of care and approve it. It will need to be FAXED BACK to us at [phone] for Medicare purposes. For Medicare only, by signing this I certify the plan of care. Please let me know if there are questions or concerns regarding this plan of care. Physician Signature: Date:
--- NOTE | 2023-09-02 08:49 | HP.PTDCSUM ---
Discharge Summary D/C summary: It has been my pleasure to treat KARINA JADE referred by Dr. Estefania Phan MD, with the diagnosis of BLADDER PAIN for a total of 8 visit(s). Discharge Date: Please see the following information for a summary of their discharge status. Subjective Subjective: PATIENT REPORTS SHE IS JUST GOT BACK FROM [place]. HASN'T BEEN CONSISTENT WITH HER HEP AND CAN TELL BECAUSE HAS HAD MORE SX'S. WOULD LIKE TO KNOW WHAT SHE NEEDS TO DO MOVING FORWARD. HAS AN SORAYA'T WITH ORTHO FOR HER R SHLD AFTER PT TODAY - NOT DOING UE GYM PROGRAM YET. Overall Improvement % Improvement: 95 Objective Objective/Function: THIS PATIENT HAS MADE GREAT PROGRESS WITH PT AND ALL GOALS HAVE BEEN MET. SHE IS INDEP WITH A HEP (WRITTEN HEP PROVIDED) AND IS APPROPRIATE FOR AND AGREEABLE TO DISCHARGE. Goals Goal 1:: DECREASE URINARY LEAKAGE EPISODES TO ONE OR LESS PER DAY Goal Progress: Goal Met Goal 2:: PATIENT WILL SUCCESSFULLY DELAY VOIDING LONG NEEDED WHEN URGENCY OCCURS TO SUCCESSFULLY MAKE IT TO THE BATHROOM. Goal Progress: Goal Met Goal 3:: PATIENT WILL DEMONSTRATE/COMMUNICATE 10 CONSISTENT AND CONSECUTIVE 10 SECOND PELVIC FLOOR MUSCLE CONTRACTIONS TO DEMONSTRATE IMPROVED PELVIC FLOOR ENDURANCE. Goal Progress: Goal Met Goal 4:: DEVELOP HEALTHY FLUID INTAKE HABITS WITH FLUID INTAKE OF ? BODY WEIGHT IN OUNCES PER DAY AND 2/3 BEING WATER. Goal Progress: Goal Met Goal 5:: NORMALIZE VOIDING FREQUENCEY TO EVERY 3-4 HOURS. Goal Progress: Goal Met Goal 6:: PATIENT WILL BE INDEP WITH A HEP/HOME INSTRUCTIONS FOR CONTINUED IMPROVEMENT ONCE FORMAL PHYSICAL THERAPY CONCLUDES. Goal Progress: Goal Met Plan Plan: D/C D/C Information d/c sentence: If there are questions or concerns regarding this patient's physical therapy, please feel free to call me at [phone]. Thank you for the referral of this patient. Sincerely, Jeanne Hernandez, PT, Cert MDT Balance/Gait/Functional tests Improvement % Improvement: 95
== END 2023-09-02 19:00 | disposition home or self-care (01) ==
LOC: PT 08:00
PROVIDERS: PCP Family Medicine; Referring Provider Obstetrics & Gynecology; Visit Provider Obstetrics & Gynecology
DX: N39.46 Mixed incontinence (principal)
CPT/HCPCS: 97162; 97530

== ENCOUNTER 2023-10-06 07:30 | Outpatient (RCR) | payer MEDICARE, OTHER, SELFPAY ==
--- NOTE | 2023-09-09 10:33 | HP.PTEVAL_ITS ---
Patient's Visit Information Visit Information Visit Information: KARINA JADE is a 67 year old F referred to Physical Therapy by Dr. Devante Lazo, DO with a diagnosis of IMPINGEMENT SYDROME OF RIGHT SHOULDER ,PRIMARY OSTEOARTHRITIS RIGHT SHLDER. Date of Evaluation: 09/09/23 Physical Therapist: Nikhil Dahl, PT, Cert MDT, OCS Visit Plan Frequency: 2x /Week Duration: 4 Weeks Plan: *PATIENT TORE LONG HEAD BICEP* PT INTERVENTIONS RTC/SCAPULAR STRENGTHENING ,POSTURAL EX'S ,ACTIVITY MODIFICATIONS AND MODALITIES Subjective Subjective: This 67 y/o female presents physical therapy with right shoulder pain. Patient initially shoulder pain in May 2023 ,then in July seen Dr Lazo did x-rays showed OA ,and cortisone injection. Patient then was throwing piece of wood toss felt immediate pain in proximal bicep. F/U [facility]. Thought long head bicep. Medication meloxicam. Patient describes as ache. Patient has soreness with increase activity and and lifting. Denies paresthesia/tingling.Patient has difficulty sleeping. Patient pain and condition of shoulder affects function. Patient goals to improve function ADLS and h ousework avoid surgery, SOCIAL: VOCATION:retired Pain Right Shoulder: Pain Intensity (Out of 10): 3 Pain Intensity Range: 10 Objective Objective: POSTURE: mild forward posture PALPATION: tender long head bicep NEURO: denies paresthesia/tingling ,reflexes C5-6-7 1/3 AROM: flexion shoulder flexion 150 degrees ,abduction 150 degrees ,ER 90 ,IR T10 MMT: infraspinatus 4/5 ,subscapularis 4/5 ,supraspinatus ( peak force) 13,2 ,del toid 14.1 , biceps 4/5 Special Tests R Shoulder Drop Sign - IS Test: Negative R Shoulder Empty Can - SS: Positive R Shoulder Belly Press - SupScap: Negative R Shoulder Neer - Impingement: Negative R Shoulder Carpio George - Impingement: Negative R Shoulder Speeds Test - Labrum/Biceps: Positive Balance/Special Test Scores Quick DASH Score: 35.0000 Goals Goal 1:: Patient to be I with HEP Goal Time Frame: 4-6 Weeks Goal 2:: Patient to demonstrate 60% improvement with improved function and ADLS Goal Time Frame: 4-6 Weeks Goal 3:: Patient to improve strength deltoid and RTC by 5 -10 # peak force for ADL's and housework tasks Goal Time Frame: 4-6 Weeks Goal 4:: Patient to improve quick dash by 5 points to improve QOL and function. Goal Time Frame: 4-6 Weeks Goal 5:: Patient be able to perform all ADL's and housework tasks with min limitations Goal Time Frame: 6-8 Weeks Rehabilitation Potential Physical Therapy Diagnosis: This patient subsequently tore long head bicep with weakness ,some pain with shoulder causes deficits with general ADLS and housework tasks thus benefit from skilled PT. Rehabilitation Potential: Good Anticipated Interventions Patient/Client Instruction: Educate patient on: Condition and Plan of Care For the Purpose of:: To decrease pain, To increase ROM, To improve muscle performance and motor function, To increase tolerance to act ivity/condition/position, To improve ability of physical actions for home/community/work/leisure, To improve health of tissue, To decrease soft tissue restriction, To increase flexibility/ROM, To reduce risk of recurrence and To improve tolerance to ADL's Therapeutic Exercise to Include: Strength training, Postural training, Active ROM and Scapular Strength/Stabilization Comment: RTC For the Purpose of:: To decrease pain, To increase ROM, To improve muscle performance and motor function, To improve ability to perform ADL's, To increase tolerance to activity/condition/position, To improve ability of physical actions for home/community/work/leisure, To improve health of tissue, To decrease soft tissue restriction, To improve endurance, To assume or resume ADL's, To reduce risk of recurrence, To improve health and function and To improve tolerance to ADL's TENS: Yes IF ES: Yes Thermo therapy (hot pack): Yes Ultrasound (thermal/non thermal): Yes For the Purpose of:: To decrease pain, To increase ROM, To improve nutrient delivery to tissue, To increase oxygenation perfusion, To improve health of tissue, To decrease soft tissue restriction and To increase flexibility/ROM Text: Thank you for the opportunity to evaluate your patient. For Medicare and Medicare HMO plans, please review the plan of care and approve it. It will need to be FAXED BACK to us at [phone] for Medicare purposes. For Medicare only, by signing this I certify the plan of care. Please let me know if there are questions or concerns regarding this plan of care. Physician Signature: Date:
--- NOTE | 2023-10-06 08:14 | HP.PTDCSUM ---
Discharge Summary D/C summary: It has been my pleasure to treat KARINA JADE referred by Dr. Devante Lazo DO, with the diagnosis of IMPINGEMENT SYDROME OF RIGHT SHOULDER ,PRIMARY OSTEOARTHRITIS RIGHT SHLDER for a total of 8 visit(s). Discharge Date: Please see the following information for a summary of their discharge status. Subjective Subjective: Doing better overall Pain Right Shoulder: Pain Intensity (Out of 10): 0 Overall Improvement % Improvement: 50 Objective Objective/Function: POSTURE: mild forward posture PALPATION: tender long head bicep NEURO: denies paresthesia/tingling ,reflexes C5-6-7 05/13 AROM: flexion shoulder flexion 165 degrees ,abduction 160 degrees ,ER 90 ,IR T10 MMT: infraspinatus 4/5 ,subscapularis 4/5 ,supraspinatus ( peak force) 18.2 ,deltoid 15.1 , biceps 34.6 Goals Goal 1:: Patient to be I with HEP Goal Progress: Goal Met Goal 2:: Patient to demonstrate 60% improvement with improved function and ADLS Goal Progress: Goal Met Goal 3:: Patient to improve strength deltoid and RTC by 5 -10 # peak force for ADL's and housework tasks Goal Progress: Goal Met Goal 4:: Patient to improve quick dash by 5 points to improve QOL and function. Goal Progress: Goal Met Goal 5:: Patient be able to perform all ADL's and housework tasks with min limitations Goal Progress: Goal Met Plan Plan: D/C TP GYM AND HEP D/C Information d/c sentence: If there are questions or concerns regarding this patient's physical therapy, please feel free to call me at [phone]. Thank you for the referral of this patient. Sincerely, Nikhil Dahl, PT, Cert MDT, OCS Balance/Gait/Functional tests Balance/Special Test Scores Quick DASH Score: 6.8175 Improvement % Improvement: 50
== END 2023-10-06 19:00 | disposition home or self-care (01) ==
LOC: PT 07:30
PROVIDERS: PCP Family Medicine; Referring Provider Student in an Organized Health Care Education/Training Program; Visit Provider Student in an Organized Health Care Education/Training Program
DX: S46.211D Strain of muscle, fascia and tendon of other parts of biceps, right arm, subsequent encounter (principal)
CPT/HCPCS: 97110; 97162

== ENCOUNTER → 2024-02-03 | Outpatient (CLI) | payer MEDICARE, OTHER, SELFPAY ==
--- NOTE | 2024-02-03 17:52 | CT_ITS ---
INDICATION: THYROID CANCER EXAMINATION: CT NECK WITH CONTRAST - CT Soft Tissue Neck W/ Contrast Injection TECHNIQUE: Helically acquired images were obtained of the neck following IV contrast. The protocol utilizes one or more of the following dose reduction techniques: automated exposure control, adjustment of mA and/or kV according to patient size,and/or use of iterative reconstruction technique. IV Contrast dosage and agent: RADIATION DOSAGE (If Supplied By Facility): CTDIvol = ( 12.98 ) mGy, DLP = ( 718.98 ) mGycm COMPARISON: FINDINGS: NASOPHARYNX: Unremarkable. SUPRAHYOID NECK: Unremarkable oropharynx, oral cavity, parapharyngeal space, and retropharyngeal space. INFRAHYOID NECK: Unremarkable larynx, hypopharynx, and supraglottis. THYROID: Status post thyroidectomy. SALIVARY GLANDS: Unremarkable. LYMPH NODES: No cervical or supraclavicular lymphadenopathy. VASCULAR STRUCTURES: Unremarkable. VISUALIZED PORTIONS OF THE ORBITS, PARANASAL SINUSES, MASTOID AIR CELLS AND SKULL BASE: Unremarkable. BONES: Degenerative cervical changes. THORACIC INLET: Clear lung apices. CT/Soft Tissue Neck WITH Contrast IMPRESSION: Status post thyroidectomy. Electronically Signed: Brian Cruz DO at 18:26 EDT Reading Location ID and State: [facility] / [place] Tel [phone], Service support ,
--- NOTE | 2024-02-03 17:52 | CT_ITS ---
INDICATION: THYROID CANCER EXAMINATION: CT CHEST WITH CONTRAST - CT Chest W/ Contrast Injection TECHNIQUE: Helically acquired images were obtained of the chest following IV contrast. A radiation dose optimization technique was used for this scan. IV Contrast dosage and agent: COMPARISON: July 07, 2023 FINDINGS: LUNGS, PLEURA AND LARGE AIRWAYS: There are multiple approximately 8 small pulmonary nodules in the right upper and lower lobes the largest of which measures approximately 1.36 cm in the right lower lobe.. No pleural effusion or thickening. No pneumothorax. THYROID: Postsurgical changes status post right thyroidectomy HEART AND PERICARDIUM: Heart size is normal. No pericardial effusion. VESSELS: Thoracic aorta is not dilated. No aortic dissection. No obvious central pulmonary embolism although this study was not performed with the pulmonary embolism protocol. MEDIASTINUM AND RAYMON: No mediastinal or hilar adenopathy. Esophagus is unremarkable. No hiatal hernia. UPPER ABDOMEN: No acute pathology. BONES: Dorsal spine demonstrates mild degenerative change No suspicious lytic or blastic abnormality. The number and size of the pulmonary nodules is relatively stable since prior exam. CT/Chest WITH Contrast IMPRESSION: Persistent multiple nodules within the right upper and lower lobes consistent with metastasis from known thyroid cancer relatively unchanged since previous exam. Electronically Signed: Markell Motta MD at 17:54 EDT ,
[2024-02-03 18:15] LABS: CREATININE FINGERSTICK < 1.0 mg/dL (0.55-1.02); EGFR FINGERSTICK > 60.0000 mL/min (>60)
== END | disposition home or self-care (01) ==
LOC: CT 17:50
PROVIDERS: PCP Family Medicine; Referring Provider Internal Medicine Endocrinology, Diabetes & Metabolism; Visit Provider Internal Medicine Endocrinology, Diabetes & Metabolism
DX: C73 Malignant neoplasm of thyroid gland (principal)
CPT/HCPCS: 70491; 71260; Q9967

== ENCOUNTER 2024-02-09 05:30 | Day surgery (SDC) | payer MEDICARE, OTHER, SELFPAY ==
[2024-02-09] VITALS (7 sets, daily range): BP systolic 94–124; BP diastolic 54–87; PULSE 16–75; RESP 16–18; TEMP 13.8–36.4; O2SAT 94–98; BMI 26.8
[2024-02-09] MEDS: Lactated Ringers 1,000 ML 15 ML IV (06:00)
--- NOTE | 2024-02-09 06:30 | EGD_PTH ---
PATIENT: KARINA JADE LOC: EN U#:[id number] AGE/SX: 68/F ROOM: RE02/09/[address]: Dr. Pierce Watts DO : 1955 BED: DIS: 02/09/2024 SPEC #: [id number] RECD: 02/09/24 08:46 STATUS: JODI DRAKE #: [id number] CHANDNI: 02/09/24 06:[address]: Pierce Watts DEPT: SURGICAL PATHOLOGY RECD BY: Jane Nunez ENTERED: 02/09/24 10:15 SP TYPE: EGD BIOPSY JEROD DR: Dr. Nicholas Irvin MD Tissues: Esophagus, NOS Procedures: Special Stain Group I Surgery Specimen Level IV Alcian Blue/PAS (control) HEADER OPERATION: EGD with biopsies PRE-OP DIAGNOSIS: Chronic throat clearing, gastroesophageal reflux disease TISSUE SUBMITTED: Distal esophagus biopsy MICROSCOPIC DIAGNOSIS Distal esophagus, biopsy: Fragments of gastroesophageal mucosa with chronic inflammation. Intestinal metaplasia (goblet cell metaplasia) is not identified. See comment. 02/10/2024 COMMENT Alcian blue/PAS stain with matched control is used in the evaluation of the specimen. MICROSCOPIC DESCRIPTION Slides are reviewed. GROSS DESCRIPTION Received in fixative is one container labeled with the patient's name and designated Distal esophagus biopsy. The specimen consists of multiple irregular fragments of light miramontes soft tissue that in aggregate measure 1.8 x 0.3 x 0.1 cm. The specimen is totally submitted in one cassette. 02/09/2024 TC:3 CPT:01949,85059
--- NOTE | 2024-02-09 06:32 | HP.PCM_ITS ---
History and Physical Date of Admission: 02/09/24 Chief Complaint: Hx of Barrets Details: KARINA JADE, is a 68 F who presents to the office today for for f/u. PMH thyroid cancer with mets into her neck s/p radioactive iodine treatment 2010, continues with monitoring via bloodwork and imaging and continues to be clear. Colonoscopy 02.28.[address] Molina Gusman for screening purposes finding internal and external hemorrhoids; sigmoid diverticulosis; tortuous colon. *BGI established 7.14.22. Intermittent severe bloating causing abdominal pain and nausea without emesis occurring 2-3 times in six months without identifiable trigger. Bowels move well and without difficulty. Dysphagia of dry foods without need for emergent intervention. Hepatitis B infection 1982 following needle stick causing jaundice and hepatitis; no treatment at that time. She has bloodwork on a regular basis to monitor through her PCP. Last bloodwork summer 2020. ? Biochemical workup hepatitis, gastrin, ferritin, LDH, ESR, ANCA, celiac, GAME, Hep B surface Ag, Hp B core IgM without pertinent abnormality. CRP H4.90 Stool testing calprotectin, lactoferrin, elastase WNL. ? EGD 01.09.22 irregular Zline 37cm; Barretts esophagus Ki-67+ with chronic inflammation, negative for dysplasia; small hiatal hernia. OV 01.31.22 with improvement of previously noted symptoms. Start omeprazole. OV 08.05.22 continues with Omeprazole which she continues to find helpful with the throat clearing which has significantly improved. OV 02.03.23 continues to be clearing her throat which she finds difficult for her; omeprazole continues but does not find it helpful. ? EGD 03.03.23 irregular Zline. No visual abnormalities of esophagus, stomach or duodenum. Metaplasia neg. Contact 03.19.23 with EGD results. Currently doing well without symptoms. Would like to keep upcoming appointment as she is expecting to need radioactive iodine therapy for lung metastases which historically has caused an increase of reflux. Continues PPI BID. OV 01.19.24 Patient is here today to be scheduled for an EGD. She has a hx of Barretts esophageus with last EGD negative for metaplasia. She has been doing well from a GI stand point. She denies abdominal pain, heartburn, constipation or diarrhea. She just returned form a trip to [place] and got COVID while there so has been recovering from that. She is also having trouble with sciatica and is unable to walk due to pain. She is seeing per PCP for this later today. ROS Const Constitutional: No fatigue, fever(s) or weight change ENT ENT: No difficulty swallowing Gastro GI: No abdominal pain, belching, bloating, change in bowel habits, change in stool character, coffee ground emesis, constipation, cramping, diarrhea, heartburn, difficulty swallowing, feeling full early, excessive flatus, incontinent of stools, Vomiting blood/hematemesis, Blood in stool, loose stools, Black,tarry stools, nausea/dyspepsia, pain with swallowing, vomiting or other Musc Musculoskeletal: Positive for back pain; No joint pain Skin Skin: No yellowing of the eye or itchy eyes Psych Psychiatric: No anxiety and No depression Endo Endocrine: No fatigue or weight change Aller/Imm Allergy/Immunologic: No itchy eyes Srikanth/Lymp Hematologic/Lymphatic: No easy bleeding or easy bruising Exam Const General: cooperative and comfortable Nutritional Appearance: average body habitus and well nourished [facility] Head: normal to inspection Ears: hearing grossly normal bilaterally Nose: external nose normal Face and sinus: normal facial exam Eyes General: appearance normal, both eyes and all related structures Neck Neck: normal visual inspection Chest Chest palpation & inspection: normal inspection of the chest Resp Effort & Inspection: normal respiratory effort and able to speak in complete sentences Cardio Palpation: normal PMI GI Inspection: normal to inspection Palpation: no hepatosplenomegaly Skin General: no rashes or lesions noted Neuro General: patient alert Extrem General: normal to inspection Psych Affect: normal affect Assessment and Plan Assessment and Plan (1) Chronic throat clearing: Status: Chronic Plan: Patient is here today for f/u and to get scheduled for EGD. She has hx of Barretts esophagus with last biopsy negative for dysplasia. She has been doing well and continues pantoprazole 40 mg daily. -She will be scheduled for an EGD -She will continue taking pantoprazole 40 mg daily. She does notice a an increase in her symptoms if she misses a dose. -She has no complaints or concerns today and will f/u in one year (2) Gastroesophageal reflux disease: Status: Acute Qualifiers: Esophagitis presence: with esophagitis Qualified Code(s): K21.0 - Gastro-esophageal reflux disease with esophagitis I have examined the patient and the H&P has been reviewed. There are no clinical changes since date of exam.
--- NOTE | 2024-02-09 06:32 | PCM.PRE.AN2 ---
ASA Classification* ASA Classification ASA Classification: 2 Assessment & Plan Anesthesia* Anesthesia Assessment Anesthesia Assessment: Discussed sedation and/or anesthesia options, risks, benefits, and alternatives with patient/parents/legal guardian/POA. Questions invited. The patient/parents/legal guardian/POA seems to understand and agrees to proceed with anesthesia plan. Reviewed the physical assessment, medical history, allergy history and patient home medications list prior to surgery/procedure/anesthetic and documented any changes. Performed airway and anesthesia risk assessments. Anesthesia Type Anesthesia Type: MAC History Source History Obtained from:: Patient and Chart Anesthesia Focused Assessment* Temperature: 97.6 F Pulse Rate: 60 Blood Pressure: 124/87 Respiratory Rate: 18 Pulse Ox: 98 Airway Assessment Mouth opens: >3 cm Mallampati Score: II Teeth Condition: Intact Neck Range of motion (ROM): Full ROM Focused Labs Anesthesia Preop lab: CBC WBC 5.0 K/mm3 (4.4-11.0) 01/01/23 08:28 RBC 4.72 M/mm3 (4.2-5.4) 01/01/23 08:28 Hgb 14.3 g/dL (12.0-15.0) 01/01/23 08:28 Hct 42.3 % (37-47) 01/01/23 08:28 Plt Count 208 K/mm3 (150-450) 01/01/23 08:28 CHEMISTRY Potassium 4.0 mmol/L (3.5-5.1) 01/01/23 08:28 Sodium 139 mmol/L (136-145) 01/01/23 08:28 Phosphorus 4.1 mg/dL (2.5-4.9) 11/29/20 08:42 BUN 16 mg/dL (7-18) 01/01/23 08:28 Creatinine 0.85 mg/dL (0.55-1.02) 01/01/23 08:28 Glucose 95 mg/dL (74-106) 01/01/23 08:28 TSH 31.90 uIU/mL (0.358-3.74) H 09/01/22 07:39 COAG Pre-Assessment Diagnosis/Proposed Procedure Planned Operative Procedure(s): EGD Anesthesia History 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 When Was Last Pacemaker Check QUESTION #4 FULL TEXT: You/Your Family Experience fever (hyperthermia) with Anesthesia Last Oral Intake Last Oral intake: Last Oral Intake NPO since 03:00 02/09/24 06:01 Meds taken in AM with sips of Yes 02/09/24 06:01 water? Meds patient instructed to levothyroxine 02/09/24 06:01 take am of surgery PONV PONV - radio board operator announcer: PONV - radio board operator announcer Female Yes 02/05/24 10:19 HX of Motion Sickness Yes 02/05/24 10:19 HX of N/V After Surgery No 02/05/24 10:19 Non-Smoker Yes 02/05/24 10:19 Duration of Surgery greater No 02/05/24 10:19 than 60 minutes Number of Risk Factors 3 02/05/24 10:19 PONV Score Moderate Risk 02/05/24 10:19 Height & Weight Height & Weight: Anesthesia: Height & Weight Height 5 ft 4 in 02/09/24 06:01 Weight: 70.8 kg 02/09/24 06:01 Body Mass Index (BMI) 26.8 02/09/24 06:01 Respiratory Assessment Respiratory Assessment - radio board operator announcer: Respiratory Tract Infection Hx - radio board operator announcer Hx Respiratory Tract Infection No 02/05/24 10:19 STOP Sleep Apnea STOP Sleep Apnea - radio board operator announcer: STOP Sleep Apnea - radio board operator announcer Hx Hypertension No 02/05/24 10:19 Hx Sleep Apnea No 02/05/24 10:19 CPAP BIPAP Do you snore loudly (louder No 02/05/24 10:19 than talking or can be heard Do you often feel tired/ No 02/05/24 10:19 fatigued/ sleepy during daytime? Has anyone observed you stop No 02/05/24 10:19 breathing during sleep? STOP Results Negative 02/05/24 10:19 QUESTION #5 FULL TEXT : Do you snore loudly (louder than talking or can be heard through closed doors)? 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 Specify any problems Hx of Preganancy in last 3 N/A 02/05/24 10:19 Months Nurse Filling Out Transfusion NBUCHER 02/05/24 10:19 & Questions: Date: 02/05/24 02/05/24 10:19 Time: 10:19 02/05/24 10:19 Patient unable to answer at this time (ie. confused, unrespo /Reproduction History /Reproductive History - radio board operator announcer: /Reproductive Hx- radio board operator announcer Hx Now Gestational Age (in weeks): EDC: Hx Hx Para Hx Section SAB No 02/05/24 10:19 Active Medications Active Medications: Current Medications Generic Name Dose Route Start Last Admin Trade Name Freq PRN Reason Stop Dose Admin Lactated Ringer's 1,000 mls @ 15 mls/hr 02/09/24 05:45 02/09/24 06:00 IV 15 mls/hr .Q48H PRABHU Administration PFSH Medical History Browne esophagus Acute pharyngitis, unspecified Acute bronchitis, unspecified Cough Cancer Alcohol use Thyroid disease Arthritis Hepatitis Back pain Difficulty swallowing History of hiatal hernia Non-smoker History of stress test URI (upper respiratory infection) Acute sinusitis Encounter for screening for COVID-19 Contact with or suspected exposure to other viral communicable disease Screening for intestinal cancer Impacted cerumen, bilateral Swallowing problem Allergic reaction History of thyroid cancer Chronic knee pain Allergic dermatitis Segmental and somatic dysfunction of cervical region Segmental and somatic dysfunction of thoracic region Segmental and somatic dysfunction of lumbar region Segmental and somatic dysfunction of pelvic region Home Medications ?Medication ?Instructions ?Recorded ?Last Taken ?Type levothyroxine 112 mcg tablet 137 mcg PO QHS 05/19/16 02/09/24 03:00 History calcium 600 mg (as 3 cap PO DAILY 04/20/18 02/17/19 History carbonate)-vitamin D3 10 mcg (400 unit) capsule (Calcium with Vitamin D3) elderberry fruit 460 mg-elderberry 1 ea PO DAILY 02/23/20 Unknown History flower 115 mg capsule ascorbate calcium (vitamin C) 500 1,000 mg PO DAILY 06/19/20 Unknown History mg tablet cholecalciferol (vitamin D3) 125 125 mcg PO DAILY 06/19/20 Unknown History mcg (5,000 unit) capsule Lactobacillus acidophilus 1,000 mmu cells PO DAILY 01/06/22 Unknown History (Acidophilus capsule) ginkgo biloba 60 mg tablet 120 mg PO DAILY 01/06/22 Unknown History omega-3 fatty acids-vitamin E 2 cap PO DAILY 01/06/22 Unknown History 1,000 mg capsule pantoprazole 40 mg tablet,delayed 40 mg PO Q12H 3 months #180 tabs 08/18/23 Unknown Rx release Allergy/AdvReac Type Severity Reaction Status Date / Time morphine (From Duramorph AdvReac Itching Verified 02/09/24 06:00 (PF)) Family History Other Diabetes Heart disease Hypertension Surgical History History of esophagogastroduodenoscopy (EGD) History of artificial eye lens Hx of colonoscopy S/P D&C (status post dilation and curettage) H/O tubal ligation RTK 2015 history of modified rad neck 2010 History of D&C History of carpal tunnel surgery Social History Smoking Status: Never smoker alcohol intake: current alcohol intake frequency: a few times a month Review of Systems (Anesthesia) ROS Narrative System reviewed and no additional complaints, except as documented.
--- NOTE | 2024-02-09 06:59 | OP.EGD_ITS ---
Patient Name: Nia Nayak Procedure Date: 02/09/2024 6:14 AM Date of : 1955 Age: 68 Procedure: Upper GI endoscopy Indications: Heartburn, Follow-up of Browne's esophagus Providers: Pierce Watts DO Referring MD: Nicholas Irvin Medicines: Monitored Anesthesia Care Patient Profile: This is a 68 year old female. Refer to note in patient chart for documentation of history and physical. Patient has symptoms of chronic heartburn. Complications: No immediate complications. Procedure: Pre-Anesthesia Assessment: - Prior to the procedure, a History and Physical was performed, and patient medications and allergies were reviewed. The patient is competent. The risks and benefits of the procedure and the sedation options and risks were discussed with the patient. All questions were answered and informed consent was obtained. Patient identification and proposed procedure were verified by the physician in the pre-procedure area. Mental Status Examination: alert and oriented. Airway Examination: normal oropharyngeal airway and neck mobility. Respiratory Examination: clear to auscultation. CV Examination: normal. Prophylactic Antibiotics: The patient does not require prophylactic antibiotics. Prior Anticoagulants: The patient has taken no anticoagulant or antiplatelet agents except for NSAID medication. ASA Grade Assessment: II - A patient with mild systemic disease. After reviewing the risks and benefits, the patient was deemed in satisfactory condition to undergo the procedure. The anesthesia plan was to use monitored anesthesia care (MAC). Immediately prior to administration of medications, the patient was re-assessed for adequacy to receive sedatives. The heart rate, respiratory rate, oxygen saturations, blood pressure, adequacy of pulmonary ventilation, and response to care were monitored throughout the procedure. The physical status of the patient was re-assessed after the procedure. After obtaining informed consent, the endoscope was passed under direct vision. Throughout the procedure, the patient's blood pressure, pulse, and oxygen saturations were monitored continuously. The gastroscope was introduced through the mouth, and advanced to the second part of duodenum. The upper GI endoscopy was accomplished without difficulty. The patient tolerated the procedure well. Scope In: 6:47:33 AM Scope Out: 6:52:07 AM Total Procedure Duration Time 0 hours 4 minutes 34 seconds Findings: There were esophageal mucosal changes secondary to established short-segment Browne's disease present in the lower third of the esophagus. The maximum longitudinal extent of these mucosal changes was 2 cm in length. Mucosa was biopsied with a cold forceps for histology in 4 quadrants at intervals of 1 cm in the lower third of the esophagus. One specimen bottle was sent to pathology. Verification of patient identification for the specimen was done. Estimated blood loss was minimal. Clear fluid was found in the stomach. No other significant abnormalities were identified in a careful examination of the stomach. A small hiatal hernia was present. The first portion of the duodenum was normal. Impression: - Esophageal mucosal changes secondary to established short-segment Browne's disease. Biopsied. - Clear gastric fluid. - Small hiatal hernia. - Normal first portion of the duodenum. Recommendation: - Discharge patient to home. - Resume previous diet. - Continue present medications. - Await pathology results. - Repeat upper endoscopy. Procedure Code(s): --- Professional --- 43322, Esophagogastroduodenoscopy, flexible, transoral; with biopsy, single or multiple CPT copyright 2021 [employer]. All rights reserved. The codes documented in this report are preliminary and upon organ pipe finisher review may be revised to meet current compliance requirements. Pierce Watts DO 02/09/2024 6:58:12 AM This report has been signed electronically. Number of Addenda: 0 Note Initiated On: 02/09/2024 6:14 AM
--- NOTE | 2024-02-09 06:59 | OP.CCLET_ITS ---
02/09/2024 Nicholas Irvin Re : Upper GI endoscopy procedure for Nia Nayak Deaanjali Irvin This procedure was performed on Friday, February 09, 2024. My impressions and recommendations are as follows: Impressions : - Esophageal mucosal changes secondary to established short-segment Browne's disease. Biopsied. - Clear gastric fluid. - Small hiatal hernia. - Normal first portion of the duodenum. Recommendations : - Discharge patient to home. - Resume previous diet. - Continue present medications. - Await pathology results. - Repeat upper endoscopy. My findings are described in the full procedure note, which is enclosed. If I can be of further assistance, please feel free to contact me at . Sincerely, Pierce Watts, 02/09/2024 6:58:12 AM This report has been signed electronically.
--- NOTE | 2024-02-09 06:59 | PCM.POST.ANE ---
Anesthesia: Postop Eval I Current Vital Signs Temperature: 97.5 F Pulse Rate: 62 Blood Pressure: 106/54 Respiratory Rate: 16 Pulse Ox: 97 Oxygen Delivery Method: Room Air Assessment Airway patent: Yes Spontaneous unlabored respirations: Yes Mental status: Asleep nausea: No Vomiting: No Anesthesia Complication: No Fluid Hydration Crystalloid volume administer (ml): 400 Total IV fluid infused: 400 Progress Note Anesthesia document: Postop Eval 1 completed: Yes
--- NOTE | 2024-02-09 07:10 | PCM.POSTANE2 ---
Anesthesia Postop Eval I Sum Postop Eval Completion status Anesthesia document: Postop Eval 1 completed: Yes Anesthesia Postop Eval I Summary Anesthesia Postop Eval I Summary: Anesthesia Postop Eval I: Assessment Summary Airway patent Yes 02/09/24 07:00 [email or web address] Spontaneous unlabored Yes 02/09/24 07:00 [email or web address] respirations Mental status Asleep 02/09/24 07:00 [email or web address] nausea No 02/09/24 07:00 [email or web address] Vomiting No 02/09/24 07:00 [email or web address] Anesthesia Postop Eval I: Fluid Summary Crystalloid volume administer 400 02/09/24 07:00 [email or web address] (ml) Colloids volume administered ( ml) Blood Product volume administered (ml) Total IV fluid infused 400 02/09/24 07:00 [email or web address] Anesthesia Postop Eval I: Summary Notes Anesthesia Complication No 02/09/24 07:00 [email or web address] Anesthesia Complication Comment: Post-operative progress note Anesthesia: Postop Eval II Evaluation Mental status: Awake Pain Level: 0 nausea: No Vomiting: No
== END 2024-02-09 07:55 | disposition home or self-care (01) ==
LOC: EN 05:30 → AC 05:32
PROVIDERS: PCP Family Medicine; Referring Provider Family Medicine; Visit Provider Internal Medicine Gastroenterology
PROC: 0DJ08ZZ Inspection of Upper Intestinal Tract, Via Natural or Artificial Opening Endoscopic (ICD-10-PCS; CPT 43235; principal; 2024-02-09 06:25)
DX: K22.70 Barrett's esophagus without dysplasia (principal); K44.9 Diaphragmatic hernia without obstruction or gangrene; Z79.899 Other long term (current) drug therapy; Z86.16 Personal history of COVID-19
CPT/HCPCS: 43239; 88305; 88312; J7120; J2405

== ENCOUNTER → 2024-07-19 | Outpatient (CLI) | payer MEDICARE, OTHER, SELFPAY ==
--- NOTE | 2024-07-19 07:19 | BI_ITS ---
PROCEDURE: SCRN MAMM (CAD)W/WILMA BILAT REASON FOR EXAM: F, Age 68 y/o , SCREENING. No family history of breast cancer. TECHNIQUE: Bilateral screening digital breast tomosynthesis with 2D and 3D images. Computer aided detection. COMPARISON: 07/15/2023, 07/02/2022 FINDINGS: There are scattered areas of fibroglandular density. No suspicious masses, areas of developing architectural distortion, or suspicious calcifications. BI/SCRN MAMM (CAD)W/WILMA BILAT IMPRESSION: There is no mammographic evidence of malignancy. BI-RADS 1: NEGATIVE. RECOMMEND ANNUAL MAMMOGRAPHIC SCREENING. Follow-up code: Routine Follow-up The patient will be notified of the results by letter. Reading Location: [id number]
== END | disposition home or self-care (01) ==
LOC: OPBI 07:17
PROVIDERS: PCP Family Medicine; Referring Provider Obstetrics & Gynecology; Visit Provider Obstetrics & Gynecology
DX: Z12.31 Encounter for screening mammogram for malignant neoplasm of breast (principal)
CPT/HCPCS: 77063; 77067

== ENCOUNTER → 2024-09-20 | Outpatient (CLI) | payer MEDICARE, OTHER, SELFPAY ==
--- NOTE | 2024-09-20 09:30 | PET_ITS ---
PROCEDURE: PET/CT TUMOR BASE -THIGH INIT 09/20/2024 REASON FOR EXAM: 68 y/o F with THYROID CANCER. TECHNIQUE: Following the intravenous administration of radionucleotide, image acquisition on a dedicated PET/CT unit was performed at one hour post injection. A preliminary CT study encompassing the Skull base, neck, chest, abdomen, pelvis, and proximal thighs was performed for purposes of attenuation correction and anatomic localization. The proximal thighs were also included. The patient's blood glucose level was 85 mg/dL (allowable range: 50-180 mg/dL). RADIOPHARMACEUTICAL: 14.17 mCi 18F-FDG (Fluorodeoxyglucose F18) IV was injected into he patient. RADIATION DOSE SUMMARY: Effective Dose: Approximately 7 mSv for a standard whole-body PET scan Organ Doses: Varies by organ, with higher doses typically to the bladder, liver, and brain COMPARISON: COMPARISON FROM CT, PET OR OTHER PERTINENT EXAMS: No priors available. FINDINGS: Physiologic uptake: There may be expected metabolic uptake within the brain, tongue and floor of the mouth and larynx/vocal cords, heart, kandy (many normal individuals have hilar uptake in less than 3 nodes with mildly avid hilar nodes less than 2.7 SUV), liver and spleen, system, and GI tract and symmetric muscle uptake. FDG AVID AND NON-AVID LESIONS. Reported avid SUV values (g/mL*) are maximum SUV. NECK: There are no significant neck abnormalities. The thyroid bed shows no hypermetabolic activity. CHEST: Chest wall- There are no significant chest wall abnormalities. Axilla- There are no significant axillary abnormalities. Lung parenchyma- Numerous bilateral lung nodules are seen, right much greater than left. Of these, several on right clearly show hypermetabolic activity. SUV max of a nodule of the right middle lobe is 2.0; SUV max of an inferior posterior right lower lobe nodule is 2.1; save report SUV max of a posterior right lower lobe nodule is 4.1. The latter site would be amenable to CT-guided core biopsy, but perhaps even better may be bronchoscopic biopsy of the right hilar mass. Mediastinum- Hypermetabolic right hilar adenopathy is seen, with SUV max of 4.1. Pleura- There are no significant pleural abnormalities. ABDOMEN: Stomach- No significant abnormalities. Liver- No significant abnormalities. Spleen- No significant abnormalities. Pancrease- No significant abnormalities. Kidneys- No significant abnormalities. Bowel- Normal bowel activity. Spine- No significant abnormalities. PELVIS: Bowel- Normal physiologic bowel activity is identified. Masses- There are no pelvic masses. LOWER EXTREMITIES: Bones- With the use of bone window settings, there are no osteolytic or osteoblastic lesions. There are no FDG avid lesions within the visualized portion of the axial skeleton. PET/PET/CT Tumor Base -Thigh Init IMPRESSION: FDG avid- Predominantly right lung parenchymal and right hilar hypermetabolic areas, conc erning for the presence of malignancy. Differential diagnosis includes lung primary with metastases and other metastas es. Other: No additional comments. Please note the low-dose CT scan was performed to facilitate PET image reconstr uction and anatomic localization and does not replace a diagnostic CT. Any diagnostic CT requested and performed at the time of the PET will be reported separately. Reading Location: [place] [id number]
== END | disposition home or self-care (01) ==
LOC: ONC 09:10
PROVIDERS: PCP Family Medicine; Referring Provider Internal Medicine Endocrinology, Diabetes & Metabolism; Visit Provider Internal Medicine Endocrinology, Diabetes & Metabolism
DX: C73 Malignant neoplasm of thyroid gland (principal)
CPT/HCPCS: 78815; A9552

== ENCOUNTER → 2024-11-03 | Outpatient (CLI) | payer MEDICARE, OTHER, SELFPAY ==
--- NOTE | 2024-11-03 07:56 | CT_ITS ---
PROCEDURE: CHEST WITHOUT CONTRAST 11/03/2024 REASON FOR EXAM: THYROID CA/METS TO LUNGS TECHNIQUE: Chest CT without contrast. Coronal and Sagittal reconstruction series were provided. One or more dose reduction techniques were used (e.g., Automated exposure control, adjustment of the mA and/or kV according to patient size, use of iterative reconstruction technique RADIATION DOSE SUMMARY: CTDlvol: 8.05 mGy DLP: 289 mGycm COMPARISON: PET-CT on 09/20/2024. CT scan of the chest on 02/03/2024. FINDINGS: Prior thyroidectomy. Unchanged bilateral metastatic pulmonary nodules, more prominent on the right side. The largest nodule in the right lower lobe measures 1.8 cm. Unchanged right hilar lymphadenopathy measuring 2.3 cm. Unchanged mild cardiomegaly. Unchanged subsegmental atelectatic airspace disease of the lingula. Unchanged bleb in the left lower lobe measuring 0.8 cm. Mild diffuse spondylosis. No significant coronary artery calcifications. Normal unenhanced main pulmonary artery and right and left pulmonary arteries. Normal bilateral peripheral pulmonary arteries. Normal thoracic aorta and visualized great vessels. There is no demonstrated aortic aneurysm. Normal visualized trachea and bronchi. Normal pleura. Normal visualized upper abdomen. CT/Chest without Contrast IMPRESSION: Coronary artery calcification (CAC) is is absent Prior thyroidectomy. Unchanged bilateral metastatic pulmonary nodules, more prominent on the right s fabrice. The largest nodule in the right lower lobe measures 1.8 cm. Unchanged right hilar lymphadenopathy measuring 2.3 cm. Unchanged mild cardiomegaly. Unchanged subsegmental atelectatic airspace disease of the lingula. Unchanged bleb in the left lower lobe measuring 0.8 cm. Mild diffuse spondylosis. No significant coronary artery calcifications. Findings are unchanged since the prior PET-CT on 09/20/2024. Findings have progressed since the prior CT scan of the chest on 02/03/2024. Reading Location: [place] [id number]
== END | disposition home or self-care (01) ==
LOC: CT 07:55
PROVIDERS: PCP Family Medicine; Referring Provider Internal Medicine Hematology & Oncology; Visit Provider Internal Medicine Hematology & Oncology
DX: C73 Malignant neoplasm of thyroid gland (principal); C78.02 Secondary malignant neoplasm of left lung; C78.01 Secondary malignant neoplasm of right lung
CPT/HCPCS: 71250

== ENCOUNTER → 2025-01-27 | Outpatient (CLI) | payer MEDICARE, OTHER, SELFPAY ==
--- NOTE | 2025-01-27 13:57 | CT_ITS ---
PROCEDURE: CTA CHEST W/WO CONTRAST 01/27/2025 REASON FOR EXAM: POSITIVE D-DIMER, SOS, DYPSNEA, CHEST PAIN TECHNIQUE: Procedure Code: [id number] Modality: CT Procedure: CTA CHEST W/WO CONTRAST Multiplanar Sagittal and Coronal images were obtained. 3D post processing was performed CONTRAST: Isovue-300 VOLUME: 100 mL One or more dose reduction techniques were used (e.g., Automated exposure control, adjustment of the mA and/or kV according to patient size, use of iterative reconstruction technique). RADIATION DOSE SUMMARY: CTDlvol: 7.7 mGy DLP: 166.56 mGycm COMPARISON: Prior study dated November 03, 2024. FINDINGS: Hardware: None Lymph nodes: Stable mild enlargement of the right hilar lymph nodes. Heart: The heart is nonenlarged. No significant coronary artery calcification is seen. Thoracic Aorta: Unremarkable Pulmonary Vessels: The pulmonary vasculature is well opacified. No intraluminal filling defect is seen. No evidence of pulmonary embolism. Lungs and Airways: Once again, there are multiple pulmonary nodules in keeping with pulmonary metastasis. No new nodules are seen. The largest nodule in the right lower lobe has decreased in size and presently measures 12.7 mm. Pleura: No pleural effusion. Upper Abdomen: Unremarkable Bones: Degenerative changes of the thoracic spine. CT/CTA Chest W/WO Contrast IMPRESSION: No evidence of pulmonary embolism. Pulmonary nodules which have decreased in size as compared to prior study. Stable enlarged right hilar lymph nodes. Reading Location: [place] [id number]
== END | disposition home or self-care (01) ==
LOC: CT 13:55
PROVIDERS: PCP Family Medicine; Referring Provider Family Medicine; Visit Provider Family Medicine
DX: R07.9 Chest pain, unspecified (principal); R06.02 Shortness of breath; R79.89 Other specified abnormal findings of blood chemistry
CPT/HCPCS: 71275; Q9967